=== PATIENT | female | born 1945 | race Caucasian/White ===

== ENCOUNTER 2021-05-15 14:45 | Inpatient (IN) | payer MEDICARE, BC ==
[2021-05-15] MEDS ORDERED: Norflurane/HFc 245FA Medium Stream Spray 103.5 ML Can ONE (15:25)
[2021-05-15] MEDS ORDERED: Norflurane/HFc 245FA Medium Stream Spray 103.5 ML Can TOP ONE (15:25)
[2021-05-15] MEDS ORDERED: Furosemide 40 MG/4 ML VIAL IVPUSH ONE (15:27)
[2021-05-15] MEDS ORDERED: methylPREDNISolone Sod Succ 125 MG in Sodium Chloride 0.9% 100 ML IV ONE (15:41)
[2021-05-15] MEDS ORDERED: Azithromycin 500 MG in Sodium Chloride 0.9% 250 ML IV ONE (15:41)
[2021-05-15] MEDS: Sodium Chloride 0.9% 10 ML Syringe FLUSH PRN (15:43)
[2021-05-15] MEDS ORDERED: methylPREDNISolone Sodium Succinate 125 MG/2 ML SDV IVPUSH ONE (16:00)
[2021-05-15 16:05] LABS: O2 DELIVERY DEVICE NASAL CANNULA
[2021-05-15 16:07] LABS: PCO2 ARTERIAL 86 mmHG (35-45)
[2021-05-15 16:08] LABS: BASE EXCESS ARTERIAL 16 mmol/L (-2-3); O2 SATURATION ARTERIAL 14 % (95-98); PO2 ARTERIAL 15 mmHG (80-105)
--- NOTE | 2021-05-15 16:41 | EDM.PDOC ---
ED HPI GENERAL MEDICAL PROBLEM - General Chief Complaint: Cardiovascular Problem Stated Complaint: Increased SOB, lab changes Time Seen by Provider: 05/15/21 15:15 Source of Information: Reports: Patient, Family, Old Records History Limitations: Reports: No Limitations - History of Present Illness INITIAL COMMENTS - FREE TEXT/NARRATIVE: Patient is sent to the ED for concerning lab values. She is accompanied by her twin sister and two nieces. Patient is new to [facility], moved here from [place] after some medical complications to have family help take care of her. She Has COPD on oxygen, hypertension, anemia, CHF and atrial fibrillation. She was at the clinic on 05/12/2021 for sore throat and establishment of a new patient. They were told to watch the throat and return as needed. Over the weekend she continues to complain of sore throat to the point that she was not eating or drinking well. Feels chilled, no other pain. She is chronically on 2 lpm of oxygen. She frequently sleeps a lot during the day. She has a heart history, on amiodarone and metoprolol,diabetic on insulins and once weekly ozempic. She accidently gave herself an injection of Ozempic today instead of on the ( last dose ). She takes a small dose of diuretic but it has not been working or producing urine. Today they returned to the clinic for feeling worse. LAbs adn x-ray were done. concern for respiratory failure with hypercarbia, CHF, anemia sent her to the ED. Patient states she takes iron so her stools are frequently black, but not tar like and no stools. She has been in and out of the hospital and rehab since the end of January. she had a ruptured appendix that then lead to a small bowel obstruction and incarcerated hernia and another surgery one month later. she then ended up with COPD exacerbation, pneumonia and chf in March and in the hospital for antibiotics and blood transfusion. She went back to rehab and had development of sore throat mid April with two courses of antibiotics, steroids. She was following with wound care for her drain site that has not healed. Patient is seen at [facility], displays capacity to give history and answer questions and prefer to not be transferred if at all possible as does family Severity: Moderate Improves with: Reports: None Worsens with: Reports: None Associated Symptoms: Reports: Confusion (hallucinations per family), Fever/Chills, Loss of Appetite, Shortness of Breath, Weakness, Other (sore thorat) Treatments FERMENTATION ENGINEER: Reports: Oxygen - Related Data Allergies Allergy/AdvReac Type Severity Reaction Status Date / Time metformin Allergy Liver Verified 05/15/21 14:50 Problems Home Meds: Home Meds Albuterol/Ipratropium [DuoNeb 3.0-0.5 MG/3 ML] 1 inh INH QID PRN 05/15/21 [History] Amiodarone [Cordarone] 200 mg PO DAILY 05/15/21 [History] Budesonide [Pulmicort] 1 inh INH BID 05/15/21 [History] Budesonide/Formoterol [Symbicort 160-4.5 MCG] 2 inh INH BID 05/15/21 [History] Calcium Carbonate 1 tab PO DAILY 05/15/21 [History] Carboxymethylcellulose Sodium [Artificial Tears] 1 drop EYEBOTH TID PRN 05/15/21 [History] Carboxymethylcellulose Sodium [Refresh Liquigel 1%] 1 drop EYEBOTH BEDTIME 05/15/21 [History] Cetirizine [ZyrTEC] 10 mg PO DAILY PRN 05/15/21 [History] Furosemide [Lasix] 20 mg PO BID 05/15/21 [History] Gabapentin [Neurontin] 100 mg PO BID 05/15/21 [History] Insulin Degludec [Tresiba] 20 unit SQ DAILY 05/15/21 [History] Iron Polysaccharide Complex [Iferex 150] 150 mg PO DAILY 05/15/21 [History] Metoprolol Tartrate 12.5 mg PO BID 05/15/21 [History] Nystatin 1 dose TOP BID PRN 05/15/21 [History] Omeprazole 20 mg PO BID 05/15/21 [History] Semaglutide [Wegovy] 0.5 mg PO FR 05/15/21 [History] atorvaSTATin Calcium [Atorvastatin Calcium] 10 mg PO DAILY 05/15/21 [History] polyethylene glycoL 3350 [MiraLAX] 17 gm PO DAILY PRN 05/15/21 [History] Past Medical History Cardiovascular History: Reports: Afib, Heart Failure, High Cholesterol, Hyperten norm, PVD Respiratory History: Reports: COPD (on 2 lpm) Gastrointestinal History: Reports: GERD, Other (See Below) (gi bleed) Neurological History: Reports: Other (See Below) (bouts of confusion with hallucinations) Endocrine/Metabolic History: Reports: Diabetes, Type II, Hypothyroidism (2012, per records resolved 10/2020 ( [place])) Hematologic History: Reports: Anemia (hemoglobin 7-8 range, has received blood transfusion) - Infectious Disease History Infectious Disease History: Reports: Other (See Below) (sepsis) - Past Surgical History GI Surgical History: Reports: Appendectomy (perforation 02/10/2021), Cholecystectomy, Hernia, Abdominal, Hernia Repair/Other (umbilical with incarceration 02/24/2021, ventral hernia with mesh 01/2014) Neurological Surgical History: Reports: Other (See Below) (spinal surgery) Social & Family History - Family History Cardiac: Reports: CAD (brother), [place] (dad) Respiratory: Reports: COPD (sister) Oncologic: Reports: Liver (mom and dad), Lung (brother), Thyroid (daughter) - Tobacco Use Tobacco Use Status *Q: Former Tobacco User - Alcohol Use Alcohol Use History: No Alcohol Use in Last Twelve Months: No - Recreational Drug Use Recreational Drug Use: No Drug Use in Last 12 Months: No ED ROS GENERAL - Review of Systems Review Of Systems: See Below Constitutional: Reports: Chills, Malaise, Fatigue, Decreased Appetite HEENT: Reports: Throat Pain. Denies: Eye Discharge, Eye Pain, Rhinitis, Throat Swelling Respiratory: Reports: Shortness of Breath, Cough (chronic, unchanged). Denies: Pleuritic Chest Pain, Sputum, Hemoptysis Cardiovascular: Reports: Dyspnea on Exertion, Edema, Orthopnea (never lies flat). Denies: Lightheadedness, Palpitations GI/Abdominal: Reports: Abdominal Pain (at site of drainage tube hole that is not healing, not changed, has wound cares), Anorexia, Black Stool (takes iron), Decreased Appetite. Denies: Nausea, Stool Incontinence, Vomiting : Reports: No Symptoms, Other (decreased output from lasix) Skin: Reports: Wound (abdomen unchanged for months) Neurological: Reports: Confusion (at times with hallucinations, then clears), Difficulty Walking (chronically, unchanged) Psychiatric: Reports: Hallucinations (at times) Hematologic/Lymphatic: Reports: Anemia ED EXAM, GENERAL - Physical Exam Exam: See Below Exam Limited By: No Limitations General Appearance: Alert, Lethargic (but rousable, answers questions well, displays capacity for history and to answer questions), Moderate Distress Eye Exam: Bilateral Eye: EOMI, Normal Inspection, PERRL Ears: Normal External Exam, Normal Canal Ear Exam: Bilateral Ear: Auricle Normal, Canal Normal, TM normal Nose: Normal Inspection, Normal Mucosa Throat/Mouth: Normal Inspection, Normal Lips, Normal Oropharynx, Normal Voice. No: Perioral Cyanosis Head: Atraumatic, Normocephalic Neck: Normal Inspection, Non-Tender, Full Range of Motion Respiratory/Chest: Decreased Breath Sounds, Crackles (bases), Accessory Muscle Use, Prolonged Expiration Cardiovascular: No Murmur, Irregularly Irregular. No: Bradycardia, Tachycardia GI/Abdominal: Normal Bowel Sounds, Soft, Non-Tender, Other (dressing over wound site, changed today, dry) (Female) Exam: Other (white vaginal discharge, skin folds with erythema, macerated consistent with yeast) Rectal (Female) Exam: Normal Exam Back Exam: Normal Inspection Extremities: Pedal Edema (2+ to mid valderrama) Neurological: Alert, Oriented, Other (falls asleep easily, but rousable to voice, answers questions well. able to discuss history ) Psychiatric: Normal Affect Skin Exam: Pallor #1 Interpretation EKG Date: 05/15/21 Time: 16:00 Rhythm: A-Fib Rate (Beats/Min): 67 [place]: Normal P-Wave: Absent QRS: Normal ST-T: Normal QT: Normal Comparison: NA - No Prior EKG Course - Vital Signs Last Recorded V/S: Last Vital Signs Temp 36.4 C 05/15/21 14:52 Pulse 72 05/15/21 16:35 Resp 22 H 05/15/21 14:52 BP 97/51 L 05/15/21 15:25 Pulse Ox 95 05/15/21 16:35 - Orders/Labs/Meds Orders: Active Orders 24 hr Category Date Time Status Patient Status [ADT] Routine ADT 05/15/21 16:09 Active Cardiac Monitoring [RC] . DIRECTED Care 05/15/21 15:27 Active Cardiac Monitoring [RC] . DIRECTED Care 05/15/21 16:09 Active EKG Documentation Completion [RC] ASDIRECTED Care 05/15/21 15:28 Active Insert Casillas Catheter [Insert Urinary Catheter] [OM.PC] Care 05/15/21 16:00 Ordered Q24H Oxygen Therapy [RC] 2300 Care 05/15/21 15:27 Active Peripheral IV Care [RC] . DIRECTED Care 05/15/21 15:28 Active Urinary Catheter Assessment [RC] 08,20 Care 05/15/21 15:56 Active Echo Comp wo Cont [US] Stat Exams 05/15/21 15:47 Ordered CULTURE BLOOD [BC] Stat Lab 05/15/21 15:43 Received CULTURE BLOOD [BC] Stat Lab 05/15/21 15:47 Received CULTURE STREP A CONFIRMATION [RM] Stat Lab 05/15/21 15:50 Results FREE T3 [REF] Stat Lab 05/15/21 15:50 Received STREP SCRN A RAPID W CULT CONF [RM] Stat Lab 05/15/21 15:50 Results T4 FREE [CHEM] Stat Lab 05/15/21 15:43 Received Sodium Chloride 0.9% [Saline Flush] Med 05/15/21 15:27 Active 10 ml FLUSH ASDIRECTED PRN Blood Culture x2 Reflex Set [OM.PC] Stat Oth 05/15/21 15:27 Ordered Peripheral IV Insertion Adult [OM.PC] Routine Oth 05/15/21 15:27 Ordered Medication Orders Acetaminophen (Acetaminophen 325 Mg Tab) 650 mg PO Q4H PRN PRN Reason: Pain (Mild 1-3)/fever Hydrocodone Bitart/Acetaminophen (Acetaminophen/Hydrocodone 325-5 Mg Tab) 1 tab PO Q4H PRN PRN Reason: Pain (moderate 4-6) Albuterol (Albuterol 0.083% 2.5 Mg/3 Ml Neb Soln) 2.5 mg NEB Q2H PRN PRN Reason: Shortness Of Breath/wheezing Albuterol/Ipratropium (Albuterol/Ipratropium 3.0-0.5 Mg/3 Ml Neb Soln) 3 ml NEB Q4H PRN PRN Reason: Dyspnea Amiodarone HCl (Amiodarone 200 Mg Tab) 200 mg PO DAILY LISSY Artificial Tears (Polyvinyl Alcohol 1.4% Ophth Soln 15 Ml Bottle) 0 ml EYEBOTH BEDTIME LISSY Artificial Tears (Polyvinyl Alcohol 1.4% Ophth Soln 15 Ml Bottle) 0 ml EYEBOTH TID PRN PRN Reason: Dry Eyes Atorvastatin Calcium (Atorvastatin 10 Mg Tab) 10 mg PO DAILY LISSY Bisacodyl (Bisacodyl 5 Mg Tab) 5 mg PO DAILY PRN PRN Reason: Constipation Budesonide (Budesonide 0.5 Mg/2 Ml Neb Susp) 0.5 mg INH BIDRT LISSY Calcium Carbonate/Glycine (Calcium Carbonate 500 Mg Tab.Chew) 500 mg PO DAILY [facility] Cetirizine HCl (Cetirizine 10 Mg Tab) 10 mg PO DAILY PRN PRN Reason: Allergies Dextrose/Water (50% Dextrose In Water 50 Ml Syringe) 50 ml IVPUSH ONETIME PRN PRN Reason: Hypoglycemia Dextrose/Water (50% Dextrose In Water 50 Ml Syringe) 50 ml IVPUSH ASDIRECTED PRN PRN Reason: Hypoglycemia Enoxaparin Sodium (Enoxaparin 40 Mg/0.4 Ml Syringe) 40 mg SUBCUT DAILY [facility] Furosemide (Furosemide 40 Mg Tab) 20 mg PO BID LISSY Gabapentin (Gabapentin 100 Mg Cap) 100 mg PO BID [facility] Glucagon (Glucagon,Human Recombinant 1 Mg Vial) 1 mg IM ASDIRECTED PRN PRN Reason: Hypoglycemia Insulin Human Lispro (Insulin Lispro 100 Units/Ml 3 Ml Vial) 0 unit SUBCUT ASDIRECTED [facility]; Protocol Insulin Lispro Protam/Lispro Human (Insulin Lispro Protamine/Lispro 75-25 100 Units/Ml 10 Ml Vial) 0 unit SUBCUT TIDAC [facility]; Protocol Levothyroxine Sodium (Levothyroxine 112 Mcg Tab) 112 mcg PO ACBREAKFAST [facility] Mometasone Furoate/Formoterol Fumar (Formoterol/Mometasone 200-5 Mcg 8.8 Gm Inhaler) 0 puff IH BID [facility] Nystatin (Nystatin Topical Powder 15 Gm Bottle) 0 gm TOP BID PRN PRN Reason: Rash Omeprazole (Omeprazole 20 Mg Cap.Cr) 20 mg PO BID [facility] Ondansetron HCl (Ondansetron 4 Mg Tab.Dis) 4 mg PO Q4H PRN PRN Reason: Nausea/Vomiting Polysaccharide Iron Complex (Iron Polysaccharides Complex 150 Mg Cap) 150 mg PO DAILY [facility] Sodium Chloride (Sodium Chloride 0.9% 10 Ml Syringe) 10 ml FLUSH ASDIRECTED PRN PRN Reason: Keep Vein Open Last Admin: 05/15/21 15:43 Dose: 10 ml Documented by: KELSI Labs: Laboratory Tests 05/15/21 05/15/21 05/15/21 Range/Units 15:43 15:43 15:43 ABG pH (7.35-7.45) ABG pCO2 (35-45) mmHG ABG pO2 (80-105) mmHG ABG HCO3 (22-26) mmol/L ABG Total CO2 (23-27) mmol/L ABG O2 Saturation (95-98) % ABG Base Excess (-2-3) mmol/L O2 Delivery Device Lactic Acid 1.5 (0.4-2.0) mmol/L Magnesium 1.9 (1.8-2.4) mg/dL C-Reactive Protein 0.7 (<=0.9) mg/dL Ketones Negative Blood Type Gel Antibody Screen 05/15/21 05/15/21 Range/Units 15:55 15:55 ABG pH 7.32 L (7.35-7.45) ABG pCO2 86 H* (35-45) mmHG ABG pO2 15 L* (80-105) mmHG ABG HCO3 44.0 H (22-26) mmol/L ABG Total CO2 44 H (23-27) mmol/L ABG O2 Saturation 14 L (95-98) % ABG Base Excess 16 H (-2-3) mmol/L O2 Delivery Device Nasal cannula Lactic Acid (0.4-2.0) mmol/L Magnesium (1.8-2.4) mg/dL C-Reactive Protein (<=0.9) mg/dL Ketones Blood Type A POSITIVE Gel Antibody Screen Negative Labs from the clinic today WBC2.8 hemoglobin 7.7 hematocrit 25.9 platelets 140 neutrophil 55.6 lymph 0.94 sodium 146 potassium 4.1 chloride 105 carbon dioxide 43.2 anoin gap 1.9 bun 1.9 creatinine1.88 gfr 26 glucose 88 hemoglobin a 1 c 4.1 calcium 8.5 total bilirubin 2.0 ast 18 alt 21 alk phos 110 trop 40 ( high sens) BNP 8321 total protein 6.1 albumin 3.0 TSH 10.187 Meds: Medications Generic Name Dose Route Start Last Admin Trade Name Freq PRN Reason Stop Dose Admin Acetaminophen 650 mg 05/15/21 16:57 Acetaminophen 325 Mg Tab PO Q4H PRN Pain (Mild 1-3)/fever Hydrocodone Bitart/Acetaminophen 1 tab 05/15/21 16:57 Acetaminophen/Hydrocodone 325-5 Mg Tab PO Q4H PRN Pain (moderate 4-6) Albuterol 2.5 mg 05/15/21 16:57 Albuterol 0.083% 2.5 Mg/3 Ml Neb Soln NEB Q2H PRN Shortness Of Breath/wheezing Albuterol/Ipratropium 3 ml 05/15/21 16:57 Albuterol/Ipratropium 3.0-0.5 Mg/3 Ml Neb Soln NEB Q4H PRN Dyspnea Amiodarone HCl 200 mg 05/16/21 08:00 Amiodarone 200 Mg Tab PO DAILY LISSY Artificial Tears 0 ml 05/15/21 20:00 Polyvinyl Alcohol 1.4% Ophth Soln 15 Ml Bottle EYEBOTH BEDTIME LISSY Artificial Tears 0 ml 05/15/21 17:46 Polyvinyl Alcohol 1.4% Ophth Soln 15 Ml Bottle EYEBOTH TID PRN Dry Eyes Atorvastatin Calcium 10 mg 05/16/21 08:00 Atorvastatin 10 Mg Tab PO DAILY [facility] Bisacodyl 5 mg 05/15/21 16:57 Bisacodyl 5 Mg Tab PO DAILY PRN Constipation Budesonide 0.5 mg 05/15/21 20:00 Budesonide 0.5 Mg/2 Ml Neb Susp INH BIDRT [facility] Calcium Carbonate/Glycine 500 mg 05/16/21 08:00 Calcium Carbonate 500 Mg Tab.Chew PO DAILY [facility] Cetirizine HCl 10 mg 05/15/21 17:08 Cetirizine 10 Mg Tab PO DAILY PRN Allergies Dextrose/Water 50 ml 05/15/21 16:57 50% Dextrose In Water 50 Ml Syringe IVPUSH ONETIME PRN Hypoglycemia Dextrose/Water 50 ml 05/15/21 17:13 50% Dextrose In Water 50 Ml Syringe IVPUSH ASDIRECTED PRN Hypoglycemia Enoxaparin Sodium 40 mg 05/15/21 17:00 Enoxaparin 40 Mg/0.4 Ml Syringe SUBCUT DAILY [facility] Furosemide 20 mg 05/15/21 18:00 Furosemide 40 Mg Tab PO BID [facility] Gabapentin 100 mg 05/15/21 18:00 Gabapentin 100 Mg Cap PO BID [facility] Glucagon 1 mg 05/15/21 17:13 Glucagon,Human Recombinant 1 Mg Vial IM ASDIRECTED PRN Hypoglycemia Insulin Human Lispro 0 unit 05/15/21 17:00 Insulin Lispro 100 Units/Ml 3 Ml Vial SUBCUT ASDIRECTED [facility] Protocol Insulin Lispro Protam/Lispro Human 0 unit 05/15/21 17:30 Insulin Lispro Protamine/Lispro 75-25 100 Units/Ml 10 Ml Vial SUBCUT TIDAC [facility] Protocol Levothyroxine Sodium 112 mcg 05/16/21 07:30 Levothyroxine 112 Mcg Tab PO ACBREAKFAST [facility] Mometasone Furoate/Formoterol Fumar 0 puff 05/15/21 18:00 Formoterol/Mometasone 200-5 Mcg 8.8 Gm Inhaler IH BID [facility] Nystatin 0 gm 05/15/21 17:08 Nystatin Topical Powder 15 Gm Bottle TOP BID PRN Rash Omeprazole 20 mg 05/15/21 18:00 Omeprazole 20 Mg Cap.Cr PO BID [facility] Ondansetron HCl 4 mg 05/15/21 16:57 Ondansetron 4 Mg Tab.Dis PO Q4H PRN Nausea/Vomiting Polysaccharide Iron Complex 150 mg 05/16/21 08:00 Iron Polysaccharides Complex 150 Mg Cap PO DAILY [facility] Sodium Chloride 10 ml 05/15/21 15:27 05/15/21 15:43 Sodium Chloride 0.9% 10 Ml Syringe FLUSH 10 ml ASDIRECTED PRN Administration Keep Vein Open Discontinued Medications Generic Name Dose Route Start Last Admin Trade Name Freq PRN Reason Stop Dose Admin Furosemide 40 mg 05/15/21 15:27 05/15/21 15:43 Furosemide 40 Mg/4 Ml Vial IVPUSH 05/15/21 15:28 40 mg NOW ONE Administration Azithromycin 500 mg/ Sodium 250 mls @ 250 mls/hr 05/15/21 15:41 05/15/21 16:01 Chloride IV 05/15/21 16:40 250 mls/hr ONETIME ONE Administration Methylprednisolone Sodium 101 mls @ 100 mls/hr 05/15/21 15:41 05/15/21 15:58 Succinate 125 mg/ Sodium IV 05/15/21 16:45 Not Given Chloride ONETIME ONE Methylprednisolone Sodium Succinate 125 mg 05/15/21 16:00 05/15/21 16:00 Methylprednisolone Sodium Succinate 125 Mg/2 Ml Sdv IVPUSH 05/15/21 16:01 125 mg ONETIME ONE Administration Norflurane Confirm 05/15/21 15:25 05/15/21 16:00 Norflurane/Hfc 245fa Medium [place] 103.5 Ml Can Administered 05/15/21 15:26 Not Given Dose 103.5 ml .ROUTE .STK-MED ONE Norflurane 1 ml 05/15/21 15:25 05/15/21 15:35 Norflurane/Hfc 245fa Medium [place] 103.5 Ml Can TOP 05/15/21 15:26 1 dose ONETIME ONE Administration - Radiology Interpretation Free Text/Narrative:: chest x-ray done at clinic with increased pulmonary vasculature and due to habitus, heart size and position, unable to rue of left lower lobe infiltrate. Cardiomegaly, interpreted by radiology - Re-Assessments/Exams Free Text/Narrative Re-Assessment/Exam: 05/15/21 16:30 Patient presents from the clinic via wheelchair with labs and x-ray already done. Her complaint is fatigue and sore throat. Clinic concern for hypercarbia and CHF. Patient appears pale, on O2. I obtained records from the clinic results today and the last visits to [facility] for her medical history. Patient was admitted to hospital in October 2020 with sepsis, acute respiratory failure and pneumonia Improved from this and sent home, but had presented with confusion initially which cleared. For some reason her levothyroxine was stopped. Patient returned in February 10 for appendicitis that was ruptured. Was hospitalized, had surgery and went to rehab. While in rehab, started vomiting and had developed a SBO with incarcerated umbilical hernia and had surgery again. Drain had been placed and when sent back to rehab, wound was open from the drain and slow to heal. Returned to the hospital in March with acute respiratory distress/failure, chf and pneumonia. Given blood, wound cares were started on her drain site. She w as discharged back home. returned to the ER on 04/27 for confusion that cleared, sore throat. Was given azithromycin and amoxicillin. Returned on 05/01 for continued sore throat. Labs done, Found to have WILLIE, with creatinine of 2.01, CO@ was 36 with a PCO2 of 58 on blood gas, hemoglobin 7.9, WBC 3.1, platelets 135. Wound was 1.4x0.8x2.3 cmm and dressing change once a week was instructed. AT this time of discharge ( 05/10/21) family decided to move her to [place]. Will admit Anemia Note that patient is pale, has chronic anemia with last hemoglobin of 7.9 symptomatic: will cross and get two units PRBC and transfuse tomorrow hypertension Note patient is on amiodarone and metoprolol, blood pressure per patient is 100/60 and records document this. She is also on this for rate control for her atrial fibrillation. Will continue the amiodarone initially for rate control and hold the metoprolol unless the blood pressure or rate increases. Acute respiratory failure with hypercarbia Patient is a known CO2 retainer per records. Will continue to give O2, aggressive albuterol, duo neb and budesonide nebs to help. patient has expressed DNI/DNR status can progress to Bipap if needed, does not appear to be fatigued from work of breathing\ Will cover for possible pneumonia with one dose of azithromycin IV today and then orals tomorrow. blood cultures is pending hypothyroid will restart her levothyroxine. no signs of myxedema DM hemoglobin A1 c is 4.1. Is on treceba and ozempic, will convert to insulin as needed with meals. accidentally took this today ( due on fridays, took last week). Will closely monitor her glucose. CHF BNP is high , not sure her baseline, none sent with records. is on 20 mg of lasix bid. Will give lasix 20 daily, bolus as needed, follow labs. Echoc ardiogram is scheduled for tomorrow to look for valvular problems. hyperlipidemia continue meds, troponin negative today. anticipate possible swingbed admission after acute stay and is stabilized. Offered transfer to [facility] but patient and family declined Free Text/Narrative Re-Assessment/Exam: 05/15/21 18:49 Please use this history and physical as an admission H & P Departure - Departure Time of Disposition: 16:10 Disposition: Admitted As Inpatient 65 Clinical Impression: Anemia, CHF (congestive heart failure), Respiratory failure with hypercapnia, Hypothyroid Sepsis Event Note (ED) - Evaluation Sepsis Screening Result: No Definite Risk - Focused Exam Vital Signs: Vital Signs Temp Pulse Resp BP Pulse Ox 05/15/21 15:45 67 99 05/15/21 15:25 70 97/51 L 95 05/15/21 14:52 36.4 C 70 22 H 138/73 97 - My Orders Last 24 Hours: My Active Orders 05/15/21 15:27 Cardiac Monitoring [RC] . DIRECTED Oxygen Therapy [RC] 2300 Sodium Chloride 0.9% [Saline Flush] 10 ml FLUSH ASDIRECTED PRN Blood Culture x2 Reflex Set [OM.PC] Stat Peripheral IV Insertion Adult [OM.PC] Routine 05/15/21 15:28 EKG Documentation Completion [RC] ASDIRECTED Peripheral IV Care [RC] . DIRECTED 05/15/21 15:43 CULTURE BLOOD [BC] Stat T4 FREE [CHEM] Stat 05/15/21 15:47 Echo Comp wo Cont [US] Stat CULTURE BLOOD [BC] Stat 05/15/21 15:50 CULTURE STREP A CONFIRMATION [RM] Stat FREE T3 [REF] Stat STREP SCRN A RAPID W CULT CONF [RM] Stat 05/15/21 15:56 Urinary Catheter Assessment [RC] 05/15/21 16:00 Insert [place] Catheter [Insert Urinary Catheter] [OM.PC] Q24H 05/15/21 16:09 Patient Status [ADT] Routine Cardiac Monitoring [RC] . DIRECTED - Assessment/Plan Last 24 Hours: My Active Orders 05/15/21 15:27 Cardiac Monitoring [RC] . DIRECTED Oxygen Therapy [RC] 2300 Sodium Chloride 0.9% [Saline Flush] 10 ml FLUSH ASDIRECTED PRN Blood Culture x2 Reflex Set [OM.PC] Stat Peripheral IV Insertion Adult [OM.PC] Routine 05/15/21 15:28 EKG Documentation Completion [RC] ASDIRECTED Peripheral IV Care [RC] . DIRECTED 05/15/21 15:43 CULTURE BLOOD [BC] Stat T4 FREE [CHEM] Stat 05/15/21 15:47 Echo Comp wo Cont [US] Stat CULTURE BLOOD [BC] Stat 05/15/21 15:50 CULTURE STREP A CONFIRMATION [RM] Stat FREE T3 [REF] Stat STREP SCRN A RAPID W CULT CONF [RM] Stat 05/15/21 15:56 Urinary Catheter Assessment [RC] 05/15/21 16:00 Insert [place] Catheter [Insert Urinary Catheter] [OM.PC] Q24H 05/15/21 16:09 Patient Status [ADT] Routine Cardiac Monitoring [RC] . DIRECTED
[2021-05-15] MEDS ORDERED: 50% Dextrose in Water 50 ML Syringe IVPUSH PRN ×2 (16:57→17:13)
[2021-05-15] MEDS ORDERED: Ondansetron 4 MG Tab.DIS PO PRN (16:57)
[2021-05-15] MEDS ORDERED: Acetaminophen 325 MG Tab PO PRN (16:57)
[2021-05-15] MEDS ORDERED: Bisacodyl 5 MG Tab PO PRN (16:57)
[2021-05-15] MEDS ORDERED: Acetaminophen/HYDROcodone 325-5 MG Tab PO PRN (16:57)
[2021-05-15] MEDS ORDERED: Albuterol 0.083% 2.5 MG/3 ML Neb Soln NEB PRN (16:57)
[2021-05-15] MEDS ORDERED: Insulin Lispro 100 Units/ML 3 ML Vial SUBCUT SCH (17:00)
[2021-05-15] MEDS ORDERED: Nystatin Topical Powder 15 GM Bottle TOP PRN (17:08)
[2021-05-15] MEDS ORDERED: Cetirizine 10 MG Tab PO PRN (17:08)
[2021-05-15] MEDS ORDERED: Glucagon,Human Recombinant 1 MG Vial IM PRN (17:13)
[2021-05-15] MEDS ORDERED: Polyvinyl Alcohol 1.4% Ophth Soln 15 ML Bottle EYEBOTH PRN (17:46)
[2021-05-15] MEDS: Insulin Lispro Protamine/Lispro 75-25 100 Units/ML 10 ML Vial SUBCUT SCH (18:49)
[2021-05-15] MEDS: Furosemide 40 MG Tab PO SCH (19:07)
[2021-05-15] MEDS: Omeprazole 20 MG Cap.CR PO SCH (19:07)
[2021-05-15] MEDS: Gabapentin 100 MG Cap PO SCH (19:08)
[2021-05-15] MEDS: Formoterol/Mometasone 200-5 MCG 8.8 GM Inhaler IH SCH (19:09)
[2021-05-15] MEDS: Budesonide 0.5 MG/2 ML Neb Susp INH SCH (19:37)
[2021-05-15] MEDS: Enoxaparin 30 MG/0.3 ML Syringe SUBCUT SCH (19:37)
[2021-05-15] MEDS: Polyvinyl Alcohol 1.4% Ophth Soln 15 ML Bottle EYEBOTH SCH (19:38)
[2021-05-16] MEDS: Insulin Lispro Protamine/Lispro 75-25 100 Units/ML 10 ML Vial SUBCUT SCH ×3 (07:45→17:14)
[2021-05-16 08:08] LABS: ANION GAP 2.2 meq/L (7-15)
[2021-05-16] MEDS: Amiodarone 200 MG Tab PO SCH (08:11)
[2021-05-16] MEDS: Levothyroxine 112 MCG Tab PO SCH (08:11)
[2021-05-16] MEDS: Azithromycin 250 MG Tab PO SCH (08:12)
[2021-05-16] MEDS: Budesonide 0.5 MG/2 ML Neb Susp INH SCH ×2 (08:12→20:43)
[2021-05-16] MEDS: Furosemide 40 MG Tab PO SCH ×2 (08:12→17:13)
[2021-05-16] MEDS: Omeprazole 20 MG Cap.CR PO SCH ×2 (08:12→17:13)
[2021-05-16] MEDS: atorvaSTATin 10 MG Tab PO SCH (08:12)
[2021-05-16] MEDS: Iron Polysaccharides Complex 150 MG Cap PO SCH (08:12)
[2021-05-16] MEDS: Calcium Carbonate 500 MG Tab.Chew PO SCH (08:12)
[2021-05-16] MEDS: Gabapentin 100 MG Cap PO SCH ×2 (08:12→17:13)
[2021-05-16] MEDS: Enoxaparin 30 MG/0.3 ML Syringe SUBCUT SCH (08:13)
[2021-05-16] MEDS: Formoterol/Mometasone 200-5 MCG 8.8 GM Inhaler IH SCH ×2 (08:13→17:05)
--- NOTE | 2021-05-16 11:48 | PCM.PN ---
- General Info Date of Service: 05/16/21 Admission Dx/Problem (Free Text): copd, anemia, chf Subjective Update: Patient diuresed overnight with indweling catheter. Slept well and breathing is improved. limited PO intake but taking orals. NO fevers. no complaints Functional Status: Reports: Pain Controlled - Review of Systems General: Reports: Fatigue (persistent) HEENT: Reports: Sore Throat (for the last month) Pulmonary: Reports: Shortness of Breath, Cough (unchanged) Cardiovascular: Reports: No Symptoms Gastrointestinal: Reports: No Symptoms Neurological: Reports: No Symptoms - Patient Data Vitals - Most Recent: Last Vital Signs Temp -12.7 C L 05/16/21 11:15 Pulse 69 05/16/21 11:15 Resp 20 05/16/21 11:15 BP 130/64 05/16/21 11:15 Pulse Ox 98 05/16/21 11:15 note, entered in error temperature, not hypothermic Weight - Most Recent: 137.643 kg I&O - Last 24 Hours: Intake & Output 05/15/21 05/16/21 05/16/21 22:59 06:59 14:59 Intake Total 50 0 Output Total 350 500 Balance -300 -500 0 Lab Results Last 24 Hours: Laboratory Results - last 24 hr 05/15/21 05/15/21 05/15/21 Range/Units 15:43 15:43 15:43 WBC (4.0-10.2) K/uL RBC (3.77-5.09) M/uL Hgb (11.7-15.5) g/dL Hct (34.0-46.0) % MCV (84.0-98.0) fL MCH (28.2-33.3) pg MCHC (31.7-36.0) g/dL RDW (11.2-14.1) % Plt Count (150-350) K/uL Neut % (Auto) (45.0-80.0) % Lymph % (Auto) (10.0-50.0) % [place] % (Auto) (2.0-14.0) % Eos % (Auto) (0.0-5.0) % Baso % (Auto) (0.0-2.0) % Neut # (Auto) (1.40-7.00) K/uL Lymph # (Auto) (0.50-3.50) K/uL [place] # (Auto) (0.00-1.00) K/uL Eos # (Auto) (0.00-0.50) K/uL Baso # (Auto) (0.00-0.20) K/uL ABG pH (7.35-7.45) ABG pCO2 (35-45) mmHG ABG pO2 (80-105) mmHG ABG HCO3 (22-26) mmol/L ABG Total CO2 (23-27) mmol/L ABG O2 Saturation (95-98) % ABG Base Excess (-2-3) mmol/L O2 Delivery Device Sodium (136-145) mmol/L Potassium (3.5-5.1) mmol/L Chloride (98-107) mmol/L Carbon Dioxide (21.0-32.0) mmol/L Anion Gap (7-15) meq/L BUN (7-18) mg/dL Creatinine (0.51-1.17) mg/dL Est Cr Clr Drug Dosing mL/min Estimated GFR (MDRD) mL/min Glucose (70-99) mg/dL POC Glucose (70-99) mg/dL Lactic Acid 1.5 (0.4-2.0) mmol/L Calcium (8.5-10.1) mg/dL Magnesium 1.9 (1.8-2.4) mg/dL Troponin I High Sens (<=51) ng/L C-Reactive Protein 0.7 (<=0.9) mg/dL Free T4 (0.76-1.46) ng/dL Specimen Type Urine Color Urine Appearance Urine pH (5.0-9.0) Ur Specific [place] (1.005-1.030) Urine Protein (NEGATIVE) mg/dL Urine Glucose (UA) (NEGATIVE) mg/dL Urine Ketones (NEGATIVE) mg/dL Urine Occult Blood (NEGATIVE) Urine Nitrite (NEGATIVE) Urine Bilirubin (NEGATIVE) Urine Urobilinogen (0.2-1.0) E.U./dL Ur Leukocyte Esterase (NEGATIVE) Ketones Negative SARS-CoV-2 Ag (Rapid) (NEGATIVE) Blood Type Gel Antibody Screen Crossmatch 05/15/21 05/15/21 05/15/21 Range/Units 15:43 15:55 15:55 WBC (4.0-10.2) K/uL RBC (3.77-5.09) M/uL Hgb (11.7-15.5) g/dL Hct (34.0-46.0) % MCV (84.0-98.0) fL MCH (28.2-33.3) pg MCHC (31.7-36.0) g/dL RDW (11.2-14.1) % Plt Count (150-350) K/uL Neut % (Auto) (45.0-80.0) % Lymph % (Auto) (10.0-50.0) % [place] % (Auto) (2.0-14.0) % Eos % (Auto) (0.0-5.0) % Baso % (Auto) (0.0-2.0) % Neut # (Auto) (1.40-7.00) K/uL Lymph # (Auto) (0.50-3.50) K/uL [place] # (Auto) (0.00-1.00) K/uL Eos # (Auto) (0.00-0.50) K/uL Baso # (Auto) (0.00-0.20) K/uL ABG pH 7.32 L (7.35-7.45) ABG pCO2 86 H* (35-45) mmHG ABG pO2 15 L* (80-105) mmHG ABG HCO3 44.0 H (22-26) mmol/L ABG Total CO2 44 H (23-27) mmol/L ABG O2 Saturation 14 L (95-98) % ABG Base Excess 16 H (-2-3) mmol/L O2 Delivery Device Nasal cannula Sodium (136-145) mmol/L Potassium (3.5-5.1) mmol/L Chloride (98-107) mmol/L Carbon Dioxide (21.0-32.0) mmol/L Anion Gap (7-15) meq/L BUN (7-18) mg/dL Creatinine (0.51-1.17) mg/dL Est Cr Clr Drug Dosing mL/min Estimated GFR (MDRD) mL/min Glucose (70-99) mg/dL POC Glucose (70-99) mg/dL Lactic Acid (0.4-2.0) mmol/L Calcium (8.5-10.1) mg/dL Magnesium (1.8-2.4) mg/dL Troponin I High Sens (<=51) ng/L C-Reactive Protein (<=0.9) mg/dL Free T4 1.20 (0.76-1.46) ng/dL Specimen Type Urine Color Urine Appearance Urine pH (5.0-9.0) Ur Specific [place] (1.005-1.030) Urine Protein (NEGATIVE) mg/dL Urine Glucose (UA) (NEGATIVE) mg/dL Urine Ketones (NEGATIVE) mg/dL Urine Occult Blood (NEGATIVE) Urine Nitrite (NEGATIVE) Urine Bilirubin (NEGATIVE) Urine Urobilinogen (0.2-1.0) E.U./dL Ur Leukocyte Esterase (NEGATIVE) Ketones SARS-CoV-2 Ag (Rapid) (NEGATIVE) Blood Type A POSITIVE Gel Antibody Screen Cancelled Crossmatch See Detail 05/15/21 05/15/21 05/15/21 Range/Units 16:24 17:30 17:34 WBC (4.0-10.2) K/uL RBC (3.77-5.09) M/uL Hgb (11.7-15.5) g/dL Hct (34.0-46.0) % MCV (84.0-98.0) fL MCH (28.2-33.3) pg MCHC (31.7-36.0) g/dL RDW (11.2-14.1) % Plt Count (150-350) K/uL Neut % (Auto) (45.0-80.0) % Lymph % (Auto) (10.0-50.0) % [place] % (Auto) (2.0-14.0) % Eos % (Auto) (0.0-5.0) % Baso % (Auto) (0.0-2.0) % Neut # (Auto) (1.40-7.00) K/uL Lymph # (Auto) (0.50-3.50) K/uL [place] # (Auto) (0.00-1.00) K/uL Eos # (Auto) (0.00-0.50) K/uL Baso # (Auto) (0.00-0.20) K/uL ABG pH (7.35-7.45) ABG pCO2 (35-45) mmHG ABG pO2 (80-105) mmHG ABG HCO3 (22-26) mmol/L ABG Total CO2 (23-27) mmol/L ABG O2 Saturation (95-98) % ABG Base Excess (-2-3) mmol/L O2 Delivery Device Sodium (136-145) mmol/L Potassium (3.5-5.1) mmol/L Chloride (98-107) mmol/L Carbon Dioxide (21.0-32.0) mmol/L Anion Gap (7-15) meq/L BUN (7-18) mg/dL Creatinine (0.51-1.17) mg/dL Est Cr Clr Drug Dosing mL/min Estimated GFR (MDRD) mL/min Glucose (70-99) mg/dL POC Glucose 93 (70-99) mg/dL Lactic Acid (0.4-2.0) mmol/L Calcium (8.5-10.1) mg/dL Magnesium (1.8-2.4) mg/dL Troponin I High Sens (<=51) ng/L C-Reactive Protein (<=0.9) mg/dL Free T4 (0.76-1.46) ng/dL Specimen Type [place] Urine Color Dark yellow Urine Appearance Clear Urine pH 7.0 (5.0-9.0) Ur Specific [place] 1.020 (1.005-1.030) Urine Protein Negative (NEGATIVE) mg/dL Urine Glucose (UA) Negative (NEGATIVE) mg/dL Urine Ketones Negative (NEGATIVE) mg/dL Urine Occult Blood Negative (NEGATIVE) Urine Nitrite Negative (NEGATIVE) Urine Bilirubin Negative (NEGATIVE) Urine Urobilinogen 0.2 (0.2-1.0) E.U./dL Ur Leukocyte Esterase Negative (NEGATIVE) Ketones SARS-CoV-2 Ag (Rapid) Negative (NEGATIVE) Blood Type Gel Antibody Screen Crossmatch 05/15/21 05/16/21 05/16/21 Range/Units 21:03 07:10 07:20 WBC 2.0 L (4.0-10.2) K/uL RBC 2.18 L (3.77-5.09) M/uL Hgb 7.0 L* (11.7-15.5) g/dL Hct 23.6 L* (34.0-46.0) % MCV 108.3 H D (84.0-98.0) fL MCH 32.1 (28.2-33.3) pg MCHC 29.7 L (31.7-36.0) g/dL RDW 17.4 H (11.2-14.1) % Plt Count 112 L (150-350) K/uL Neut % (Auto) 69.0 (45.0-80.0) % Lymph % (Auto) 26.5 (10.0-50.0) % [place] % (Auto) 4.0 (2.0-14.0) % Eos % (Auto) 0.0 (0.0-5.0) % Baso % (Auto) 0.5 (0.0-2.0) % Neut # (Auto) 1.38 L (1.40-7.00) K/uL Lymph # (Auto) 0.53 (0.50-3.50) K/uL [place] # (Auto) 0.08 (0.00-1.00) K/uL Eos # (Auto) 0.00 (0.00-0.50) K/uL Baso # (Auto) 0.01 (0.00-0.20) K/uL ABG pH (7.35-7.45) ABG pCO2 (35-45) mmHG ABG pO2 (80-105) mmHG ABG HCO3 (22-26) mmol/L ABG Total CO2 (23-27) mmol/L ABG O2 Saturation (95-98) % ABG Base Excess (-2-3) mmol/L O2 Delivery Device Sodium (136-145) mmol/L Potassium (3.5-5.1) mmol/L Chloride (98-107) mmol/L Carbon Dioxide (21.0-32.0) mmol/L Anion Gap (7-15) meq/L BUN (7-18) mg/dL Creatinine (0.51-1.17) mg/dL Est Cr Clr Drug Dosing mL/min Estimated GFR (MDRD) mL/min Glucose (70-99) mg/dL POC Glucose 192 H 135 H (70-99) mg/dL Lactic Acid (0.4-2.0) mmol/L Calcium (8.5-10.1) mg/dL Magnesium (1.8-2.4) mg/dL Troponin I High Sens (<=51) ng/L C-Reactive Protein (<=0.9) mg/dL Free T4 (0.76-1.46) ng/dL Specimen Type Urine Color Urine Appearance Urine pH (5.0-9.0) Ur Specific [place] (1.005-1.030) Urine Protein (NEGATIVE) mg/dL Urine Glucose (UA) (NEGATIVE) mg/dL Urine Ketones (NEGATIVE) mg/dL Urine Occult Blood (NEGATIVE) Urine Nitrite (NEGATIVE) Urine Bilirubin (NEGATIVE) Urine Urobilinogen (0.2-1.0) E.U./dL Ur Leukocyte Esterase (NEGATIVE) Ketones SARS-CoV-2 Ag (Rapid) (NEGATIVE) Blood Type Gel Antibody Screen Crossmatch 05/16/21 05/16/21 Range/Units 07:20 11:15 WBC (4.0-10.2) K/uL RBC (3.77-5.09) M/uL Hgb (11.7-15.5) g/dL Hct (34.0-46.0) % MCV (84.0-98.0) fL MCH (28.2-33.3) pg MCHC (31.7-36.0) g/dL RDW (11.2-14.1) % Plt Count (150-350) K/uL Neut % (Auto) (45.0-80.0) % Lymph % (Auto) (10.0-50.0) % [place] % (Auto) (2.0-14.0) % Eos % (Auto) (0.0-5.0) % Baso % (Auto) (0.0-2.0) % Neut # (Auto) (1.40-7.00) K/uL Lymph # (Auto) (0.50-3.50) K/uL [place] # (Auto) (0.00-1.00) K/uL Eos # (Auto) (0.00-0.50) K/uL Baso # (Auto) (0.00-0.20) K/uL ABG pH (7.35-7.45) ABG pCO2 (35-45) mmHG ABG pO2 (80-105) mmHG ABG HCO3 (22-26) mmol/L ABG Total CO2 (23-27) mmol/L ABG O2 Saturation (95-98) % ABG Base Excess (-2-3) mmol/L O2 Delivery Device Sodium 145 (136-145) mmol/L Potassium 4.0 (3.5-5.1) mmol/L Chloride 105 (98-107) mmol/L Carbon Dioxide 41.8 H* (21.0-32.0) mmol/L Anion Gap 2.2 L (7-15) meq/L BUN 18 (7-18) mg/dL Creatinine 1.74 H (0.51-1.17) mg/dL Est Cr Clr Drug Dosing 21.75 mL/min Estimated GFR (MDRD) 28 mL/min Glucose 157 H (70-99) mg/dL POC Glucose 117 H (70-99) mg/dL Lactic Acid (0.4-2.0) mmol/L Calcium 8.5 (8.5-10.1) mg/dL Magnesium (1.8-2.4) mg/dL Troponin I High Sens 34 (<=51) ng/L C-Reactive Protein (<=0.9) mg/dL Free T4 (0.76-1.46) ng/dL Specimen Type Urine Color Urine Appearance Urine pH (5.0-9.0) Ur Specific [place] (1.005-1.030) Urine Protein (NEGATIVE) mg/dL Urine Glucose (UA) (NEGATIVE) mg/dL Urine Ketones (NEGATIVE) mg/dL Urine Occult Blood (NEGATIVE) Urine Nitrite (NEGATIVE) Urine Bilirubin (NEGATIVE) Urine Urobilinogen (0.2-1.0) E.U./dL Ur Leukocyte Esterase (NEGATIVE) Ketones SARS-CoV-2 Ag (Rapid) (NEGATIVE) Blood Type Gel Antibody Screen Crossmatch Yannick Results Last 24 Hours: Microbiology 05/15/21 15:37 Occult Blood - Final Stool / Feces 05/15/21 15:50 Group A Streptococcus Rapid Screen - Final Throat NEGATIVE STREP A SCREEN REFERENCE RANGE: NEGATIVE Med Orders - Current: Current Medications Acetaminophen (Acetaminophen 325 Mg Tab) 650 mg PO Q4H PRN PRN Reason: Pain (Mild 1-3)/fever Hydrocodone Bitart/Acetaminophen (Acetaminophen/Hydrocodone 325-5 Mg Tab) 1 tab PO Q4H PRN PRN Reason: Pain (moderate 4-6) Albuterol (Albuterol 0.083% 2.5 Mg/3 Ml Neb Soln) 2.5 mg NEB Q2H PRN PRN Reason: Shortness Of Breath/wheezing Albuterol/Ipratropium (Albuterol/Ipratropium 3.0-0.5 Mg/3 Ml Neb Soln) 3 ml NEB Q4H PRN PRN Reason: Dyspnea Amiodarone HCl (Amiodarone 200 Mg Tab) 200 mg PO DAILY [facility] Last Admin: 05/16/21 08:11 Dose: 200 mg Documented by: Artificial Tears (Polyvinyl Alcohol 1.4% Ophth Soln 15 Ml Bottle) 0 ml EYEBOTH BEDTIME [facility] Last Admin: 05/15/21 19:38 Dose: 1 drop Documented by: Artificial Tears (Polyvinyl Alcohol 1.4% Ophth Soln 15 Ml Bottle) 0 ml EYEBOTH TID PRN PRN Reason: Dry Eyes Atorvastatin Calcium (Atorvastatin 10 Mg Tab) 10 mg PO DAILY [facility] Last Admin: 05/16/21 08:12 Dose: 10 mg Documented by: Azithromycin (Azithromycin 250 Mg Tab) 250 mg PO DAILY [facility] Last Admin: 05/16/21 08:12 Dose: 250 mg Documented by: Bisacodyl (Bisacodyl 5 Mg Tab) 5 mg PO DAILY PRN PRN Reason: Constipation Budesonide (Budesonide 0.5 Mg/2 Ml Neb Susp) 0.5 mg INH BIDRT [facility] Last Admin: 05/16/21 08:12 Dose: 0.5 mg Documented by: Calcium Carbonate/Glycine (Calcium Carbonate 500 Mg Tab.Chew) 500 mg PO DAILY [facility] Last Admin: 05/16/21 08:12 Dose: 500 mg Documented by: Cetirizine HCl (Cetirizine 10 Mg Tab) 10 mg PO DAILY PRN PRN Reason: Allergies Dextrose/Water (50% Dextrose In Water 50 Ml Syringe) 50 ml IVPUSH ONETIME PRN PRN Reason: Hypoglycemia Dextrose/Water (50% Dextrose In Water 50 Ml Syringe) 50 ml IVPUSH ASDIRECTED PRN PRN Reason: Hypoglycemia Enoxaparin Sodium (Enoxaparin 30 Mg/0.3 Ml Syringe) 30 mg SUBCUT DAILY [facility] Last Admin: 05/16/21 08:13 Dose: 30 mg Documented by: Furosemide (Furosemide 40 Mg Tab) 20 mg PO BID [facility] Last Admin: 05/16/21 08:12 Dose: 20 mg Documented by: Furosemide (Furosemide 40 Mg/4 Ml Vial) 40 mg IVPUSH NOW ONE Stop: 05/16/21 15:01 Gabapentin (Gabapentin 100 Mg Cap) 100 mg PO BID [facility] Last Admin: 05/16/21 08:12 Dose: 100 mg Documented by: Glucagon (Glucagon,Human Recombinant 1 Mg Vial) 1 mg IM ASDIRECTED PRN PRN Reason: Hypoglycemia Insulin Lispro Protam/Lispro Human (Insulin Lispro Protamine/Lispro 75-25 100 Un its/Ml 10 Ml Vial) 0 unit SUBCUT TIDAC [facility]; Protocol Last Admin: 05/16/21 11:25 Dose: Not Given Documented by: Levothyroxine Sodium (Levothyroxine 112 Mcg Tab) 112 mcg PO ACBREAKFAST [facility] Last Admin: 05/16/21 08:11 Dose: 112 mcg Documented by: Mometasone Furoate/Formoterol Fumar (Formoterol/Mometasone 200-5 Mcg 8.8 Gm Inhaler) 0 puff IH BID [facility] Last Admin: 05/16/21 08:13 Dose: 2 unit Documented by: Nystatin (Nystatin Topical Powder 15 Gm Bottle) 0 gm TOP BID PRN PRN Reason: Rash Last Admin: 05/15/21 19:10 Dose: 1 applic Documented by: Omeprazole (Omeprazole 20 Mg Cap.Cr) 20 mg PO BID [facility] Last Admin: 05/16/21 08:12 Dose: 20 mg Documented by: Ondansetron HCl (Ondansetron 4 Mg Tab.Dis) 4 mg PO Q4H PRN PRN Reason: Nausea/Vomiting Polysaccharide Iron Complex (Iron Polysaccharides Complex 150 Mg Cap) 150 mg PO DAILY [facility] Last Admin: 05/16/21 08:12 Dose: 150 mg Documented by: Sodium Chloride (Sodium Chloride 0.9% 10 Ml Syringe) 10 ml FLUSH ASDIRECTED PRN PRN Reason: Keep Vein Open Last Admin: 05/15/21 15:43 Dose: 10 ml Documented by: Discontinued Medications Furosemide (Furosemide 40 Mg/4 Ml Vial) 40 mg IVPUSH NOW ONE Stop: 05/15/21 15:28 Last Admin: 05/15/21 15:43 Dose: 40 mg Documented by: Azithromycin 500 mg/ Sodium (Chloride) 250 mls @ 250 mls/hr IV ONETIME ONE Stop: 05/15/21 16:40 Last Admin: 05/15/21 16:01 Dose: 250 mls/hr Documented by: Methylprednisolone Sodium Succinate 125 mg/ Sodium Chloride 101 mls @ 100 mls/hr IV ONETIME ONE Stop: 05/15/21 16:45 Last Admin: 05/15/21 15:58 Dose: Not Given Documented by: Insulin Human Lispro (Insulin Lispro 100 Units/Ml 3 Ml Vial) 0 unit SUBCUT ASDIRECTED LISSY; Protocol Methylprednisolone Sodium Succinate (Methylprednisolone Sodium Succinate 125 Mg/2 Ml Sdv) 125 mg IVPUSH ONETIME ONE Stop: 05/15/21 16:01 Last Admin: 05/15/21 16:00 Dose: 125 mg Documented by: Norflurane (Norflurane/Hfc 245fa Medium [place] 103.5 Ml Can) Confirm Administered Dose 103.5 ml .ROUTE .STK-MED ONE Stop: 05/15/21 15:26 Last Admin: 05/15/21 16:00 Dose: Not Given Documented by: Norflurane (Norflurane/Hfc 245fa Medium [place] 103.5 Ml Can) 1 ml TOP ONETIME ONE Stop: 05/15/21 15:26 Last Admin: 05/15/21 15:35 Dose: 1 dose Documented by: - Exam Quality Assessment: Supplemental Oxygen Urinary Catheter Total Time: 0Days 16Hours General: Alert, Other (mild confusion at times, appears to be baseline, can carryon conversation) HEENT: Pupils Equal, Pupils Reactive Neck: Supple, Trachea Midline Lungs: Decreased Breath Sounds, Crackles, Other (improved from yesterday) Cardiovascular: Irregular Rhythm GI/Abdominal Exam: Normal Bowel Sounds, Soft, Other (dressing in place) Extremities: Normal Range of Motion, Pedal Edema Neurological: No New Focal Deficit Psy/Mental Status: Alert - Patient Data Lab Results Last 24 hrs: Laboratory Results - last 24 hr 05/15/21 05/15/21 05/15/21 Range/Units 15:43 15:43 15:43 WBC (4.0-10.2) K/uL RBC (3.77-5.09) M/uL Hgb (11.7-15.5) g/dL Hct (34.0-46.0) % MCV (84.0-98.0) fL MCH (28.2-33.3) pg MCHC (31.7-36.0) g/dL RDW (11.2-14.1) % Plt Count (150-350) K/uL Neut % (Auto) (45.0-80.0) % Lymph % (Auto) (10.0-50.0) % [place] % (Auto) (2.0-14.0) % Eos % (Auto) (0.0-5.0) % Baso % (Auto) (0.0-2.0) % Neut # (Auto) (1.40-7.00) K/uL Lymph # (Auto) (0.50-3.50) K/uL [place] # (Auto) (0.00-1.00) K/uL Eos # (Auto) (0.00-0.50) K/uL Baso # (Auto) (0.00-0.20) K/uL ABG pH (7.35-7.45) ABG pCO2 (35-45) mmHG ABG pO2 (80-105) mmHG ABG HCO3 (22-26) mmol/L ABG Total CO2 (23-27) mmol/L ABG O2 Saturation (95-98) % ABG Base Excess (-2-3) mmol/L O2 Delivery Device Sodium (136-145) mmol/L Potassium (3.5-5.1) mmol/L Chloride (98-107) mmol/L Carbon Dioxide (21.0-32.0) mmol/L Anion Gap (7-15) meq/L BUN (7-18) mg/dL Creatinine (0.51-1.17) mg/dL Est Cr Clr Drug Dosing mL/min Estimated GFR (MDRD) mL/min Glucose (70-99) mg/dL POC Glucose (70-99) mg/dL Lactic Acid 1.5 (0.4-2.0) mmol/L Calcium (8.5-10.1) mg/dL Magnesium 1.9 (1.8-2.4) mg/dL Troponin I High Sens (<=51) ng/L C-Reactive Protein 0.7 (<=0.9) mg/dL Free T4 (0.76-1.46) ng/dL Specimen Type Urine Color Urine Appearance Urine pH (5.0-9.0) Ur Specific [place] (1.005-1.030) Urine Protein (NEGATIVE) mg/dL Urine Glucose (UA) (NEGATIVE) mg/dL Urine Ketones (NEGATIVE) mg/dL Urine Occult Blood (NEGATIVE) Urine Nitrite (NEGATIVE) Urine Bilirubin (NEGATIVE) Urine Urobilinogen (0.2-1.0) E.U./dL Ur Leukocyte Esterase (NEGATIVE) Ketones Negative SARS-CoV-2 Ag (Rapid) (NEGATIVE) Blood Type Gel Antibody Screen Crossmatch 05/15/21 05/15/21 05/15/21 Range/Units 15:43 15:55 15:55 WBC (4.0-10.2) K/uL RBC (3.77-5.09) M/uL Hgb (11.7-15.5) g/dL Hct (34.0-46.0) % MCV (84.0-98.0) fL MCH (28.2-33.3) pg MCHC (31.7-36.0) g/dL RDW (11.2-14.1) % Plt Count (150-350) K/uL Neut % (Auto) (45.0-80.0) % Lymph % (Auto) (10.0-50.0) % [place] % (Auto) (2.0-14.0) % Eos % (Auto) (0.0-5.0) % Baso % (Auto) (0.0-2.0) % Neut # (Auto) (1.40-7.00) K/uL Lymph # (Auto) (0.50-3.50) K/uL [place] # (Auto) (0.00-1.00) K/uL Eos # (Auto) (0.00-0.50) K/uL Baso # (Auto) (0.00-0.20) K/uL ABG pH 7.32 L (7.35-7.45) ABG pCO2 86 H* (35-45) mmHG ABG pO2 15 L* (80-105) mmHG ABG HCO3 44.0 H (22-26) mmol/L ABG Total CO2 44 H (23-27) mmol/L ABG O2 Saturation 14 L (95-98) % ABG Base Excess 16 H (-2-3) mmol/L O2 Delivery Device Nasal cannula Sodium (136-145) mmol/L Potassium (3.5-5.1) mmol/L Chloride (98-107) mmol/L Carbon Dioxide (21.0-32.0) mmol/L Anion Gap (7-15) meq/L BUN (7-18) mg/dL Creatinine (0.51-1.17) mg/dL Est Cr Clr Drug Dosing mL/min Estimated GFR (MDRD) mL/min Glucose (70-99) mg/dL POC Glucose (70-99) mg/dL Lactic Acid (0.4-2.0) mmol/L Calcium (8.5-10.1) mg/dL Magnesium (1.8-2.4) mg/dL Troponin I High Sens (<=51) ng/L C-Reactive Protein (<=0.9) mg/dL Free T4 1.20 (0.76-1.46) ng/dL Specimen Type Urine Color Urine Appearance Urine pH (5.0-9.0) Ur Specific [place] (1.005-1.030) Urine Protein (NEGATIVE) mg/dL Urine Glucose (UA) (NEGATIVE) mg/dL Urine Ketones (NEGATIVE) mg/dL Urine Occult Blood (NEGATIVE) Urine Nitrite (NEGATIVE) Urine Bilirubin (NEGATIVE) Urine Urobilinogen (0.2-1.0) E.U./dL Ur Leukocyte Esterase (NEGATIVE) Ketones SARS-CoV-2 Ag (Rapid) (NEGATIVE) Blood Type A POSITIVE Gel Antibody Screen Cancelled Crossmatch See Detail 05/15/21 05/15/21 05/15/21 Range/Units 16:24 17:30 17:34 WBC (4.0-10.2) K/uL RBC (3.77-5.09) M/uL Hgb (11.7-15.5) g/dL Hct (34.0-46.0) % MCV (84.0-98.0) fL MCH (28.2-33.3) pg MCHC (31.7-36.0) g/dL RDW (11.2-14.1) % Plt Count (150-350) K/uL Neut % (Auto) (45.0-80.0) % Lymph % (Auto) (10.0-50.0) % [place] % (Auto) (2.0-14.0) % Eos % (Auto) (0.0-5.0) % Baso % (Auto) (0.0-2.0) % Neut # (Auto) (1.40-7.00) K/uL Lymph # (Auto) (0.50-3.50) K/uL [place] # (Auto) (0.00-1.00) K/uL Eos # (Auto) (0.00-0.50) K/uL Baso # (Auto) (0.00-0.20) K/uL ABG pH (7.35-7.45) ABG pCO2 (35-45) mmHG ABG pO2 (80-105) mmHG ABG HCO3 (22-26) mmol/L ABG Total CO2 (23-27) mmol/L ABG O2 Saturation (95-98) % ABG Base Excess (-2-3) mmol/L O2 Delivery Device Sodium (136-145) mmol/L Potassium (3.5-5.1) mmol/L Chloride (98-107) mmol/L Carbon Dioxide (21.0-32.0) mmol/L Anion Gap (7-15) meq/L BUN (7-18) mg/dL Creatinine (0.51-1.17) mg/dL Est Cr Clr Drug Dosing mL/min Estimated GFR (MDRD) mL/min Glucose (70-99) mg/dL POC Glucose 93 (70-99) mg/dL Lactic Acid (0.4-2.0) mmol/L Calcium (8.5-10.1) mg/dL Magnesium (1.8-2.4) mg/dL Troponin I High Sens (<=51) ng/L C-Reactive Protein (<=0.9) mg/dL Free T4 (0.76-1.46) ng/dL Specimen Type [place] Urine Color Dark yellow Urine Appearance Clear Urine pH 7.0 (5.0-9.0) Ur Specific [place] 1.020 (1.005-1.030) Urine Protein Negative (NEGATIVE) mg/dL Urine Glucose (UA) Negative (NEGATIVE) mg/dL Urine Ketones Negative (NEGATIVE) mg/dL Urine Occult Blood Negative (NEGATIVE) Urine Nitrite Negative (NEGATIVE) Urine Bilirubin Negative (NEGATIVE) Urine Urobilinogen 0.2 (0.2-1.0) E.U./dL Ur Leukocyte Esterase Negative (NEGATIVE) Ketones SARS-CoV-2 Ag (Rapid) Negative (NEGATIVE) Blood Type Gel Antibody Screen Crossmatch 05/15/21 05/16/21 05/16/21 Range/Units 21:03 07:10 07:20 WBC 2.0 L (4.0-10.2) K/uL RBC 2.18 L (3.77-5.09) M/uL Hgb 7.0 L* (11.7-15.5) g/dL Hct 23.6 L* (34.0-46.0) % MCV 108.3 H D (84.0-98.0) fL MCH 32.1 (28.2-33.3) pg MCHC 29.7 L (31.7-36.0) g/dL RDW 17.4 H (11.2-14.1) % Plt Count 112 L (150-350) K/uL Neut % (Auto) 69.0 (45.0-80.0) % Lymph % (Auto) 26.5 (10.0-50.0) % [place] % (Auto) 4.0 (2.0-14.0) % Eos % (Auto) 0.0 (0.0-5.0) % Baso % (Auto) 0.5 (0.0-2.0) % Neut # (Auto) 1.38 L (1.40-7.00) K/uL Lymph # (Auto) 0.53 (0.50-3.50) K/uL [place] # (Auto) 0.08 (0.00-1.00) K/uL Eos # (Auto) 0.00 (0.00-0.50) K/uL Baso # (Auto) 0.01 (0.00-0.20) K/uL ABG pH (7.35-7.45) ABG pCO2 (35-45) mmHG ABG pO2 (80-105) mmHG ABG HCO3 (22-26) mmol/L ABG Total CO2 (23-27) mmol/L ABG O2 Saturation (95-98) % ABG Base Excess (-2-3) mmol/L O2 Delivery Device Sodium (136-145) mmol/L Potassium (3.5-5.1) mmol/L Chloride (98-107) mmol/L Carbon Dioxide (21.0-32.0) mmol/L Anion Gap (7-15) meq/L BUN (7-18) mg/dL Creatinine (0.51-1.17) mg/dL Est Cr Clr Drug Dosing mL/min Estimated GFR (MDRD) mL/min Glucose (70-99) mg/dL POC Glucose 192 H 135 H (70-99) mg/dL Lactic Acid (0.4-2.0) mmol/L Calcium (8.5-10.1) mg/dL Magnesium (1.8-2.4) mg/dL Troponin I High Sens (<=51) ng/L C-Reactive Protein (<=0.9) mg/dL Free T4 (0.76-1.46) ng/dL Specimen Type Urine Color Urine Appearance Urine pH (5.0-9.0) Ur Specific [place] (1.005-1.030) Urine Protein (NEGATIVE) mg/dL Urine Glucose (UA) (NEGATIVE) mg/dL Urine Ketones (NEGATIVE) mg/dL Urine Occult Blood (NEGATIVE) Urine Nitrite (NEGATIVE) Urine Bilirubin (NEGATIVE) Urine Urobilinogen (0.2-1.0) E.U./dL Ur Leukocyte Esterase (NEGATIVE) Ketones SARS-CoV-2 Ag (Rapid) (NEGATIVE) Blood Type Gel Antibody Screen Crossmatch 05/16/21 05/16/21 Range/Units 07:20 11:15 WBC (4.0-10.2) K/uL RBC (3.77-5.09) M/uL Hgb (11.7-15.5) g/dL Hct (34.0-46.0) % MCV (84.0-98.0) fL MCH (28.2-33.3) pg MCHC (31.7-36.0) g/dL RDW (11.2-14.1) % Plt Count (150-350) K/uL Neut % (Auto) (45.0-80.0) % Lymph % (Auto) (10.0-50.0) % [place] % (Auto) (2.0-14.0) % Eos % (Auto) (0.0-5.0) % Baso % (Auto) (0.0-2.0) % Neut # (Auto) (1.40-7.00) K/uL Lymph # (Auto) (0.50-3.50) K/uL [place] # (Auto) (0.00-1.00) K/uL Eos # (Auto) (0.00-0.50) K/uL Baso # (Auto) (0.00-0.20) K/uL ABG pH (7.35-7.45) ABG pCO2 (35-45) mmHG ABG pO2 (80-105) mmHG ABG HCO3 (22-26) mmol/L ABG Total CO2 (23-27) mmol/L ABG O2 Saturation (95-98) % ABG Base Excess (-2-3) mmol/L O2 Delivery Device Sodium 145 (136-145) mmol/L Potassium 4.0 (3.5-5.1) mmol/L Chloride 105 (98-107) mmol/L Carbon Dioxide 41.8 H* (21.0-32.0) mmol/L Anion Gap 2.2 L (7-15) meq/L BUN 18 (7-18) mg/dL Creatinine 1.74 H (0.51-1.17) mg/dL Est Cr Clr Drug Dosing 21.75 mL/min Estimated GFR (MDRD) 28 mL/min Glucose 157 H (70-99) mg/dL POC Glucose 117 H (70-99) mg/dL Lactic Acid (0.4-2.0) mmol/L Calcium 8.5 (8.5-10.1) mg/dL Magnesium (1.8-2.4) mg/dL Troponin I High Sens 34 (<=51) ng/L C-Reactive Protein (<=0.9) mg/dL Free T4 (0.76-1.46) ng/dL Specimen Type Urine Color Urine Appearance Urine pH (5.0-9.0) Ur Specific [place] (1.005-1.030) Urine Protein (NEGATIVE) mg/dL Urine Glucose (UA) (NEGATIVE) mg/dL Urine Ketones (NEGATIVE) mg/dL Urine Occult Blood (NEGATIVE) Urine Nitrite (NEGATIVE) Urine Bilirubin (NEGATIVE) Urine Urobilinogen (0.2-1.0) E.U./dL Ur Leukocyte Esterase (NEGATIVE) Ketones SARS-CoV-2 Ag (Rapid) (NEGATIVE) Blood Type Gel Antibody Screen Crossmatch Result Diagrams: 05/16/21 07:20 05/16/21 07:20 Yannick Results Last 24 hrs: Microbiology 05/15/21 15:37 Occult Blood - Final Stool / Feces 05/15/21 15:50 Group A Streptococcus Rapid Screen - Final Throat NEGATIVE STREP A SCREEN REFERENCE RANGE: NEGATIVE Sepsis Event Note - Evaluation Sepsis Screening Result: Sepsis Risk - Focused Exam Vital Signs: Vital Signs Temp Temp Pulse Resp BP BP Pulse Ox 05/16/21 11:15 -12.7 C L 69 20 130/64 98 05/16/21 10:11 36.5 C 69 20 123/73 95 05/16/21 09:57 36.1 C 72 20 130/52 L 94 L 05/16/21 09:53 36.6 C 70 21 H 135/78 97 05/16/21 09:42 36.5 C 66 22 H 125/47 L 05/16/21 07:16 36.4 C 20 124/52 L 95 05/16/21 04:00 36.4 C 71 22 H 180/75 H 93 L 05/16/21 00:00 36.6 C 67 24 H 141/70 H 92 L - Problem List & Annotations (1) Anemia SNOMED Code(s): 883164361 Code(s): D64.9 - ANEMIA, UNSPECIFIED Status: Acute Priority: High Current Visit: Yes Qualifiers: Anemia type: unspecified type Qualified Code(s): D64.9 - Anemia, unspecified Annotation/Comment:: receiving two units of PRBC today, tolerating well, will recheck hemoglobin in the AM. Chronically low. probable destruction of RBC due to chronic illness and decreased production. HEme negative stools (2) CHF (congestive heart failure) SNOMED Code(s): 12951420 Code(s): I50.9 - HEART FAILURE, UNSPECIFIED Status: Acute Priority: High Current Visit: Yes Qualifiers: Heart failure type: combined systolic and diastolic Annotation/Comment:: Echocardiogram today to rule out structural or opertive lesion. On lasix 20 mg bid, continuing this, iv dose of 40 mg yesterday adn today with maintence of renal function. Improved work of breathing today, more comfortable, easier to maintain sats, improving CO2 retention (3) Hypothyroid SNOMED Code(s): 99392991 Code(s): E03.9 - HYPOTHYROIDISM, UNSPECIFIED Status: Acute Priority: Low Current Visit: Yes Qualifiers: Hypothyroidism type: unspecified Qualified Code(s): E03.9 - Hypothyroidism, unspecified Annotation/Comment:: history of this, seems medication was stopped after a hospitalization in October. restarted today, will need recheck in 6 weeks and script at discharge. NO myxedema coma concerns (4) Respiratory failure with hypercapnia SNOMED Code(s): 841367373 Code(s): J96.92 - RESPIRATORY FAILURE, UNSPECIFIED WITH HYPERCAPNIA Status: Acute Priority: Medium Current Visit: Yes Qualifiers: Chronicity: acute on chronic Qualified Code(s): J96.22 - Acute and chronic respiratory failure with hypercapnia Annotation/Comment:: COPD on oxygen, questionable left lower pneumonia but normal white count. Coverage with IV azithromycin yeserday and then oral for the next 4 days. Given IV solu medrol yesterday and will start 40 mg po with watching of blood sugars. improved satursations and work of breathing - Problem List Review Problem List Initiated/Reviewed/Updated: Yes - My Orders Last 24 Hours: My Active Orders 05/15/21 15:27 Cardiac Monitoring [RC] Q2HR Oxygen Therapy [RC] 2300 Sodium Chloride 0.9% [Saline Flush] 10 ml FLUSH ASDIRECTED PRN Blood Culture x2 Reflex Set [OM.PC] Stat Peripheral IV Insertion Adult [OM.PC] Routine 05/15/21 15:28 EKG Documentation Completion [RC] ASDIRECTED Peripheral IV Care [RC] . DIRECTED 05/15/21 15:43 CULTURE BLOOD [BC] Stat 05/15/21 15:47 Echo Comp wo Cont [US] Stat CULTURE BLOOD [BC] Stat 05/15/21 15:50 CULTURE STREP A CONFIRMATION [RM] Stat FREE T3 [REF] Stat STREP SCRN A RAPID W CULT CONF [RM] Stat 05/15/21 15:55 ABO/RH TYPE [BBK] Stat 05/15/21 15:56 Urinary Catheter Assessment [RC] 08,20 05/15/21 16:00 Insert [place] Catheter [Insert Urinary Catheter] [OM.PC] Q24H 05/15/21 16:09 Patient Status [ADT] Routine Cardiac Monitoring [RC] . DIRECTED 05/15/21 16:26 Patient Status [ADT] Stat 05/15/21 16:57 Blood Glucose Check, Bedside [RC] QIDACANDBED Oxygen Therapy [RC] PRN Up With Assistance [RC] ASDIRECTED VTE/DVT Education [RC] PER UNIT ROUTINE Vital Signs [RC] Q4HR Acetaminophen [TylenoL] 650 mg PO Q4H PRN Acetaminophen/HYDROcodone [[place] 325-5 MG] 1 tab PO Q4H PRN Albuterol [Proventil Neb Soln] 2.5 mg NEB Q2H PRN Albuterol/Ipratropium [DuoNeb 3.0-0.5 MG/3 ML] 3 ml NEB Q4H PRN Dextrose 50% in Water 50 ml IVPUSH ONETIME PRN Ondansetron [Zofran ODT] 4 mg PO Q4H PRN bisacodyL [Dulcolax] 5 mg PO DAILY PRN Glucose Management Sub Q Reflex [OM.PC] Click To Edit Resuscitation Status Routine 05/15/21 16:58 Diabetes Education [RC] Click to Edit Notify Provider Vital Signs [RC] ASDIRECTED 05/15/21 17:03 RT Aerosol Therapy [RC] 08,18 05/15/21 17:08 Cetirizine [ZyrTEC] 10 mg PO DAILY PRN Nystatin [Nystop] 0 gm TOP BID PRN 05/15/21 17:10 RT Aerosol Therapy [RC] ASDIRECTED 05/15/21 17:13 Dextrose 50% in Water 50 ml IVPUSH ASDIRECTED PRN Glucagon,Human Recombinant [GlucaGen] 1 mg IM ASDIRECTED PRN 05/15/21 17:16 Wound Care [RC] 08,20 05/15/21 Dinner [employer] Diet [DIET] Insulin Lispro Prot/Lispro [HumaLOG Mix 75-25] See Protocol SUBCUT TIDAC 05/15/21 17:46 Polyvinyl Alcohol [LiquiTears 1.4% Ophth Soln] 0 ml EYEBOTH TID PRN 05/15/21 18:00 Furosemide [Lasix] 20 mg PO BID Gabapentin [Neurontin] 100 mg PO BID Mometasone/Formoterol [Dulera 200-5 MCG] 0 puff IH BID Omeprazole 20 mg PO BID 05/15/21 19:30 Enoxaparin [Lovenox] 30 mg SUBCUT DAILY 05/15/21 20:00 Budesonide [Pulmicort] 0.5 mg INH BIDRT Polyvinyl Alcohol [LiquiTears 1.4% Ophth Soln] 0 ml EYEBOTH BEDTIME 05/16/21 07:30 Levothyroxine 112 mcg PO ACBREAKFAST 05/16/21 08:00 Amiodarone [Cordarone] 200 mg PO DAILY Azithromycin [Zithromax] 250 mg PO DAILY Calcium Carbonate [Tums] 500 mg PO DAILY Iron Polysaccharides Complex [Ferrex 150] 150 mg PO DAILY atorvaSTATin [Lipitor] 10 mg PO DAILY 05/16/21 10:01 Echo Comp wo Cont [US] Stat 05/16/21 15:00 Furosemide [Lasix] 40 mg IVPUSH NOW ONE 05/16/21 18:25 RED BLOOD CELLS LP [BBK] Urgent Transfuse Red Blood Cells [COMM] Urgent - Assessment Assessment:: Improving CHF, COPD. worsening of anemia and getting blood today. blood pr essure is improving. Will add metoprolol 12.5 mg am and see how she tolerates this starting tomorrow - Plan Plan:: COPD continue oxygen, nebs, azithromycin. Add 40 mg prednisone orally daily. CHF continue lasix 20 mg bid, give 40 mg IVP lasix after blood today, continue to monitor diuresis, await echocardiogram report anemia Getting blood today, recheck hemoglobin in am respiratory failure with hypercapnia Improving CO2 retention continues cares. anticipating swing bed status after 3 days inpatient stay
[2021-05-16] MEDS: predniSONE 20 MG Tab PO SCH (12:27)
[2021-05-16] MEDS: Sodium Chloride 0.9% 10 ML Syringe FLUSH PRN (14:29)
[2021-05-16] MEDS: Furosemide 40 MG/4 ML VIAL IVPUSH ONE (14:29)
[2021-05-16] MEDS: Albuterol/Ipratropium 3.0-0.5 MG/3 ML Neb Soln NEB PRN (17:12)
[2021-05-16] MEDS: Polyvinyl Alcohol 1.4% Ophth Soln 15 ML Bottle EYEBOTH SCH (20:43)
[2021-05-17] MEDS: Albuterol/Ipratropium 3.0-0.5 MG/3 ML Neb Soln NEB PRN (04:07)
[2021-05-17] MEDS ORDERED: Furosemide 40 MG/4 ML VIAL ONE (04:34)
[2021-05-17] MEDS: Furosemide 40 MG/4 ML VIAL IVPUSH ONE (04:41)
[2021-05-17] MEDS ORDERED: Nitroglycerin 2% Oint 1 GM UD Packet ONE (04:43)
[2021-05-17] MEDS ORDERED: Nitroglycerin 2% Oint 1 GM UD Packet TOP ONE (04:49)
[2021-05-17] MEDS ORDERED: Metoprolol Tartrate 5 MG/5 ML SDV IVPUSH ONE (04:54)
--- NOTE | 2021-05-17 05:03 | PCM.PN ---
- General Info Date of Service: 05/17/21 Admission Dx/Problem (Free Text): Admission Diagnosis/Problem Admission Diagnosis/Problem CHF, Congestive heart failure with hypercapnia, anemia, Subjective Update: CAlled at 4:30 am. Patient awoke feeling very short of breath. Had two units of blood yesterday and received 40 units of lasix after this. She was doing well at bedtime and went to bed. She awoke at 4 with shortness of breath, chest tightness and difficulty breathing. Currently on 2 lpm of O2. Has been receiving azithromycin for possible pneumonia, on lovenox for DVT prophylaxis, has atrial fibrillation on amiodaraone and meotprolol but the metoprolol was help for blodo pressure concerns. patient had urge for defecation after some chest tightness. upon arrival she is sitting on te edge of the bed, increased w ork of breathing from earlier today, alert and cognizant. sats 83%. - Review of Systems General: Reports: Fatigue (continued) HEENT: Reports: No Symptoms Pulmonary: Reports: Shortness of Breath, Cough (worsening) Cardiovascular: Reports: Chest Pain Gastrointestinal: Reports: No Symptoms Genitourinary: Reports: No Symptoms - Patient Data Vitals - Most Recent: Last Vital Signs Temp 36.8 C 05/16/21 23:36 Pulse 79 05/16/21 23:36 Resp 22 H 05/16/21 23:36 BP 144/60 H 05/16/21 23:36 Pulse Ox 92 L 05/16/21 23:36 Weight - Most Recent: 137.643 kg I&O - Last 24 Hours: Intake & Output 05/16/21 05/16/21 05/17/21 14:59 22:59 06:59 Intake Total 914 200 Output Total 525 400 Balance 914 -325 -400 Lab Results Last 24 Hours: Laboratory Results - last 24 hr 05/15/21 05/16/21 05/16/21 Range/Units 15:55 07:10 07:20 WBC 2.0 L (4.0-10.2) K/uL RBC 2.18 L (3.77-5.09) M/uL Hgb 7.0 L* (11.7-15.5) g/dL Hct 23.6 L* (34.0-46.0) % MCV 108.3 H D (84.0-98.0) fL MCH 32.1 (28.2-33.3) pg MCHC 29.7 L (31.7-36.0) g/dL RDW 17.4 H (11.2-14.1) % Plt Count 112 L (150-350) K/uL Neut % (Auto) 69.0 (45.0-80.0) % Lymph % (Auto) 26.5 (10.0-50.0) % [place] % (Auto) 4.0 (2.0-14.0) % Eos % (Auto) 0.0 (0.0-5.0) % Baso % (Auto) 0.5 (0.0-2.0) % Neut # (Auto) 1.38 L (1.40-7.00) K/uL Lymph # (Auto) 0.53 (0.50-3.50) K/uL [place] # (Auto) 0.08 (0.00-1.00) K/uL Eos # (Auto) 0.00 (0.00-0.50) K/uL Baso # (Auto) 0.01 (0.00-0.20) K/uL Sodium (136-145) mmol/L Potassium (3.5-5.1) mmol/L Chloride (98-107) mmol/L Carbon Dioxide (21.0-32.0) mmol/L Anion Gap (7-15) meq/L BUN (7-18) mg/dL Creatinine (0.51-1.17) mg/dL Est Cr Clr Drug Dosing mL/min Estimated GFR (MDRD) mL/min Glucose (70-99) mg/dL POC Glucose 135 H (70-99) mg/dL Calcium (8.5-10.1) mg/dL Troponin I High Sens (<=51) ng/L Blood Type A POSITIVE Gel Antibody Screen Cancelled Crossmatch See Detail 05/16/21 05/16/21 05/16/21 Range/Units 07:20 11:15 17:01 WBC (4.0-10.2) K/uL RBC (3.77-5.09) M/uL Hgb (11.7-15.5) g/dL Hct (34.0-46.0) % MCV (84.0-98.0) fL MCH (28.2-33.3) pg MCHC (31.7-36.0) g/dL RDW (11.2-14.1) % Plt Count (150-350) K/uL Neut % (Auto) (45.0-80.0) % Lymph % (Auto) (10.0-50.0) % [place] % (Auto) (2.0-14.0) % Eos % (Auto) (0.0-5.0) % Baso % (Auto) (0.0-2.0) % Neut # (Auto) (1.40-7.00) K/uL Lymph # (Auto) (0.50-3.50) K/uL [place] # (Auto) (0.00-1.00) K/uL Eos # (Auto) (0.00-0.50) K/uL Baso # (Auto) (0.00-0.20) K/uL Sodium 145 (136-145) mmol/L Potassium 4.0 (3.5-5.1) mmol/L Chloride 105 (98-107) mmol/L Carbon Dioxide 41.8 H* (21.0-32.0) mmol/L Anion Gap 2.2 L (7-15) meq/L BUN 18 (7-18) mg/dL Creatinine 1.74 H (0.51-1.17) mg/dL Est Cr Clr Drug Dosing 21.75 mL/min Estimated GFR (MDRD) 28 mL/min Glucose 157 H (70-99) mg/dL POC Glucose 117 H 122 H (70-99) mg/dL Calcium 8.5 (8.5-10.1) mg/dL Troponin I High Sens 34 (<=51) ng/L Blood Type Gel Antibody Screen Crossmatch 05/16/21 Range/Units 20:49 WBC (4.0-10.2) K/uL RBC (3.77-5.09) M/uL Hgb (11.7-15.5) g/dL Hct (34.0-46.0) % MCV (84.0-98.0) fL MCH (28.2-33.3) pg MCHC (31.7-36.0) g/dL RDW (11.2-14.1) % Plt Count (150-350) K/uL Neut % (Auto) (45.0-80.0) % Lymph % (Auto) (10.0-50.0) % [place] % (Auto) (2.0-14.0) % Eos % (Auto) (0.0-5.0) % Baso % (Auto) (0.0-2.0) % Neut # (Auto) (1.40-7.00) K/uL Lymph # (Auto) (0.50-3.50) K/uL [place] # (Auto) (0.00-1.00) K/uL Eos # (Auto) (0.00-0.50) K/uL Baso # (Auto) (0.00-0.20) K/uL Sodium (136-145) mmol/L Potassium (3.5-5.1) mmol/L Chloride (98-107) mmol/L Carbon Dioxide (21.0-32.0) mmol/L Anion Gap (7-15) meq/L BUN (7-18) mg/dL Creatinine (0.51-1.17) mg/dL Est Cr Clr Drug Dosing mL/min Estimated GFR (MDRD) mL/min Glucose (70-99) mg/dL POC Glucose 194 H (70-99) mg/dL Calcium (8.5-10.1) mg/dL Troponin I High Sens (<=51) ng/L Blood Type Gel Antibody Screen Crossmatch Yannick Results Last 24 Hours: Microbiology 05/15/21 15:47 Aerobic Blood Culture - Preliminary Blood - Venous NO GROWTH AFTER 1 DAY Anaerobic Blood Culture - Preliminary NO GROWTH AFTER 1 DAY 05/15/21 15:43 Aerobic Blood Culture - Preliminary Blood - Venous - Lab Draw NO GROWTH AFTER 1 DAY Anaerobic Blood Culture - Preliminary NO GROWTH AFTER 1 DAY 05/15/21 15:50 Quick Strep Confirmation Culture - Final Throat NO GROUP A STREP ISOLATED REFERENCE RANGE: NEGATIVE Group A Streptococcus Rapid Screen - Final NEGATIVE STREP A SCREEN REFERENCE RANGE: NEGATIVE Med Orders - Current: Current Medications Acetaminophen (Acetaminophen 325 Mg Tab) 650 mg PO Q4H PRN PRN Reason: Pain (Mild 1-3)/fever Hydrocodone Bitart/Acetaminophen (Acetaminophen/Hydrocodone 325-5 Mg Tab) 1 tab PO Q4H PRN PRN Reason: Pain (moderate 4-6) Albuterol (Albuterol 0.083% 2.5 Mg/3 Ml Neb Soln) 2.5 mg NEB Q2H PRN PRN Reason: Shortness Of Breath/wheezing Albuterol/Ipratropium (Albuterol/Ipratropium 3.0-0.5 Mg/3 Ml Neb Soln) 3 ml NEB Q4H PRN PRN Reason: Dyspnea Last Admin: 05/17/21 04:07 Dose: 3 ml Documented by: Amiodarone HCl (Amiodarone 200 Mg Tab) 200 mg PO DAILY [facility] Last Admin: 05/16/21 08:11 Dose: 200 mg Documented by: Artificial Tears (Polyvinyl Alcohol 1.4% Ophth Soln 15 Ml Bottle) 0 ml EYEBOTH BEDTIME [facility] Last Admin: 05/16/21 20:43 Dose: 1 drop Documented by: Artificial Tears (Polyvinyl Alcohol 1.4% Ophth Soln 15 Ml Bottle) 0 ml EYEBOTH TID PRN PRN Reason: Dry Eyes Atorvastatin Calcium (Atorvastatin 10 Mg Tab) 10 mg PO DAILY [facility] Last Admin: 05/16/21 08:12 Dose: 10 mg Documented by: Azithromycin (Azithromycin 250 Mg Tab) 250 mg PO DAILY [facility] Stop: 05/20/21 08:00 Last Admin: 05/16/21 08:12 Dose: 250 mg Documented by: Bisacodyl (Bisacodyl 5 Mg Tab) 5 mg PO DAILY PRN PRN Reason: Constipation Last Admin: 05/16/21 17:27 Dose: 5 mg Documented by: Budesonide (Budesonide 0.5 Mg/2 Ml Neb Susp) 0.5 mg INH BIDRT [facility] Last Admin: 05/16/21 20:43 Dose: 0.5 mg Documented by: Calcium Carbonate/Glycine (Calcium Carbonate 500 Mg Tab.Chew) 500 mg PO DAILY [facility] Last Admin: 05/16/21 08:12 Dose: 500 mg Documented by: Cetirizine HCl (Cetirizine 10 Mg Tab) 10 mg PO DAILY PRN PRN Reason: Allergies Dextrose/Water (50% Dextrose In Water 50 Ml Syringe) 50 ml IVPUSH ONETIME PRN PRN Reason: Hypoglycemia Dextrose/Water (50% Dextrose In Water 50 Ml Syringe) 50 ml IVPUSH ASDIRECTED PRN PRN Reason: Hypoglycemia Enoxaparin Sodium (Enoxaparin 30 Mg/0.3 Ml Syringe) 30 mg SUBCUT DAILY [facility] Last Admin: 05/16/21 08:13 Dose: 30 mg Documented by: Furosemide (Furosemide 40 Mg Tab) 20 mg PO BID [facility] Last Admin: 05/16/21 17:13 Dose: 20 mg Documented by: Gabapentin (Gabapentin 100 Mg Cap) 100 mg PO BID [facility] Last Admin: 05/16/21 17:13 Dose: 100 mg Documented by: Glucagon (Glucagon,Human Recombinant 1 Mg Vial) 1 mg IM ASDIRECTED PRN PRN Reason: Hypoglycemia Insulin Lispro Protam/Lispro Human (Insulin Lispro Protamine/Lispro 75-25 100 Units/Ml 10 Ml Vial) 0 unit SUBCUT TIDAC [facility]; Protocol Last Admin: 05/16/21 17:14 Dose: Not Given Documented by: Levothyroxine Sodium (Levothyroxine 112 Mcg Tab) 112 mcg PO ACBREAKFAST [facility] Last Admin: 05/16/21 08:11 Dose: 112 mcg Documented by: Mometasone Furoate/Formoterol Fumar (Formoterol/Mometasone 200-5 Mcg 8.8 Gm Inhaler) 0 puff IH BID [facility] Last Admin: 05/16/21 17:05 Dose: 2 inh Documented by: Nystatin (Nystatin Topical Powder 15 Gm Bottle) 0 gm TOP BID PRN PRN Reason: Rash Last Admin: 05/15/21 19:10 Dose: 1 applic Documented by: Omeprazole (Omeprazole 20 Mg Cap.Cr) 20 mg PO BID [facility] Last Admin: 05/16/21 17:13 Dose: 20 mg Documented by: Ondansetron HCl (Ondansetron 4 Mg Tab.Dis) 4 mg PO Q4H PRN PRN Reason: Nausea/Vomiting Polysaccharide Iron Complex (Iron Polysaccharides Complex 150 Mg Cap) 150 mg PO DAILY [facility] Last Admin: 05/16/21 08:12 Dose: 150 mg Documented by: Prednisone (Prednisone 20 Mg Tab) 40 mg PO WITHBREAKFAST [facility] Stop: 05/20/21 08:00 Last Admin: 05/16/21 12:27 Dose: 40 mg Documented by: Sodium Chloride (Sodium Chloride 0.9% 10 Ml Syringe) 10 ml FLUSH ASDIRECTED PRN PRN Reason: Keep Vein Open Last Admin: 05/16/21 14:29 Dose: 10 ml Documented by: Discontinued Medications Furosemide (Furosemide 40 Mg/4 Ml Vial) 40 mg IVPUSH NOW ONE Stop: 05/15/21 15:28 Last Admin: 05/15/21 15:43 Dose: 40 mg Documented by: Furosemide (Furosemide 40 Mg/4 Ml Vial) 40 mg IVPUSH NOW ONE Stop: 05/16/21 15:01 Last Admin: 05/16/21 14:29 Dose: 40 mg Documented by: Furosemide (Furosemide 40 Mg/4 Ml Vial) Confirm Administered Dose 40 mg .ROUTE .STK-MED ONE Stop: 05/17/21 04:35 Last Admin: 05/17/21 04:44 Dose: 40 mg Documented by: Azithromycin 500 mg/ Sodium (Chloride) 250 mls @ 250 mls/hr IV ONETIME ONE Stop: 05/15/21 16:40 Last Admin: 05/15/21 16:01 Dose: 250 mls/hr Documented by: Methylprednisolone Sodium Succinate 125 mg/ Sodium Chloride 101 mls @ 100 mls/hr IV ONETIME ONE Stop: 05/15/21 16:45 Last Admin: 05/15/21 15:58 Dose: Not Given Documented by: Insulin Human Lispro (Insulin Lispro 100 Units/Ml 3 Ml Vial) 0 unit SUBCUT ASDIRECTED [facility]; Protocol Methylprednisolone Sodium Succinate (Methylprednisolone Sodium Succinate 125 Mg/2 Ml Sdv) 125 mg IVPUSH ONETIME ONE Stop: 05/15/21 16:01 Last Admin: 05/15/21 16:00 Dose: 125 mg Documented by: Metoprolol Tartrate (Metoprolol Tartrate 5 Mg/5 Ml Sdv) 2.5 mg IVPUSH ONETIME ONE Stop: 05/17/21 04:55 Nitroglycerin (Nitroglycerin 2% Oint 1 Gm Ud Packet) Confirm Administered Dose 1 gm .ROUTE .STK-MED ONE Stop: 05/17/21 04:44 Last Admin: 05/17/21 04:44 Dose: 1 gm Documented by: Nitroglycerin (Nitroglycerin 2% Oint 1 Gm Ud Packet) 1 gm TOP ONETIME ONE Stop: 05/17/21 04:50 Norflurane (Norflurane/Hfc 245fa Medium [place] 103.5 Ml Can) Confirm Administered Dose 103.5 ml .ROUTE .STK-MED ONE Stop: 05/15/21 15:26 Last Admin: 05/15/21 16:00 Dose: Not Given Documented by: Norflurane (Norflurane/Hfc 245fa Medium [place] 103.5 Ml Can) 1 ml TOP ONETIME ONE Stop: 05/15/21 15:26 Last Admin: 05/15/21 15:35 Dose: 1 dose Documented by: - Exam Quality Assessment: Supplemental Oxygen (2lpm) Urinary Catheter Total Time: 1Days 3Hours General: Alert, Oriented, Cooperative, Moderate Distress (due to shortness of breath) HEENT: Pupils Equal, Pupils Reactive Lungs: Decreased Breath Sounds, Crackles (increased respiratory effort) Psy/Mental Status: Alert, Anxious #1 Interpretation EKG Date: 05/17/21 Time: 04:55 Rhythm: A-Fib Rate (Beats/Min): 86 [place]: Normal P-Wave: Absent ST-T: Other (baseline significant artifact, no stemi) Comparison: No Change - Patient Data Lab Results Last 24 hrs: Laboratory Results - last 24 hr 05/15/21 05/16/21 05/16/21 Range/Units 15:55 07:10 07:20 WBC 2.0 L (4.0-10.2) K/uL RBC 2.18 L (3.77-5.09) M/uL Hgb 7.0 L* (11.7-15.5) g/dL Hct 23.6 L* (34.0-46.0) % MCV 108.3 H D (84.0-98.0) fL MCH 32.1 (28.2-33.3) pg MCHC 29.7 L (31.7-36.0) g/dL RDW 17.4 H (11.2-14.1) % Plt Count 112 L (150-350) K/uL Neut % (Auto) 69.0 (45.0-80.0) % Lymph % (Auto) 26.5 (10.0-50.0) % [place] % (Auto) 4.0 (2.0-14.0) % Eos % (Auto) 0.0 (0.0-5.0) % Baso % (Auto) 0.5 (0.0-2.0) % Neut # (Auto) 1.38 L (1.40-7.00) K/uL Lymph # (Auto) 0.53 (0.50-3.50) K/uL [place] # (Auto) 0.08 (0.00-1.00) K/uL Eos # (Auto) 0.00 (0.00-0.50) K/uL Baso # (Auto) 0.01 (0.00-0.20) K/uL Sodium (136-145) mmol/L Potassium (3.5-5.1) mmol/L Chloride (98-107) mmol/L Carbon Dioxide (21.0-32.0) mmol/L Anion Gap (7-15) meq/L BUN (7-18) mg/dL Creatinine (0.51-1.17) mg/dL Est Cr Clr Drug Dosing mL/min Estimated GFR (MDRD) mL/min Glucose (70-99) mg/dL POC Glucose 135 H (70-99) mg/dL Calcium (8.5-10.1) mg/dL Troponin I High Sens (<=51) ng/L Blood Type A POSITIVE Gel Antibody Screen Cancelled Crossmatch See Detail 05/16/21 05/16/21 05/16/21 Range/Units 07:20 11:15 17:01 WBC (4.0-10.2) K/uL RBC (3.77-5.09) M/uL Hgb (11.7-15.5) g/dL Hct (34.0-46.0) % MCV (84.0-98.0) fL MCH (28.2-33.3) pg MCHC (31.7-36.0) g/dL RDW (11.2-14.1) % Plt Count (150-350) K/uL Neut % (Auto) (45.0-80.0) % Lymph % (Auto) (10.0-50.0) % [place] % (Auto) (2.0-14.0) % Eos % (Auto) (0.0-5.0) % Baso % (Auto) (0.0-2.0) % Neut # (Auto) (1.40-7.00) K/uL Lymph # (Auto) (0.50-3.50) K/uL [place] # (Auto) (0.00-1.00) K/uL Eos # (Auto) (0.00-0.50) K/uL Baso # (Auto) (0.00-0.20) K/uL Sodium 145 (136-145) mmol/L Potassium 4.0 (3.5-5.1) mmol/L Chloride 105 (98-107) mmol/L Carbon Dioxide 41.8 H* (21.0-32.0) mmol/L Anion Gap 2.2 L (7-15) meq/L BUN 18 (7-18) mg/dL Creatinine 1.74 H (0.51-1.17) mg/dL Est Cr Clr Drug Dosing 21.75 mL/min Estimated GFR (MDRD) 28 mL/min Glucose 157 H (70-99) mg/dL POC Glucose 117 H 122 H (70-99) mg/dL Calcium 8.5 (8.5-10.1) mg/dL Troponin I High Sens 34 (<=51) ng/L Blood Type Gel Antibody Screen Crossmatch 05/16/21 Range/Units 20:49 WBC (4.0-10.2) K/uL RBC (3.77-5.09) M/uL Hgb (11.7-15.5) g/dL Hct (34.0-46.0) % MCV (84.0-98.0) fL MCH (28.2-33.3) pg MCHC (31.7-36.0) g/dL RDW (11.2-14.1) % Plt Count (150-350) K/uL Neut % (Auto) (45.0-80.0) % Lymph % (Auto) (10.0-50.0) % [place] % (Auto) (2.0-14.0) % Eos % (Auto) (0.0-5.0) % Baso % (Auto) (0.0-2.0) % Neut # (Auto) (1.40-7.00) K/uL Lymph # (Auto) (0.50-3.50) K/uL [place] # (Auto) (0.00-1.00) K/uL Eos # (Auto) (0.00-0.50) K/uL Baso # (Auto) (0.00-0.20) K/uL Sodium (136-145) mmol/L Potassium (3.5-5.1) mmol/L Chloride (98-107) mmol/L Carbon Dioxide (21.0-32.0) mmol/L Anion Gap (7-15) meq/L BUN (7-18) mg/dL Creatinine (0.51-1.17) mg/dL Est Cr Clr Drug Dosing mL/min Estimated GFR (MDRD) mL/min Glucose (70-99) mg/dL POC Glucose 194 H (70-99) mg/dL Calcium (8.5-10.1) mg/dL Troponin I High Sens (<=51) ng/L Blood Type Gel Antibody Screen Crossmatch Result Diagrams: 05/17/21 05:20 05/17/21 05:20 Yannick Results Last 24 hrs: Microbiology 05/15/21 15:47 Aerobic Blood Culture - Preliminary Blood - Venous NO GROWTH AFTER 1 DAY Anaerobic Blood Culture - Preliminary NO GROWTH AFTER 1 DAY 05/15/21 15:43 Aerobic Blood Culture - Preliminary Blood - Venous - Lab Draw NO GROWTH AFTER 1 DAY Anaerobic Blood Culture - Preliminary NO GROWTH AFTER 1 DAY 05/15/21 15:50 Quick Strep Confirmation Culture - Final Throat NO GROUP A STREP ISOLATED REFERENCE RANGE: NEGATIVE Group A Streptococcus Rapid Screen - Final NEGATIVE STREP A SCREEN REFERENCE RANGE: NEGATIVE Sepsis Event Note - Evaluation Sepsis Screening Result: No Definite Risk - Focused Exam Vital Signs: Vital Signs Temp Pulse Resp BP Pulse Ox 05/16/21 23:36 36.8 C 79 22 H 144/60 H 92 L 05/16/21 20:00 36.6 C 69 20 142/67 H 93 L - Problem List & Annotations (1) Anemia SNOMED Code(s): 769474629 Code(s): D64.9 - ANEMIA, UNSPECIFIED Status: Acute Priority: Medium Current Visit: Yes Qualifiers: Anemia type: unspecified type Qualified Code(s): D64.9 - Anemia, unspecified Annotation/Comment:: receiving two units of PRBC today, tolerating well, will recheck hemoglobin in the AM. Chronically low. probable destruction of RBC due to chronic illness and decreased production. HEme negative stools had two units today, recheck anemia (2) CHF (congestive heart failure) SNOMED Code(s): 48471011 Code(s): I50.9 - HEART FAILURE, UNSPECIFIED Status: Acute Priority: High Current Visit: Yes Qualifiers: Heart failure type: combined systolic and diastolic Annotation/Comment:: Echocardiogram today to rule out structural or opertive lesion. On lasix 20 mg bid, continuing this, iv dose of 40 mg yesterday adn today with maintence of renal function. Improved work of breathing today, more comfortable, easier to maintain sats, improving CO2 retention did recieve 40 mg of lasix IVP after blood today and 20 mg lasix PO (3) Hypothyroid SNOMED Code(s): 02951380 Code(s): E03.9 - HYPOTHYROIDISM, UNSPECIFIED Status: Acute Priority: Low Current Visit: Yes Qualifiers: Hypothyroidism type: unspecified Qualified Code(s): E03.9 - Hypothyroidism, unspecified Annotation/Comment:: history of this, seems medication was stopped after a hospitalization in October. restarted today, will need recheck in 6 weeks and script at discharge. NO myxedema coma concerns (4) Respiratory failure with hypercapnia SNOMED Code(s): 583031333 Code(s): J96.92 - RESPIRATORY FAILURE, UNSPECIFIED WITH HYPERCAPNIA Status: Acute Priority: Medium Current Visit: Yes Qualifiers: Chronicity: acute on chronic Qualified Code(s): J96.22 - Acute and chronic respiratory failure with hypercapnia Annotation/Comment:: COPD on oxygen, questionable left lower pneumonia but normal white count. Coverage with IV azithromycin yeserday and then oral for the next 4 days. Given IV solu medrol yesterday and will start 40 mg po with watching of blood sugars. improved satursations and work of breathing Sudden onset of shortness of breath with decreased O2 concentration while sleeping. evaluation for new causing and temporarily increased )2 to 4lpm to raise o2 sats to 91%. this was temporary and decreased back down. Heart rates were elevated to 150 range at the time. question a fib with rvr verus copd, versus pulmonary edema versus AMI - Problem List Review Problem List Initiated/Reviewed/Updated: Yes - My Orders Last 24 Hours: My Active Orders 05/16/21 07:30 Levothyroxine 112 mcg PO ACBREAKFAST 05/16/21 08:00 Amiodarone [Cordarone] 200 mg PO DAILY Azithromycin [Zithromax] 250 mg PO DAILY Calcium Carbonate [Tums] 500 mg PO DAILY Iron Polysaccharides Complex [Ferrex 150] 150 mg PO DAILY atorvaSTATin [Lipitor] 10 mg PO DAILY 05/16/21 10:01 Echo Comp wo Cont [US] Stat 05/16/21 12:06 predniSONE 40 mg PO WITHBREAKFAST 05/16/21 18:25 Transfuse Red Blood Cells [COMM] Urgent 05/17/21 04:48 EKG 12 Lead [EK] Stat 05/17/21 04:49 EKG Documentation Completion [RC] ASDIRECTED Chest 1V Frontal [CR] Routine BASIC METABOLIC PANEL,BMP [CHEM] Routine CBC WITH AUTO DIFF [HEME] Routine TROPONIN I HIGH SENSITIVITY [CHEM] Routine 05/17/21 05:11 BASIC METABOLIC PANEL,BMP [CHEM] AM HEMOGLOBIN/HEMATOCRIT,HH [HEME] AM 05/18/21 05:11 BASIC METABOLIC PANEL,BMP [CHEM] AM HEMOGLOBIN/HEMATOCRIT,HH [HEME] AM - Assessment Assessment:: Improving CHF, COPD. worsening of anemia and getting blood today. blood pressure is improving. Will add metoprolol 12.5 mg am and see how she tolerates this starting tomorrow 05/17/2021 5:00 am Sudden onset of shortness of breath, chest tightness, fast heart rate. differential includes atrial fbrillation with rvr, PE, AMI, worsening hypercapnia, flash pulmonary edema. Initial management was albuterol neb that did not help, increased O2 by nasal cannula to 4lpm to get to 91%. 40 mg IV lasix for fluid overload and flash pulmonary edema alone with 1/2 in of nitro paste applied to the chest Patient needed to defecate and did bedside with valsalva several times. Heart rate noted in 150 range. Does suddenly feel better, decreased work of breathing and heart rate to 80. Breathing easier, will hold off on bipap but if need to start would consider 09/25. Had been holding off on the metoprolol due to low blood pressure, but they are improving. will give metoprolol 12.5 and start bid. Will check labs to include an ABG and troponin, chest x-ray. - Plan Plan:: COPD continue oxygen, nebs, azithromycin. Add 40 mg prednisone orally daily. CHF continue lasix 20 mg bid, give 40 mg IVP lasix after blood today, continue to monitor diuresis, await echocardiogram report anemia Getting blood today, recheck hemoglobin in am respiratory failure with hypercapnia Improving CO2 retention continues cares. anticipating swing bed status after 3 days inpatient stay 05/17/2021 5:30 await labs and chest x-ray, improved with emergency interventions. Will start back metoprolol 12.5 mg BID starting now. troponin did increase but is only minimally positive. Need to be trended. Will give 75 mg of plavix po now. Discuss interventions if changing later, no chest pain now and no EKG changes. Increased fluid and trace pleural effusion on the left Continue lasix and kat thromycin. CO2 improving, hemoglobin improved. slight elevation of creatinine, will have to monitor carefully to balance the diuresis and kidney function Hand off to Dr. Aldridge at 9:00 today
[2021-05-17] MEDS ORDERED: Metoprolol Succinate 25 MG Tab.ER PO SCH (05:15)
[2021-05-17 05:53] LABS: ANION GAP 5.2 meq/L (7-15)
[2021-05-17] MEDS: Metoprolol Succinate 25 MG Tab.ER PO SCH ×3 (06:35→17:11)
[2021-05-17] MEDS ORDERED: Clopidogrel 75 MG Tab PO ONE (06:47)
[2021-05-17] MEDS: Gabapentin 100 MG Cap PO SCH ×2 (07:28→17:11)
[2021-05-17] MEDS: Enoxaparin 30 MG/0.3 ML Syringe SUBCUT SCH (07:28)
[2021-05-17] MEDS: Amiodarone 200 MG Tab PO SCH (07:28)
[2021-05-17] MEDS: Azithromycin 250 MG Tab PO SCH (07:28)
[2021-05-17] MEDS: Levothyroxine 112 MCG Tab PO SCH (07:28)
[2021-05-17] MEDS: Budesonide 0.5 MG/2 ML Neb Susp INH SCH ×2 (07:28→20:12)
[2021-05-17] MEDS: Omeprazole 20 MG Cap.CR PO SCH ×2 (07:28→17:11)
[2021-05-17] MEDS: Calcium Carbonate 500 MG Tab.Chew PO SCH (07:28)
[2021-05-17] MEDS: Furosemide 40 MG Tab PO SCH ×2 (07:29→17:13)
[2021-05-17] MEDS: atorvaSTATin 10 MG Tab PO SCH (07:29)
[2021-05-17] MEDS: Formoterol/Mometasone 200-5 MCG 8.8 GM Inhaler IH SCH ×2 (07:29→17:13)
[2021-05-17] MEDS: Iron Polysaccharides Complex 150 MG Cap PO SCH (07:29)
[2021-05-17] MEDS: predniSONE 20 MG Tab PO SCH (07:29)
[2021-05-17] MEDS: Insulin Lispro Protamine/Lispro 75-25 100 Units/ML 10 ML Vial SUBCUT SCH ×3 (07:32→17:13)
--- NOTE | 2021-05-17 13:34 | PCM.PN ---
- General Info Date of Service: 05/17/21 Admission Dx/Problem (Free Text): Admission Diagnosis/Problem Admission Diagnosis/Problem CHF, Congestive heart failure with hypercapnia, anemia, Subjective Update: Patient feeling improved today. Near her usual baseline for COPD/SOB. No new pain complaints. Functional Status: Reports: Pain Controlled, Tolerating Diet. Denies: New Symptoms - Review of Systems General: Reports: Weakness, Appetite (decreased). Denies: Fever, Chills, Night Sweats HEENT: Reports: No Symptoms Pulmonary: Reports: Shortness of Breath. Denies: Pleuritic Chest Pain, Hemoptysis, Wheezing Cardiovascular: Reports: Dyspnea on Exertion, Edema. Denies: Chest Pain, Pa lpitations Gastrointestinal: Reports: Decreased Appetite. Denies: Abdominal Pain, Constipation, Diarrhea, Difficulty Swallowing, Nausea, Vomiting Genitourinary: Reports: No Symptoms Musculoskeletal: Reports: Other (no acute changes from baseline) Skin: Reports: Other (healing abdominal surgical wound) Neurological: Reports: Difficulty Walking. Denies: Confusion, Headache, Trouble Speaking, Change in Speech Psychiatric: Reports: No Symptoms - Patient Data Vitals - Most Recent: Last Vital Signs Temp 36.6 C 05/17/21 12:00 Pulse 73 05/17/21 12:00 Resp 20 05/17/21 12:00 BP 136/67 05/17/21 12:00 Pulse Ox 89 L 05/17/21 12:00 Weight - Most Recent: 137.643 kg I&O - Last 24 Hours: Intake & Output 05/16/21 05/17/21 05/17/21 22:59 06:59 14:59 Intake Total 200 Output Total 525 500 Balance -325 -500 Lab Results Last 24 Hours: Laboratory Results - last 24 hr 05/15/21 05/15/21 05/16/21 Range/Units 15:50 15:55 17:01 WBC (4.0-10.2) K/uL RBC (3.77-5.09) M/uL Hgb (11.7-15.5) g/dL Hct (34.0-46.0) % MCV (84.0-98.0) fL MCH (28.2-33.3) pg MCHC (31.7-36.0) g/dL RDW (11.2-14.1) % Plt Count (150-350) K/uL Neut % (Auto) (45.0-80.0) % Lymph % (Auto) (10.0-50.0) % [place] % (Auto) (2.0-14.0) % Eos % (Auto) (0.0-5.0) % Baso % (Auto) (0.0-2.0) % Neut # (Auto) (1.40-7.00) K/uL Lymph # (Auto) (0.50-3.50) K/uL [place] # (Auto) (0.00-1.00) K/uL Eos # (Auto) (0.00-0.50) K/uL Baso # (Auto) (0.00-0.20) K/uL Sodium (136-145) mmol/L Potassium (3.5-5.1) mmol/L Chloride (98-107) mmol/L Carbon Dioxide (21.0-32.0) mmol/L Anion Gap (7-15) meq/L BUN (7-18) mg/dL Creatinine (0.51-1.17) mg/dL Est Cr Clr Drug Dosing mL/min Estimated GFR (MDRD) mL/min Glucose (70-99) mg/dL POC Glucose 122 H (70-99) mg/dL Calcium (8.5-10.1) mg/dL Troponin I High Sens (<=51) ng/L Free T3 pg/mL 2.26 L (2.50-3.90) pg/mL Crossmatch See Detail 05/16/21 05/17/21 05/17/21 Range/Units 20:49 05:20 05:20 WBC 4.8 (4.0-10.2) K/uL RBC 3.21 L (3.77-5.09) M/uL Hgb 10.2 L D (11.7-15.5) g/dL Hct 33.9 L (34.0-46.0) % MCV 105.6 H (84.0-98.0) fL MCH 31.8 (28.2-33.3) pg MCHC 30.1 L (31.7-36.0) g/dL RDW 19.2 H (11.2-14.1) % Plt Count 138 L (150-350) K/uL Neut % (Auto) 82.0 H (45.0-80.0) % Lymph % (Auto) 12.0 (10.0-50.0) % [place] % (Auto) 6.0 (2.0-14.0) % Eos % (Auto) 0.0 (0.0-5.0) % Baso % (Auto) 0.0 (0.0-2.0) % Neut # (Auto) 3.96 (1.40-7.00) K/uL Lymph # (Auto) 0.58 (0.50-3.50) K/uL [place] # (Auto) 0.29 (0.00-1.00) K/uL Eos # (Auto) 0.00 (0.00-0.50) K/uL Baso # (Auto) 0.00 (0.00-0.20) K/uL Sodium 145 (136-145) mmol/L Potassium 3.9 (3.5-5.1) mmol/L Chloride 105 (98-107) mmol/L Carbon Dioxide 38.7 H (21.0-32.0) mmol/L Anion Gap 5.2 L (7-15) meq/L BUN 24 H (7-18) mg/dL Creatinine 1.98 H (0.51-1.17) mg/dL Est Cr Clr Drug Dosing 19.12 mL/min Estimated GFR (MDRD) 25 mL/min Glucose 119 H (70-99) mg/dL POC Glucose 194 H (70-99) mg/dL Calcium 8.3 L (8.5-10.1) mg/dL Troponin I High Sens 68 H* (<=51) ng/L Free T3 pg/mL (2.50-3.90) pg/mL Crossmatch 05/17/21 05/17/21 05/17/21 Range/Units 07:27 10:19 11:38 WBC (4.0-10.2) K/uL RBC (3.77-5.09) M/uL Hgb (11.7-15.5) g/dL Hct (34.0-46.0) % MCV (84.0-98.0) fL MCH (28.2-33.3) pg MCHC (31.7-36.0) g/dL RDW (11.2-14.1) % Plt Count (150-350) K/uL Neut % (Auto) (45.0-80.0) % Lymph % (Auto) (10.0-50.0) % [place] % (Auto) (2.0-14.0) % Eos % (Auto) (0.0-5.0) % Baso % (Auto) (0.0-2.0) % Neut # (Auto) (1.40-7.00) K/uL Lymph # (Auto) (0.50-3.50) K/uL [place] # (Auto) (0.00-1.00) K/uL Eos # (Auto) (0.00-0.50) K/uL Baso # (Auto) (0.00-0.20) K/uL Sodium (136-145) mmol/L Potassium (3.5-5.1) mmol/L Chloride (98-107) mmol/L Carbon Dioxide (21.0-32.0) mmol/L Anion Gap (7-15) meq/L BUN (7-18) mg/dL Creatinine (0.51-1.17) mg/dL Est Cr Clr Drug Dosing mL/min Estimated GFR (MDRD) mL/min Glucose (70-99) mg/dL POC Glucose 83 202 H (70-99) mg/dL Calcium (8.5-10.1) mg/dL Troponin I High Sens 146 H* (<=51) ng/L Free T3 pg/mL (2.50-3.90) pg/mL Crossmatch Yannick Results Last 24 Hours: Microbiology 05/15/21 15:47 Aerobic Blood Culture - Preliminary Blood - Venous NO GROWTH AFTER 1 DAY Anaerobic Blood Culture - Preliminary NO GROWTH AFTER 1 DAY 05/15/21 15:43 Aerobic Blood Culture - Preliminary Blood - Venous - Lab Draw NO GROWTH AFTER 1 DAY Anaerobic Blood Culture - Preliminary NO GROWTH AFTER 1 DAY 05/15/21 15:50 Quick Strep Confirmation Culture - Final Throat NO GROUP A STREP ISOLATED REFERENCE RANGE: NEGATIVE Group A Streptococcus Rapid Screen - Final NEGATIVE STREP A SCREEN REFERENCE RANGE: NEGATIVE Med Orders - Current: Current Medications Acetaminophen (Acetaminophen 325 Mg Tab) 650 mg PO Q4H PRN PRN Reason: Pain (Mild 1-3)/fever Hydrocodone Bitart/Acetaminophen (Acetaminophen/Hydrocodone 325-5 Mg Tab) 1 tab PO Q4H PRN PRN Reason: Pain (moderate 4-6) Albuterol (Albuterol 0.083% 2.5 Mg/3 Ml Neb Soln) 2.5 mg NEB Q2H PRN PRN Reason: Shortness Of Breath/wheezing Last Admin: 05/17/21 05:47 Dose: 2.5 mg Documented by: Albuterol/Ipratropium (Albuterol/Ipratropium 3.0-0.5 Mg/3 Ml Neb Soln) 3 ml NEB Q4H PRN PRN Reason: Dyspnea Last Admin: 05/17/21 04:07 Dose: 3 ml Documented by: Amiodarone HCl (Amiodarone 200 Mg Tab) 200 mg PO DAILY [facility] Last Admin: 05/17/21 07:28 Dose: 200 mg Documented by: Artificial Tears (Polyvinyl Alcohol 1.4% Ophth Soln 15 Ml Bottle) 0 ml EYEBOTH BEDTIME [facility] Last Admin: 05/16/21 20:43 Dose: 1 drop Documented by: Artificial Tears (Polyvinyl Alcohol 1.4% Ophth Soln 15 Ml Bottle) 0 ml EYEBOTH TID PRN PRN Reason: Dry Eyes Atorvastatin Calcium (Atorvastatin 10 Mg Tab) 10 mg PO DAILY [facility] Last Admin: 05/17/21 07:29 Dose: 10 mg Documented by: Azithromycin (Azithromycin 250 Mg Tab) 250 mg PO DAILY [facility] Stop: 05/20/21 08:00 Last Admin: 05/17/21 07:28 Dose: 250 mg Documented by: Bisacodyl (Bisacodyl 5 Mg Tab) 5 mg PO DAILY PRN PRN Reason: Constipation Last Admin: 05/16/21 17:27 Dose: 5 mg Documented by: Budesonide (Budesonide 0.5 Mg/2 Ml Neb Susp) 0.5 mg INH BIDRT [facility] Last Admin: 05/17/21 07:28 Dose: 0.5 mg Documented by: Calcium Carbonate/Glycine (Calcium Carbonate 500 Mg Tab.Chew) 500 mg PO DAILY [facility] Last Admin: 05/17/21 07:28 Dose: 500 mg Documented by: Cetirizine HCl (Cetirizine 10 Mg Tab) 10 mg PO DAILY PRN PRN Reason: Allergies Dextrose/Water (50% Dextrose In Water 50 Ml Syringe) 50 ml IVPUSH ONETIME PRN PRN Reason: Hypoglycemia Dextrose/Water (50% Dextrose In Water 50 Ml Syringe) 50 ml IVPUSH ASDIRECTED PRN PRN Reason: Hypoglycemia Enoxaparin Sodium (Enoxaparin 30 Mg/0.3 Ml Syringe) 30 mg SUBCUT DAILY [facility] Last Admin: 05/17/21 07:28 Dose: 30 mg Documented by: Furosemide (Furosemide 40 Mg Tab) 20 mg PO BID [facility] Last Admin: 05/17/21 07:29 Dose: 20 mg Documented by: Gabapentin (Gabapentin 100 Mg Cap) 100 mg PO BID [facility] Last Admin: 05/17/21 07:28 Dose: 100 mg Documented by: Glucagon (Glucagon,Human Recombinant 1 Mg Vial) 1 mg IM ASDIRECTED PRN PRN Reason: Hypoglycemia Insulin Lispro Protam/Lispro Human (Insulin Lispro Protamine/Lispro 75-25 100 Units/Ml 10 Ml Vial) 0 unit SUBCUT TIDAC [facility]; Protocol Last Admin: 05/17/21 11:47 Dose: 2 unit Documented by: Levothyroxine Sodium (Levothyroxine 112 Mcg Tab) 112 mcg PO ACBREAKFAST [facility] Last Admin: 05/17/21 07:28 Dose: 112 mcg Documented by: Metoprolol Succinate (Metoprolol Succinate 25 Mg Tab.Er) 12.5 mg PO BID [facility] Last Admin: 05/17/21 07:32 Dose: Not Given Documented by: Mometasone Furoate/Formoterol Fumar (Formoterol/Mometasone 200-5 Mcg 8.8 Gm Inhaler) 0 puff IH BID [facility] Last Admin: 05/17/21 07:29 Dose: 2 inh Documented by: Nystatin (Nystatin Topical Powder 15 Gm Bottle) 0 gm TOP BID PRN PRN Reason: Rash Last Admin: 05/15/21 19:10 Dose: 1 applic Documented by: Omeprazole (Omeprazole 20 Mg Cap.Cr) 20 mg PO BID [facility] Last Admin: 05/17/21 07:28 Dose: 20 mg Documented by: Ondansetron HCl (Ondansetron 4 Mg Tab.Dis) 4 mg PO Q4H PRN PRN Reason: Nausea/Vomiting Polysaccharide Iron Complex (Iron Polysaccharides Complex 150 Mg Cap) 150 mg PO DAILY [facility] Last Admin: 05/17/21 07:29 Dose: 150 mg Documented by: Prednisone (Prednisone 20 Mg Tab) 40 mg PO WITHBREAKFAST LISSY Stop: 05/20/21 08:00 Last Admin: 05/17/21 07:29 Dose: 40 mg Documented by: Sodium Chloride (Sodium Chloride 0.9% 10 Ml Syringe) 10 ml FLUSH ASDIRECTED PRN PRN Reason: Keep Vein Open Last Admin: 05/16/21 14:29 Dose: 10 ml Documented by: Discontinued Medications Clopidogrel Bisulfate (Clopidogrel 75 Mg Tab) 75 mg PO ONETIME ONE Stop: 05/17/21 06:48 Last Admin: 05/17/21 07:28 Dose: 75 mg Documented by: Furosemide (Furosemide 40 Mg/4 Ml Vial) 40 mg IVPUSH NOW ONE Stop: 05/15/21 15:28 Last Admin: 05/15/21 15:43 Dose: 40 mg Documented by: Furosemide (Furosemide 40 Mg/4 Ml Vial) 40 mg IVPUSH NOW ONE Stop: 05/16/21 15:01 Last Admin: 05/16/21 14:29 Dose: 40 mg Documented by: Furosemide (Furosemide 40 Mg/4 Ml Vial) Confirm Administered Dose 40 mg .ROUTE .STK-MED ONE Stop: 05/17/21 04:35 Last Admin: 05/17/21 04:44 Dose: 40 mg Documented by: Azithromycin 500 mg/ Sodium (Chloride) 250 mls @ 250 mls/hr IV ONETIME ONE Stop: 05/15/21 16:40 Last Admin: 05/15/21 16:01 Dose: 250 mls/hr Documented by: Methylprednisolone Sodium Succinate 125 mg/ Sodium Chloride 101 mls @ 100 mls/hr IV ONETIME ONE Stop: 05/15/21 16:45 Last Admin: 05/15/21 15:58 Dose: Not Given Documented by: Insulin Human Lispro (Insulin Lispro 100 Units/Ml 3 Ml Vial) 0 unit SUBCUT ASDIRECTED [facility]; Protocol Methylprednisolone Sodium Succinate (Methylprednisolone Sodium Succinate 125 Mg/2 Ml Sdv) 125 mg IVPUSH ONETIME ONE Stop: 05/15/21 16:01 Last Admin: 05/15/21 16:00 Dose: 125 mg Documented by: Metoprolol Succinate (Metoprolol Succinate 25 Mg Tab.Er) 12.5 mg PO DAILY [facility] Last Admin: 05/17/21 05:23 Dose: 12.5 mg Documented by: Metoprolol Tartrate (Metoprolol Tartrate 5 Mg/5 Ml Sdv) 2.5 mg IVPUSH ONETIME ONE Stop: 05/17/21 04:55 Last Admin: 05/17/21 05:15 Dose: Not Given Documented by: Nitroglycerin (Nitroglycerin 2% Oint 1 Gm Ud Packet) Confirm Administered Dose 1 gm .ROUTE .STK-MED ONE Stop: 05/17/21 04:44 Last Admin: 05/17/21 04:44 Dose: 1 gm Documented by: Nitroglycerin (Nitroglycerin 2% Oint 1 Gm Ud Packet) 1 gm TOP ONETIME ONE Stop: 05/17/21 04:50 Last Admin: 05/17/21 05:26 Dose: Not Given Documented by: Norflurane (Norflurane/Hfc 245fa Medium [place] 103.5 Ml Can) Confirm Administered Dose 103.5 ml .ROUTE .STK-MED ONE Stop: 05/15/21 15:26 Last Admin: 05/15/21 16:00 Dose: Not Given Documented by: Norflurane (Norflurane/Hfc 245fa Medium [place] 103.5 Ml Can) 1 ml TOP ONETIME ONE Stop: 05/15/21 15:26 Last Admin: 05/15/21 15:35 Dose: 1 dose Documented by: - Exam Quality Assessment: Supplemental Oxygen, DVT Prophylaxis Urinary Catheter Total Time: 1Days 15Hours General: Alert, Oriented, Cooperative, No Acute Distress HEENT: Pupils Equal, Pupils Reactive, EOMI, Mucous Membr. Moist/[place] Neck: Supple Lungs: Decreased Breath Sounds, Other (Patient unable to take a deep breath when requested. ). No: Crackles, Rales, Rhonchi, Stridor, Wheezing Cardiovascular: Regular Rate, Regular Rhythm GI/Abdominal Exam: Soft, Non-Tender (Female) Exam: Deferred Back Exam: No: Muscle Spasm Extremities: Non-Tender, Normal Capillary Refill, Pedal Edema (mild) Skin: Warm, Dry, Other (bandage in place over abdominal surgical wound) Neurological: No New Focal Deficit Psy/Mental Status: Alert, Normal Affect, Normal Mood - Patient Data Lab Results Last 24 hrs: Laboratory Results - last 24 hr 05/15/21 05/15/21 05/16/21 Range/Units 15:50 15:55 17:01 WBC (4.0-10.2) K/uL RBC (3.77-5.09) M/uL Hgb (11.7-15.5) g/dL Hct (34.0-46.0) % MCV (84.0-98.0) fL MCH (28.2-33.3) pg MCHC (31.7-36.0) g/dL RDW (11.2-14.1) % Plt Count (150-350) K/uL Neut % (Auto) (45.0-80.0) % Lymph % (Auto) (10.0-50.0) % [place] % (Auto) (2.0-14.0) % Eos % (Auto) (0.0-5.0) % Baso % (Auto) (0.0-2.0) % Neut # (Auto) (1.40-7.00) K/uL Lymph # (Auto) (0.50-3.50) K/uL [place] # (Auto) (0.00-1.00) K/uL Eos # (Auto) (0.00-0.50) K/uL Baso # (Auto) (0.00-0.20) K/uL Sodium (136-145) mmol/L Potassium (3.5-5.1) mmol/L Chloride (98-107) mmol/L Carbon Dioxide (21.0-32.0) mmol/L Anion Gap (7-15) meq/L BUN (7-18) mg/dL Creatinine (0.51-1.17) mg/dL Est Cr Clr Drug Dosing mL/min Estimated GFR (MDRD) mL/min Glucose (70-99) mg/dL POC Glucose 122 H (70-99) mg/dL Calcium (8.5-10.1) mg/dL Troponin I High Sens (<=51) ng/L Free T3 pg/mL 2.26 L (2.50-3.90) pg/mL Crossmatch See Detail 05/16/21 05/17/21 05/17/21 Range/Units 20:49 05:20 05:20 WBC 4.8 (4.0-10.2) K/uL RBC 3.21 L (3.77-5.09) M/uL Hgb 10.2 L D (11.7-15.5) g/dL Hct 33.9 L (34.0-46.0) % MCV 105.6 H (84.0-98.0) fL MCH 31.8 (28.2-33.3) pg MCHC 30.1 L (31.7-36.0) g/dL RDW 19.2 H (11.2-14.1) % Plt Count 138 L (150-350) K/uL Neut % (Auto) 82.0 H (45.0-80.0) % Lymph % (Auto) 12.0 (10.0-50.0) % [place] % (Auto) 6.0 (2.0-14.0) % Eos % (Auto) 0.0 (0.0-5.0) % Baso % (Auto) 0.0 (0.0-2.0) % Neut # (Auto) 3.96 (1.40-7.00) K/uL Lymph # (Auto) 0.58 (0.50-3.50) K/uL [place] # (Auto) 0.29 (0.00-1.00) K/uL Eos # (Auto) 0.00 (0.00-0.50) K/uL Baso # (Auto) 0.00 (0.00-0.20) K/uL Sodium 145 (136-145) mmol/L Potassium 3.9 (3.5-5.1) mmol/L Chloride 105 (98-107) mmol/L Carbon Dioxide 38.7 H (21.0-32.0) mmol/L Anion Gap 5.2 L (7-15) meq/L BUN 24 H (7-18) mg/dL Creatinine 1.98 H (0.51-1.17) mg/dL Est Cr Clr Drug Dosing 19.12 mL/min Estimated GFR (MDRD) 25 mL/min Glucose 119 H (70-99) mg/dL POC Glucose 194 H (70-99) mg/dL Calcium 8.3 L (8.5-10.1) mg/dL Troponin I High Sens 68 H* (<=51) ng/L Free T3 pg/mL (2.50-3.90) pg/mL Crossmatch 05/17/21 05/17/21 05/17/21 Range/Units 07:27 10:19 11:38 WBC (4.0-10.2) K/uL RBC (3.77-5.09) M/uL Hgb (11.7-15.5) g/dL Hct (34.0-46.0) % MCV (84.0-98.0) fL MCH (28.2-33.3) pg MCHC (31.7-36.0) g/dL RDW (11.2-14.1) % Plt Count (150-350) K/uL Neut % (Auto) (45.0-80.0) % Lymph % (Auto) (10.0-50.0) % [place] % (Auto) (2.0-14.0) % Eos % (Auto) (0.0-5.0) % Baso % (Auto) (0.0-2.0) % Neut # (Auto) (1.40-7.00) K/uL Lymph # (Auto) (0.50-3.50) K/uL [place] # (Auto) (0.00-1.00) K/uL Eos # (Auto) (0.00-0.50) K/uL Baso # (Auto) (0.00-0.20) K/uL Sodium (136-145) mmol/L Potassium (3.5-5.1) mmol/L Chloride (98-107) mmol/L Carbon Dioxide (21.0-32.0) mmol/L Anion Gap (7-15) meq/L BUN (7-18) mg/dL Creatinine (0.51-1.17) mg/dL Est Cr Clr Drug Dosing mL/min Estimated GFR (MDRD) mL/min Glucose (70-99) mg/dL POC Glucose 83 202 H (70-99) mg/dL Calcium (8.5-10.1) mg/dL Troponin I High Sens 146 H* (<=51) ng/L Free T3 pg/mL (2.50-3.90) pg/mL Crossmatch Result Diagrams: 05/17/21 05:20 05/17/21 05:20 Yannick Results Last 24 hrs: Microbiology 05/15/21 15:47 Aerobic Blood Culture - Preliminary Blood - Venous NO GROWTH AFTER 1 DAY Anaerobic Blood Culture - Preliminary NO GROWTH AFTER 1 DAY 05/15/21 15:43 Aerobic Blood Culture - Preliminary Blood - Venous - Lab Draw NO GROWTH AFTER 1 DAY Anaerobic Blood Culture - Preliminary NO GROWTH AFTER 1 DAY 05/15/21 15:50 Quick Strep Confirmation Culture - Final Throat NO GROUP A STREP ISOLATED REFERENCE RANGE: NEGATIVE Group A Streptococcus Rapid Screen - Final NEGATIVE STREP A SCREEN REFERENCE RANGE: NEGATIVE Sepsis Event Note - Evaluation Sepsis Screening Result: No Definite Risk - Focused Exam Vital Signs: Vital Signs Temp Pulse Pulse Resp BP BP BP 05/17/21 12:00 36.6 C 73 20 136/67 05/17/21 07:34 36.2 C 70 20 130/63 05/17/21 05:23 86 168/79 H 05/17/21 04:00 36.7 C 86 36 H 168/79 H Pulse Ox 05/17/21 12:00 89 L 05/17/21 07:34 92 L 05/17/21 05:23 05/17/21 04:00 86 L - Problem List & Annotations (1) Respiratory failure with hypercapnia SNOMED Code(s): 784789201 Code(s): J96.92 - RESPIRATORY FAILURE, UNSPECIFIED WITH HYPERCAPNIA Status: Chronic Priority: Medium Current Visit: Yes Qualifiers: Chronicity: acute on chronic Qualified Code(s): J96.22 - Acute and chronic respiratory failure with hypercapnia Annotation/Comment:: COPD on oxygen, questionable left lower pneumonia but normal white count. Coverage with IV azithromycin initiated and then oral for the next 4 days. Given IV solu medrol and started on 40 mg po with watching of blood sugars. improved satursations and work of breathing Sudden onset of shortness of breath with decreased O2 concentration while sleeping. evaluation for new causing and temporarily increased )2 to 4lpm to raise o2 sats to 91%. this was temporary and decreased back down. Heart rates were elevated to 150 range at the time. question a fib with rvr verus copd, versus pulmonary edema versus AMI (2) CHF (congestive heart failure) SNOMED Code(s): 09566102 Code(s): I50.9 - HEART FAILURE, UNSPECIFIED Status: Chronic Priority: High Current Visit: Yes Qualifiers: Heart failure type: combined systolic and diastolic Heart failure chronicity: acute on chronic Qualified Code(s): I50.43 - Acute on chronic combined systolic (congestive) and diastolic (congestive) heart failure Annotation/Comment:: Echocardiogram performed to rule out structural or opertive lesion. Results pending. On lasix 20 mg bid, continuing this, iv dose of 40 mg yesterday adn today with maintence of renal function. Improved work of breathing now per patient, more comfortable, easier to maintain sats, improving CO2 retention did recieve 40 mg of lasix IVP after blood today and 20 mg lasix PO (3) Anemia SNOMED Code(s): 985767710 Code(s): D64.9 - ANEMIA, UNSPECIFIED Status: Chronic Priority: Medium Current Visit: Yes Qualifiers: Anemia type: unspecified type Qualified Code(s): D64.9 - Anemia, unspecified Annotation/Comment:: received two units of PRBC with significantly improved Hgb noted today. Chronically low. probable destruction of RBC due to chronic illness and decreased production. HEme negative stools (4) COPD (chronic obstructive pulmonary disease) SNOMED Code(s): 96229144 Code(s): J44.9 - CHRONIC OBSTRUCTIVE PULMONARY DISEASE, UNSPECIFIED Status: Chronic Priority: High Current Visit: Yes Qualifiers: COPD type: COPD with acute exacerbation Qualified Code(s): J44.1 - Chronic obstructive pulmonary disease with (acute) exacerbation Annotation/Comment:: Chronic supplemental O2. CO2 retainer. (5) Afib SNOMED Code(s): 06509506 Code(s): I48.91 - UNSPECIFIED ATRIAL FIBRILLATION Status: Chronic Priority: Medium Current Visit: Yes Qualifiers: Atrial fibrillation type: unspecified Qualified Code(s): I48.91 - Unspecified atrial fibrillation Annotation/Comment:: Episode Afib/RVR last night. Resolved on own. Noted to have two elevated troponins since episode. No recurrence/no chest pain complaints. (6) Hyperlipidemia SNOMED Code(s): 07143293 Code(s): E78.5 - HYPERLIPIDEMIA, UNSPECIFIED Status: Chronic Priority: Low Current Visit: No Qualifiers: Hyperlipidemia type: unspecified Qualified Code(s): E78.5 - Hyperlipidemia, unspecified Annotation/Comment:: Under therapy (7) HTN (hypertension) SNOMED Code(s): 56779962 Code(s): I10 - ESSENTIAL (PRIMARY) HYPERTENSION Status: Chronic Priority: Medium Current Visit: Yes Qualifiers: Hypertension type: unspecified Qualified Code(s): I10 - Essential (primary) hypertension Annotation/Comment:: observe trends (8) Obesity, morbid SNOMED Code(s): 346940299 Code(s): E66.01 - MORBID (SEVERE) OBESITY DUE TO EXCESS CALORIES Status: Chronic Priority: Medium Current Visit: Yes (9) GERD (gastroesophageal reflux disease) SNOMED Code(s): 057718253 Code(s): K21.9 - GASTRO-ESOPHAGEAL REFLUX DISEASE WITHOUT ESOPHAGITIS Status: Chronic Priority: Low Current Visit: No Qualifiers: Esophagitis presence: esophagitis presence not specified Qualified Code(s): K21.9 - Gastro-esophageal reflux disease without esophagitis Annotation/Comment:: unde therapy (10) Diabetes SNOMED Code(s): 38543355 Code(s): E11.9 - TYPE 2 DIABETES MELLITUS WITHOUT COMPLICATIONS Status: Chronic Priority: Medium Current Visit: Yes Qualifiers: Diabetes mellitus nursing home insulin use: with nursing home use Diabetes mellitus complication status: with other specified complication (11) Hypothyroid SNOMED Code(s): 60881336 Code(s): E03.9 - HYPOTHYROIDISM, UNSPECIFIED Status: Acute Priority: Low Current Visit: Yes Qualifiers: Hypothyroidism type: unspecified Qualified Code(s): E03.9 - Hypothyroidism, unspecified Annotation/Comment:: history of this, seems medication was stopped after a hospitalization in October. restarted today, will need recheck in 6 weeks and script at discharge. NO myxedema coma concerns - Problem List Review Problem List Initiated/Reviewed/Updated: Yes - Assessment Assessment:: Improving CHF, COPD. Blood transfusion to address anemia. Patient feels overall much better since receiving transfusion. Blood pressure is improving. Will add metoprolol 12.5 mg am and see how she tolerates. 05/17/2021 5:00 am Sudden onset of shortness of breath, chest tightness, fast heart rate. differential includes atrial fbrillation with rvr, PE, AMI, worsening hypercapnia, flash pulmonary edema. Initial management was albuterol neb that did not help, increased O2 by nasal cannula to 4lpm to get to 91%. 40 mg IV lasix for fluid overload and flash pulmonary edema alone with 1/2 in of nitro paste applied to the chest Patient needed to defecate and did bedside with valsalva several times. Heart rate noted in 150 range. Does suddenly feel better, decreased work of breathing and heart rate to 80. Breathing easier, will hold off on bipap but if need to start would consider 09/25. Had been holding off on the metoprolol due to low blood pressure, but they are improving. will give metoprolol 12.5 and start bid. Will check labs to include an ABG and troponin, chest x-ray. 05/17/21 14:00 Patient has had two elevated troponins since suspected Afib/RVR incident. [place] fine since then. No chest pain. Cannot rule out [place] but very likely elevation related to cardiac stress from the tachycardia. - Plan Plan:: COPD continue oxygen, nebs, azithromycin. Add 40 mg prednisone orally daily. CHF continue lasix 20 mg bid, continue to monitor diuresis, await echocardiogram report Anemia: improved after transfusion respiratory failure with hypercapnia Improving CO2 retention. continues cares. anticipating swing bed status after 3 days inpatient if patient continues to improve. PT/OT to consult. Patient/family continue to wish to avoid transfer to [place] at this time. They were made aware of elevated Troponins. Patient would like to see how she feels tomorrow and if she feels worse indicated that she might consider transfer.
[2021-05-17] MEDS: Nystatin Susp 100,000 Unit/ML 5 ML UD Cup PO SCH ×2 (17:38→20:12)
[2021-05-17] MEDS: Polyvinyl Alcohol 1.4% Ophth Soln 15 ML Bottle EYEBOTH SCH (20:11)
[2021-05-18] MEDS: Albuterol/Ipratropium 3.0-0.5 MG/3 ML Neb Soln NEB PRN (00:48)
[2021-05-18] MEDS ORDERED: Aluminum Hydroxide/Magnesium Hydroxide/Simethicone Susp 30 ML Cup PO PRN (00:56)
[2021-05-18] MEDS ORDERED: Morphine 4 MG/ML Syringe IVPUSH ONE (01:14)
[2021-05-18] MEDS: Morphine 2 MG/ML SYRINGE IVPUSH PRN ×2 (06:59→08:37)
[2021-05-18] MEDS: Insulin Lispro Protamine/Lispro 75-25 100 Units/ML 10 ML Vial SUBCUT SCH (07:09)
[2021-05-18] MEDS ORDERED: Furosemide 40 MG/4 ML VIAL IVPUSH ONE (07:23)
[2021-05-18] MEDS ORDERED: Albuterol/Ipratropium 3.0-0.5 MG/3 ML Neb Soln NEB ONE (07:51)
[2021-05-18] MEDS ORDERED: methylPREDNISolone Sodium Succinate 125 MG/2 ML SDV IVPUSH ONE (07:51)
[2021-05-18] MEDS: Sodium Chloride 0.9% 10 ML Syringe FLUSH PRN ×3 (07:52→08:54)
[2021-05-18] MEDS: Formoterol/Mometasone 200-5 MCG 8.8 GM Inhaler IH SCH (07:52)
[2021-05-18] MEDS: Budesonide 0.5 MG/2 ML Neb Susp INH SCH (07:52)
--- NOTE | 2021-05-18 07:57 | PCM.DCSUM1 ---
Discharge Summary - Hospital Course Brief History: Patient admitted for treatment of worsening CHF, anemia, COPD Diagnosis: Stroke: No - Discharge Data Discharge Date: 05/18/21 Discharge Disposition: DC/Tfer to Acute Hospital 02 Condition: Poor - Referral to Home Health Primary Care Physician: ARTHUR Justice - Discharge Diagnosis/Problem(s) (1) Chest pain SNOMED Code(s): 42777705 ICD Code: R07.9 - CHEST PAIN, UNSPECIFIED Status: Acute Priority: High Current Visit: Yes Problem Details: Chest pain complaint noted when patient's rate increases due to Afib/RVR. Accompanied by increased SOB. Elevated high sensitivity troponins noted after initial episode two nights ago. EKG shows afib/RVR. Noted on telemetry to have what appears to episodic brief runs of vtach. Pain resolves when rate improves. HS trop 79 this morning which is improved from yesterday (2) Respiratory failure with hypercapnia SNOMED Code(s): 378917904 ICD Code: J96.92 - RESPIRATORY FAILURE, UNSPECIFIED WITH HYPERCAPNIA Status: Chronic Priority: High Current Visit: Yes Problem Details: COPD on home oxygen. Questionable left lower pneumonia but normal white count/afebrile. Coverage with azithromycin initiated. Given IV solu medrol and started on 40 mg po with watching of blood sugars led initially to improved satursations and work of breathing. Sudden onset of shortness of breath with decreased O2 concentration while sleeping. evaluation for new causing and temporarily increased )2 to 4lpm to raise o2 sats to 91%. this was temporary and decreased back down. Heart rates were elevated to 150 range at the time. question a fib with rvr verus copd, versus pulmonary edema versus AMI Qualifiers: Chronicity: acute on chronic Qualified Code(s): J96.22 - Acute and chronic respiratory failure with hypercapnia (3) COPD (chronic obstructive pulmonary disease) SNOMED Code(s): 83475675 ICD Code: J44.9 - CHRONIC OBSTRUCTIVE PULMONARY DISEASE, UNSPECIFIED Status: Chronic Priority: High Current Visit: Yes Problem Details: Chronic supplemental O2. CO2 retainer. Qualifiers: COPD type: COPD with acute exacerbation Qualified Code(s): J44.1 - Chronic obstructive pulmonary disease with (acute) exacerbation (4) CHF (congestive heart failure) SNOMED Code(s): 84016826 ICD Code: I50.9 - HEART FAILURE, UNSPECIFIED Status: Chronic Priority: High Current Visit: Yes Problem Details: Echocardiogram performed and results pending. On lasix 20 mg bid PO. Received IV Lasix after transfusion. Initially led to improved work of breathing per patient, more comfortable, easier to maintain sats, less CO2 retention Qualifiers: Heart failure type: combined systolic and diastolic Heart failure chr onicity: acute on chronic Qualified Code(s): I50.43 - Acute on chronic combined systolic (congestive) and diastolic (congestive) heart failure (5) Anemia SNOMED Code(s): 012447141 ICD Code: D64.9 - ANEMIA, UNSPECIFIED Status: Chronic Priority: High Current Visit: Yes Problem Details: received two units of PRBC with significantly improved Hgb noted the following day. Chronically low. probable destruction of RBC due to chronic illness and decreased production. HEme negative stools Qualifiers: Anemia type: unspecified type Qualified Code(s): D64.9 - Anemia, unspecified (6) Afib SNOMED Code(s): 17078681 ICD Code: I48.91 - UNSPECIFIED ATRIAL FIBRILLATION Status: Chronic Priority: Medium Current Visit: Yes Problem Details: Episode Afib/RVR starting two nights ago. Resolved on own. Noted to have two elevated troponins yesterday. Again this past night patient's rate increased and up to 150. Is on Amiodarone and Metoprolol to help with her rate. Metoprolol held at time of admission due to hypotension and was restarted last evening at a lower dose/blood pressures observed. Patient gets increased SOB/chest pain when rate elevates. Qualifiers: Atrial fibrillation type: unspecified Qualified Code(s): I48.91 - Unspecified atrial fibrillation (7) Hyperlipidemia SNOMED Code(s): 22943591 ICD Code: E78.5 - HYPERLIPIDEMIA, UNSPECIFIED Status: Chronic Priority: Low Current Visit: No Problem Details: Under therapy Qualifiers: Hyperlipidemia type: unspecified Qualified Code(s): E78.5 - Hyperlipidemia, unspecified (8) HTN (hypertension) SNOMED Code(s): 18696406 ICD Code: I10 - ESSENTIAL (PRIMARY) HYPERTENSION Status: Chronic Priority: Medium Current Visit: Yes Problem Details: Overall has been within good range. Elevated this morning. Qualifiers: Hypertension type: unspecified Qualified Code(s): I10 - Essential (primary) hypertension (9) Obesity, morbid SNOMED Code(s): 150155663 ICD Code: E66.01 - MORBID (SEVERE) OBESITY DUE TO EXCESS CALORIES Status: Chronic Priority: Medium Current Visit: Yes (10) GERD (gastroesophageal reflux disease) SNOMED Code(s): 373854385 ICD Code: K21.9 - GASTRO-ESOPHAGEAL REFLUX DISEASE WITHOUT ESOPHAGITIS Status: Chronic Priority: Low Current Visit: No Problem Details: unde therapy Qualifiers: Esophagitis presence: esophagitis presence not specified Qualified Code(s): K21.9 - Gastro-esophageal reflux disease without esophagitis (11) Diabetes SNOMED Code(s): 90227511 ICD Code: E11.9 - TYPE 2 DIABETES MELLITUS WITHOUT COMPLICATIONS Status: Chronic Priority: Medium Current Visit: Yes Qualifiers: Diabetes mellitus long-term insulin use: with medical terminologist use Diabetes mellitus complication status: with other specified complication (12) Hypothyroid SNOMED Code(s): 60778220 ICD Code: E03.9 - HYPOTHYROIDISM, UNSPECIFIED Status: Acute Priority: Low Current Visit: Yes Problem Details: history of this, seems medication was stopped after a hospitalization in October. restarted today, will need recheck in 6 weeks. NO myxedema coma concerns Qualifiers: Hypothyroidism type: unspecified Qualified Code(s): E03.9 - Hypothyroidism, unspecified (13) Delayed surgical wound healing SNOMED Code(s): 220648371 ICD Code: T81.89XA - OTH COMPLICATIONS OF PROCEDURES, NEC, INIT Status: Acute Current Visit: Yes Problem Details: Recent ruptured appy followed by incarcerated hernia over springtime. Wound located on abdomen. Qualifiers: Encounter type: subsequent encounter Qualified Code(s): T81.89XD - Other complications of procedures, not elsewhere classified, subsequent encounter (14) Confusion SNOMED Code(s): 198202266 ICD Code: R41.0 - DISORIENTATION, UNSPECIFIED Status: Inactive Priority: Low Current Visit: No Problem Details: History of intermittent confusion this past spring per records. Forgets to take medications correctly. No evidence of confusion during current stay. (15) Chronic renal disease SNOMED Code(s): 957360555 ICD Code: N18.9 - CHRONIC KIDNEY DISEASE, UNSPECIFIED Status: Acute Current Visit: Yes Problem Details: GFR 24 Cr 2.2 BUN 24 Qualifiers: Chronic kidney disease stage: unspecified stage Qualified Code(s): N18.9 - Chronic kidney disease, unspecified - Patient Summary/Data Consults: Consultations 05/17/21 14:45 PT Evaluation and Treatment [CONS] Routine Hospital Course: Patient admitted to our facility after refusing transfer to [place]. DNR/DNI but willing to undergo medical intervention. Initially improved after receiving blood transfusion. Less SOB/increased energy. Metoprolol held due to hypotension which was felt to possibly be contributing to patient's complaint of fatigue. Chest xray showed interstitial edema/CHF/possible infiltrate left lower lung. Patient started on Zithromax. Afebrile/no cough/normal WBC. Was continued on usual BID lasix dose otherwise and GFR overall remained stable. Developed Afib/RVR two nights ago with associated chest pain and increased SOB. Received Lasix. Rate improved but patient's troponin trended upwards over course of yesterday. Metroprolol added back to regimen because of elevated rate. Patient also on Amiodarone for rate control. Again, patient and family re fused transfer yesterday to [facility] or [place] when higher level of care discussed with them. Last night patient again developed Afib/RVR with associated SOB/chest pain. Given MS for improved comfort. Lactic 2.2 Chest xray continued to show significant CHF/edema in lungs. IV Lasix and Solumedrol. Transfer to [place] where she could have closer access to Cardiology/Pulmonary Medicine/Nephrology again suggested given her multiple chronic medical conditions and lack of improvement. Patient was agreeable with transfer this morning. Call made to [facility] and patient accepted by Dr. James. Prognosis is felt to be poor given the severity of patient's multiple medical issues. - Discharge Plan Home Medications: Home Meds Albuterol/Ipratropium [DuoNeb 3.0-0.5 MG/3 ML] 1 inh INH QID PRN 05/15/21 [History] Amiodarone [Cordarone] 200 mg PO DAILY 05/15/21 [History] Budesonide [Pulmicort] 1 inh INH BID 05/15/21 [History] Budesonide/Formoterol [Symbicort 160-4.5 MCG] 2 inh INH BID 05/15/21 [History] Calcium Carbonate 1 tab PO DAILY 05/15/21 [History] Carboxymethylcellulose Sodium [Artificial Tears] 1 drop EYEBOTH TID PRN 05/15/21 [History] Carboxymethylcellulose Sodium [Refresh Liquigel 1%] 1 drop EYEBOTH BEDTIME 05/15/21 [History] Cetirizine [ZyrTEC] 10 mg PO DAILY PRN 05/15/21 [History] Furosemide [Lasix] 20 mg PO BID 05/15/21 [History] Gabapentin [Neurontin] 100 mg PO BID 05/15/21 [History] Insulin Degludec [Tresiba] 20 unit SQ DAILY 05/15/21 [History] Iron Polysaccharide Complex [Iferex 150] 150 mg PO DAILY 05/15/21 [History] Metoprolol Tartrate 12.5 mg PO BID 05/15/21 [History] Nystatin 1 dose TOP BID PRN 05/15/21 [History] Omeprazole 20 mg PO BID 05/15/21 [History] Semaglutide [Wegovy] 0.5 mg PO FR 05/15/21 [History] atorvaSTATin Calcium [Atorvastatin Calcium] 10 mg PO DAILY 05/15/21 [History] polyethylene glycoL 3350 [MiraLAX] 17 gm PO DAILY PRN 05/15/21 [History] Forms: ED Department Discharge Referrals: Babatunde Barton PA [Primary Care Provider] - - Discharge Summary/Plan Comment DC Time >30 min.: No - General Info Date of Service: 05/18/21 Admission Dx/Problem (Free Text: Admission Diagnosis/Problem Admission Diagnosis/Problem CHF, Congestive heart failure with hypercapnia, anemia, Subjective Update: Worsening SOB. Some chest pain last night. - Review of Systems General: Reports: Weakness, Fatigue, Appetite (poor). Denies: Fever, Chills Pulmonary: Reports: Shortness of Breath. Denies: Pleuritic Chest Pain, Cough, Sputum, Hemoptysis, Wheezing Cardiovascular: Reports: Chest Pain, Palpitations, Dyspnea on Exertion, Orthopnea - Patient Data Vitals - Most Recent: Last Vital Signs Temp 36.8 C 05/18/21 07:46 Pulse 97 05/18/21 07:46 Resp 34 H 05/18/21 07:46 BP 165/106 H 05/18/21 07:46 Pulse Ox 88 L 05/18/21 00:00 Weight - Most Recent: 137.643 kg I&O - Last 24 hours: Intake & Output 05/17/21 05/18/21 05/18/21 22:59 06:59 14:59 Intake Total 20 Output Total 600 Balance -580 Lab Results - Last 24 hrs: Laboratory Results - last 24 hr 05/15/21 05/17/21 05/17/21 Range/Units 15:50 10:19 11:38 WBC (4.0-10.2) K/uL RBC (3.77-5.09) M/uL Hgb (11.7-15.5) g/dL Hct (34.0-46.0) % MCV (84.0-98.0) fL MCH (28.2-33.3) pg MCHC (31.7-36.0) g/dL RDW (11.2-14.1) % Plt Count (150-350) K/uL Neut % (Auto) (45.0-80.0) % Lymph % (Auto) (10.0-50.0) % [place] % (Auto) (2.0-14.0) % Eos % (Auto) (0.0-5.0) % Baso % (Auto) (0.0-2.0) % Neut # (Auto) (1.40-7.00) K/uL Lymph # (Auto) (0.50-3.50) K/uL [place] # (Auto) (0.00-1.00) K/uL Eos # (Auto) (0.00-0.50) K/uL Baso # (Auto) (0.00-0.20) K/uL POC Glucose 202 H (70-99) mg/dL Troponin I High Sens 146 H* (<=51) ng/L Free T3 pg/mL 2.26 L (2.50-3.90) pg/mL 05/17/21 05/17/21 05/18/21 Range/Units 17:06 20:27 07:02 WBC (4.0-10.2) K/uL RBC (3.77-5.09) M/uL Hgb (11.7-15.5) g/dL Hct (34.0-46.0) % MCV (84.0-98.0) fL MCH (28.2-33.3) pg MCHC (31.7-36.0) g/dL RDW (11.2-14.1) % Plt Count (150-350) K/uL Neut % (Auto) (45.0-80.0) % Lymph % (Auto) (10.0-50.0) % [place] % (Auto) (2.0-14.0) % Eos % (Auto) (0.0-5.0) % Baso % (Auto) (0.0-2.0) % Neut # (Auto) (1.40-7.00) K/uL Lymph # (Auto) (0.50-3.50) K/uL [place] # (Auto) (0.00-1.00) K/uL Eos # (Auto) (0.00-0.50) K/uL Baso # (Auto) (0.00-0.20) K/uL POC Glucose 137 H 150 H 74 (70-99) mg/dL Troponin I High Sens (<=51) ng/L Free T3 pg/mL (2.50-3.90) pg/mL 05/18/21 Range/Units 07:07 WBC 6.7 (4.0-10.2) K/uL RBC 3.73 L (3.77-5.09) M/uL Hgb 11.8 D (11.7-15.5) g/dL Hct 39.9 (34.0-46.0) % MCV 107.0 H (84.0-98.0) fL MCH 31.6 (28.2-33.3) pg MCHC 29.6 L (31.7-36.0) g/dL RDW 18.3 H (11.2-14.1) % Plt Count 152 (150-350) K/uL Neut % (Auto) 61.2 (45.0-80.0) % Lymph % (Auto) 28.8 (10.0-50.0) % [place] % (Auto) 9.6 (2.0-14.0) % Eos % (Auto) 0.1 (0.0-5.0) % Baso % (Auto) 0.3 (0.0-2.0) % Neut # (Auto) 4.08 (1.40-7.00) K/uL Lymph # (Auto) 1.92 (0.50-3.50) K/uL [place] # (Auto) 0.64 (0.00-1.00) K/uL Eos # (Auto) 0.01 (0.00-0.50) K/uL Baso # (Auto) 0.02 (0.00-0.20) K/uL POC Glucose (70-99) mg/dL Troponin I High Sens (<=51) ng/L Free T3 pg/mL (2.50-3.90) pg/mL JUAN Results - Last 24 hrs: Microbiology 05/15/21 15:47 Aerobic Blood Culture - Preliminary Blood - Venous NO GROWTH AFTER 2 DAYS Anaerobic Blood Culture - Preliminary NO GROWTH AFTER 2 DAYS 05/15/21 15:43 Aerobic Blood Culture - Preliminary Blood - Venous - Lab Draw NO GROWTH AFTER 2 DAYS Anaerobic Blood Culture - Preliminary NO GROWTH AFTER 2 DAYS Med Orders - Current: Current Medications Acetaminophen (Acetaminophen 325 Mg Tab) 650 mg PO Q4H PRN PRN Reason: Pain (Mild 1-3)/fever Hydrocodone Bitart/Acetaminophen (Acetaminophen/Hydrocodone 325-5 Mg Tab) 1 tab PO Q4H PRN PRN Reason: Pain (moderate 4-6) Al Hydroxide/Mg Hydroxide (Aluminum Hydroxide/Magnesium Hydroxide/Simethicone Susp 30 Ml Cup) 30 ml PO Q4H PRN PRN Reason: Dyspepsia Last Admin: 05/18/21 01:37 Dose: 30 ml Documented by: Albuterol (Albuterol 0.083% 2.5 Mg/3 Ml Neb Soln) 2.5 mg NEB Q2H PRN PRN Reason: Shortness Of Breath/wheezing Last Admin: 05/17/21 05:47 Dose: 2.5 mg Documented by: Albuterol/Ipratropium (Albuterol/Ipratropium 3.0-0.5 Mg/3 Ml Neb Soln) 3 ml NEB Q4H PRN PRN Reason: Dyspnea Last Admin: 05/18/21 00:48 Dose: 3 ml Documented by: Albuterol/Ipratropium (Albuterol/Ipratropium 3.0-0.5 Mg/3 Ml Neb Soln) 3 ml NEB ONETIME ONE Stop: 05/18/21 07:52 Amiodarone HCl (Amiodarone 200 Mg Tab) 200 mg PO DAILY [facility] Last Admin: 05/17/21 07:28 Dose: 200 mg Documented by: Artificial Tears (Polyvinyl Alcohol 1.4% Ophth Soln 15 Ml Bottle) 0 ml EYEBOTH BEDTIME [facility] Last Admin: 05/17/21 20:11 Dose: 1 drop Documented by: Artificial Tears (Polyvinyl Alcohol 1.4% Ophth Soln 15 Ml Bottle) 0 ml EYEBOTH TID PRN PRN Reason: Dry Eyes Atorvastatin Calcium (Atorvastatin 10 Mg Tab) 10 mg PO DAILY [facility] Last Admin: 05/17/21 07:29 Dose: 10 mg Documented by: Azithromycin (Azithromycin 250 Mg Tab) 250 mg PO DAILY [facility] Stop: 05/20/21 08:00 Last Admin: 05/17/21 07:28 Dose: 250 mg Documented by: Bisacodyl (Bisacodyl 5 Mg Tab) 5 mg PO DAILY PRN PRN Reason: Constipation Last Admin: 05/16/21 17:27 Dose: 5 mg Documented by: Budesonide (Budesonide 0.5 Mg/2 Ml Neb Susp) 0.5 mg INH BIDRT [facility] Last Admin: 05/17/21 20:12 Dose: 0.5 mg Documented by: Calcium Carbonate/Glycine (Calcium Carbonate 500 Mg Tab.Chew) 500 mg PO DAILY [facility] Last Admin: 05/17/21 07:28 Dose: 500 mg Documented by: Cetirizine HCl (Cetirizine 10 Mg Tab) 10 mg PO DAILY PRN PRN Reason: Allergies Dextrose/Water (50% Dextrose In Water 50 Ml Syringe) 50 ml IVPUSH ONETIME PRN PRN Reason: Hypoglycemia Dextrose/Water (50% Dextrose In Water 50 Ml Syringe) 50 ml IVPUSH ASDIRECTED PRN PRN Reason: Hypoglycemia Enoxaparin Sodium (Enoxaparin 30 Mg/0.3 Ml Syringe) 30 mg SUBCUT DAILY [facility] Last Admin: 05/17/21 07:28 Dose: 30 mg Documented by: Furosemide (Furosemide 40 Mg Tab) 20 mg PO BID [facility] Last Admin: 05/17/21 17:13 Dose: 20 mg Documented by: Gabapentin (Gabapentin 100 Mg Cap) 100 mg PO BID [facility] Last Admin: 05/17/21 17:11 Dose: 100 mg Documented by: Glucagon (Glucagon,Human Recombinant 1 Mg Vial) 1 mg IM ASDIRECTED PRN PRN Reason: Hypoglycemia Insulin Lispro Protam/Lispro Human (Insulin Lispro Protamine/Lispro 75-25 100 Units/Ml 10 Ml Vial) 0 unit SUBCUT TIDAC [facility]; Protocol Last Admin: 05/18/21 07:09 Dose: Not Given Documented by: Levothyroxine Sodium (Levothyroxine 112 Mcg Tab) 112 mcg PO ACBREAKFAST [facility] Last Admin: 05/17/21 07:28 Dose: 112 mcg Documented by: Methylprednisolone Sodium Succinate (Methylprednisolone Sodium Succinate 125 Mg/2 Ml Sdv) 125 mg IVPUSH ONETIME ONE Stop: 05/18/21 07:52 Metoprolol Succinate (Metoprolol Succinate 25 Mg Tab.Er) 12.5 mg PO BID [facility] Last Admin: 05/17/21 17:11 Dose: 12.5 mg Documented by: Mometasone Furoate/Formoterol Fumar (Formoterol/Mometasone 200-5 Mcg 8.8 Gm Inhaler) 0 puff IH BID [facility] Last Admin: 05/17/21 17:13 Dose: 2 inh Documented by: Morphine Sulfate (Morphine 2 Mg/Ml Syringe) 2 mg IVPUSH Q1H PRN PRN Reason: Pain / SOB Last Admin: 05/18/21 06:59 Dose: 2 mg Documented by: Nystatin (Nystatin Topical Powder 15 Gm Bottle) 0 gm TOP BID PRN PRN Reason: Rash Last Admin: 05/15/21 19:10 Dose: 1 applic Documented by: Nystatin (Nystatin Susp 100,000 Unit/Ml 5 Ml Ud Cup) 5 ml PO QID [facility] Stop: 05/24/21 17:31 Last Admin: 05/17/21 20:12 Dose: 5 ml Documented by: Omeprazole (Omeprazole 20 Mg Cap.Cr) 20 mg PO BID [facility] Last Admin: 05/17/21 17:11 Dose: 20 mg Documented by: Ondansetron HCl (Ondansetron 4 Mg Tab.Dis) 4 mg PO Q4H PRN PRN Reason: Nausea/Vomiting Polysaccharide Iron Complex (Iron Polysaccharides Complex 150 Mg Cap) 150 mg PO DAILY [facility] Last Admin: 05/17/21 07:29 Dose: 150 mg Documented by: Prednisone (Prednisone 20 Mg Tab) 40 mg PO WITHBREAKFAST [facility] Stop: 05/20/21 08:00 Last Admin: 05/17/21 07:29 Dose: 40 mg Documented by: Sodium Chloride (Sodium Chloride 0.9% 10 Ml Syringe) 10 ml FLUSH ASDIRECTED PRN PRN Reason: Keep Vein Open Last Admin: 05/16/21 14:29 Dose: 10 ml Documented by: Discontinued Medications Clopidogrel Bisulfate (Clopidogrel 75 Mg Tab) 75 mg PO ONETIME ONE Stop: 05/17/21 06:48 Last Admin: 05/17/21 07:28 Dose: 75 mg Documented by: Furosemide (Furosemide 40 Mg/4 Ml Vial) 40 mg IVPUSH NOW ONE Stop: 05/15/21 15:28 Last Admin: 05/15/21 15:43 Dose: 40 mg Documented by: Furosemide (Furosemide 40 Mg/4 Ml Vial) 40 mg IVPUSH NOW ONE Stop: 05/16/21 15:01 Last Admin: 05/16/21 14:29 Dose: 40 mg Documented by: Furosemide (Furosemide 40 Mg/4 Ml Vial) Confirm Administered Dose 40 mg .ROUTE .ST-MED ONE Stop: 05/17/21 04:35 Last Admin: 05/17/21 04:44 Dose: 40 mg Documented by: Furosemide (Furosemide 40 Mg/4 Ml Vial) 40 mg IVPUSH NOW ONE Stop: 05/18/21 07:24 Azithromycin 500 mg/ Sodium (Chloride) 250 mls @ 250 mls/hr IV ONETIME ONE Stop: 05/15/21 16:40 Last Admin: 05/15/21 16:01 Dose: 250 mls/hr Documented by: Methylprednisolone Sodium Succinate 125 mg/ Sodium Chloride 101 mls @ 100 mls/hr IV ONETIME ONE Stop: 05/15/21 16:45 Last Admin: 05/15/21 15:58 Dose: Not Given Documented by: Insulin Human Lispro (Insulin Lispro 100 Units/Ml 3 Ml Vial) 0 unit SUBCUT ASDIRECTED [facility]; Protocol Methylprednisolone Sodium Succinate (Methylprednisolone Sodium Succinate 125 Mg/2 Ml Sdv) 125 mg IVPUSH ONETIME ONE Stop: 05/15/21 16:01 Last Admin: 05/15/21 16:00 Dose: 125 mg Documented by: Metoprolol Succinate (Metoprolol Succinate 25 Mg Tab.Er) 12.5 mg PO DAILY [facility] Last Admin: 05/17/21 05:23 Dose: 12.5 mg Documented by: Metoprolol Tartrate (Metoprolol Tartrate 5 Mg/5 Ml Sdv) 2.5 mg IVPUSH ONETIME ONE Stop: 05/17/21 04:55 Last Admin: 05/17/21 05:15 Dose: Not Given Documented by: Morphine Sulfate (Morphine 4 Mg/Ml Syringe) 4 mg IVPUSH ONETIME ONE Stop: 05/18/21 01:15 Last Admin: 05/18/21 01:37 Dose: 4 mg Documented by: Nitroglycerin (Nitroglycerin 2% Oint 1 Gm Ud Packet) Confirm Administered Dose 1 gm .ROUTE .STK-MED ONE Stop: 05/17/21 04:44 Last Admin: 05/17/21 04:44 Dose: 1 gm Documented by: Nitroglycerin (Nitroglycerin 2% Oint 1 Gm Ud Packet) 1 gm TOP ONETIME ONE Stop: 05/17/21 04:50 Last Admin: 05/17/21 05:26 Dose: Not Given Documented by: Norflurane (Norflurane/Hfc 245fa Medium [place] 103.5 Ml Can) Confirm Admi nistered Dose 103.5 ml .ROUTE .STK-MED ONE Stop: 05/15/21 15:26 Last Admin: 05/15/21 16:00 Dose: Not Given Documented by: Norflurane (Norflurane/Hfc 245fa Medium [place] 103.5 Ml Can) 1 ml TOP ONETIME ONE Stop: 05/15/21 15:26 Last Admin: 05/15/21 15:35 Dose: 1 dose Documented by: - Exam Quality Assessment: Reports: Supplemental Oxygen, DVT Prophylaxis General: Reports: Alert, Oriented, Cooperative HEENT: Reports: Pupils Reactive, EOMI Neck: Reports: Supple Lungs: Reports: Decreased Breath Sounds (all duque), Rales (bases), Other (pused lip breathing). Denies: Stridor, Wheezing Cardiovascular: Reports: Irregular Rhythm, Tachycardia GI/Abdominal Exam: Soft Extremities: Normal Capillary Refill, Pedal Edema Skin: Reports: Warm, Dry Neurological: Reports: No New Focal Deficit Psy/Mental Status: Reports: Alert, Anxious #1 Interpretation EKG Date: 05/18/21 Time: 07:09 Rhythm: Other (rvr) Rate (Beats/Min): 124 [place]: Normal P-Wave: Absent QRS: Normal ST-T: Depressed QT: Normal
[2021-05-18 07:59] LABS: ANION GAP 2.8 meq/L (7-15)
[2021-05-18] MEDS: Levothyroxine 112 MCG Tab PO SCH (08:14)
[2021-05-18] MEDS: Furosemide 40 MG Tab PO SCH (08:15)
[2021-05-18] MEDS: atorvaSTATin 10 MG Tab PO SCH (08:15)
[2021-05-18] MEDS: Metoprolol Succinate 25 MG Tab.ER PO SCH (08:15)
[2021-05-18] MEDS: predniSONE 20 MG Tab PO SCH (08:15)
[2021-05-18] MEDS: Gabapentin 100 MG Cap PO SCH (08:15)
[2021-05-18] MEDS: Nystatin Susp 100,000 Unit/ML 5 ML UD Cup PO SCH (08:15)
[2021-05-18] MEDS: Iron Polysaccharides Complex 150 MG Cap PO SCH (08:15)
[2021-05-18] MEDS: Omeprazole 20 MG Cap.CR PO SCH (08:15)
[2021-05-18] MEDS: Amiodarone 200 MG Tab PO SCH (08:15)
[2021-05-18] MEDS: Calcium Carbonate 500 MG Tab.Chew PO SCH (08:16)
[2021-05-18] MEDS: Azithromycin 250 MG Tab PO SCH (08:16)
[2021-05-18] MEDS: Enoxaparin 30 MG/0.3 ML Syringe SUBCUT SCH (08:36)
[2021-05-18 08:41] VITALS: BP 143/59; PULSE 93
[2021-05-18] MEDS ORDERED: Furosemide 20 MG/2 ML VIAL IVPUSH ONE (08:45)
== END 2021-05-18 09:32 | DRG 291 ==
LOC: LL.ED 14:45 → LL.MS 16:12
PROVIDERS: ADMIT Physician Assistant; ATTEND Physician Assistant
PROC: 30233N1 Transfusion of Nonautologous Red Blood Cells into Peripheral Vein, Percutaneous Approach (ICD-10-PCS; principal; 2021-05-16)
DX: I11.0 Hypertensive heart disease with heart failure (principal); I50.9 Heart failure, unspecified; J96.92 Respiratory failure, unspecified with hypercapnia; I13.0 Hypertensive heart and chronic kidney disease with heart failure and stage 1 through stage 4 chronic kidney disease, or unspecified chronic kidney disease; J96.22 Acute and chronic respiratory failure with hypercapnia; I50.43 Acute on chronic combined systolic (congestive) and diastolic (congestive) heart failure; E78.00 Pure hypercholesterolemia, unspecified; I73.9 Peripheral vascular disease, unspecified; J44.9 Chronic obstructive pulmonary disease, unspecified; J44.1 Chronic obstructive pulmonary disease with (acute) exacerbation; E11.9 Type 2 diabetes mellitus without complications; Z87.891 Personal history of nicotine dependence; Z88.8 Allergy status to other drugs, medicaments and biological substances; Z68.43 Body mass index [BMI] 50.0-59.9, adult; Z79.51 Long term (current) use of inhaled steroids; Z79.899 Other long term (current) drug therapy; Z99.81 Dependence on supplemental oxygen; I48.91 Unspecified atrial fibrillation; E78.5 Hyperlipidemia, unspecified; D63.1 Anemia in chronic kidney disease; E66.01 Morbid (severe) obesity due to excess calories; K21.9 Gastro-esophageal reflux disease without esophagitis; N18.9 Chronic kidney disease, unspecified; Z66 Do not resuscitate; E03.9 Hypothyroidism, unspecified; R41.0 Disorientation, unspecified; E11.22 Type 2 diabetes mellitus with diabetic chronic kidney disease; Z20.822 Contact with and (suspected) exposure to COVID-19; Z90.49 Acquired absence of other specified parts of digestive tract; Z98.890 Other specified postprocedural states; Z87.19 Personal history of other diseases of the digestive system; Z79.4 Long term (current) use of insulin
CPT/HCPCS: 36415; 36430; 51702; 71045; 71046; 80048; 80053; 81003; 82009; 82270; 82803; 82947; 83036; 83605; 83735; 83880; 84439; 84443; 84481; 84484; 85025; 86140; 86850; 86900; 86901; 86920; 86922; 87040; 87081; 87426; 87430; 93005; 93010; 93306; 94640; 96365; 96375; 99223; 99232; 99233; 99238; 99285-25; A9270-GY; J0456; J1650; J1815-GY; J1940; J2270; J2930; J7050; J7512; J7613-GY; J7620-GY; P9016

== ENCOUNTER 2021-08-08 09:54 | Inpatient (IN) | payer MEDICARE, BC ==
[2021-08-08 11:24] LABS: CHLORIDE,CL 102 mmol/L (98-107); SODIUM,NA 146 mmol/L (136-145)
[2021-08-08 11:27] LABS: ANION GAP 12.8 meq/L (7-15)
--- NOTE | 2021-08-08 12:20 | EDM.PDOC ---
ED HPI GENERAL MEDICAL PROBLEM - General Chief Complaint: General Stated Complaint: DIARRHEA, NAUSEA Time Seen by Provider: 08/08/21 10:30 Source of Information: Reports: Patient, Family History Limitations: Reports: No Limitations - History of Present Illness INITIAL COMMENTS - FREE TEXT/NARRATIVE: Patient comes to ER with complaint of edema/SOB, also 4 days loose stools and s ome emesis. Non-bloody. Stools are yellowish in color. Has chronic dependency on O2 via [place], hx of CHF and COPD. Was inpatient at [facility] recently and discharged 07/06 to [place]. From [place] patient went to live with her sister. Sister says patient is not doing very well as far as getting around on own/performing ADLs. Edema has been worsening since discharge from [facility]. No fevers/chills. No HEENT/URI complaints. No specific new cough or chest pain. No abdominal pain or UTI complaints. No new back pain. - Related Data Allergies Allergy/AdvReac Type Severity Reaction Status Date / Time metformin Allergy Liver Verified 08/08/21 09:57 Problems Home Meds: Home Meds Albuterol/Ipratropium [DuoNeb 3.0-0.5 MG/3 ML] 1 inh INH QID PRN 05/15/21 [History] Amiodarone [Cordarone] 200 mg PO DAILY 05/15/21 [History] Budesonide [Pulmicort] 1 inh INH BID 05/15/21 [History] Carboxymethylcellulose Sodium [Artificial Tears] 1 drop EYEBOTH TID PRN 05/15/21 [History] Carboxymethylcellulose Sodium [Refresh Liquigel 1%] 1 drop EYEBOTH BEDTIME 05/15/21 [History] Furosemide [Lasix] 40 mg PO BID 05/15/21 [History] Gabapentin [Neurontin] 100 mg PO BID 05/15/21 [History] Iron Polysaccharide Complex [Iferex 150] 150 mg PO DAILY 05/15/21 [History] Metoprolol Tartrate 12.5 mg PO BID 05/15/21 [History] Nystatin 1 dose TOP BID PRN 05/15/21 [History] Semaglutide [Wegovy] 0.5 mg PO FR 05/15/21 [History] atorvaSTATin Calcium [Atorvastatin Calcium] 10 mg PO DAILY 05/15/21 [History] Levothyroxine Sodium [Synthroid] 150 mcg PO DAILY 08/08/21 [History] Metoprolol Tartrate [Lopressor] 25 mg PO DAILY 08/08/21 [History] Omeprazole 40 mg PO DAILY 08/08/21 [History] Potassium Chloride [Klor-Con M20] 20 meq PO DAILY 08/08/21 [History] Semaglutide [Ozempic] 1 mg SQ SA@0800 08/08/21 [History] Past Medical History HEENT History: Reports: Hard of Hearing, Impaired Vision, Other (See Below) Other HEENT History: [place] on R Cardiovascular History: Reports: Afib, Heart Failure, High Cholesterol, Hypertension, PVD Respiratory History: Reports: COPD Gastrointestinal History: Reports: GERD, Other (See Below) Musculoskeletal History: Reports: Arthritis Neurological History: Reports: Other (See Below) Endocrine/Metabolic History: Reports: Diabetes, Type II, Hypothyroidism Hematologic History: Reports: Anemia - Infectious Disease History Infectious Disease History: Reports: Other (See Below) - Past Surgical History HEENT Surgical History: Reports: Cataract Surgery GI Surgical History: Reports: Appendectomy, Cholecystectomy, Hernia, Abdominal, Hernia Repair/Other Neurological Surgical History: Reports: Other (See Below) Social & Family History - Family History Cardiac: Reports: CAD, GA Respiratory: Reports: COPD Oncologic: Reports: Liver, Lung, Thyroid - Tobacco Use Tobacco Use Status *Q: Former Tobacco User Years of Tobacco use: 50 Used Tobacco, but Quit: Yes Month/Year Tobacco Last Used: 1 - Recreational Drug Use Recreational Drug Use: No ED ROS GENERAL - Review of Systems Review Of Systems: See Below Constitutional: Reports: Weakness, Weight Gain. Denies: Fever, Chills, Malaise, Fatigue, Night Sweats, Diaphoresis, Decreased Appetite, Weight Loss HEENT: Reports: Other (no acute changes) Respiratory: Reports: Shortness of Breath. Denies: Wheezing, Pleuritic Chest Pain, Cough, Sputum, Hemoptysis Cardiovascular: Reports: Dyspnea on Exertion, Edema, Orthopnea. Denies: Chest Pain, Lightheadedness, Palpitations, Syncope Endocrine: Reports: Other (no acute changes reported) GI/Abdominal: Reports: Diarrhea, Nausea, Vomiting. Denies: Abdominal Pain, Black Stool, Bloody Stool, Constipation, Difficulty Swallowing, Distension, Hematemesis, Hematochezia : Reports: No Symptoms Musculoskeletal: Reports: Other (no acute changes from baseline) Skin: Reports: Other (rash under breasts, redness on bottom) Neurological: Reports: Difficulty Walking (chronic, uses walker), Weakness (chronic). Denies: Confusion, Headache, Seizure, Syncope, Trouble Speaking, Change in Speech Psychiatric: Reports: No Symptoms Hematologic/Lymphatic: Reports: No Symptoms ED EXAM, GENERAL - Physical Exam Exam: See Below Exam Limited By: No Limitations General Appearance: Alert, No Apparent Distress, Obese Eye Exam: Bilateral Eye: EOMI, PERRL Ears: Normal External Exam, Normal Canal Nose: No: Nasal Deformity, Nasal Swelling, Nasal Drainage Throat/Mouth: Normal Lips, Normal Voice, No Airway Compromise Head: Atraumatic, Normocephalic Neck: Normal Inspection, Supple, Non-Tender, Full Range of Motion Respiratory/Chest: No Respiratory Distress, Chest Non-Tender, Rales, Other (small amount of air flow with inspiration/exhale). No: Rhonchi, Wheezing, Stridor, Accessory Muscle Use, Retractions, Splinting Cardiovascular: Regular Rate, Rhythm, Systolic Murmur Peripheral Pulses: 2+: Radial (R) GI/Abdominal: Soft, Non-Tender, No Distention (Female) Exam: Deferred Rectal (Female) Exam: Deferred Back Exam: No: CVA Tenderness (L), CVA Tenderness (R), Muscle Spasm Extremities: Pedal Edema. No: Lencho's Sign, Increased Warmth, Mottled, Pallor, Redness Neurological: Alert, Oriented, Other (equal tone/strength bilat) Psychiatric: Normal Affect, Normal Mood Skin Exam: Warm, Dry, Rash (tinea-like rash under breasts. Red also mirza-area) #1 Interpretation EKG Date: 08/08/21 Time: 10:54 Rhythm: NSR Rate (Beats/Min): 69 [place]: Normal P-Wave: Present QRS: Normal ST-T: Other (unusual morphology in inferior leads/flipped) QT: Normal Comparison: No Change (No signficant changes when compared to EKG from April) Course - Vital Signs Last Recorded V/S: Last Vital Signs Temp 36.5 C 08/08/21 09:56 Pulse 98 08/08/21 09:56 Resp 20 08/08/21 09:56 BP 147/84 H 08/08/21 09:56 Pulse Ox 98 08/08/21 09:56 - Orders/Labs/Meds Orders: Active Orders 24 hr Category Date Time Status EKG Documentation Completion [RC] ASDIRECTED Care 08/08/21 10:13 Active Acute Abdominal Series [Abdomen 1V Upright] [CR] Stat Exams 08/08/21 10:14 Ordered Chest 1V Frontal [CR] Routine Exams 08/08/21 11:47 Ordered Sodium Chloride 0.9% [Saline Flush] Med 08/08/21 10:53 Active 10 ml FLUSH ASDIRECTED PRN Saline Lock Insert [OM.PC] Routine Oth 08/08/21 10:53 Ordered Medication Orders Albuterol/Ipratropium (Albuterol/Ipratropium 3.0-0.5 Mg/3 Ml Neb Soln) 3 ml INH QID PRN PRN Reason: sob Amiodarone HCl (Amiodarone 200 Mg Tab) 200 mg PO DAILY LISSY Atorvastatin Calcium (Atorvastatin 10 Mg Tab) 10 mg PO DAILY LISSY Budesonide (Budesonide 0.5 Mg/2 Ml Neb Susp) 0.5 mg INH BID LISSY Furosemide (Furosemide 40 Mg/4 Ml Vial) 40 mg IVPUSH DAILY LISSY Furosemide (Furosemide 20 Mg/2 Ml Vial) 20 mg IVPUSH DAILY LISSY Furosemide (Furosemide 40 Mg/4 Ml Vial) 40 mg IVPUSH NOW ONE Stop: 08/08/21 19:01 Gabapentin (Gabapentin 100 Mg Cap) 100 mg PO BID LISSY Magnesium Sulfate/Dextrose 1 (gm/ Premix) 100 mls @ 100 mls/hr IV ONETIME ONE Stop: 08/08/21 14:10 Levothyroxine Sodium (Levothyroxine 175 Mcg Tab) 175 mcg PO ACBREAKFAST LISSY Metoprolol Tartrate (Metoprolol Tartrate 25 Mg Tab) 25 mg PO DAILY LISSY Metoprolol Tartrate (Metoprolol Tartrate 25 Mg Tab) 12.5 mg PO BID LISSY Non-Formulary Medication (Carboxymethylcellulose Sodium [Artificial Tears]) 1 drop EYEBOTH TID PRN PRN Reason: Dry Eyes Non-Formulary Medication (Carboxymethylcellulose Sodium) 1 drop EYEBOTH BEDTIME LISSY Nystatin (Nystatin Topical Powder 15 Gm Bottle) 1 gm TOP 08,14,20 LISSY Polysaccharide Iron Complex (Iron Polysaccharides Complex 150 Mg Cap) 150 mg PO DAILY LISSY Potassium Chloride (Potassium Chloride 20 Meq Tab.Er) 20 meq PO TID LISSY Potassium Chloride (Potassium Chloride 20 Meq Tab.Er) 20 meq PO ONETIME ONE Stop: 08/08/21 17:01 Potassium Chloride (Potassium Chloride 20 Meq Tab.Er) 20 meq PO ONETIME ONE Stop: 08/08/21 19:31 Sodium Chloride (Sodium Chloride 0.9% 10 Ml Syringe) 10 ml FLUSH ASDIRECTED PRN PRN Reason: Keep Vein Open Labs: Laboratory Tests 08/08/21 08/08/21 08/08/21 Range/Units 10:12 10:40 10:40 WBC 5.2 (4.0-10.2) K/uL RBC 3.18 L (3.77-5.09) M/uL Hgb 10.0 L D (11.7-15.5) g/dL Hct 30.7 L (34.0-46.0) % MCV 96.5 D (84.0-98.0) fL MCH 31.4 (28.2-33.3) pg MCHC 32.6 (31.7-36.0) g/dL RDW 14.9 H (11.2-14.1) % Plt Count 186 (150-350) K/uL Neut % (Auto) 71.0 (45.0-80.0) % Lymph % (Auto) 19.7 (10.0-50.0) % Bland % (Auto) 7.7 (2.0-14.0) % Eos % (Auto) 1.0 (0.0-5.0) % Baso % (Auto) 0.6 (0.0-2.0) % Neut # (Auto) 3.68 (1.40-7.00) K/uL Lymph # (Auto) 1.02 (0.50-3.50) K/uL Bland # (Auto) 0.40 (0.00-1.00) K/uL Eos # (Auto) 0.05 (0.00-0.50) K/uL Baso # (Auto) 0.03 (0.00-0.20) K/uL D-Dimer, Quantitative (0-400) ng/mL Sodium 146 H (136-145) mmol/L Potassium 3.0 L (3.5-5.1) mmol/L Chloride 102 (98-107) mmol/L Carbon Dioxide 34.2 H (21.0-32.0) mmol/L Anion Gap 12.8 (7-15) meq/L BUN 17 (7-18) mg/dL Creatinine 1.48 H (0.51-1.17) mg/dL Est Cr Clr Drug Dosing TNP Estimated GFR (MDRD) 34 mL/min Glucose 88 (70-99) mg/dL Lactic Acid (0.4-2.0) mmol/L Calcium 9.1 (8.5-10.1) mg/dL Magnesium 1.7 L (1.8-2.4) mg/dL Total Bilirubin 2.4 H (0.2-1.0) mg/dL AST 19 (15-37) U/L ALT 19 (12-78) U/L Alkaline Phosphatase 115 (46-116) IU/L Troponin I High Sens 23 (<=51) ng/L NT-Pro-B Natriuret Pep 2737 H (0-125) pg/mL Total Protein 6.7 (6.4-8.2) g/dL Albumin 3.6 (3.4-5.0) g/dL TSH, Ultra Sensitive 4.222 H (0.358-3.740) mIU/mL Specimen Type Urinvoid Urine Color Yellow Urine Appearance Slightly cloudy Urine pH 6.0 (5.0-9.0) Ur Specific [place] 1.020 (1.005-1.030) Urine Protein Negative (NEGATIVE) mg/dL Urine Glucose (UA) Negative (NEGATIVE) mg/dL Urine Ketones Negative (NEGATIVE) mg/dL Urine Occult Blood Trace-intact H (NEGATIVE) Urine Nitrite Negative (NEGATIVE) Urine Bilirubin Negative (NEGATIVE) Urine Urobilinogen 0.2 (0.2-1.0) E.U./dL Ur Leukocyte Esterase Small H (NEGATIVE) Urine RBC 0-5 /HPF Urine WBC 5-10 H /HPF Ur Epithelial Cells Moderate H /LPF Urine Bacteria Many H (NONE TO FEW) /HPF Urine Mucus Few H (NEGATIVE) /LPF 08/08/21 08/08/21 Range/Units 10:40 10:40 WBC (4.0-10.2) K/uL RBC (3.77-5.09) M/uL Hgb (11.7-15.5) g/dL Hct (34.0-46.0) % MCV (84.0-98.0) fL MCH (28.2-33.3) pg MCHC (31.7-36.0) g/dL RDW (11.2-14.1) % Plt Count (150-350) K/uL Neut % (Auto) (45.0-80.0) % Lymph % (Auto) (10.0-50.0) % Bland % (Auto) (2.0-14.0) % Eos % (Auto) (0.0-5.0) % Baso % (Auto) (0.0-2.0) % Neut # (Auto) (1.40-7.00) K/uL Lymph # (Auto) (0.50-3.50) K/uL Bland # (Auto) (0.00-1.00) K/uL Eos # (Auto) (0.00-0.50) K/uL Baso # (Auto) (0.00-0.20) K/uL D-Dimer, Quantitative 852 H (0-400) ng/mL Sodium (136-145) mmol/L Potassium (3.5-5.1) mmol/L Chloride (98-107) mmol/L Carbon Dioxide (21.0-32.0) mmol/L Anion Gap (7-15) meq/L BUN (7-18) mg/dL Creatinine (0.51-1.17) mg/dL Est Cr Clr Drug Dosing Estimated GFR (MDRD) mL/min Glucose (70-99) mg/dL Lactic Acid 0.8 (0.4-2.0) mmol/L Calcium (8.5-10.1) mg/dL Magnesium (1.8-2.4) mg/dL Total Bilirubin (0.2-1.0) mg/dL AST (15-37) U/L ALT (12-78) U/L Alkaline Phosphatase (46-116) IU/L Troponin I High Sens (<=51) ng/L NT-Pro-B Natriuret Pep (0-125) pg/mL Total Protein (6.4-8.2) g/dL Albumin (3.4-5.0) g/dL TSH, Ultra Sensitive (0.358-3.740) mIU/mL Specimen Type Urine Color Urine Appearance Urine pH (5.0-9.0) Ur Specific [place] (1.005-1.030) Urine Protein (NEGATIVE) mg/dL Urine Glucose (UA) (NEGATIVE) mg/dL Urine Ketones (NEGATIVE) mg/dL Urine Occult Blood (NEGATIVE) Urine Nitrite (NEGATIVE) Urine Bilirubin (NEGATIVE) Urine Urobilinogen (0.2-1.0) E.U./dL Ur Leukocyte Esterase (NEGATIVE) Urine RBC /HPF Urine WBC /HPF Ur Epithelial Cells /LPF Urine Bacteria (NONE TO FEW) /HPF Urine Mucus (NEGATIVE) /LPF Meds: Medications Generic Name Dose Route Start Last Admin Trade Name Freq PRN Reason Stop Dose Admin Albuterol/Ipratropium 3 ml 08/08/21 13:02 Albuterol/Ipratropium 3.0-0.5 Mg/3 Ml Neb Soln INH QID PRN sob Amiodarone HCl 200 mg 08/09/21 08:00 Amiodarone 200 Mg Tab PO DAILY LISSY Atorvastatin Calcium 10 mg 08/09/21 08:00 Atorvastatin 10 Mg Tab PO DAILY LISSY Budesonide 0.5 mg 08/08/21 18:00 Budesonide 0.5 Mg/2 Ml Neb Susp INH BID LISSY Furosemide 40 mg 08/08/21 13:15 Furosemide 40 Mg/4 Ml Vial IVPUSH DAILY LISSY Furosemide 20 mg 08/09/21 15:00 Furosemide 20 Mg/2 Ml Vial IVPUSH DAILY LISSY Furosemide 40 mg 08/08/21 19:00 Furosemide 40 Mg/4 Ml Vial IVPUSH 08/08/21 19:01 NOW ONE Gabapentin 100 mg 08/08/21 18:00 Gabapentin 100 Mg Cap PO BID LISSY Magnesium Sulfate/Dextrose 1 100 mls @ 100 mls/hr 08/08/21 13:11 gm/ Premix IV 08/08/21 14:10 ONETIME ONE Levothyroxine Sodium 175 mcg 08/09/21 07:30 Levothyroxine 175 Mcg Tab PO ACBREAKFAST LISSY Metoprolol Tartrate 25 mg 08/09/21 08:00 Metoprolol Tartrate 25 Mg Tab PO DAILY LISSY Metoprolol Tartrate 12.5 mg 08/08/21 18:00 Metoprolol Tartrate 25 Mg Tab PO BID LISSY Non-Formulary Medication 1 drop 08/08/21 13:02 Carboxymethylcellulose Sodium [Artificial Tears] EYEBOTH TID PRN Dry Eyes Non-Formulary Medication 1 drop 08/08/21 20:00 Carboxymethylcellulose Sodium EYEBOTH BEDTIME LISSY Nystatin 1 gm 08/08/21 14:00 Nystatin Topical Powder 15 Gm Bottle TOP 08,14,20 LISSY Polysaccharide Iron Complex 150 mg 08/09/21 08:00 Iron Polysaccharides Complex 150 Mg Cap PO DAILY LISSY Potassium Chloride 20 meq 08/09/21 08:00 Potassium Chloride 20 Meq Tab.Er PO TID LISSY Potassium Chloride 20 meq 08/08/21 17:00 Potassium Chloride 20 Meq Tab.Er PO 08/08/21 17:01 ONETIME ONE Potassium Chloride 20 meq 08/08/21 19:30 Potassium Chloride 20 Meq Tab.Er PO 08/08/21 19:31 ONETIME ONE Sodium Chloride 10 ml 08/08/21 10:53 Sodium Chloride 0.9% 10 Ml Syringe FLUSH ASDIRECTED PRN Keep Vein Open Discontinued Medications Generic Name Dose Route Start Last Admin Trade Name Freq PRN Reason Stop Dose Admin Nystatin 1 gm 08/08/21 18:00 Nystatin Topical Powder 15 Gm Bottle TOP TID LISSY Potassium Chloride 40 meq 08/08/21 13:11 Potassium Chloride 20 Meq Tab.Er PO 08/08/21 13:12 ONETIME ONE - Re-Assessments/Exams Free Text/Narrative Re-Assessment/Exam: 08/08/21 13:49 Chest xray appears to show left sided pleural effusion. Did have a pneumonia process in that same area over summer. Cannot rule out continued pneumonia however patient denies any fevers/other signs of active infection. Normal WBC Normal Lactic UA unremarkable. Hgb 10 which is good for the patient. DDimer 852. Patient declined PE scan for now given risk of dye and her poor renal function. Creatinine 1.48 Na 146 and K 3.0 Mag 1.7 Total Bili 2.4 Pro BNP 2737 TSH elevated at 4.2. Nursing staff has concerns with patient's medication compliance after reviewing current meds with patient and patient's self-dosing patterns. Departure - Departure Time of Disposition: 12:15 Disposition: Admitted As Inpatient 65 Condition: Good Clinical Impression: CHF (congestive heart failure), Hypomagnesemia, Hypokalemia - Discharge Information *PRESCRIPTION DRUG MONITORING PROGRAM REVIEWED*: Not Applicable *COPY OF PRESCRIPTION DRUG MONITORING REPORT IN PATIENT IRENA: Not Applicable Sepsis Event Note (ED) - Evaluation Sepsis Screening Result: No Definite Risk - Focused Exam Vital Signs: Vital Signs Temp Pulse Resp BP Pulse Ox 08/08/21 09:56 36.5 C 98 20 147/84 H 98 - Problem List & Annotations (1) CHF (congestive heart failure) SNOMED Code(s): 13196160 Code(s): I50.9 - HEART FAILURE, UNSPECIFIED Status: Chronic Priority: High Current Visit: Yes Annotation/Comment:: Echocardiogram performed April 2021. No results noted in EMR. Cautious diuresis planned due to patient's chronic kidney disease. Qualifiers: Heart failure type: diastolic Heart failure chronicity: acute on chronic Qualified Code(s): I50.33 - Acute on chronic diastolic (congestive) heart failure (2) Vomiting and diarrhea SNOMED Code(s): 285522223 Code(s): R11.10 - VOMITING, UNSPECIFIED; R19.7 - DIARRHEA, UNSPECIFIED Status: Acute Priority: Medium Current Visit: Yes Annotation/Comment:: 4 day history of vomiting and loose stools. Nonbloody. Observe. (3) Hypomagnesemia SNOMED Code(s): 795511247 Code(s): E83.42 - HYPOMAGNESEMIA Status: Acute Priority: Medium Current Visit: Yes Annotation/Comment:: Initiate supplementation therapy (4) Tinea SNOMED Code(s): 78952561 Code(s): B35.9 - DERMATOPHYTOSIS, UNSPECIFIED Status: Chronic Priority: Low Current Visit: Yes Annotation/Comment:: Tinea-like rash noted under breasts. Also red in mirza-area (5) Hypokalemia SNOMED Code(s): 20672929 Code(s): E87.6 - HYPOKALEMIA Status: Acute Priority: Medium Current Visit: Yes Annotation/Comment:: K of 3.0 Replacement initiated. (6) Anemia SNOMED Code(s): 093636106 Code(s): D64.9 - ANEMIA, UNSPECIFIED Status: Chronic Priority: Low Current Visit: Yes Annotation/Comment:: Chronically low. Suspect anemia of chronic disease. Heme negative stools during April hospitalization. Qualifiers: Anemia type: due to chronic kidney disease (7) Hypothyroid SNOMED Code(s): 34318276 Code(s): E03.9 - HYPOTHYROIDISM, UNSPECIFIED Status: Chronic Priority: Lo w Current Visit: Yes Annotation/Comment:: TSH 4.2 today Qualifiers: Hypothyroidism type: unspecified Qualified Code(s): E03.9 - Hypothyroidism, unspecified (8) Hyperlipidemia SNOMED Code(s): 73436997 Code(s): E78.5 - HYPERLIPIDEMIA, UNSPECIFIED Status: Chronic Priority: Low Current Visit: No Annotation/Comment:: Under therapy Qualifiers: Hyperlipidemia type: unspecified Qualified Code(s): E78.5 - Hyperlipidemia, unspecified (9) HTN (hypertension) SNOMED Code(s): 20920194 Code(s): I10 - ESSENTIAL (PRIMARY) HYPERTENSION Status: Chronic Priority: Medium Current Visit: No Annotation/Comment:: Observe trends Qualifiers: Hypertension type: unspecified Qualified Code(s): I10 - Essential (primary) hypertension (10) Obesity, morbid SNOMED Code(s): 475655605 Code(s): E66.01 - MORBID (SEVERE) OBESITY DUE TO EXCESS CALORIES Status: Chronic Priority: Medium Current Visit: No (11) COPD (chronic obstructive pulmonary disease) SNOMED Code(s): 67014364 Code(s): J44.9 - CHRONIC OBSTRUCTIVE PULMONARY DISEASE, UNSPECIFIED Status: Chronic Priority: High Current Visit: No Annotation/Comment:: Chronic supplemental O2. CO2 retainer. Qualifiers: COPD type: COPD with acute exacerbation Qualified Code(s): J44.1 - Chronic obstructive pulmonary disease with (acute) exacerbation (12) GERD (gastroesophageal reflux disease) SNOMED Code(s): 252927956 Code(s): K21.9 - GASTRO-ESOPHAGEAL REFLUX DISEASE WITHOUT ESOPHAGITIS Status: Chronic Priority: Low Current Visit: No Annotation/Comment:: unde therapy Qualifiers: Esophagitis presence: esophagitis presence not specified Qualified Code(s): K21.9 - Gastro-esophageal reflux disease without esophagitis (13) Diabetes SNOMED Code(s): 67974730 Code(s): E11.9 - TYPE 2 DIABETES MELLITUS WITHOUT COMPLICATIONS Status: Chronic Priority: Medium Current Visit: No Annotation/Comment:: Accuchecks ordered. 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 Diabetes mellitus complication status: with other specified complication (14) Chronic renal disease SNOMED Code(s): 078537276 Code(s): N18.9 - CHRONIC KIDNEY DISEASE, UNSPECIFIED Status: Chronic Priority: Medium Current Visit: Yes Annotation/Comment:: stable Qualifiers: Chronic kidney disease stage: stage 4 (severe) Qualified Code(s): N18.4 - Chronic kidney disease, stage 4 (severe) (15) Sleep apnea SNOMED Code(s): 44973700 Code(s): G47.30 - SLEEP APNEA, UNSPECIFIED Status: Chronic Priority: Medium Current Visit: Yes Annotation/Comment:: Started on autopap/bipap by [facility] during recent hospitalization. Pending formal sleep study per D/C note Jamel. Qualifiers: Sleep apnea type: unspecified type Qualified Code(s): G47.30 - Sleep apnea, unspecified (16) Anxiety SNOMED Code(s): 50659149 Code(s): F41.9 - ANXIETY DISORDER, UNSPECIFIED Status: Chronic Priority: Low Current Visit: Yes Annotation/Comment:: Currently stable (17) Peripheral edema SNOMED Code(s): 272123591 Code(s): R60.9 - EDEMA, UNSPECIFIED Status: Chronic Priority: Medium Current Visit: Yes Annotation/Comment:: Chronic peripheral edema. Patient feels it has worsened over recent months. (18) Afib SNOMED Code(s): 73518652 Code(s): I48.91 - UNSPECIFIED ATRIAL FIBRILLATION Status: Chronic Priority: Medium Current Visit: No Annotation/Comment:: Hx paroxysmal Afib. Currently sinus rhythm Qualifiers: Atrial fibrillation type: unspecified Qualified Code(s): I48.91 - Unspecified atrial fibrillation - Problem List Review Problem List Initiated/Reviewed/Updated: Yes - My Orders Last 24 Hours: My Active Orders 08/08/21 10:13 EKG Documentation Completion [RC] ASDIRECTED 08/08/21 10:14 Acute Abdominal Series [Abdomen 1V Upright] [CR] Stat 08/08/21 10:53 Sodium Chloride 0.9% [Saline Flush] 10 ml FLUSH ASDIRECTED PRN Saline Lock Insert [OM.PC] Routine 08/08/21 11:47 Chest 1V Frontal [CR] Routine - Assessment/Plan Admission H&P: Please use this note as an admission H&P Last 24 Hours: My Active Orders 08/08/21 10:13 EKG Documentation Completion [RC] ASDIRECTED 08/08/21 10:14 Acute Abdominal Series [Abdomen 1V Upright] [CR] Stat 08/08/21 10:53 Sodium Chloride 0.9% [Saline Flush] 10 ml FLUSH ASDIRECTED PRN Saline Lock Insert [OM.PC] Routine 08/08/21 11:47 Chest 1V Frontal [CR] Routine Assessment:: Acute on chronic CHF, low Mg and K, vomiting and diarrhea in patient with multiple chronic medical conditioning, progressive weakening and inability to perform ADLs safely. Plan: Will diurese patient and provide supplemental K and Mg. Have PT and OT assess. Have case management assess. Suspect patient is at point where halfway care would be best environment for her given her difficulty with ADLs and medication compliance. Anticipate 3- 4day inpatient stay. No antibiotics at this time time patient having normal WBC/Lactic and without fevers.
[2021-08-08] MEDS ORDERED: Non-Formulary Medication 1 Each (Carboxymethylcellulose Sodium [Artificial Tears] 15 ML Dr EYEBOTH PRN (13:02)
[2021-08-08] MEDS ORDERED: Potassium Chloride 20 MEQ Tab.ER PO ONE ×3 (13:11→19:30)
[2021-08-08] MEDS ORDERED: 50% Dextrose in Water 50 ML Syringe IVPUSH PRN (14:03)
[2021-08-08] MEDS ORDERED: Glucagon,Human Recombinant 1 MG Vial IM PRN (14:03)
[2021-08-08] MEDS: Enoxaparin 30 MG/0.3 ML Syringe SUBCUT SCH (14:28)
[2021-08-08] MEDS: Nystatin Topical Powder 15 GM Bottle TOP SCH ×2 (14:29→19:37)
[2021-08-08] MEDS: Furosemide 40 MG/4 ML VIAL IVPUSH SCH (15:40)
[2021-08-08] MEDS: Gabapentin 100 MG Cap PO SCH (17:28)
[2021-08-08] MEDS: Metoprolol Tartrate 25 MG Tab PO SCH (17:28)
[2021-08-08] MEDS: Insulin Regular, Human 100 Units/ML 3 ML Vial SUBCUT SCH (17:32)
[2021-08-08] MEDS ORDERED: Nystatin Topical Powder 15 GM Bottle TOP SCH (18:00)
[2021-08-08] MEDS ORDERED: Budesonide 0.5 MG/2 ML Neb Susp INH SCH (18:00)
[2021-08-08] MEDS ORDERED: Furosemide 20 MG/2 ML VIAL IVPUSH ONE (19:00)
[2021-08-08] MEDS: Fluconazole 100 MG Tab PO SCH (19:35)
[2021-08-08] MEDS: Polyvinyl Alcohol 1.4% Ophth Soln 15 ML Bottle EYEBOTH SCH (19:36)
[2021-08-08] MEDS: Budesonide 0.5 MG/2 ML Neb Susp INH SCH (19:37)
[2021-08-08] MEDS ORDERED: Fluconazole 100 MG Tab PO SCH (20:00)
[2021-08-09 07:23] LABS: ANION GAP 13.8 meq/L (7-15); CHLORIDE,CL 104 mmol/L (98-107); SODIUM,NA 145 mmol/L (136-145)
[2021-08-09] MEDS: Insulin Regular, Human 100 Units/ML 3 ML Vial SUBCUT SCH ×3 (07:37→16:59)
[2021-08-09] MEDS: Budesonide 0.5 MG/2 ML Neb Susp INH SCH ×2 (07:38→20:06)
[2021-08-09] MEDS: Metoprolol Tartrate 25 MG Tab PO SCH ×2 (07:38→20:03)
[2021-08-09] MEDS: atorvaSTATin 10 MG Tab PO SCH (07:38)
[2021-08-09] MEDS: Amiodarone 200 MG Tab PO SCH (07:38)
[2021-08-09] MEDS: Gabapentin 100 MG Cap PO SCH ×2 (07:38→17:08)
[2021-08-09] MEDS: Iron Polysaccharides Complex 150 MG Cap PO SCH (07:38)
[2021-08-09] MEDS: Potassium Chloride 20 MEQ Tab.ER PO SCH ×3 (07:38→17:08)
[2021-08-09] MEDS: Nystatin Topical Powder 15 GM Bottle TOP SCH ×3 (07:39→20:05)
[2021-08-09] MEDS: Furosemide 40 MG/4 ML VIAL IVPUSH SCH (07:39)
[2021-08-09] MEDS ORDERED: Metoprolol Tartrate 25 MG Tab PO SCH (08:00)
[2021-08-09] MEDS ORDERED: Iopamidol 755 Mg/ML 100 ML Bottle IVPUSH STA (10:38)
[2021-08-09] MEDS ORDERED: Sodium Chloride 0.9% 500 ML IV SCH (11:00)
[2021-08-09] MEDS ORDERED: LORazepam 2 MG/ML SDV IVPUSH ONE (11:11)
[2021-08-09] MEDS ORDERED: Furosemide 20 MG/2 ML VIAL IVPUSH SCH (14:00)
[2021-08-09] MEDS: Enoxaparin 30 MG/0.3 ML Syringe SUBCUT SCH (15:21)
--- NOTE | 2021-08-09 17:57 | PCM.PN ---
- General Info Date of Service: 08/09/21 Admission Dx/Problem (Free Text): CHF/weakness/vomiting and diarrhea Subjective Update: Patient continues to have frequent stools. Nausea worse with oral potassium. Has not vomited. Functional Status: Reports: Pain Controlled, Tolerating Diet, Ambulating (with asstance), Urinating. Denies: New Symptoms - Review of Systems General: Reports: Weakness (chronic). Denies: Fever, Chills, Night Sweats HEENT: Denies: Ear Pain, Eye Pain, Headaches, Post Nasal Drip, Sinus Congestion, Sore Throat, Rhinitis, Visual Changes Pulmonary: Reports: Shortness of Breath, Cough (mild/nonproductive). Denies: Pleuritic Chest Pain, Sputum, Hemoptysis, Wheezing Cardiovascular: Reports: Dyspnea on Exertion, Orthopnea, Edema. Denies: Chest Pain, Palpitations, Lightheadedness Gastrointestinal: Reports: Diarrhea, Nausea. Denies: Abdominal Pain, Constipation, Decreased Appetite, Difficulty Swallowing, Hematochezia, Melena Genitourinary: Reports: No Symptoms Musculoskeletal: Reports: Other (no acute changes from baseline) Skin: Reports: No Symptoms Neurological: Reports: Difficulty Walking (chronic), Weakness (chronic). Denies: Confusion, Dizziness, Headache, Syncope, Trouble Speaking, Change in Speech Psychiatric: Reports: No Symptoms - Patient Data Vitals - Most Recent: Last Vital Signs Temp 36.8 C 08/09/21 07:32 Pulse 71 08/09/21 07:38 Resp 14 08/09/21 07:32 BP 137/62 08/09/21 07:38 Pulse Ox 96 08/09/21 07:32 Weight - Most Recent: 101.378 kg I&O - Last 24 Hours: Intake & Output 08/09/21 08/09/21 08/09/21 06:59 14:59 22:59 Intake Total 360 Balance 360 Lab Results Last 24 Hours: Laboratory Results - last 24 hr 08/08/21 08/09/21 08/09/21 Range/Units 20:08 06:55 06:55 WBC 4.0 (4.0-10.2) K/uL RBC 2.91 L (3.77-5.09) M/uL Hgb 9.2 L (11.7-15.5) g/dL Hct 28.3 L (34.0-46.0) % MCV 97.3 (84.0-98.0) fL MCH 31.6 (28.2-33.3) pg MCHC 32.5 (31.7-36.0) g/dL RDW 15.0 H (11.2-14.1) % Plt Count 167 (150-350) K/uL Neut % (Auto) 52.7 (45.0-80.0) % Lymph % (Auto) 35.5 (10.0-50.0) % [place] % (Auto) 9.5 (2.0-14.0) % Eos % (Auto) 1.8 (0.0-5.0) % Baso % (Auto) 0.5 (0.0-2.0) % Neut # (Auto) 2.11 (1.40-7.00) K/uL Lymph # (Auto) 1.42 (0.50-3.50) K/uL [place] # (Auto) 0.38 (0.00-1.00) K/uL Eos # (Auto) 0.07 (0.00-0.50) K/uL Baso # (Auto) 0.02 (0.00-0.20) K/uL Sodium 145 (136-145) mmol/L Potassium 3.4 L (3.5-5.1) mmol/L Chloride 104 (98-107) mmol/L Carbon Dioxide 30.6 (21.0-32.0) mmol/L Anion Gap 13.8 (7-15) meq/L BUN 16 (7-18) mg/dL Creatinine 1.49 H (0.51-1.17) mg/dL Est Cr Clr Drug Dosing TNP Estimated GFR (MDRD) 34 mL/min Glucose 73 (70-99) mg/dL POC Glucose 71 (70-99) mg/dL Calcium 8.8 (8.5-10.1) mg/dL 08/09/21 Range/Units 16:53 WBC (4.0-10.2) K/uL RBC (3.77-5.09) M/uL Hgb (11.7-15.5) g/dL Hct (34.0-46.0) % MCV (84.0-98.0) fL MCH (28.2-33.3) pg MCHC (31.7-36.0) g/dL RDW (11.2-14.1) % Plt Count (150-350) K/uL Neut % (Auto) (45.0-80.0) % Lymph % (Auto) (10.0-50.0) % [place] % (Auto) (2.0-14.0) % Eos % (Auto) (0.0-5.0) % Baso % (Auto) (0.0-2.0) % Neut # (Auto) (1.40-7.00) K/uL Lymph # (Auto) (0.50-3.50) K/uL [place] # (Auto) (0.00-1.00) K/uL Eos # (Auto) (0.00-0.50) K/uL Baso # (Auto) (0.00-0.20) K/uL Sodium (136-145) mmol/L Potassium (3.5-5.1) mmol/L Chloride (98-107) mmol/L Carbon Dioxide (21.0-32.0) mmol/L Anion Gap (7-15) meq/L BUN (7-18) mg/dL Creatinine (0.51-1.17) mg/dL Est Cr Clr Drug Dosing Estimated GFR (MDRD) mL/min Glucose (70-99) mg/dL POC Glucose 83 (70-99) mg/dL Calcium (8.5-10.1) mg/dL Med Orders - Current: Current Medications Albuterol/Ipratropium (Albuterol/Ipratropium 3.0-0.5 Mg/3 Ml Neb Soln) 3 ml INH QID PRN PRN Reason: sob Amiodarone HCl (Amiodarone 200 Mg Tab) 200 mg PO DAILY [facility] Last Admin: 08/09/21 07:38 Dose: 200 mg Documented by: Artificial Tears (Polyvinyl Alcohol 1.4% Ophth Soln 15 Ml Bottle) 1 ml EYEBOTH BEDTIME [facility] Last Admin: 08/08/21 19:36 Dose: 1 drop Documented by: Atorvastatin Calcium (Atorvastatin 10 Mg Tab) 10 mg PO DAILY [facility] Last Admin: 08/09/21 07:38 Dose: 10 mg Documented by: Budesonide (Budesonide 0.5 Mg/2 Ml Neb Susp) 0.5 mg INH Q12HR [facility] Last Admin: 08/09/21 07:38 Dose: 0.5 mg Documented by: Dextrose/Water (50% Dextrose In Water 50 Ml Syringe) 50 ml IVPUSH ASDIRECTED PRN PRN Reason: Hypoglycemia Enoxaparin Sodium (Enoxaparin 30 Mg/0.3 Ml Syringe) 30 mg SUBCUT Q24H [facility] Last Admin: 08/09/21 15:21 Dose: 30 mg Documented by: Fluconazole (Fluconazole 100 Mg Tab) 100 mg PO BEDTIME [facility] Stop: 08/09/21 20:01 Last Admin: 08/08/21 19:35 Dose: 100 mg Documented by: Furosemide (Furosemide 40 Mg/4 Ml Vial) 40 mg IVPUSH DAILY [facility] Last Admin: 08/09/21 07:39 Dose: 40 mg Documented by: Furosemide (Furosemide 20 Mg/2 Ml Vial) 20 mg IVPUSH DAILY@1400 [facility] Last Admin: 08/09/21 15:21 Dose: 20 mg Documented by: Gabapentin (Gabapentin 100 Mg Cap) 100 mg PO BID [facility] Last Admin: 08/09/21 17:08 Dose: 100 mg Documented by: Glucagon (Glucagon,Human Recombinant 1 Mg Vial) 1 mg IM ASDIRECTED PRN PRN Reason: Hypoglycemia Insulin Human Regular (Insulin Regular, Human 100 Units/Ml 3 Ml Vial) 0 unit SUBCUT BIDAC [facility]; Protocol Levothyroxine Sodium (Levothyroxine 175 Mcg Tab) 175 mcg PO ACBREAKFAST [facility] Last Admin: 08/09/21 07:38 Dose: 175 mcg Documented by: Metoprolol Tartrate (Metoprolol Tartrate 25 Mg Tab) 12.5 mg PO Q12HR [facility] Non-Formulary Medication (Carboxymethylcellulose Sodium [Artificial Tears]) 1 drop EYEBOTH TID PRN PRN Reason: Dry Eyes Nystatin (Nystatin Topical Powder 15 Gm Bottle) 1 gm TOP TID@0800,1400,2000 [facility] Last Admin: 08/09/21 15:21 Dose: 1 applic Documented by: Polysaccharide Iron Complex (Iron Polysaccharides Complex 150 Mg Cap) 150 mg PO DAILY [facility] Last Admin: 08/09/21 07:38 Dose: 150 mg Documented by: Potassium Chloride (Potassium Chloride 20 Meq Tab.Er) 20 meq PO TID [facility] Last Admin: 08/09/21 17:08 Dose: 20 meq Documented by: Sodium Chloride (Sodium Chloride 0.9% 10 Ml Syringe) 10 ml FLUSH ASDIRECTED PRN PRN Reason: Keep Vein Open Discontinued Medications Budesonide (Budesonide 0.5 Mg/2 Ml Neb Susp) 0.5 mg INH BID [facility] Fluconazole (Fluconazole 100 Mg Tab) 100 mg PO DAILY@2000 [facility] Stop: 08/09/21 20:01 Furosemide (Furosemide 20 Mg/2 Ml Vial) 20 mg IVPUSH ONETIME ONE Stop: 08/08/21 19:01 Last Admin: 08/08/21 19:36 Dose: 20 mg Documented by: Magnesium Sulfate/Dextrose 1 (gm/ Premix) 100 mls @ 100 mls/hr IV ONETIME ONE Stop: 08/08/21 14:10 Last Admin: 08/08/21 14:30 Dose: 100 mls/hr Documented by: Sodium Chloride (Normal Saline) 500 mls @ 200 mls/hr IV .BOLUS [facility] Insulin Human Regular (Insulin Regular, Human 100 Units/Ml 3 Ml Vial) 0 unit SUBCUT TIDAC [facility]; Protocol Last Admin: 08/09/21 16:59 Dose: Not Given Documented by: Iopamidol (Iopamidol 755 Mg/Ml 100 Ml Bottle) 100 ml IVPUSH ONETIME STA Stop: 08/09/21 10:39 Last Admin: 08/09/21 13:37 Dose: Not Given Documented by: Lorazepam (Lorazepam 2 Mg/Ml Sdv) 2 mg IVPUSH ONETIME ONE Stop: 08/09/21 11:12 Last Admin: 08/09/21 12:10 Dose: Not Given Documented by: Metoprolol Tartrate (Metoprolol Tartrate 25 Mg Tab) 12.5 mg PO BID [facility] Last Admin: 08/09/21 07:38 Dose: 12.5 mg Documented by: Nystatin (Nystatin Topical Powder 15 Gm Bottle) 1 gm TOP TID [facility] Potassium Chloride (Potassium Chloride 20 Meq Tab.Er) 40 meq PO ONETIME ONE Stop: 08/08/21 13:12 Last Admin: 08/08/21 14:27 Dose: 40 meq Documented by: Potassium Chloride (Potassium Chloride 20 Meq Tab.Er) 20 meq PO ONETIME ONE Stop: 08/08/21 17:01 Last Admin: 08/08/21 17:30 Dose: 20 meq Documented by: Potassium Chloride (Potassium Chloride 20 Meq Tab.Er) 20 meq PO ONETIME ONE Stop: 08/08/21 19:31 Last Admin: 08/08/21 19:35 Dose: 20 meq Documented by: - Exam Quality Assessment: Supplemental Oxygen, DVT Prophylaxis General: Alert, Oriented, Cooperative, No Acute Distress HEENT: Pupils Equal, Pupils Reactive, EOMI Neck: Supple Lungs: Decreased Breath Sounds (significant/throughout), Crackles (mild/lower half lung duque). No: Rales, Rhonchi, Rub, Stridor, Wheezing Cardiovascular: Regular Rhythm, Bradycardia, Murmurs (systolic/grade 1) GI/Abdominal Exam: Normal Bowel Sounds, Soft, Non-Tender, Other (obese) (Female) Exam: Deferred Back Exam: No: CVA Tenderness (L), CVA Tenderness (R), Muscle Spasm, Paraspinal Tenderness, Vertebral Tenderness Extremities: Non-Tender, Pedal Edema (significant pitting edema bilateral lower legs) Skin: Warm, Dry, Other (dry feet/lower legs) Neurological: No New Focal Deficit Psy/Mental Status: Alert, Normal Affect, Normal Mood - Patient Data Lab Results Last 24 hrs: Laboratory Results - last 24 hr 08/08/21 08/09/21 08/09/21 Range/Units 20:08 06:55 06:55 WBC 4.0 (4.0-10.2) K/uL RBC 2.91 L (3.77-5.09) M/uL Hgb 9.2 L (11.7-15.5) g/dL Hct 28.3 L (34.0-46.0) % MCV 97.3 (84.0-98.0) fL MCH 31.6 (28.2-33.3) pg MCHC 32.5 (31.7-36.0) g/dL RDW 15.0 H (11.2-14.1) % Plt Count 167 (150-350) K/uL Neut % (Auto) 52.7 (45.0-80.0) % Lymph % (Auto) 35.5 (10.0-50.0) % [place] % (Auto) 9.5 (2.0-14.0) % Eos % (Auto) 1.8 (0.0-5.0) % Baso % (Auto) 0.5 (0.0-2.0) % Neut # (Auto) 2.11 (1.40-7.00) K/uL Lymph # (Auto) 1.42 (0.50-3.50) K/uL [place] # (Auto) 0.38 (0.00-1.00) K/uL Eos # (Auto) 0.07 (0.00-0.50) K/uL Baso # (Auto) 0.02 (0.00-0.20) K/uL Sodium 145 (136-145) mmol/L Potassium 3.4 L (3.5-5.1) mmol/L Chloride 104 (98-107) mmol/L Carbon Dioxide 30.6 (21.0-32.0) mmol/L Anion Gap 13.8 (7-15) meq/L BUN 16 (7-18) mg/dL Creatinine 1.49 H (0.51-1.17) mg/dL Est Cr Clr Drug Dosing TNP Estimated GFR (MDRD) 34 mL/min Glucose 73 (70-99) mg/dL POC Glucose 71 (70-99) mg/dL Calcium 8.8 (8.5-10.1) mg/dL 08/09/21 Range/Units 16:53 WBC (4.0-10.2) K/uL RBC (3.77-5.09) M/uL Hgb (11.7-15.5) g/dL Hct (34.0-46.0) % MCV (84.0-98.0) fL MCH (28.2-33.3) pg MCHC (31.7-36.0) g/dL RDW (11.2-14.1) % Plt Count (150-350) K/uL Neut % (Auto) (45.0-80.0) % Lymph % (Auto) (10.0-50.0) % [place] % (Auto) (2.0-14.0) % Eos % (Auto) (0.0-5.0) % Baso % (Auto) (0.0-2.0) % Neut # (Auto) (1.40-7.00) K/uL Lymph # (Auto) (0.50-3.50) K/uL [place] # (Auto) (0.00-1.00) K/uL Eos # (Auto) (0.00-0.50) K/uL Baso # (Auto) (0.00-0.20) K/uL Sodium (136-145) mmol/L Potassium (3.5-5.1) mmol/L Chloride (98-107) mmol/L Carbon Dioxide (21.0-32.0) mmol/L Anion Gap (7-15) meq/L BUN (7-18) mg/dL Creatinine (0.51-1.17) mg/dL Est Cr Clr Drug Dosing Estimated GFR (MDRD) mL/min Glucose (70-99) mg/dL POC Glucose 83 (70-99) mg/dL Calcium (8.5-10.1) mg/dL Result Diagrams: 08/09/21 06:55 08/09/21 06:55 Sepsis Event Note - Evaluation Sepsis Screening Result: No Definite Risk - Focused Exam Vital Signs: Vital Signs Temp Pulse Pulse Resp BP BP Pulse Ox 08/09/21 07:38 71 137/62 08/09/21 07:32 36.8 C 71 14 137/62 96 - Problem List & Annotations (1) CHF (congestive heart failure) SNOMED Code(s): 91688024 Code(s): I50.9 - HEART FAILURE, UNSPECIFIED Status: Chronic Priority: High Current Visit: Yes Qualifiers: Heart failure type: diastolic Heart failure chronicity: acute on chronic Qualified Code(s): I50.33 - Acute on chronic diastolic (congestive) heart failure Annotation/Comment:: Echocardiogram performed April 2021. No results noted in EMR. Cautious diuresis planned due to patient's chronic kidney disease. (2) Vomiting and diarrhea SNOMED Code(s): 501401472 Code(s): R11.10 - VOMITING, UNSPECIFIED; R19.7 - DIARRHEA, UNSPECIFIED Status: Acute Priority: Medium Current Visit: Yes Annotation/Comment:: 5 day history of vomiting and loose stools. Nonbloody. Observe. pending C.diff and stool culture (3) Hypomagnesemia SNOMED Code(s): 593354072 Code(s): E83.42 - HYPOMAGNESEMIA Status: Acute Priority: Medium Current Visit: Yes Annotation/Comment:: 1.7 at time of admission. IV supplementation given/single dose. Recheck in AM (4) Tinea SNOMED Code(s): 04748542 Code(s): B35.9 - DERMATOPHYTOSIS, UNSPECIFIED Status: Chronic Priority: Low Current Visit: Yes Annotation/Comment:: Tinea-like rash noted under breasts. Also red in mirza-area. Diflucan ordered yesterday and today. BID Nystatin powder. (5) Hypokalemia SNOMED Code(s): 08738998 Code(s): E87.6 - HYPOKALEMIA Status: Acute Priority: Medium Current Visit: Yes Annotation/Comment:: K of 3.0 in ED. Replacement initiated. 3.4 today. Continue replacement as scheduled and recheck tomorrow due to continued anticipated K loss due to IV Lasix. (6) Anemia SNOMED Code(s): 642069204 Code(s): D64.9 - ANEMIA, UNSPECIFIED Status: Chronic Priority: Low Current Visit: Yes Qualifiers: Anemia type: due to chronic kidney disease Annotation/Comment:: Chronically low. Suspect anemia of chronic disease. Heme negative stools during April hospitalization. (7) Hypothyroid SNOMED Code(s): 73677743 Code(s): E03.9 - HYPOTHYROIDISM, UNSPECIFIED Status: Chronic Priority: Low Current Visit: Yes Qualifiers: Hypothyroidism type: unspecified Qualified Code(s): E03.9 - Hypothyroidism, unspecified Annotation/Comment:: TSH 4.2 today. Increase patient's usual thyroid dose from 150mcg to 175mcg daily (8) Hyperlipidemia SNOMED Code(s): 06935571 Code(s): E78.5 - HYPERLIPIDEMIA, UNSPECIFIED Status: Chronic Priority: Low Current Visit: No Qualifiers: Hyperlipidemia type: unspecified Qualified Code(s): E78.5 - Hyperlipidemia, unspecified Annotation/Comment:: continue home medication (9) HTN (hypertension) SNOMED Code(s): 21085241 Code(s): I10 - ESSENTIAL (PRIMARY) HYPERTENSION Status: Chronic Priority: Medium Current Visit: No Qualifiers: Hypertension type: unspecified Qualified Code(s): I10 - Essential (primary) hypertension Annotation/Comment:: Observe trends. Blood pressures stable. Continue home medications. (10) Obesity, morbid SNOMED Code(s): 914219408 Code(s): E66.01 - MORBID (SEVERE) OBESITY DUE TO EXCESS CALORIES Status: Chronic Priority: Medium Current Visit: No Annotation/Comment:: Diet/lifestyle modifications recommended during inpatient stay. Will refer patient to director of early childhood education as outpatient after discharge if patient willing to meet with them. (11) COPD (chronic obstructive pulmonary disease) SNOMED Code(s): 05865079 Code(s): J44.9 - CHRONIC OBSTRUCTIVE PULMONARY DISEASE, UNSPECIFIED Status: Chronic Priority: High Current Visit: No Qualifiers: COPD type: COPD with acute exacerbation Qualified Code(s): J44.1 - Chronic obstructive pulmonary disease with (acute) exacerbation Annotation/Comment:: Chronic supplemental O2. CO2 retainer. Currently satting well on her usual home O2 level of 2L per [place] (12) GERD (gastroesophageal reflux disease) SNOMED Code(s): 643098476 Code(s): K21.9 - GASTRO-ESOPHAGEAL REFLUX DISEASE WITHOUT ESOPHAGITIS Status: Chronic Priority: Low Current Visit: No Qualifiers: Esophagitis presence: esophagitis presence not specified Qualified Code(s): K21.9 - Gastro-esophageal reflux disease without esophagitis Annotation/Comment:: continue home meds. Stable per history (13) Diabetes SNOMED Code(s): 75627519 Code(s): E11.9 - TYPE 2 DIABETES MELLITUS WITHOUT COMPLICATIONS Status: Chronic Priority: Medium Current Visit: No Qualifiers: Diabetes mellitus type: type 2 Diabetes mellitus intermediate designer insulin use: with retirement use Diabetes mellitus complication status: with other specified complication Qualified Code(s): E11.69 - Type 2 diabetes mellitus with other specified complication; Z79.4 - emt intermediate (current) use of insulin Annotation/Comment:: Accuchecks ordered. Blood sugar well controlled. Placed on sliding scale and has not reqired regular insulin. Is supposed to be using Tresiba but says it is "once a week". No other DM medications. Patient reports better blood sugars since losing over 100 pounds. (14) Chronic renal disease SNOMED Code(s): 733038050 Code(s): N18.9 - CHRONIC KIDNEY DISEASE, UNSPECIFIED Status: Chronic Priority: Medium Current Visit: Yes Qualifiers: Chronic kidney disease stage: stage 4 (severe) Qualified Code(s): N18.4 - Chronic kidney disease, stage 4 (severe) Annotation/Comment:: stable. No change today with creatinine of 1.49 (15) Sleep apnea SNOMED Code(s): 38067036 Code(s): G47.30 - SLEEP APNEA, UNSPECIFIED Status: Chronic Priority: Medium Current Visit: Yes Qualifiers: Sleep apnea type: unspecified type Qualified Code(s): G47.30 - Sleep apnea, unspecified Annotation/Comment:: Started on autopap/bipap by Josselyn during recent hospital ization. Pending formal sleep study per D/C marcus Mccullough. (16) Anxiety SNOMED Code(s): 25109703 Code(s): F41.9 - ANXIETY DISORDER, UNSPECIFIED Status: Chronic Priority: Low Current Visit: Yes Annotation/Comment:: Currently stable (17) Peripheral edema SNOMED Code(s): 762494480 Code(s): R60.9 - EDEMA, UNSPECIFIED Status: Chronic Priority: Medium Current Visit: Yes Annotation/Comment:: Chronic peripheral edema. Patient feels it has worsened over recent months. (18) Afib SNOMED Code(s): 56795067 Code(s): I48.91 - UNSPECIFIED ATRIAL FIBRILLATION Status: Chronic Priority: Medium Current Visit: No Qualifiers: Atrial fibrillation type: unspecified Qualified Code(s): I48.91 - Unspecified atrial fibrillation Annotation/Comment:: Hx paroxysmal Afib. Currently sinus rhythm. Continue home medications - Problem List Review Problem List Initiated/Reviewed/Updated: Yes - My Orders Last 24 Hours: My Active Orders 08/08/21 18:00 Gabapentin [Neurontin] 100 mg PO BID 08/08/21 20:00 Budesonide [Pulmicort] 0.5 mg INH Q12HR Fluconazole [Diflucan] 100 mg PO BEDTIME Polyvinyl Alcohol [LiquiTears 1.4% Ophth Soln] 1 ml EYEBOTH BEDTIME 08/09/21 07:30 Levothyroxine 175 mcg PO ACBREAKFAST 08/09/21 08:00 Amiodarone [Cordarone] 200 mg PO DAILY Iron Polysaccharides Complex [Ferrex 150] 150 mg PO DAILY Potassium Chloride [Klor-Con M20] 20 meq PO TID atorvaSTATin [Lipitor] 10 mg PO DAILY 08/09/21 14:00 Furosemide [Lasix] 20 mg IVPUSH DAILY@1400 08/09/21 14:27 Code Status [Resuscitation Status] Routine 08/09/21 20:00 Metoprolol Tartrate [Lopressor] 12.5 mg PO Q12HR 08/10/21 05:11 BASIC METABOLIC PANEL,BMP [CHEM] AM CBC WITH AUTO DIFF [HEME] AM MAGNESIUM [CHEM] AM 08/10/21 07:30 Insulin Regular, Human [HumuLIN R] See Protocol SUBCUT BIDAC 08/11/21 05:11 BASIC METABOLIC PANEL,BMP [CHEM] AM CBC WITH AUTO DIFF [HEME] AM 08/12/21 05:11 BASIC METABOLIC PANEL,BMP [CHEM] AM CBC WITH AUTO DIFF [HEME] AM - Assessment Assessment:: as above. No significant diuresis since admission. Continued loose stools. - Plan Plan:: Increase lasix dose. Pending C-diff and stool culture testing. PT/OT. Patient refused CT today to more closely assess continued left lower lung consolidation vs atelectasis vs mass. Refused Ativan to help with CT saying "it doesn't work". Refused transfer to [facility] where they could sedate her with assistance of anesthesia. She is aware that this could represent a tumor and accepts that risk. Agreed to change her status to 'comfort care'. Anticipate additional 2-3 day stay while continuing attempts at diuresis/waiting for stool tests to be resulted/PT and OT concerning how well patient is able to perform own cares and take meds appropriately.
[2021-08-09] MEDS: Fluconazole 100 MG Tab PO SCH (20:03)
[2021-08-09] MEDS: Polyvinyl Alcohol 1.4% Ophth Soln 15 ML Bottle EYEBOTH SCH (20:04)
[2021-08-10 07:51] LABS: ANION GAP 11.5 meq/L (7-15)
[2021-08-10] MEDS: Potassium Chloride 20 MEQ Tab.ER PO SCH ×3 (08:14→17:59)
[2021-08-10] MEDS: Amiodarone 200 MG Tab PO SCH (08:14)
[2021-08-10] MEDS: Iron Polysaccharides Complex 150 MG Cap PO SCH (08:14)
[2021-08-10] MEDS: Gabapentin 100 MG Cap PO SCH ×2 (08:14→17:59)
[2021-08-10] MEDS: Metoprolol Tartrate 25 MG Tab PO SCH ×2 (08:15→20:15)
[2021-08-10] MEDS: atorvaSTATin 10 MG Tab PO SCH (08:15)
[2021-08-10] MEDS: Furosemide 40 MG/4 ML VIAL IVPUSH SCH (08:16)
[2021-08-10] MEDS: Nystatin Topical Powder 15 GM Bottle TOP SCH ×3 (08:17→20:15)
[2021-08-10] MEDS: Budesonide 0.5 MG/2 ML Neb Susp INH SCH ×2 (08:17→20:14)
[2021-08-10] MEDS: Insulin Regular, Human 100 Units/ML 3 ML Vial SUBCUT SCH ×2 (08:18→17:58)
[2021-08-10] MEDS: Sodium Chloride 0.9% 10 ML Syringe FLUSH PRN ×3 (08:19→14:09)
[2021-08-10] MEDS ORDERED: Furosemide 40 MG/4 ML VIAL IVPUSH ONE ×2 (11:35→20:00)
[2021-08-10] MEDS ORDERED: Furosemide 40 MG/4 ML VIAL IVPUSH SCH (14:00)
[2021-08-10] MEDS: Enoxaparin 30 MG/0.3 ML Syringe SUBCUT SCH (14:09)
[2021-08-10] MEDS ORDERED: Hydrochlorothiazide 25 MG Tab PO ONE (14:21)
--- NOTE | 2021-08-10 14:30 | PCM.PN ---
- General Info Date of Service: 08/10/21 Admission Dx/Problem (Free Text): CHF/weakness/vomiting and diarrhea Subjective Update: Patient feels more energetic today. Notes further increase in fluid retention both legs/thigh area. Functional Status: Reports: Pain Controlled, Tolerating Diet, Ambulating (Able to use walker to get to/from bathroom) - Review of Systems General: Denies: Fever, Fatigue, Malaise, Chills, Night Sweats HEENT: Denies: Ear Pain, Eye Pain, Headaches, Sinus Congestion, Sore Throat, Visual Changes Pulmonary: Reports: Shortness of Breath. Denies: Pleuritic Chest Pain, Cough, Sputum, Hemoptysis, Wheezing Cardiovascular: Reports: Dyspnea on Exertion, Orthopnea, Edema. Denies: Chest Pain, Palpitations, PND, Lightheadedness Gastrointestinal: Reports: Other (no loose stools today). Denies: Abdominal P ain, Nausea, Vomiting Genitourinary: Reports: No Symptoms Musculoskeletal: Reports: Other (no acute changes from baseline) Skin: Reports: Other (rash in mirza-area and under breasts) Neurological: Reports: Difficulty Walking (chronic). Denies: Confusion, Headache, Syncope, Trouble Speaking, Change in Speech Psychiatric: Reports: No Symptoms - Patient Data Vitals - Most Recent: Last Vital Signs Temp 36.4 C 08/10/21 08:00 Pulse 68 08/10/21 08:15 Resp 14 08/10/21 08:00 BP 135/66 08/10/21 08:15 Pulse Ox 99 08/10/21 08:00 Weight - Most Recent: 101.877 kg I&O - Last 24 Hours: Intake & Output 08/09/21 08/10/21 08/10/21 22:59 06:59 14:59 Intake Total 240 320 Balance 240 320 Lab Results Last 24 Hours: Laboratory Results - last 24 hr 08/09/21 08/09/21 08/10/21 Range/Units 16:53 19:55 07:25 WBC 3.7 L (4.0-10.2) K/uL RBC 2.96 L (3.77-5.09) M/uL Hgb 9.3 L (11.7-15.5) g/dL Hct 28.9 L (34.0-46.0) % MCV 97.6 (84.0-98.0) fL MCH 31.4 (28.2-33.3) pg MCHC 32.2 (31.7-36.0) g/dL RDW 15.0 H (11.2-14.1) % Plt Count 172 (150-350) K/uL Neut % (Auto) 53.1 (45.0-80.0) % Lymph % (Auto) 33.3 (10.0-50.0) % Starke % (Auto) 10.9 (2.0-14.0) % Eos % (Auto) 1.9 (0.0-5.0) % Baso % (Auto) 0.8 (0.0-2.0) % Neut # (Auto) 1.94 (1.40-7.00) K/uL Lymph # (Auto) 1.22 (0.50-3.50) K/uL Starke # (Auto) 0.40 (0.00-1.00) K/uL Eos # (Auto) 0.07 (0.00-0.50) K/uL Baso # (Auto) 0.03 (0.00-0.20) K/uL Sodium (136-145) mmol/L Potassium (3.5-5.1) mmol/L Chloride (98-107) mmol/L Carbon Dioxide (21.0-32.0) mmol/L Anion Gap (7-15) meq/L BUN (7-18) mg/dL Creatinine (0.51-1.17) mg/dL Est Cr Clr Drug Dosing mL/min Estimated GFR (MDRD) mL/min Glucose (70-99) mg/dL POC Glucose 83 (70-99) mg/dL Calcium (8.5-10.1) mg/dL Magnesium (1.8-2.4) mg/dL SARS-CoV-2 RNA (MARLA) Negative (NEGATIVE) 08/10/21 08/10/21 Range/Units 07:25 08:12 WBC (4.0-10.2) K/uL RBC (3.77-5.09) M/uL Hgb (11.7-15.5) g/dL Hct (34.0-46.0) % MCV (84.0-98.0) fL MCH (28.2-33.3) pg MCHC (31.7-36.0) g/dL RDW (11.2-14.1) % Plt Count (150-350) K/uL Neut % (Auto) (45.0-80.0) % Lymph % (Auto) (10.0-50.0) % Starke % (Auto) (2.0-14.0) % Eos % (Auto) (0.0-5.0) % Baso % (Auto) (0.0-2.0) % Neut # (Auto) (1.40-7.00) K/uL Lymph # (Auto) (0.50-3.50) K/uL Starke # (Auto) (0.00-1.00) K/uL Eos # (Auto) (0.00-0.50) K/uL Baso # (Auto) (0.00-0.20) K/uL Sodium 143 (136-145) mmol/L Potassium 3.4 L (3.5-5.1) mmol/L Chloride 103 (98-107) mmol/L Carbon Dioxide 31.9 (21.0-32.0) mmol/L Anion Gap 11.5 (7-15) meq/L BUN 17 (7-18) mg/dL Creatinine 1.66 H (0.51-1.17) mg/dL Est Cr Clr Drug Dosing 20.39 mL/min Estimated GFR (MDRD) 30 mL/min Glucose 92 (70-99) mg/dL POC Glucose 103 H (70-99) mg/dL Calcium 8.9 (8.5-10.1) mg/dL Magnesium 1.7 L (1.8-2.4) mg/dL SARS-CoV-2 RNA (MARLA) (NEGATIVE) Med Orders - Current: Current Medications Albuterol/Ipratropium (Albuterol/Ipratropium 3.0-0.5 Mg/3 Ml Neb Soln) 3 ml INH QID PRN PRN Reason: sob Amiodarone HCl (Amiodarone 200 Mg Tab) 200 mg PO DAILY [facility] Last Admin: 08/10/21 08:14 Dose: 200 mg Documented by: Artificial Tears (Polyvinyl Alcohol 1.4% Ophth Soln 15 Ml Bottle) 1 ml EYEBOTH BEDTIME LISSY Last Admin: 08/09/21 20:04 Dose: 1 drop Documented by: Atorvastatin Calcium (Atorvastatin 10 Mg Tab) 10 mg PO DAILY [facility] Last Admin: 08/10/21 08:15 Dose: 10 mg Documented by: Budesonide (Budesonide 0.5 Mg/2 Ml Neb Susp) 0.5 mg INH Q12HR [facility] Last Admin: 08/10/21 08:17 Dose: Not Given Documented by: Dextrose/Water (50% Dextrose In Water 50 Ml Syringe) 50 ml IVPUSH ASDIRECTED PRN PRN Reason: Hypoglycemia Enoxaparin Sodium (Enoxaparin 30 Mg/0.3 Ml Syringe) 30 mg SUBCUT Q24H [facility] Last Admin: 08/10/21 14:09 Dose: 30 mg Documented by: Furosemide (Furosemide 40 Mg/4 Ml Vial) 80 mg IVPUSH NOW ONE Stop: 08/10/21 20:01 Furosemide (Furosemide 40 Mg/4 Ml Vial) 80 mg IVPUSH NOW ONE Stop: 08/11/21 08:01 Furosemide (Furosemide 40 Mg/4 Ml Vial) 80 mg IVPUSH NOW ONE Stop: 08/11/21 16:01 Gabapentin (Gabapentin 100 Mg Cap) 100 mg PO BID [facility] Last Admin: 08/10/21 08:14 Dose: 100 mg Documented by: Glucagon (Glucagon,Human Recombinant 1 Mg Vial) 1 mg IM ASDIRECTED PRN PRN Reason: Hypoglycemia Hydrochlorothiazide (Hydrochlorothiazide 25 Mg Tab) 25 mg PO ONETIME ONE Stop: 08/10/21 14:22 Insulin Human Regular (Insulin Regular, Human 100 Units/Ml 3 Ml Vial) 0 unit SUBCUT BIDAC [facility]; Protocol Last Admin: 08/10/21 08:18 Dose: Not Given Documented by: Levothyroxine Sodium (Levothyroxine 175 Mcg Tab) 175 mcg PO ACBREAKFAST [facility] Last Admin: 08/10/21 08:14 Dose: 175 mcg Documented by: Magnesium Oxide (Magnesium Oxide 400 Mg Tab) 400 mg PO BID [facility] Metoprolol Tartrate (Metoprolol Tartrate 25 Mg Tab) 12.5 mg PO Q12HR [facility] Last Admin: 08/10/21 08:15 Dose: 12.5 mg Documented by: Non-Formulary Medication (Carboxymethylcellulose Sodium [Artificial Tears]) 1 drop EYEBOTH TID PRN PRN Reason: Dry Eyes Nystatin (Nystatin Topical Powder 15 Gm Bottle) 1 gm TOP TID@0800,1400,1999 [facility] Last Admin: 08/10/21 14:08 Dose: 1 applic Documented by: Polysaccharide Iron Complex (Iron Polysaccharides Complex 150 Mg Cap) 150 mg PO DAILY [facility] Last Admin: 08/10/21 08:14 Dose: 150 mg Documented by: Potassium Chloride (Potassium Chloride 20 Meq Tab.Er) 40 meq PO TID [facility] Sodium Chloride (Sodium Chloride 0.9% 10 Ml Syringe) 10 ml FLUSH ASDIRECTED PRN PRN Reason: Keep Vein Open Last Admin: 08/10/21 14:09 Dose: 10 ml Documented by: Discontinued Medications Budesonide (Budesonide 0.5 Mg/2 Ml Neb Susp) 0.5 mg INH BID [facility] Fluconazole (Fluconazole 100 Mg Tab) 100 mg PO DAILY@1999 [facility] Stop: 08/09/21 20:01 Fluconazole (Fluconazole 100 Mg Tab) 100 mg PO BEDTIME LISSY Stop: 08/09/21 20:01 Last Admin: 08/09/21 20:03 Dose: 100 mg Documented by: Furosemide (Furosemide 40 Mg/4 Ml Vial) 40 mg IVPUSH DAILY [facility] Last Admin: 08/10/21 08:16 Dose: 40 mg Documented by: Furosemide (Furosemide 20 Mg/2 Ml Vial) 20 mg IVPUSH DAILY@1400 [facility] Last Admin: 08/09/21 15:21 Dose: 20 mg Documented by: Furosemide (Furosemide 20 Mg/2 Ml Vial) 20 mg IVPUSH ONETIME ONE Stop: 08/08/21 19:01 Last Admin: 08/08/21 19:36 Dose: 20 mg Documented by: Furosemide (Furosemide 40 Mg/4 Ml Vial) 40 mg IVPUSH DAILY@1400 [facility] Last Admin: 08/10/21 14:08 Dose: 40 mg Documented by: Furosemide (Furosemide 40 Mg/4 Ml Vial) 80 mg IVPUSH NOW ONE Stop: 08/10/21 11:36 Last Admin: 08/10/21 11:58 Dose: 80 mg Documented by: Magnesium Sulfate/Dextrose 1 (gm/ Premix) 100 mls @ 100 mls/hr IV ONETIME ONE Stop: 08/08/21 14:10 Last Admin: 08/08/21 14:30 Dose: 100 mls/hr Documented by: Sodium Chloride (Normal Saline) 500 mls @ 200 mls/hr IV .BOLUS [facility] Insulin Human Regular (Insulin Regular, Human 100 Units/Ml 3 Ml Vial) 0 unit SUBCUT TIDAC [facility]; Protocol Last Admin: 08/09/21 16:59 Dose: Not Given Documented by: Iopamidol (Iopamidol 755 Mg/Ml 100 Ml Bottle) 100 ml IVPUSH ONETIME STA Stop: 08/09/21 10:39 Last Admin: 08/09/21 13:37 Dose: Not Given Documented by: Lorazepam (Lorazepam 2 Mg/Ml Sdv) 2 mg IVPUSH ONETIME ONE Stop: 08/09/21 11:12 Last Admin: 08/09/21 12:10 Dose: Not Given Documented by: Metoprolol Tartrate (Metoprolol Tartrate 25 Mg Tab) 12.5 mg PO BID [facility] Last Admin: 08/09/21 07:38 Dose: 12.5 mg Documented by: Nystatin (Nystatin Topical Powder 15 Gm Bottle) 1 gm TOP TID [facility] Potassium Chloride (Potassium Chloride 20 Meq Tab.Er) 20 meq PO TID [facility] Last Admin: 08/10/21 11:37 Dose: 20 meq Documented by: Potassium Chloride (Potassium Chloride 20 Meq Tab.Er) 40 meq PO ONETIME ONE Stop: 08/08/21 13:12 Last Admin: 08/08/21 14:27 Dose: 40 meq Documented by: Potassium Chloride (Potassium Chloride 20 Meq Tab.Er) 20 meq PO ONETIME ONE Stop: 08/08/21 17:01 Last Admin: 08/08/21 17:30 Dose: 20 meq Documented by: Potassium Chloride (Potassium Chloride 20 Meq Tab.Er) 20 meq PO ONETIME ONE Stop: 08/08/21 19:31 Last Admin: 08/08/21 19:35 Dose: 20 meq Documented by: - Exam Quality Assessment: Supplemental Oxygen, DVT Prophylaxis General: Alert, Oriented, Cooperative, No Acute Distress HEENT: Pupils Equal, Pupils Reactive, EOMI, Mucous Membr. Moist/[place] Neck: Supple Lungs: Normal Respiratory Effort, Decreased Breath Sounds, Crackles (mild/bases). No: Rhonchi, Rub, Stridor, Wheezing Cardiovascular: Regular Rate, Regular Rhythm, No Murmurs GI/Abdominal Exam: Normal Bowel Sounds, Soft, Non-Tender, Other (obese) (Female) Exam: Deferred Back Exam: No: CVA Tenderness (L), CVA Tenderness (R), Muscle Spasm Extremities: Normal Capillary Refill, Pedal Edema, Other (Edema lower thighs/below knee. ). No: Increased Warmth, Mottled, Pallor, Redness Skin: Warm, Other (Tinea-like rash under breasts/mirza-area) Neurological: No New Focal Deficit Psy/Mental Status: Alert, Normal Affect, Normal Mood - Patient Data Lab Results Last 24 hrs: Laboratory Results - last 24 hr 08/09/21 08/09/21 08/10/21 Range/Units 16:53 19:55 07:25 WBC 3.7 L (4.0-10.2) K/uL RBC 2.96 L (3.77-5.09) M/uL Hgb 9.3 L (11.7-15.5) g/dL Hct 28.9 L (34.0-46.0) % MCV 97.6 (84.0-98.0) fL MCH 31.4 (28.2-33.3) pg MCHC 32.2 (31.7-36.0) g/dL RDW 15.0 H (11.2-14.1) % Plt Count 172 (150-350) K/uL Neut % (Auto) 53.1 (45.0-80.0) % Lymph % (Auto) 33.3 (10.0-50.0) % Starke % (Auto) 10.9 (2.0-14.0) % Eos % (Auto) 1.9 (0.0-5.0) % Baso % (Auto) 0.8 (0.0-2.0) % Neut # (Auto) 1.94 (1.40-7.00) K/uL Lymph # (Auto) 1.22 (0.50-3.50) K/uL Starke # (Auto) 0.40 (0.00-1.00) K/uL Eos # (Auto) 0.07 (0.00-0.50) K/uL Baso # (Auto) 0.03 (0.00-0.20) K/uL Sodium (136-145) mmol/L Potassium (3.5-5.1) mmol/L Chloride (98-107) mmol/L Carbon Dioxide (21.0-32.0) mmol/L Anion Gap (7-15) meq/L BUN (7-18) mg/dL Creatinine (0.51-1.17) mg/dL Est Cr Clr Drug Dosing mL/min Estimated GFR (MDRD) mL/min Glucose (70-99) mg/dL POC Glucose 83 (70-99) mg/dL Calcium (8.5-10.1) mg/dL Magnesium (1.8-2.4) mg/dL SARS-CoV-2 RNA (MARLA) Negative (NEGATIVE) 08/10/21 08/10/21 Range/Units 07:25 08:12 WBC (4.0-10.2) K/uL RBC (3.77-5.09) M/uL Hgb (11.7-15.5) g/dL Hct (34.0-46.0) % MCV (84.0-98.0) fL MCH (28.2-33.3) pg MCHC (31.7-36.0) g/dL RDW (11.2-14.1) % Plt Count (150-350) K/uL Neut % (Auto) (45.0-80.0) % Lymph % (Auto) (10.0-50.0) % Starke % (Auto) (2.0-14.0) % Eos % (Auto) (0.0-5.0) % Baso % (Auto) (0.0-2.0) % Neut # (Auto) (1.40-7.00) K/uL Lymph # (Auto) (0.50-3.50) K/uL Starke # (Auto) (0.00-1.00) K/uL Eos # (Auto) (0.00-0.50) K/uL Baso # (Auto) (0.00-0.20) K/uL Sodium 143 (136-145) mmol/L Potassium 3.4 L (3.5-5.1) mmol/L Chloride 103 (98-107) mmol/L Carbon Dioxide 31.9 (21.0-32.0) mmol/L Anion Gap 11.5 (7-15) meq/L BUN 17 (7-18) mg/dL Creatinine 1.66 H (0.51-1.17) mg/dL Est Cr Clr Drug Dosing 20.39 mL/min Estimated GFR (MDRD) 30 mL/min Glucose 92 (70-99) mg/dL POC Glucose 103 H (70-99) mg/dL Calcium 8.9 (8.5-10.1) mg/dL Magnesium 1.7 L (1.8-2.4) mg/dL SARS-CoV-2 RNA (MARLA) (NEGATIVE) Result Diagrams: 08/10/21 07:25 08/10/21 07:25 Sepsis Event Note - Evaluation Sepsis Screening Result: No Definite Risk - Focused Exam Vital Signs: Vital Signs Temp Pulse Pulse Resp BP BP Pulse Ox 08/10/21 08:15 68 135/66 08/10/21 08:00 36.4 C 68 14 135/66 99 - Problem List & Annotations (1) CHF (congestive heart failure) SNOMED Code(s): 71770859 Code(s): I50.9 - HEART FAILURE, UNSPECIFIED Status: Chronic Priority: High Current Visit: Yes Qualifiers: Heart failure type: diastolic Heart failure chronicity: acute on chronic Qualified Code(s): I50.33 - Acute on chronic diastolic (congestive) heart failure Annotation/Comment:: Echocardiogram performed April 2021. No results noted in EMR. Cautious diuresis initially due to patient's chronic kidney disease. Patient is actually up in weight today. Will increase dose to 80mg IV Lasix and add single PO dose HCTZ. Recheck electrolytes and creatinine in AM. Continue PO Potassium. (2) Vomiting and diarrhea SNOMED Code(s): 137332173 Code(s): R11.10 - VOMITING, UNSPECIFIED; R19.7 - DIARRHEA, UNSPECIFIED Status: Acute Priority: Medium Current Visit: Yes Annotation/Comment:: 5 day history of vomiting and loose stools. No symptoms today per patient. Nonblo [place]. Observe. pending C.diff and stool culture (3) Hypomagnesemia SNOMED Code(s): 117458992 Code(s): E83.42 - HYPOMAGNESEMIA Status: Acute Priority: Medium Current Visit: Yes Annotation/Comment:: 1.7 at time of admission. IV supplementation given/single dose. Still low today. PO supplementation initiated. (4) Tinea SNOMED Code(s): 40160339 Code(s): B35.9 - DERMATOPHYTOSIS, UNSPECIFIED Status: Chronic Priority: Low Current Visit: Yes Annotation/Comment:: Tinea-like rash noted under breasts. Also red in mirza-area. Diflucan ordered yesterday and today. BID Nystatin powder. (5) Hypokalemia SNOMED Code(s): 83652327 Code(s): E87.6 - HYPOKALEMIA Status: Acute Priority: Medium Current Visit: Yes Annotation/Comment:: K of 3.0 in ED. Replacement initiated. 3.4 today. Continue replacement as scheduled and recheck tomorrow due to continued anticipated K loss due to IV Lasix. (6) Anemia SNOMED Code(s): 536709649 Code(s): D64.9 - ANEMIA, UNSPECIFIED Status: Chronic Priority: Low Current Visit: Yes Qualifiers: Anemia type: due to chronic kidney disease Annotation/Comment:: Chronically low. Suspect anemia of chronic disease. Heme negative stools during April hospitalization. (7) Hypothyroid SNOMED Code(s): 63366864 Code(s): E03.9 - HYPOTHYROIDISM, UNSPECIFIED Status: Chronic Priority: Low Current Visit: Yes Qualifiers: Hypothyroidism type: unspecified Qualified Code(s): E03.9 - Hypothyroidism, unspecified Annotation/Comment:: TSH 4.2 today. Increase patient's usual thyroid dose from 150mcg to 175mcg daily (8) Hyperlipidemia SNOMED Code(s): 37579159 Code(s): E78.5 - HYPERLIPIDEMIA, UNSPECIFIED Status: Chronic Priority: Low Current Visit: No Qualifiers: Hyperlipidemia type: unspecified Qualified Code(s): E78.5 - Hyperlipidemia, unspecified Annotation/Comment:: continue home medication (9) HTN (hypertension) SNOMED Code(s): 91869210 Code(s): I10 - ESSENTIAL (PRIMARY) HYPERTENSION Status: Chronic Priority: Medium Current Visit: No Qualifiers: Hypertension type: unspecified Qualified Code(s): I10 - Essential (primary) hypertension Annotation/Comment:: Observe trends. Blood pressures stable. Continue home medications. (10) Obesity, morbid SNOMED Code(s): 279554384 Code(s): E66.01 - MORBID (SEVERE) OBESITY DUE TO EXCESS CALORIES Status: Chronic Priority: Medium Current Visit: No Annotation/Comment:: Diet/lifestyle modifications recommended during inpatient stay. Will refer patient to nps as outpatient after discharge if patient willing to meet with them. (11) COPD (chronic obstructive pulmonary disease) SNOMED Code(s): 01632192 Code(s): J44.9 - CHRONIC OBSTRUCTIVE PULMONARY DISEASE, UNSPECIFIED Status: Chronic Priority: High Current Visit: No Qualifiers: COPD type: COPD with acute exacerbation Qualified Code(s): J44.1 - Chronic obstructive pulmonary disease with (acute) exacerbation Annotation/Comment:: Chronic supplemental O2. CO2 retainer. Currently satting well on her usual home O2 level of 2L per [place] (12) GERD (gastroesophageal reflux disease) SNOMED Code(s): 412627372 Code(s): K21.9 - GASTRO-ESOPHAGEAL REFLUX DISEASE WITHOUT ESOPHAGITIS Status: Chronic Priority: Low Current Visit: No Qualifiers: Esophagitis presence: esophagitis presence not specified Qualified Code(s): K21.9 - Gastro-esophageal reflux disease without esophagitis Annotation/Comment:: continue home meds. 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 Blood sugar well controlled. Placed on sliding scale and has not reqired regular insulin. Is supposed to be using Tresiba but says it is "once a week". No other DM medications. Patient reports better blood sugars since losing over 100 pounds. (14) Chronic renal disease SNOMED Code(s): 279111807 Code(s): N18.9 - CHRONIC KIDNEY DISEASE, UNSPECIFIED Status: Chronic Priority: Medium Current Visit: Yes Qualifiers: Chronic kidney disease stage: stage 4 (severe) Qualified Code(s): N18.4 - Chronic kidney disease, stage 4 (severe) Annotation/Comment:: Increasd creatinine of 1.66 Recheck in AM (15) Sleep apnea SNOMED Code(s): 95527629 Code(s): G47.30 - SLEEP APNEA, UNSPECIFIED Status: Chronic Priority: Medium Current Visit: Yes Qualifiers: Sleep apnea type: unspecified type Qualified Code(s): G47.30 - Sleep apnea, unspecified Annotation/Comment:: Started on autopap/bipap by [facility] during recent hospitalization. Pending formal sleep study per D/C note Jamel. (16) Anxiety SNOMED Code(s): 43362692 Code(s): F41.9 - ANXIETY DISORDER, UNSPECIFIED Status: Chronic Priority: Low Current Visit: Yes Annotation/Comment:: Currently stable (17) Peripheral edema SNOMED Code(s): 302195970 Code(s): R60.9 - EDEMA, UNSPECIFIED Status: Chronic Priority: Medium Current Visit: Yes Annotation/Comment:: Chronic peripheral edema. Patient feels it has worsened over recent months. (18) Afib SNOMED Code(s): 02875692 Code(s): I48.91 - UNSPECIFIED ATRIAL FIBRILLATION Status: Chronic Priority: Medium Current Visit: No Qualifiers: Atrial fibrillation type: unspecified Qualified Code(s): I48.91 - Unspecified atrial fibrillation Annotation/Comment:: Hx paroxysmal Afib. Currently sinus rhythm. Continue home medications (19) Abnormal finding on chest xray SNOMED Code(s): 946915015, 428983778 Code(s): R93.89 - ABNORMAL FINDINGS ON DX IMAGING OF OTH BODY STRUCTURES Status: Chronic Priority: Low Current Visit: Yes Annotation/Comment:: Patient noted to have consolidation vs atelectasis vs ? on chest xray since earlier this summer. Unknown significance. Afebrile. No symptoms of pneumonia. Refuses CT scan as she is unable to lay down comfortable/has panic attack. Refused transfer to [facility] where she could be sedated and have study performed. Refuses to try Ativan, says it "doesn't work". Changed code status to comfort care. No further investigation of this is planned at this time. - Problem List Review Problem List Initiated/Reviewed/Updated: Yes - My Orders Last 24 Hours: My Active Orders 08/09/21 14:27 Code Status [Resuscitation Status] Routine 08/09/21 17:55 CHF Questionnaire [COMM] Routine 08/09/21 20:00 Metoprolol Tartrate [Lopressor] 12.5 mg PO Q12HR 08/10/21 07:30 Insulin Regular, Human [HumuLIN R] See Protocol SUBCUT BIDAC 08/10/21 14:21 hydroCHLOROthiazide 25 mg PO ONETIME ONE 08/10/21 18:00 Magnesium Oxide 400 mg PO BID Potassium Chloride [Klor-Con M20] 40 meq PO TID 08/10/21 20:00 Furosemide [Lasix] 80 mg IVPUSH NOW ONE 08/11/21 05:11 BASIC METABOLIC PANEL,BMP [CHEM] AM CBC WITH AUTO DIFF [HEME] AM 08/11/21 08:00 Furosemide [Lasix] 80 mg IVPUSH NOW ONE 08/11/21 16:00 Furosemide [Lasix] 80 mg IVPUSH NOW ONE 08/12/21 05:11 BASIC METABOLIC PANEL,BMP [CHEM] AM CBC WITH AUTO DIFF [HEME] AM As above. - Assessment Assessment:: as above. No significant diuresis since admission. Lasix increased today with HCTZ added. Close monitoring of electrolytes and renal function. Case management visited with patient's family today and niece does not feel that patient can return to living with twin sister. Niece notes that the sister physically is not able to adequately help patient care for self/perform self cares such as personal hygiene. Niece feels patient will need to return to group home. PT visited with patient and felt that she might be able to work with her for a week if the plan was to send the patient to live with family. However if patient is to return to [facility] or another group home facility PT feels that patient is able to perform well in that environment and use walker for basic ambulation/get to and from bathroom etc. Note again that patient has elected comfort care status and does not want to pursue investigating the lower left lung changes noted on chest xray. Refuses to lay flat for CT. Refuses transfer to higher level of care so that advanced imaging can be performed while patient sedated. Anticipate additional 1-2 day inpatient stay for continued attempt at diuresis. Patient may need to swing briefly while waiting for group home placement. Case management is working on finding a bed. - Plan Plan:: Increase lasix dose. Pending C-diff and stool culture testing. PT/OT. Patient refused CT today to more closely assess continued left lower lung consolidation vs atelectasis vs mass. Refused Ativan to help with CT saying "it doesn't work". Refused transfer to [facility] where they could sedate her with assistance of anesthesia. She is aware that this could represent a tumor and accepts that risk. Agreed to change her status to 'comfort care'. Anticipate additional 2-3 day stay while continuing attempts at diuresis/waiting for stool tests to be resulted/PT and OT concerning how well patient is able to perform own cares and take meds appropriately.
[2021-08-10] MEDS: Magnesium Oxide 400 MG Tab PO SCH (17:59)
[2021-08-10] MEDS: Polyvinyl Alcohol 1.4% Ophth Soln 15 ML Bottle EYEBOTH SCH (20:14)
[2021-08-11] MEDS: Acetaminophen 325 MG Tab PO PRN ×2 (02:45→12:25)
[2021-08-11] MEDS ORDERED: Furosemide 40 MG/4 ML VIAL IVPUSH ONE ×2 (08:00→16:00)
[2021-08-11] MEDS: Insulin Regular, Human 100 Units/ML 3 ML Vial SUBCUT SCH ×2 (08:01→17:45)
[2021-08-11 08:03] LABS: ANION GAP 11.6 meq/L (7-15)
[2021-08-11] MEDS: Sodium Chloride 0.9% 10 ML Syringe FLUSH PRN (08:03)
[2021-08-11] MEDS: Metoprolol Tartrate 25 MG Tab PO SCH ×2 (08:05→20:09)
[2021-08-11] MEDS: Budesonide 0.5 MG/2 ML Neb Susp INH SCH ×2 (08:05→20:09)
[2021-08-11] MEDS: Potassium Chloride 20 MEQ Tab.ER PO SCH ×3 (08:06→17:49)
[2021-08-11] MEDS: Amiodarone 200 MG Tab PO SCH (08:06)
[2021-08-11] MEDS: Magnesium Oxide 400 MG Tab PO SCH ×2 (08:10→17:49)
[2021-08-11] MEDS: Iron Polysaccharides Complex 150 MG Cap PO SCH (08:10)
[2021-08-11] MEDS: Gabapentin 100 MG Cap PO SCH ×2 (08:10→17:49)
[2021-08-11] MEDS: atorvaSTATin 10 MG Tab PO SCH (08:10)
[2021-08-11] MEDS: Nystatin Topical Powder 15 GM Bottle TOP SCH ×3 (08:12→20:10)
--- NOTE | 2021-08-11 11:04 | PCM.PN ---
- General Info Date of Service: 08/11/21 Admission Dx/Problem (Free Text): Pt. reports some improvement in dyspnea this AM. Pt. lasix was increased to 80mg IV BID yesterday. She has diuresed 1725 since then. She has lost 2 pounds. Pt. reports that she is still dyspneic with exertion. Denies any chest pain. The nausea, vomiting, and diarrhea have improved. Nursing states that her stools are now more formed. She denies any continued GI distress. Pt. has been eating and drinking normally. Creatinine went from 1.66 yesterday to 1.78 today after that addition of the IV lasix. Functional Status: Reports: Pain Controlled - Review of Systems General: Reports: No Symptoms HEENT: Reports: No Symptoms Pulmonary: Reports: Shortness of Breath Cardiovascular: Reports: Dyspnea on Exertion Gastrointestinal: Reports: No Symptoms Genitourinary: Reports: No Symptoms Musculoskeletal: Reports: No Symptoms Skin: Reports: No Symptoms Neurological: Reports: No Symptoms Psychiatric: Reports: No Symptoms - Patient Data Vitals - Most Recent: Last Vital Signs Temp 36.3 C 08/11/21 08:00 Pulse 76 08/11/21 08:05 Resp 20 08/11/21 08:00 BP 127/77 08/11/21 08:05 Pulse Ox 99 08/11/21 08:00 Weight - Most Recent: 101.877 kg I&O - Last 24 Hours: Intake & Output 08/10/21 08/11/21 08/11/21 22:59 06:59 14:59 Intake Total 200 Output Total 900 825 Balance -700 -825 Lab Results Last 24 Hours: Laboratory Results - last 24 hr 08/10/21 08/11/21 08/11/21 Range/Units 17:08 06:15 07:05 WBC 3.4 L (4.0-10.2) K/uL RBC 2.73 L (3.77-5.09) M/uL Hgb 8.6 L (11.7-15.5) g/dL Hct 26.8 L (34.0-46.0) % MCV 98.2 H (84.0-98.0) fL MCH 31.5 (28.2-33.3) pg MCHC 32.1 (31.7-36.0) g/dL RDW 14.9 H (11.2-14.1) % Plt Count 159 (150-350) K/uL Neut % (Auto) 44.8 L (45.0-80.0) % Lymph % (Auto) 40.4 (10.0-50.0) % [place] % (Auto) 11.6 (2.0-14.0) % Eos % (Auto) 2.9 (0.0-5.0) % Baso % (Auto) 0.3 (0.0-2.0) % Neut # (Auto) 1.54 (1.40-7.00) K/uL Lymph # (Auto) 1.39 (0.50-3.50) K/uL [place] # (Auto) 0.40 (0.00-1.00) K/uL Eos # (Auto) 0.10 (0.00-0.50) K/uL Baso # (Auto) 0.01 (0.00-0.20) K/uL Sodium (136-145) mmol/L Potassium (3.5-5.1) mmol/L Chloride (98-107) mmol/L Carbon Dioxide (21.0-32.0) mmol/L Anion Gap (7-15) meq/L BUN (7-18) mg/dL Creatinine (0.51-1.17) mg/dL Est Cr Clr Drug Dosing mL/min Estimated GFR (MDRD) mL/min Glucose (70-99) mg/dL POC Glucose 93 (70-99) mg/dL Calcium (8.5-10.1) mg/dL Specimen Type Urinvoid Urine Color Yellow Urine Appearance Cloudy Urine pH 5.0 (5.0-9.0) Ur Specific [place] 1.020 (1.005-1.030) Urine Protein Negative (NEGATIVE) mg/dL Urine Glucose (UA) Negative (NEGATIVE) mg/dL Urine Ketones Negative (NEGATIVE) mg/dL Urine Occult Blood Negative (NEGATIVE) Urine Nitrite Negative (NEGATIVE) Urine Bilirubin Negative (NEGATIVE) Urine Urobilinogen 0.2 (0.2-1.0) E.U./dL Ur Leukocyte Esterase Small H (NEGATIVE) U Hyaline Cast (Auto) Few Urine RBC 0-5 /HPF Urine WBC >100 H /HPF Ur Epithelial Cells Moderate H /LPF Urine Bacteria Many H (NONE TO FEW) /HPF 08/11/21 08/11/21 Range/Units 07:05 07:15 WBC (4.0-10.2) K/uL RBC (3.77-5.09) M/uL Hgb (11.7-15.5) g/dL Hct (34.0-46.0) % MCV (84.0-98.0) fL MCH (28.2-33.3) pg MCHC (31.7-36.0) g/dL RDW (11.2-14.1) % Plt Count (150-350) K/uL Neut % (Auto) (45.0-80.0) % Lymph % (Auto) (10.0-50.0) % [place] % (Auto) (2.0-14.0) % Eos % (Auto) (0.0-5.0) % Baso % (Auto) (0.0-2.0) % Neut # (Auto) (1.40-7.00) K/uL Lymph # (Auto) (0.50-3.50) K/uL [place] # (Auto) (0.00-1.00) K/uL Eos # (Auto) (0.00-0.50) K/uL Baso # (Auto) (0.00-0.20) K/uL Sodium 143 (136-145) mmol/L Potassium 4.0 (3.5-5.1) mmol/L Chloride 104 (98-107) mmol/L Carbon Dioxide 31.4 (21.0-32.0) mmol/L Anion Gap 11.6 (7-15) meq/L BUN 16 (7-18) mg/dL Creatinine 1.78 H (0.51-1.17) mg/dL Est Cr Clr Drug Dosing 19.01 mL/min Estimated GFR (MDRD) 28 mL/min Glucose 88 (70-99) mg/dL POC Glucose 74 (70-99) mg/dL Calcium 8.7 (8.5-10.1) mg/dL Specimen Type Urine Color Urine Appearance Urine pH (5.0-9.0) Ur Specific [place] (1.005-1.030) Urine Protein (NEGATIVE) mg/dL Urine Glucose (UA) (NEGATIVE) mg/dL Urine Ketones (NEGATIVE) mg/dL Urine Occult Blood (NEGATIVE) Urine Nitrite (NEGATIVE) Urine Bilirubin (NEGATIVE) Urine Urobilinogen (0.2-1.0) E.U./dL Ur Leukocyte Esterase (NEGATIVE) U Hyaline Cast (Auto) Urine RBC /HPF Urine WBC /HPF Ur Epithelial Cells /LPF Urine Bacteria (NONE TO FEW) /HPF Med Orders - Current: Current Medications Acetaminophen (Acetaminophen 325 Mg Tab) 650 mg PO Q4H PRN PRN Reason: Pain Last Admin: 08/11/21 02:45 Dose: 650 mg Documented by: Albuterol/Ipratropium (Albuterol/Ipratropium 3.0-0.5 Mg/3 Ml Neb Soln) 3 ml INH QID PRN PRN Reason: sob Amiodarone HCl (Amiodarone 200 Mg Tab) 200 mg PO DAILY [facility] Last Admin: 08/11/21 08:06 Dose: 200 mg Documented by: Artificial Tears (Polyvinyl Alcohol 1.4% Ophth Soln 15 Ml Bottle) 1 ml EYEBOTH BEDTIME [facility] Last Admin: 08/10/21 20:14 Dose: 1 drop Documented by: Atorvastatin Calcium (Atorvastatin 10 Mg Tab) 10 mg PO DAILY [facility] Last Admin: 08/11/21 08:10 Dose: 10 mg Documented by: Budesonide (Budesonide 0.5 Mg/2 Ml Neb Susp) 0.5 mg INH Q12HR [facility] Last Admin: 08/11/21 08:05 Dose: 0.5 mg Documented by: Dextrose/Water (50% Dextrose In Water 50 Ml Syringe) 50 ml IVPUSH ASDIRECTED PRN PRN Reason: Hypoglycemia Enoxaparin Sodium (Enoxaparin 30 Mg/0.3 Ml Syringe) 30 mg SUBCUT Q24H [facility] Last Admin: 08/10/21 14:09 Dose: 30 mg Documented by: Furosemide (Furosemide 40 Mg/4 Ml Vial) 80 mg IVPUSH NOW ONE Stop: 08/11/21 16:01 Gabapentin (Gabapentin 100 Mg Cap) 100 mg PO BID [facility] Last Admin: 08/11/21 08:10 Dose: 100 mg Documented by: Glucagon (Glucagon,Human Recombinant 1 Mg Vial) 1 mg IM ASDIRECTED PRN PRN Reason: Hypoglycemia Insulin Human Regular (Insulin Regular, Human 100 Units/Ml 3 Ml Vial) 0 unit SUBCUT BIDAC [facility]; Protocol Last Admin: 08/11/21 08:01 Dose: Not Given Documented by: Levothyroxine Sodium (Levothyroxine 175 Mcg Tab) 175 mcg PO ACBREAKFAST [facility] Last Admin: 08/11/21 08:05 Dose: 175 mcg Documented by: Magnesium Oxide (Magnesium Oxide 400 Mg Tab) 400 mg PO BID [facility] Last Admin: 08/11/21 08:10 Dose: 400 mg Documented by: Metoprolol Tartrate (Metoprolol Tartrate 25 Mg Tab) 12.5 mg PO Q12HR [facility] Last Admin: 08/11/21 08:05 Dose: 12.5 mg Documented by: Non-Formulary Medication (Carboxymethylcellulose Sodium [Artificial Tears]) 1 drop EYEBOTH TID PRN PRN Reason: Dry Eyes Nystatin (Nystatin Topical Powder 15 Gm Bottle) 1 gm TOP TID@0800,1400,1999 [facility] Last Admin: 08/11/21 08:12 Dose: 1 applic Documented by: Polysaccharide Iron Complex (Iron Polysaccharides Complex 150 Mg Cap) 150 mg PO DAILY [facility] Last Admin: 08/11/21 08:10 Dose: 150 mg Documented by: Potassium Chloride (Potassium Chloride 20 Meq Tab.Er) 40 meq PO TID [facility] Last Admin: 08/11/21 08:06 Dose: 40 meq Documented by: Sodium Chloride (Sodium Chloride 0.9% 10 Ml Syringe) 10 ml FLUSH ASDIRECTED PRN PRN Reason: Keep Vein Open Last Admin: 08/11/21 08:03 Dose: 10 ml Documented by: Discontinued Medications Budesonide (Budesonide 0.5 Mg/2 Ml Neb Susp) 0.5 mg INH BID [facility] Fluconazole (Fluconazole 100 Mg Tab) 100 mg PO DAILY@1999 [facility] Stop: 08/09/21 20:01 Fluconazole (Fluconazole 100 Mg Tab) 100 mg PO BEDTIME [facility] Stop: 08/09/21 20:01 Last Admin: 08/09/21 20:03 Dose: 100 mg Documented by: Furosemide (Furosemide 40 Mg/4 Ml Vial) 40 mg IVPUSH DAILY [facility] Last Admin: 08/10/21 08:16 Dose: 40 mg Documented by: Furosemide (Furosemide 20 Mg/2 Ml Vial) 20 mg IVPUSH DAILY@1400 [facility] Last Admin: 08/09/21 15:21 Dose: 20 mg Documented by: Furosemide (Furosemide 20 Mg/2 Ml Vial) 20 mg IVPUSH ONETIME ONE Stop: 10/19/21 19:01 Last Admin: 08/08/21 19:36 Dose: 20 mg Documented by: Furosemide (Furosemide 40 Mg/4 Ml Vial) 40 mg IVPUSH DAILY@1400 [facility] Last Admin: 08/10/21 14:08 Dose: 40 mg Documented by: Furosemide (Furosemide 40 Mg/4 Ml Vial) 80 mg IVPUSH NOW ONE Stop: 08/10/21 11:36 Last Admin: 08/10/21 11:58 Dose: 80 mg Documented by: Furosemide (Furosemide 40 Mg/4 Ml Vial) 80 mg IVPUSH NOW ONE Stop: 08/10/21 20:01 Last Admin: 08/10/21 20:14 Dose: 80 mg Documented by: Furosemide (Furosemide 40 Mg/4 Ml Vial) 80 mg IVPUSH NOW ONE Stop: 08/11/21 08:01 Last Admin: 08/11/21 08:02 Dose: 80 mg Documented by: Hydrochlorothiazide (Hydrochlorothiazide 25 Mg Tab) 25 mg PO ONETIME ONE Stop: 08/10/21 14:22 Last Admin: 08/10/21 14:58 Dose: 25 mg Documented by: Magnesium Sulfate/Dextrose 1 (gm/ Premix) 100 mls @ 100 mls/hr IV ONETIME ONE Stop: 08/08/21 14:10 Last Admin: 08/08/21 14:30 Dose: 100 mls/hr Documented by: Sodium Chloride (Normal Saline) 500 mls @ 200 mls/hr IV .BOLUS [facility] Insulin Human Regular (Insulin Regular, Human 100 Units/Ml 3 Ml Vial) 0 unit SUBCUT TIDAC [facility]; Protocol Last Admin: 08/09/21 16:59 Dose: Not Given Documented by: Iopamidol (Iopamidol 755 Mg/Ml 100 Ml Bottle) 100 ml IVPUSH ONETIME STA Stop: 08/09/21 10:39 Last Admin: 08/09/21 13:37 Dose: Not Given Documented by: Lorazepam (Lorazepam 2 Mg/Ml Sdv) 2 mg IVPUSH ONETIME ONE Stop: 08/09/21 11:12 Last Admin: 08/09/21 12:10 Dose: Not Given Documented by: Metoprolol Tartrate (Metoprolol Tartrate 25 Mg Tab) 12.5 mg PO BID [facility] Last Admin: 08/09/21 07:38 Dose: 12.5 mg Documented by: Nystatin (Nystatin Topical Powder 15 Gm Bottle) 1 gm TOP TID [facility] Potassium Chloride (Potassium Chloride 20 Meq Tab.Er) 20 meq PO TID [facility] Last Admin: 08/10/21 11:37 Dose: 20 meq Documented by: Potassium Chloride (Potassium Chloride 20 Meq Tab.Er) 40 meq PO ONETIME ONE Stop: 08/08/21 13:12 Last Admin: 08/08/21 14:27 Dose: 40 meq Documented by: Potassium Chloride (Potassium Chloride 20 Meq Tab.Er) 20 meq PO ONETIME ONE Stop: 08/08/21 17:01 Last Admin: 08/08/21 17:30 Dose: 20 meq Documented by: Potassium Chloride (Potassium Chloride 20 Meq Tab.Er) 20 meq PO ONETIME ONE Stop: 08/08/21 19:31 Last Admin: 08/08/21 19:35 Dose: 20 meq Documented by: - Exam General: Alert, Oriented HEENT: Pupils Equal, Pupils Reactive, EOMI, Mucous Membr. Moist/[place] Neck: Supple Lungs: Normal Respiratory Effort, Crackles Cardiovascular: Regular Rate, Regular Rhythm GI/Abdominal Exam: Normal Bowel Sounds, Soft, Non-Tender, No Organomegaly, No Distention, No Mass (Female) Exam: Deferred Extremities: Normal Inspection, Normal Range of Motion, Non-Tender, No Pedal Edema, Normal Capillary Refill Peripheral Pulses: 4+: Radial (L) Skin: Warm, Dry, Intact Psy/Mental Status: Alert, Normal Affect, Normal Mood - Patient Data Lab Results Last 24 hrs: Laboratory Results - last 24 hr 08/10/21 08/11/21 08/11/21 Range/Units 17:08 06:15 07:05 WBC 3.4 L (4.0-10.2) K/uL RBC 2.73 L (3.77-5.09) M/uL Hgb 8.6 L (11.7-15.5) g/dL Hct 26.8 L (34.0-46.0) % MCV 98.2 H (84.0-98.0) fL MCH 31.5 (28.2-33.3) pg MCHC 32.1 (31.7-36.0) g/dL RDW 14.9 H (11.2-14.1) % Plt Count 159 (150-350) K/uL Neut % (Auto) 44.8 L (45.0-80.0) % Lymph % (Auto) 40.4 (10.0-50.0) % [place] % (Auto) 11.6 (2.0-14.0) % Eos % (Auto) 2.9 (0.0-5.0) % Baso % (Auto) 0.3 (0.0-2.0) % Neut # (Auto) 1.54 (1.40-7.00) K/uL Lymph # (Auto) 1.39 (0.50-3.50) K/uL [place] # (Auto) 0.40 (0.00-1.00) K/uL Eos # (Auto) 0.10 (0.00-0.50) K/uL Baso # (Auto) 0.01 (0.00-0.20) K/uL Sodium (136-145) mmol/L Potassium (3.5-5.1) mmol/L Chloride (98-107) mmol/L Carbon Dioxide (21.0-32.0) mmol/L Anion Gap (7-15) meq/L BUN (7-18) mg/dL Creatinine (0.51-1.17) mg/dL Est Cr Clr Drug Dosing mL/min Estimated GFR (MDRD) mL/min Glucose (70-99) mg/dL POC Glucose 93 (70-99) mg/dL Calcium (8.5-10.1) mg/dL Specimen Type Urinvoid Urine Color Yellow Urine Appearance Cloudy Urine pH 5.0 (5.0-9.0) Ur Specific [place] 1.020 (1.005-1.030) Urine Protein Negative (NEGATIVE) mg/dL Urine Glucose (UA) Negative (NEGATIVE) mg/dL Urine Ketones Negative (NEGATIVE) mg/dL Urine Occult Blood Negative (NEGATIVE) Urine Nitrite Negative (NEGATIVE) Urine Bilirubin Negative (NEGATIVE) Urine Urobilinogen 0.2 (0.2-1.0) E.U./dL Ur Leukocyte Esterase Small H (NEGATIVE) U Hyaline Cast (Auto) Few Urine RBC 0-5 /HPF Urine WBC >100 H /HPF Ur Epithelial Cells Moderate H /LPF Urine Bacteria Many H (NONE TO FEW) /HPF 10/22/21 10/22/21 Range/Units 07:05 07:15 WBC (4.0-10.2) K/uL RBC (3.77-5.09) M/uL Hgb (11.7-15.5) g/dL Hct (34.0-46.0) % MCV (84.0-98.0) fL MCH (28.2-33.3) pg MCHC (31.7-36.0) g/dL RDW (11.2-14.1) % Plt Count (150-350) K/uL Neut % (Auto) (45.0-80.0) % Lymph % (Auto) (10.0-50.0) % [place] % (Auto) (2.0-14.0) % Eos % (Auto) (0.0-5.0) % Baso % (Auto) (0.0-2.0) % Neut # (Auto) (1.40-7.00) K/uL Lymph # (Auto) (0.50-3.50) K/uL [place] # (Auto) (0.00-1.00) K/uL Eos # (Auto) (0.00-0.50) K/uL Baso # (Auto) (0.00-0.20) K/uL Sodium 143 (136-145) mmol/L Potassium 4.0 (3.5-5.1) mmol/L Chloride 104 (98-107) mmol/L Carbon Dioxide 31.4 (21.0-32.0) mmol/L Anion Gap 11.6 (7-15) meq/L BUN 16 (7-18) mg/dL Creatinine 1.78 H (0.51-1.17) mg/dL Est Cr Clr Drug Dosing 19.01 mL/min Estimated GFR (MDRD) 28 mL/min Glucose 88 (70-99) mg/dL POC Glucose 74 (70-99) mg/dL Calcium 8.7 (8.5-10.1) mg/dL Specimen Type Urine Color Urine Appearance Urine pH (5.0-9.0) Ur Specific [place] (1.005-1.030) Urine Protein (NEGATIVE) mg/dL Urine Glucose (UA) (NEGATIVE) mg/dL Urine Ketones (NEGATIVE) mg/dL Urine Occult Blood (NEGATIVE) Urine Nitrite (NEGATIVE) Urine Bilirubin (NEGATIVE) Urine Urobilinogen (0.2-1.0) E.U./dL Ur Leukocyte Esterase (NEGATIVE) U Hyaline Cast (Auto) Urine RBC /HPF Urine WBC /HPF Ur Epithelial Cells /LPF Urine Bacteria (NONE TO FEW) /HPF Result Diagrams: 08/11/21 07:05 08/11/21 07:05 Sepsis Event Note - Evaluation Sepsis Screening Result: No Definite Risk - Focused Exam Vital Signs: Vital Signs Temp Pulse Pulse Resp BP BP Pulse Ox 08/11/21 08:05 76 127/77 08/11/21 08:00 36.3 C 77 20 127/77 99 - Problem List Review Problem List Initiated/Reviewed/Updated: Yes - Assessment Assessment:: as above. No significant diuresis since admission. Lasix increased today with HCTZ added. Close monitoring of electrolytes and renal function. Case management visited with patient's family today and niece does not feel that patient can return to living with twin sister. Niece notes that the sister physically is not able to adequately help patient care for self/perform self cares such as personal hygiene. Niece feels patient will need to return to custodial. PT visited with patient and felt that she might be able to work with her for a week if the plan was to send the patient to live with family. However if patient is to return to [facility] or another custodial facility PT feels that patient is able to perform well in that environment and use walker for basic ambulation/get to and from bathroom etc. Note again that patient has elected comfort care status and does not want to pursue investigating the lower left lung changes noted on chest xray. Refuses to lay flat for CT. Refuses transfer to higher level of care so that advanced imaging can be performed while patient sedated. Anticipate additional 1-2 day inpatient stay for continued attempt at diuresis. Patient may need to swing briefly while waiting for custodial placement. Case management is working on finding a bed. - Plan Plan:: Increase lasix dose. Pending C-diff and stool culture testing. PT/OT. Patient refused CT today to more closely assess continued left lower lung consolidation vs atelectasis vs mass. Refused Ativan to help with CT saying "it doesn't work". Refused transfer to [place] where they could sedate her with assistance of anesthesia. She is aware that this could represent a tumor and accepts that risk. Agreed to change her status to 'comfort care'. Anticipate additional 2-3 day stay while continuing attempts at diuresis/waiting for stool tests to be resulted/PT and OT concerning how well patient is able to perform own cares and take meds appropriately. Continue inpatient admission. Continue IV lasix with repeat labs in AM. She still have crackles in the bases of her lungs. Likely will need to adjust IV l asix dose in the AM, pending repeat renal function. Stool for cdiff is not back yet. Anticipate discharge in 2-3 days, pending further diuresis with daily renal function labs. It is unclear if pt. will meet criteria for discharge back with her sister, and likely will require admission to SNF.
[2021-08-11] MEDS ORDERED: Enoxaparin 30 MG/0.3 ML Syringe SUBCUT SCH (11:30)
[2021-08-11] MEDS: Enoxaparin 30 MG/0.3 ML Syringe SUBCUT SCH (14:50)
[2021-08-11] MEDS: Polyvinyl Alcohol 1.4% Ophth Soln 15 ML Bottle EYEBOTH SCH (20:09)
[2021-08-12 08:02] LABS: ANION GAP 9.2 meq/L (7-15)
[2021-08-12] MEDS: Budesonide 0.5 MG/2 ML Neb Susp INH SCH ×2 (08:11→19:13)
[2021-08-12] MEDS: Nystatin Topical Powder 15 GM Bottle TOP SCH ×3 (08:11→19:08)
[2021-08-12] MEDS: Insulin Regular, Human 100 Units/ML 3 ML Vial SUBCUT SCH ×2 (08:11→16:50)
[2021-08-12] MEDS: Magnesium Oxide 400 MG Tab PO SCH ×2 (08:12→17:13)
[2021-08-12] MEDS: Acetaminophen 325 MG Tab PO PRN (08:12)
[2021-08-12] MEDS: Iron Polysaccharides Complex 150 MG Cap PO SCH (08:12)
[2021-08-12] MEDS: atorvaSTATin 10 MG Tab PO SCH (08:13)
[2021-08-12] MEDS: Gabapentin 100 MG Cap PO SCH ×2 (08:13→17:14)
[2021-08-12] MEDS: Potassium Chloride 20 MEQ Tab.ER PO SCH ×3 (08:14→17:14)
[2021-08-12] MEDS: Amiodarone 200 MG Tab PO SCH (08:26)
[2021-08-12] MEDS: Furosemide 40 MG/4 ML VIAL IVPUSH SCH (08:26)
[2021-08-12] MEDS: Metoprolol Tartrate 25 MG Tab PO SCH ×2 (08:26→19:09)
[2021-08-12] MEDS: Sodium Chloride 0.9% 10 ML Syringe FLUSH PRN (08:27)
--- NOTE | 2021-08-12 09:36 | PCM.PN ---
- General Info Date of Service: 08/12/21 Admission Dx/Problem (Free Text): Pt. reports feeling less short of breath. She diuresed 900ml yesterday on the increased dose of IV lasix. She denies any lightheadedness. No chest pain or palpitations. Denies any fever or chills. Social work had a care conference with family. Family is adamant that pt. should be placed in a audiology doctor care facility post discharge as she is unable to perform her own ADLs, bathe, etc. Functional Status: Reports: Pain Controlled - Review of Systems General: Reports: No Symptoms HEENT: Reports: No Symptoms Pulmonary: Reports: Shortness of Breath Cardiovascular: Reports: No Symptoms Gastrointestinal: Reports: No Symptoms Genitourinary: Reports: No Symptoms Musculoskeletal: Reports: No Symptoms Skin: Reports: No Symptoms Neurological: Reports: No Symptoms Psychiatric: Reports: No Symptoms - Patient Data Vitals - Most Recent: Last Vital Signs Temp 36.6 C 08/12/21 08:23 Pulse 67 08/12/21 08:26 Resp 22 H 08/12/21 08:23 BP 125/53 L 08/12/21 08:26 Pulse Ox 99 08/12/21 08:23 Weight - Most Recent: 100.879 kg I&O - Last 24 Hours: Intake & Output 08/11/21 08/12/21 08/12/21 22:59 06:59 14:59 Intake Total 610 300 Output Total 400 500 Balance 210 -200 Lab Results Last 24 Hours: Laboratory Results - last 24 hr 08/11/21 08/12/21 08/12/21 Range/Units 17:07 07:15 07:15 WBC 3.4 L (4.0-10.2) K/uL RBC 2.85 L (3.77-5.09) M/uL Hgb 9.0 L (11.7-15.5) g/dL Hct 28.4 L (34.0-46.0) % MCV 99.6 H (84.0-98.0) fL MCH 31.6 (28.2-33.3) pg MCHC 31.7 (31.7-36.0) g/dL RDW 15.0 H (11.2-14.1) % Plt Count 170 (150-350) K/uL Neut % (Auto) 38.2 L (45.0-80.0) % Lymph % (Auto) 50.9 H (10.0-50.0) % [place] % (Auto) 8.2 (2.0-14.0) % Eos % (Auto) 2.1 (0.0-5.0) % Baso % (Auto) 0.6 (0.0-2.0) % Neut # (Auto) 1.30 L (1.40-7.00) K/uL Lymph # (Auto) 1.73 (0.50-3.50) K/uL [place] # (Auto) 0.28 (0.00-1.00) K/uL Eos # (Auto) 0.07 (0.00-0.50) K/uL Baso # (Auto) 0.02 (0.00-0.20) K/uL Sodium 143 (136-145) mmol/L Potassium 5.0 (3.5-5.1) mmol/L Chloride 105 (98-107) mmol/L Carbon Dioxide 33.8 H (21.0-32.0) mmol/L Anion Gap 9.2 (7-15) meq/L BUN 19 H (7-18) mg/dL Creatinine 1.72 H (0.51-1.17) mg/dL Est Cr Clr Drug Dosing 19.67 mL/min Estimated GFR (MDRD) 29 mL/min Glucose 91 (70-99) mg/dL POC Glucose 98 (70-99) mg/dL Calcium 8.9 (8.5-10.1) mg/dL Specimen Type Urine Color Urine Appearance Urine pH (5.0-9.0) Ur Specific [place] (1.005-1.030) Urine Protein (NEGATIVE) mg/dL Urine Glucose (UA) (NEGATIVE) mg/dL Urine Ketones (NEGATIVE) mg/dL Urine Occult Blood (NEGATIVE) Urine Nitrite (NEGATIVE) Urine Bilirubin (NEGATIVE) Urine Urobilinogen (0.2-1.0) E.U./dL Ur Leukocyte Esterase (NEGATIVE) Urine RBC /HPF Urine WBC /HPF Ur Epithelial Cells /LPF Urine Bacteria (NONE TO FEW) /HPF 08/12/21 08/12/21 Range/Units 07:36 08:50 WBC (4.0-10.2) K/uL RBC (3.77-5.09) M/uL Hgb (11.7-15.5) g/dL Hct (34.0-46.0) % MCV (84.0-98.0) fL MCH (28.2-33.3) pg MCHC (31.7-36.0) g/dL RDW (11.2-14.1) % Plt Count (150-350) K/uL Neut % (Auto) (45.0-80.0) % Lymph % (Auto) (10.0-50.0) % [place] % (Auto) (2.0-14.0) % Eos % (Auto) (0.0-5.0) % Baso % (Auto) (0.0-2.0) % Neut # (Auto) (1.40-7.00) K/uL Lymph # (Auto) (0.50-3.50) K/uL [place] # (Auto) (0.00-1.00) K/uL Eos # (Auto) (0.00-0.50) K/uL Baso # (Auto) (0.00-0.20) K/uL Sodium (136-145) mmol/L Potassium (3.5-5.1) mmol/L Chloride (98-107) mmol/L Carbon Dioxide (21.0-32.0) mmol/L Anion Gap (7-15) meq/L BUN (7-18) mg/dL Creatinine (0.51-1.17) mg/dL Est Cr Clr Drug Dosing mL/min Estimated GFR (MDRD) mL/min Glucose (70-99) mg/dL POC Glucose 78 (70-99) mg/dL Calcium (8.5-10.1) mg/dL Specimen Type Urincc Urine Color Yellow Urine Appearance Slightly cloudy Urine pH 7.5 (5.0-9.0) Ur Specific [place] 1.020 (1.005-1.030) Urine Protein Negative (NEGATIVE) mg/dL Urine Glucose (UA) Negative (NEGATIVE) mg/dL Urine Ketones Negative (NEGATIVE) mg/dL Urine Occult Blood Negative (NEGATIVE) Urine Nitrite Negative (NEGATIVE) Urine Bilirubin Negative (NEGATIVE) Urine Urobilinogen 0.2 (0.2-1.0) E.U./dL Ur Leukocyte Esterase Trace H (NEGATIVE) Urine RBC Not seen /HPF Urine WBC 10-20 H /HPF Ur Epithelial Cells Moderate H /LPF Urine Bacteria Many H (NONE TO FEW) /HPF Yannick Results Last 24 Hours: Microbiology 08/09/21 22:00 Clostridioides difficile (PCR) - Final Stool / Feces Med Orders - Current: Current Medications Acetaminophen (Acetaminophen 325 Mg Tab) 650 mg PO Q4H PRN PRN Reason: Pain Last Admin: 08/12/21 08:12 Dose: 650 mg Documented by: Albuterol/Ipratropium (Albuterol/Ipratropium 3.0-0.5 Mg/3 Ml Neb Soln) 3 ml INH QID PRN PRN Reason: sob Amiodarone HCl (Amiodarone 200 Mg Tab) 200 mg PO DAILY [facility] Last Admin: 08/12/21 08:26 Dose: 200 mg Documented by: Artificial Tears (Polyvinyl Alcohol 1.4% Ophth Soln 15 Ml Bottle) 1 ml EYEBOTH BEDTIME [facility] Last Admin: 08/11/21 20:09 Dose: 2 drop Documented by: Atorvastatin Calcium (Atorvastatin 10 Mg Tab) 10 mg PO DAILY [facility] Last Admin: 08/12/21 08:13 Dose: 10 mg Documented by: Budesonide (Budesonide 0.5 Mg/2 Ml Neb Susp) 0.5 mg INH Q12HR [facility] Last Admin: 08/12/21 08:11 Dose: 0.5 mg Documented by: Dextrose/Water (50% Dextrose In Water 50 Ml Syringe) 50 ml IVPUSH ASDIRECTED PRN PRN Reason: Hypoglycemia Enoxaparin Sodium (Enoxaparin 30 Mg/0.3 Ml Syringe) 30 mg SUBCUT Q24H [facility] Last Admin: 08/11/21 14:50 Dose: 30 mg Documented by: Furosemide (Furosemide 40 Mg/4 Ml Vial) 80 mg IVPUSH DAILY [facility] Last Admin: 08/12/21 08:26 Dose: 80 mg Documented by: Gabapentin (Gabapentin 100 Mg Cap) 100 mg PO BID [facility] Last Admin: 08/12/21 08:13 Dose: 100 mg Documented by: Glucagon (Glucagon,Human Recombinant 1 Mg Vial) 1 mg IM ASDIRECTED PRN PRN Reason: Hypoglycemia Insulin Human Regular (Insulin Regular, Human 100 Units/Ml 3 Ml Vial) 0 unit SUBCUT BIDAC [facility]; Protocol Last Admin: 08/12/21 08:11 Dose: Not Given Documented by: Levothyroxine Sodium (Levothyroxine 175 Mcg Tab) 175 mcg PO ACBREAKFAST [facility] Last Admin: 08/12/21 08:13 Dose: 175 mcg Documented by: Magnesium Oxide (Magnesium Oxide 400 Mg Tab) 400 mg PO BID [facility] Last Admin: 08/12/21 08:12 Dose: 400 mg Documented by: Metoprolol Tartrate (Metoprolol Tartrate 25 Mg Tab) 12.5 mg PO Q12HR [facility] Last Admin: 08/12/21 08:26 Dose: 12.5 mg Documented by: Non-Formulary Medication (Carboxymethylcellulose Sodium [Artificial Tears]) 1 drop EYEBOTH TID PRN PRN Reason: Dry Eyes Nystatin (Nystatin Topical Powder 15 Gm Bottle) 1 gm TOP TID@0800,1400,1999 [facility] Last Admin: 08/12/21 08:11 Dose: 1 applic Documented by: Polysaccharide Iron Complex (Iron Polysaccharides Complex 150 Mg Cap) 150 mg PO DAILY [facility] Last Admin: 08/12/21 08:12 Dose: 150 mg Documented by: Potassium Chloride (Potassium Chloride 20 Meq Tab.Er) 40 meq PO TID [facility] Last Admin: 08/12/21 08:14 Dose: 40 meq Documented by: Sodium Chloride (Sodium Chloride 0.9% 10 Ml Syringe) 10 ml FLUSH ASDIRECTED PRN PRN Reason: Keep Vein Open Last Admin: 08/12/21 08:27 Dose: 10 ml Documented by: Discontinued Medications Budesonide (Budesonide 0.5 Mg/2 Ml Neb Susp) 0.5 mg INH BID [facility] Enoxaparin Sodium (Enoxaparin 30 Mg/0.3 Ml Syringe) 30 mg SUBCUT Q24H [facility] Last Admin: 08/11/21 14:49 Dose: Not Given Documented by: Fluconazole (Fluconazole 100 Mg Tab) 100 mg PO DAILY@1999 [facility] Stop: 08/09/21 20:01 Fluconazole (Fluconazole 100 Mg Tab) 100 mg PO BEDTIME [facility] Stop: 08/09/21 20:01 Last Admin: 08/09/21 20:03 Dose: 100 mg Documented by: Furosemide (Furosemide 40 Mg/4 Ml Vial) 40 mg IVPUSH DAILY [facility] Last Admin: 08/10/21 08:16 Dose: 40 mg Documented by: Furosemide (Furosemide 20 Mg/2 Ml Vial) 20 mg IVPUSH DAILY@1400 [facility] Last Admin: 08/09/21 15:21 Dose: 20 mg Documented by: Furosemide (Furosemide 20 Mg/2 Ml Vial) 20 mg IVPUSH ONETIME ONE Stop: 08/08/21 19:01 Last Admin: 08/08/21 19:36 Dose: 20 mg Documented by: Furosemide (Furosemide 40 Mg/4 Ml Vial) 40 mg IVPUSH DAILY@1400 [facility] Last Admin: 08/10/21 14:08 Dose: 40 mg Documented by: Furosemide (Furosemide 40 Mg/4 Ml Vial) 80 mg IVPUSH NOW ONE Stop: 08/10/21 11:36 Last Admin: 08/10/21 11:58 Dose: 80 mg Documented by: Furosemide (Furosemide 40 Mg/4 Ml Vial) 80 mg IVPUSH NOW ONE Stop: 08/10/21 20:01 Last Admin: 08/10/21 20:14 Dose: 80 mg Documented by: Furosemide (Furosemide 40 Mg/4 Ml Vial) 80 mg IVPUSH NOW ONE Stop: 08/11/21 08:01 Last Admin: 08/11/21 08:02 Dose: 80 mg Documented by: Furosemide (Furosemide 40 Mg/4 Ml Vial) 80 mg IVPUSH NOW ONE Stop: 08/11/21 16:01 Hydrochlorothiazide (Hydrochlorothiazide 25 Mg Tab) 25 mg PO ONETIME ONE Stop: 08/10/21 14:22 Last Admin: 08/10/21 14:58 Dose: 25 mg Documented by: Magnesium Sulfate/Dextrose 1 (gm/ Premix) 100 mls @ 100 mls/hr IV ONETIME ONE Stop: 08/08/21 14:10 Last Admin: 08/08/21 14:30 Dose: 100 mls/hr Documented by: Sodium Chloride (Normal Saline) 500 mls @ 200 mls/hr IV .BOLUS [facility] Insulin Human Regular (Insulin Regular, Human 100 Units/Ml 3 Ml Vial) 0 unit SUBCUT TIDAC [facility]; Protocol Last Admin: 08/09/21 16:59 Dose: Not Given Documented by: Iopamidol (Iopamidol 755 Mg/Ml 100 Ml Bottle) 100 ml IVPUSH ONETIME STA Stop: 08/09/21 10:39 Last Admin: 08/09/21 13:37 Dose: Not Given Documented by: Lorazepam (Lorazepam 2 Mg/Ml Sdv) 2 mg IVPUSH ONETIME ONE Stop: 08/09/21 11:12 Last Admin: 08/09/21 12:10 Dose: Not Given Documented by: Metoprolol Tartrate (Metoprolol Tartrate 25 Mg Tab) 12.5 mg PO BID [facility] Last Admin: 08/09/21 07:38 Dose: 12.5 mg Documented by: Nystatin (Nystatin Topical Powder 15 Gm Bottle) 1 gm TOP TID [facility] Potassium Chloride (Potassium Chloride 20 Meq Tab.Er) 20 meq PO TID [facility] Last Admin: 08/10/21 11:37 Dose: 20 meq Documented by: Potassium Chloride (Potassium Chloride 20 Meq Tab.Er) 40 meq PO ONETIME ONE Stop: 08/08/21 13:12 Last Admin: 08/08/21 14:27 Dose: 40 meq Documented by: Potassium Chloride (Potassium Chloride 20 Meq Tab.Er) 20 meq PO ONETIME ONE Stop: 08/08/21 17:01 Last Admin: 08/08/21 17:30 Dose: 20 meq Documented by: Potassium Chloride (Potassium Chloride 20 Meq Tab.Er) 20 meq PO ONETIME ONE Stop: 08/08/21 19:31 Last Admin: 08/08/21 19:35 Dose: 20 meq Documented by: - Exam General: Alert, Oriented Lungs: Decreased Breath Sounds, Crackles Cardiovascular: Regular Rate, Regular Rhythm Back Exam: Normal Inspection, Full Range of Motion Peripheral Pulses: 4+: Radial (L) Skin: Warm, Dry, Intact Neurological: No New Focal Deficit Psy/Mental Status: Alert, Normal Affect, Normal Mood - Patient Data Lab Results Last 24 hrs: Laboratory Results - last 24 hr 08/11/21 08/12/21 08/12/21 Range/Units 17:07 07:15 07:15 WBC 3.4 L (4.0-10.2) K/uL RBC 2.85 L (3.77-5.09) M/uL Hgb 9.0 L (11.7-15.5) g/dL Hct 28.4 L (34.0-46.0) % MCV 99.6 H (84.0-98.0) fL MCH 31.6 (28.2-33.3) pg MCHC 31.7 (31.7-36.0) g/dL RDW 15.0 H (11.2-14.1) % Plt Count 170 (150-350) K/uL Neut % (Auto) 38.2 L (45.0-80.0) % Lymph % (Auto) 50.9 H (10.0-50.0) % [place] % (Auto) 8.2 (2.0-14.0) % Eos % (Auto) 2.1 (0.0-5.0) % Baso % (Auto) 0.6 (0.0-2.0) % Neut # (Auto) 1.30 L (1.40-7.00) K/uL Lymph # (Auto) 1.73 (0.50-3.50) K/uL [place] # (Auto) 0.28 (0.00-1.00) K/uL Eos # (Auto) 0.07 (0.00-0.50) K/uL Baso # (Auto) 0.02 (0.00-0.20) K/uL Sodium 143 (136-145) mmol/L Potassium 5.0 (3.5-5.1) mmol/L Chloride 105 (98-107) mmol/L Carbon Dioxide 33.8 H (21.0-32.0) mmol/L Anion Gap 9.2 (7-15) meq/L BUN 19 H (7-18) mg/dL Creatinine 1.72 H (0.51-1.17) mg/dL Est Cr Clr Drug Dosing 19.67 mL/min Estimated GFR (MDRD) 29 mL/min Glucose 91 (70-99) mg/dL POC Glucose 98 (70-99) mg/dL Calcium 8.9 (8.5-10.1) mg/dL Specimen Type Urine Color Urine Appearance Urine pH (5.0-9.0) Ur Specific [place] (1.005-1.030) Urine Protein (NEGATIVE) mg/dL Urine Glucose (UA) (NEGATIVE) mg/dL Urine Ketones (NEGATIVE) mg/dL Urine Occult Blood (NEGATIVE) Urine Nitrite (NEGATIVE) Urine Bilirubin (NEGATIVE) Urine Urobilinogen (0.2-1.0) E.U./dL Ur Leukocyte Esterase (NEGATIVE) Urine RBC /HPF Urine WBC /HPF Ur Epithelial Cells /LPF Urine Bacteria (NONE TO FEW) /HPF 08/12/21 08/12/21 Range/Units 07:36 08:50 WBC (4.0-10.2) K/uL RBC (3.77-5.09) M/uL Hgb (11.7-15.5) g/dL Hct (34.0-46.0) % MCV (84.0-98.0) fL MCH (28.2-33.3) pg MCHC (31.7-36.0) g/dL RDW (11.2-14.1) % Plt Count (150-350) K/uL Neut % (Auto) (45.0-80.0) % Lymph % (Auto) (10.0-50.0) % [place] % (Auto) (2.0-14.0) % Eos % (Auto) (0.0-5.0) % Baso % (Auto) (0.0-2.0) % Neut # (Auto) (1.40-7.00) K/uL Lymph # (Auto) (0.50-3.50) K/uL [place] # (Auto) (0.00-1.00) K/uL Eos # (Auto) (0.00-0.50) K/uL Baso # (Auto) (0.00-0.20) K/uL Sodium (136-145) mmol/L Potassium (3.5-5.1) mmol/L Chloride (98-107) mmol/L Carbon Dioxide (21.0-32.0) mmol/L Anion Gap (7-15) meq/L BUN (7-18) mg/dL Creatinine (0.51-1.17) mg/dL Est Cr Clr Drug Dosing mL/min Estimated GFR (MDRD) mL/min Glucose (70-99) mg/dL POC Glucose 78 (70-99) mg/dL Calcium (8.5-10.1) mg/dL Specimen Type Urincc Urine Color Yellow Urine Appearance Slightly cloudy Urine pH 7.5 (5.0-9.0) Ur Specific [place] 1.020 (1.005-1.030) Urine Protein Negative (NEGATIVE) mg/dL Urine Glucose (UA) Negative (NEGATIVE) mg/dL Urine Ketones Negative (NEGATIVE) mg/dL Urine Occult Blood Negative (NEGATIVE) Urine Nitrite Negative (NEGATIVE) Urine Bilirubin Negative (NEGATIVE) Urine Urobilinogen 0.2 (0.2-1.0) E.U./dL Ur Leukocyte Esterase Trace H (NEGATIVE) Urine RBC Not seen /HPF Urine WBC 10-20 H /HPF Ur Epithelial Cells Moderate H /LPF Urine Bacteria Many H (NONE TO FEW) /HPF Result Diagrams: 08/12/21 07:15 08/12/21 07:15 Yannick Results Last 24 hrs: Microbiology 08/09/21 22:00 Clostridioides difficile (PCR) - Final Stool / Feces Sepsis Event Note - Evaluation Sepsis Screening Result: No Definite Risk - Focused Exam Vital Signs: Vital Signs Temp Pulse Pulse Resp BP BP Pulse Ox 08/12/21 08:26 67 125/53 L 08/12/21 08:23 36.6 C 67 22 H 125/53 L 99 - Problem List Review Problem List Initiated/Reviewed/Updated: Yes - My Orders Last 24 Hours: My Active Orders 08/12/21 08:15 Furosemide [Lasix] 80 mg IVPUSH DAILY 08/12/21 08:50 CULTURE URINE [RM] Stat - Assessment Assessment:: as above. No significant diuresis since admission. Lasix increased today with HCTZ added. Close monitoring of electrolytes and renal function. Case management visited with patient's family today and niece does not feel that patient can return to living with twin sister. Niece notes that the sister physically is not able to adequately help patient care for self/perform self cares such as personal hygiene. Niece feels patient will need to return to senior living. PT visited with patient and felt that she might be able to work with her for a week if the plan was to send the patient to live with family. However if patient is to return to [facility] or another senior living facility PT feels that patient is able to perform well in that environment and use walker for basic ambulation/get to and from bathroom etc. Note again that patient has elected comfort care status and does not want to pursue investigating the lower left lung changes noted on chest xray. Refuses to lay flat for CT. Refuses transfer to higher level of care so that advanced imaging can be performed while patient sedated. Anticipate additional 1-2 day inpatient stay for continued attempt at diuresis. Patient may need to swing briefly while waiting for senior living placement. Case management is working on finding a bed. - Plan Plan:: Increase lasix dose. Pending C-diff and stool culture testing. PT/OT. Patient refused CT today to more closely assess continued left lower lung consolidation vs atelectasis vs mass. Refused Ativan to help with CT saying "it doesn't work". Refused transfer to [facility] where they could sedate her with assistance of anesthesia. She is aware that this could represent a tumor and accepts that risk. Agreed to change her status to 'comfort care'. Anticipate additional 2-3 day stay while continuing attempts at diuresis/waiting for stool tests to be resulted/PT and OT concerning how well patient is able to perform own cares and take meds appropriately. Continue inpatient admission. Continue IV lasix with repeat labs in AM. She still have crackles in the bases of her lungs. Likely will need to adjust IV lasix dose in the AM, pending repeat renal function. Stool for cdiff is not back yet. Anticipate discharge in 2-3 days, pending further diuresis with daily renal function labs. It is unclear if pt. will meet criteria for discharge back with her sister, and likely will require admission to SNF. 08/12/2021-IV lasix decreased to 80mg QAM. Her renal function did decrease esvin ewhat on the 80mg BID. No other medication adjustments at this time. Family and social work are arranging placement in fpc care facility. Nursing will work with the patient to encourage ambulation as much as possible.
[2021-08-12] MEDS: Albuterol/Ipratropium 3.0-0.5 MG/3 ML Neb Soln INH PRN (10:30)
[2021-08-12] MEDS: Enoxaparin 30 MG/0.3 ML Syringe SUBCUT SCH (14:33)
[2021-08-12] MEDS: Polyvinyl Alcohol 1.4% Ophth Soln 15 ML Bottle EYEBOTH SCH (19:13)
[2021-08-13] MEDS: Albuterol/Ipratropium 3.0-0.5 MG/3 ML Neb Soln INH PRN (05:38)
[2021-08-13 07:29] LABS: ANION GAP 8.2 meq/L (7-15)
[2021-08-13] MEDS: Gabapentin 100 MG Cap PO SCH ×2 (07:31→17:32)
[2021-08-13] MEDS: Iron Polysaccharides Complex 150 MG Cap PO SCH (07:31)
[2021-08-13] MEDS: Metoprolol Tartrate 25 MG Tab PO SCH ×2 (07:32→19:03)
[2021-08-13] MEDS: atorvaSTATin 10 MG Tab PO SCH (07:32)
[2021-08-13] MEDS: Amiodarone 200 MG Tab PO SCH (07:33)
[2021-08-13] MEDS: Insulin Regular, Human 100 Units/ML 3 ML Vial SUBCUT SCH ×2 (07:39→17:33)
[2021-08-13] MEDS: Furosemide 40 MG/4 ML VIAL IVPUSH SCH (07:40)
[2021-08-13] MEDS: Magnesium Oxide 400 MG Tab PO SCH ×2 (07:41→17:32)
[2021-08-13] MEDS: Potassium Chloride 20 MEQ Tab.ER PO SCH ×2 (07:46→12:11)
[2021-08-13] MEDS: Nystatin Topical Powder 15 GM Bottle TOP SCH ×3 (07:47→19:03)
[2021-08-13] MEDS: Budesonide 0.5 MG/2 ML Neb Susp INH SCH ×2 (07:48→19:03)
--- NOTE | 2021-08-13 12:11 | PCM.SN.2 ---
- Free Text/Narrative Note: Held potassium for today and tomorrow due to elevation of potassium, Had discussed with other provider. Urine culture returns with growth, was not being treated, will started rocephin 1 gram every 24 hours and await cultures. Time Documentation
[2021-08-13] MEDS: cefTRIAXone 1 GM in Sodium Chloride 0.9% 100 ML IV SCH (12:57)
[2021-08-13] MEDS: Sodium Chloride 0.9% 10 ML Syringe FLUSH PRN ×3 (13:31→18:20)
[2021-08-13] MEDS: Enoxaparin 30 MG/0.3 ML Syringe SUBCUT SCH (13:36)
[2021-08-13] MEDS ORDERED: Ondansetron 4 MG/2 ML SDV IVPUSH PRN (17:48)
[2021-08-13] MEDS: Polyvinyl Alcohol 1.4% Ophth Soln 15 ML Bottle EYEBOTH SCH (19:03)
[2021-08-14 07:24] VITALS: BP 141/65; PULSE 67
[2021-08-14] MEDS: Insulin Regular, Human 100 Units/ML 3 ML Vial SUBCUT SCH (07:27)
[2021-08-14] MEDS: Magnesium Oxide 400 MG Tab PO SCH (07:28)
[2021-08-14] MEDS: Iron Polysaccharides Complex 150 MG Cap PO SCH (07:28)
[2021-08-14] MEDS: Amiodarone 200 MG Tab PO SCH (07:29)
[2021-08-14] MEDS: atorvaSTATin 10 MG Tab PO SCH (07:29)
[2021-08-14] MEDS: Gabapentin 100 MG Cap PO SCH (07:29)
[2021-08-14] MEDS: Metoprolol Tartrate 25 MG Tab PO SCH (07:30)
[2021-08-14] MEDS: Budesonide 0.5 MG/2 ML Neb Susp INH SCH (07:30)
[2021-08-14] MEDS: Nystatin Topical Powder 15 GM Bottle TOP SCH ×2 (07:30→14:38)
[2021-08-14] MEDS ORDERED: Furosemide 40 MG Tab PO SCH (08:00)
[2021-08-14 08:03] LABS: ANION GAP 9.3 meq/L (7-15)
--- NOTE | 2021-08-14 11:16 | PCM.DCSUM1 ---
Discharge Summary - Hospital Course Free Text/Narrative:: patient was admitted for fluid overload, vomiting and diarrhea. Improved, now with chronic baseline oxygen needs and physical therapy for conditioning. current UTI acceptable to treat with oral antibiotics. HPI Initial Comments: see admission h and p Brief History: diuresis in patient. tolerating Po well. on home o2 and at baseline. current UIT being treated Diagnosis: Stroke: No Modified Yee Scale: Slight Disable;Unable to Carry Out Prev Act.Able to Look After Affairs Modified Vermilion Scale Score: 2 - Discharge Data Discharge Date: 08/14/21 Discharge Disposition: DC/Tfer W/I Hosp To Swing 61 Condition: Good - Referral to Home Health Reason for Homebound Status: oxygen dependent, difficutly ambulating Primary Care Physician: ARTHUR Adorno - Patient Summary/Data Consults: Consultations 08/08/21 12:53 Consult to Case Management/Product Trainer [CONS] Routine OT Evaluation and Treatment [CONS] Routine PT Evaluation and Treatment [CONS] Routine - Patient Instructions Diet: Fluid Restriction, Diabetic Diet Fluid Restriction: 1000 mL - Discharge Plan *PRESCRIPTION DRUG MONITORING PROGRAM REVIEWED*: Not Applicable *COPY OF PRESCRIPTION DRUG MONITORING REPORT IN PATIENT RIENA: Not Applicable Home Medications: Home Meds Albuterol/Ipratropium [DuoNeb 3.0-0.5 MG/3 ML] 1 inh INH Q6H PRN 05/15/21 [History] Amiodarone [Cordarone] 200 mg PO DAILY 05/15/21 [History] Budesonide [Pulmicort] 1 inh INH BID 05/15/21 [History] Carboxymethylcellulose Sodium [Artificial Tears] 1 drop EYEBOTH TID PRN 05/15/21 [History] Carboxymethylcellulose Sodium [Refresh Liquigel 1%] 1 drop EYEBOTH BEDTIME 05/15/21 [History] Furosemide [Lasix] 40 mg PO BID@0800,1200 05/15/21 [History] Gabapentin [Neurontin] 100 mg PO BID 05/15/21 [History] Iron Polysaccharide Complex [Iferex 150] 150 mg PO DAILY 05/15/21 [History] Metoprolol Tartrate 12.5 mg PO BID 05/15/21 [History] Nystatin 1 dose TOP BID PRN 05/15/21 [History] atorvaSTATin Calcium [Atorvastatin Calcium] 10 mg PO DAILY 05/15/21 [History] Albuterol Sulfate [Albuterol Sulfate HFA] 8.5 gm INH QID PRN 08/08/21 [History] B12/Levomefolate Calcium/B-6 [Foltx Tablet] 1 each PO DAILY 08/08/21 [History] Budesonide/Formoterol Fumarate [Symbicort 160-4.5 Mcg Inhaler] 2 inh INH BID 08/08/21 [History] Ferrous Sulfate 325 mg PO BID 08/08/21 [History] Fluticasone Furoate [Arnuity Ellipta] 2 sprays NASBOTH DAILY 08/08/21 [History] Insulin Degludec [Tresiba] 20 unit SQ DAILY 08/08/21 [History] Levothyroxine Sodium [Synthroid] 150 mcg PO DAILY 08/08/21 [History] Multivit with Calcium,Iron,Min [One Daily Women's] 1 each PO DAILY 08/08/21 [History] Omeprazole 40 mg PO DAILY 08/08/21 [History] Potassium Chloride [Klor-Con M20] 20 meq PO DAILY 08/08/21 [History] Semaglutide [Ozempic] 0.5 mg SQ SA@0800 08/08/21 [History] Oxygen Therapy Mode: Nasal Cannula Forms: ED Department Discharge Referrals: Tammie Cochran PA [Primary Care Provider] - - Discharge Summary/Plan Comment DC Time >30 min.: No Total # of Minutes for Discharge Time: 25 Discharge Summary/Plan Comment: send to swing bed on home medications, lasix 40 mg a day and potassium starting tomorrow at 40 meq a day. keflex for uti. Needs PT and OT - General Info Date of Service: 08/14/21 Subjective Update: doing better, uti, needs swingbed pt and possible placement Functional Status: Reports: Pain Controlled, Tolerating Diet, Ambulating - Review of Systems General: Reports: No Symptoms HEENT: Reports: No Symptoms Pulmonary: Reports: Shortness of Breath (chronically) Cardiovascular: Reports: No Symptoms Gastrointestinal: Reports: No Symptoms Genitourinary: Reports: No Symptoms Musculoskeletal: Reports: Back Pain - Patient Data Vitals - Most Recent: Last Vital Signs Temp 36.4 C 08/14/21 07:23 Pulse 67 08/14/21 07:30 Resp 18 08/14/21 07:23 BP 141/65 H 08/14/21 07:30 Pulse Ox 99 08/14/21 07:23 Weight - Most Recent: 100.97 kg I&O - Last 24 hours: Intake & Output 08/13/21 08/14/21 08/14/21 22:59 06:59 14:59 Intake Total 1100 50 360 Output Total 1175 200 325 Balance -75 -150 35 Lab Results - Last 24 hrs: Laboratory Results - last 24 hr 08/13/21 08/14/21 08/14/21 Range/Units 17:08 07:23 07:25 Sodium 143 (136-145) mmol/L Potassium 5.3 H (3.5-5.1) mmol/L Chloride 104 (98-107) mmol/L Carbon Dioxide 35.0 H (21.0-32.0) mmol/L Anion Gap 9.3 (7-15) meq/L BUN 19 H (7-18) mg/dL Creatinine 1.87 H (0.51-1.17) mg/dL Est Cr Clr Drug Dosing 18.10 mL/min Estimated GFR (MDRD) 26 mL/min Glucose 91 (70-99) mg/dL POC Glucose 102 H 78 (70-99) mg/dL Calcium 9.4 (8.5-10.1) mg/dL Magnesium 2.2 (1.8-2.4) mg/dL Total Bilirubin 1.2 H (0.2-1.0) mg/dL AST 11 L (15-37) U/L ALT 15 (12-78) U/L Alkaline Phosphatase 99 (46-116) IU/L Total Protein 6.2 L (6.4-8.2) g/dL Albumin 3.2 L (3.4-5.0) g/dL JUAN Results - Last 24 hrs: Microbiology 08/09/21 22:00 Stool Aerobic Culture - Final Stool / Feces 08/12/21 08:50 Urine Culture - Final Urine, Clean Catch Klebsiella Pneumoniae Med Orders - Current: Current Medications Acetaminophen (Acetaminophen 325 Mg Tab) 650 mg PO Q4H PRN PRN Reason: Pain Last Admin: 08/12/21 08:12 Dose: 650 mg Documented by: Albuterol/Ipratropium (Albuterol/Ipratropium 3.0-0.5 Mg/3 Ml Neb Soln) 3 ml INH QID PRN PRN Reason: sob Last Admin: 08/13/21 05:38 Dose: 3 ml Documented by: Amiodarone HCl (Amiodarone 200 Mg Tab) 200 mg PO DAILY [facility] Last Admin: 08/14/21 07:29 Dose: 200 mg Documented by: Artificial Tears (Polyvinyl Alcohol 1.4% Ophth Soln 15 Ml Bottle) 1 ml EYEBOTH BEDTIME [facility] Last Admin: 08/13/21 19:03 Dose: 2 drop Documented by: Atorvastatin Calcium (Atorvastatin 10 Mg Tab) 10 mg PO DAILY [facility] Last Admin: 08/14/21 07:29 Dose: 10 mg Documented by: Budesonide (Budesonide 0.5 Mg/2 Ml Neb Susp) 0.5 mg INH Q12HR [facility] Last Admin: 08/14/21 07:30 Dose: 0.5 mg Documented by: Cephalexin (Cephalexin 250 Mg Cap) 500 mg PO Q8HR [facility] Dextrose/Water (50% Dextrose In Water 50 Ml Syringe) 50 ml IVPUSH ASDIRECTED PRN PRN Reason: Hypoglycemia Enoxaparin Sodium (Enoxaparin 30 Mg/0.3 Ml Syringe) 30 mg SUBCUT Q24H [facility] Last Admin: 08/13/21 13:36 Dose: 30 mg Documented by: Furosemide (Furosemide 40 Mg Tab) 40 mg PO DAILY [facility] Last Admin: 08/14/21 07:28 Dose: 40 mg Documented by: Gabapentin (Gabapentin 100 Mg Cap) 100 mg PO BID [facility] Last Admin: 08/14/21 07:29 Dose: 100 mg Documented by: Glucagon (Glucagon,Human Recombinant 1 Mg Vial) 1 mg IM ASDIRECTED PRN PRN Reason: Hypoglycemia Ceftriaxone Sodium 1 gm/ (Sodium Chloride) 100 mls @ 200 mls/hr IV Q24H [facility] Stop: 08/14/21 12:30 Last Admin: 08/13/21 12:57 Dose: 200 mls/hr Documented by: Insulin Human Regular (Insulin Regular, Human 100 Units/Ml 3 Ml Vial) 0 unit SUBCUT BIDAC [facility]; Protocol Last Admin: 08/14/21 07:27 Dose: Not Given Documented by: Levothyroxine Sodium (Levothyroxine 175 Mcg Tab) 175 mcg PO ACBREAKFAST [facility] Last Admin: 08/14/21 07:29 Dose: 175 mcg Documented by: Magnesium Oxide (Magnesium Oxide 400 Mg Tab) 400 mg PO BID [facility] Last Admin: 08/14/21 07:28 Dose: 400 mg Documented by: Metoprolol Tartrate (Metoprolol Tartrate 25 Mg Tab) 12.5 mg PO Q12HR [facility] Last Admin: 08/14/21 07:30 Dose: 12.5 mg Documented by: Non-Formulary Medication (Carboxymethylcellulose Sodium [Artificial Tears]) 1 drop EYEBOTH TID PRN PRN Reason: Dry Eyes Last Admin: 08/14/21 08:24 Dose: 1 drop Documented by: Nystatin (Nystatin Topical Powder 15 Gm Bottle) 1 gm TOP TID@0800,1400,1999 [facility] Last Admin: 08/14/21 07:30 Dose: 1 applic Documented by: Ondansetron HCl (Ondansetron 4 Mg/2 Ml Sdv) 4 mg IVPUSH Q8H PRN PRN Reason: Nausea Last Admin: 08/13/21 18:20 Dose: 4 mg Documented by: Polysaccharide Iron Complex (Iron Polysaccharides Complex 150 Mg Cap) 150 mg PO DAILY [facility] Last Admin: 08/14/21 07:28 Dose: 150 mg Documented by: Potassium Chloride (Potassium Chloride 20 Meq Tab.Er) 40 meq PO TID [facility] Last Admin: 08/13/21 12:11 Dose: Not Given Documented by: Sodium Chloride (Sodium Chloride 0.9% 10 Ml Syringe) 10 ml FLUSH ASDIRECTED PRN PRN Reason: Keep Vein Open Last Admin: 08/13/21 18:20 Dose: 10 ml Documented by: Discontinued Medications Budesonide (Budesonide 0.5 Mg/2 Ml Neb Susp) 0.5 mg INH BID [facility] Enoxaparin Sodium (Enoxaparin 30 Mg/0.3 Ml Syringe) 30 mg SUBCUT Q24H [facility] Last Admin: 08/11/21 14:49 Dose: Not Given Documented by: Fluconazole (Fluconazole 100 Mg Tab) 100 mg PO DAILY@1999 [facility] Stop: 08/09/21 20:01 Fluconazole (Fluconazole 100 Mg Tab) 100 mg PO BEDTIME [facility] Stop: 08/09/21 20:01 Last Admin: 08/09/21 20:03 Dose: 100 mg Documented by: Furosemide (Furosemide 40 Mg/4 Ml Vial) 40 mg IVPUSH DAILY [facility] Last Admin: 08/10/21 08:16 Dose: 40 mg Documented by: Furosemide (Furosemide 20 Mg/2 Ml Vial) 20 mg IVPUSH DAILY@1400 [facility] Last Admin: 08/09/21 15:21 Dose: 20 mg Documented by: Furosemide (Furosemide 20 Mg/2 Ml Vial) 20 mg IVPUSH ONETIME ONE Stop: 08/08/21 19:01 Last Admin: 08/08/21 19:36 Dose: 20 mg Documented by: Furosemide (Furosemide 40 Mg/4 Ml Vial) 40 mg IVPUSH DAILY@1400 [facility] Last Admin: 08/10/21 14:08 Dose: 40 mg Documented by: Furosemide (Furosemide 40 Mg/4 Ml Vial) 80 mg IVPUSH NOW ONE Stop: 08/10/21 11:36 Last Admin: 08/10/21 11:58 Dose: 80 mg Documented by: Furosemide (Furosemide 40 Mg/4 Ml Vial) 80 mg IVPUSH NOW ONE Stop: 08/10/21 20:01 Last Admin: 08/10/21 20:14 Dose: 80 mg Documented by: Furosemide (Furosemide 40 Mg/4 Ml Vial) 80 mg IVPUSH NOW ONE Stop: 08/11/21 08:01 Last Admin: 08/11/21 08:02 Dose: 80 mg Documented by: Furosemide (Furosemide 40 Mg/4 Ml Vial) 80 mg IVPUSH NOW ONE Stop: 08/11/21 16:01 Furosemide (Furosemide 40 Mg/4 Ml Vial) 80 mg IVPUSH DAILY [facility] Last Admin: 08/13/21 07:40 Dose: 80 mg Documented by: Hydrochlorothiazide (Hydrochlorothiazide 25 Mg Tab) 25 mg PO ONETIME ONE Stop: 08/10/21 14:22 Last Admin: 08/10/21 14:58 Dose: 25 mg Documented by: Magnesium Sulfate/Dextrose 1 (gm/ Premix) 100 mls @ 100 mls/hr IV ONETIME ONE Stop: 08/08/21 14:10 Last Admin: 08/08/21 14:30 Dose: 100 mls/hr Documented by: Sodium Chloride (Normal Saline) 500 mls @ 200 mls/hr IV .BOLUS [facility] Insulin Human Regular (Insulin Regular, Human 100 Units/Ml 3 Ml Vial) 0 unit SUBCUT TIDAC [facility]; Protocol Last Admin: 08/09/21 16:59 Dose: Not Given Documented by: Iopamidol (Iopamidol 755 Mg/Ml 100 Ml Bottle) 100 ml IVPUSH ONETIME STA Stop: 08/09/21 10:39 Last Admin: 08/09/21 13:37 Dose: Not Given Documented by: Lorazepam (Lorazepam 2 Mg/Ml Sdv) 2 mg IVPUSH ONETIME ONE Stop: 08/09/21 11:12 Last Admin: 08/09/21 12:10 Dose: Not Given Documented by: Metoprolol Tartrate (Metoprolol Tartrate 25 Mg Tab) 12.5 mg PO BID [facility] Last Admin: 08/09/21 07:38 Dose: 12.5 mg Documented by: Nystatin (Nystatin Topical Powder 15 Gm Bottle) 1 gm TOP TID [facility] Potassium Chloride (Potassium Chloride 20 Meq Tab.Er) 20 meq PO TID [facility] Last Admin: 08/10/21 11:37 Dose: 20 meq Documented by: Potassium Chloride (Potassium Chloride 20 Meq Tab.Er) 40 meq PO ONETIME ONE Stop: 08/08/21 13:12 Last Admin: 08/08/21 14:27 Dose: 40 meq Documented by: Potassium Chloride (Potassium Chloride 20 Meq Tab.Er) 20 meq PO ONETIME ONE Stop: 08/08/21 17:01 Last Admin: 08/08/21 17:30 Dose: 20 meq Documented by: Potassium Chloride (Potassium Chloride 20 Meq Tab.Er) 20 meq PO ONETIME ONE Stop: 08/08/21 19:31 Last Admin: 08/08/21 19:35 Dose: 20 meq Documented by: - Exam Quality Assessment: Reports: Supplemental Oxygen General: Reports: Alert HEENT: Reports: Pupils Equal Neck: Reports: Supple Lungs: Reports: Decreased Breath Sounds (bases no crackles) Cardiovascular: Reports: Regular Rate, Regular Rhythm GI/Abdominal Exam: Normal Bowel Sounds Neurological: Reports: No New Focal Deficit Psy/Mental Status: Reports: Alert
[2021-08-14] MEDS ORDERED: Cephalexin 250 MG Cap PO ONE (11:29)
[2021-08-14] MEDS: cefTRIAXone 1 GM in Sodium Chloride 0.9% 100 ML IV SCH (11:50)
[2021-08-14] MEDS: Enoxaparin 30 MG/0.3 ML Syringe SUBCUT SCH (14:38)
[2021-08-14] MEDS ORDERED: Cephalexin 250 MG Cap PO SCH (16:00)
== END 2021-08-14 16:15 | disposition swing bed (61) | DRG 291 ==
LOC: LL.ED 09:54 → LL.MS 12:01
PROVIDERS: ADMIT Emergency Medicine; ATTEND Emergency Medicine
DX: I50.9 Heart failure, unspecified (principal); I13.0 Hypertensive heart and chronic kidney disease with heart failure and stage 1 through stage 4 chronic kidney disease, or unspecified chronic kidney disease; I50.33 Acute on chronic diastolic (congestive) heart failure; R11.10 Vomiting, unspecified; R19.7 Diarrhea, unspecified; Z68.41 Body mass index [BMI] 40.0-44.9, adult; D63.8 Anemia in other chronic diseases classified elsewhere; J44.1 Chronic obstructive pulmonary disease with (acute) exacerbation; N18.4 Chronic kidney disease, stage 4 (severe); I48.20 Chronic atrial fibrillation, unspecified; J44.9 Chronic obstructive pulmonary disease, unspecified; E83.42 Hypomagnesemia; E11.9 Type 2 diabetes mellitus without complications; E87.6 Hypokalemia; B35.9 Dermatophytosis, unspecified; I48.91 Unspecified atrial fibrillation; E03.9 Hypothyroidism, unspecified; Z20.822 Contact with and (suspected) exposure to COVID-19; E78.5 Hyperlipidemia, unspecified; I73.9 Peripheral vascular disease, unspecified; E66.01 Morbid (severe) obesity due to excess calories; K21.9 Gastro-esophageal reflux disease without esophagitis; E11.22 Type 2 diabetes mellitus with diabetic chronic kidney disease; D63.1 Anemia in chronic kidney disease; H54.7 Unspecified visual loss; H91.91 Unspecified hearing loss, right ear; G47.30 Sleep apnea, unspecified; E78.00 Pure hypercholesterolemia, unspecified; M19.90 Unspecified osteoarthritis, unspecified site; F41.9 Anxiety disorder, unspecified; Z79.899 Other long term (current) drug therapy; Z90.49 Acquired absence of other specified parts of digestive tract; Z79.890 Hormone replacement therapy; Z87.891 Personal history of nicotine dependence; Z88.8 Allergy status to other drugs, medicaments and biological substances
CPT/HCPCS: 36415; 71045; 74018; 80048; 80053; 81001; 82947; 83605; 83735; 83880; 84443; 84484; 85025; 85379; 87045; 87046; 87086; 87088; 87186; 87493; 93005; 94640; 97162-GP; 97165-GO; 97530-GP; 97535-GO; 99285-25; A9270-GY; J0696; J1650; J1940; J2405; J3475; J7620-GY; U0002

== ENCOUNTER 2021-08-14 12:50 | Inpatient (IN) | payer MEDICARE, BC ==
[2021-08-14] MEDS ORDERED: 50% Dextrose in Water 50 ML Syringe IVPUSH PRN (16:40)
[2021-08-14] MEDS ORDERED: Polyvinyl Alcohol 1.4% Ophth Soln 15 ML Bottle EYEBOTH PRN (16:53)
--- NOTE | 2021-08-14 17:35 | PCM.PN ---
- General Info Date of Service: 08/14/21 Admission Dx/Problem (Free Text): The patient was admitted for dehydration and diarrhea. Now transferred [facility] for further strengthening. Functional Status: Reports: Pain Controlled, Tolerating Diet, Ambulating - Review of Systems General: Reports: No Symptoms HEENT: Reports: No Symptoms Pulmonary: Reports: No Symptoms Cardiovascular: Reports: No Symptoms Gastrointestinal: Reports: No Symptoms Genitourinary: Reports: Frequency, Urgency Musculoskeletal: Reports: Joint Swelling Skin: Reports: No Symptoms Neurological: Reports: No Symptoms Psychiatric: Reports: No Symptoms - Patient Data Med Orders - Current: Current Medications Acetaminophen (Acetaminophen 325 Mg Tab) 650 mg PO Q4H PRN PRN Reason: Pain Albuterol/Ipratropium (Albuterol/Ipratropium 3.0-0.5 Mg/3 Ml Neb Soln) 3 ml INH QID PRN PRN Reason: sob Amiodarone HCl (Amiodarone 200 Mg Tab) 200 mg PO DAILY [facility] Artificial Tears (Polyvinyl Alcohol 1.4% Ophth Soln 15 Ml Bottle) 1 ml EYEBOTH TID PRN PRN Reason: Dry Eyes Artificial Tears (Polyvinyl Alcohol 1.4% Ophth Soln 15 Ml Bottle) 0 ml EYEBOTH BEDTIME [facility] Atorvastatin Calcium (Atorvastatin 10 Mg Tab) 10 mg PO DAILY [facility] Budesonide (Budesonide 0.5 Mg/2 Ml Neb Susp) 0.5 mg INH Q12HR [facility] Cephalexin (Cephalexin 250 Mg Cap) 500 mg PO TID@0800,1400,2000 [facility] Dextrose/Water (50% Dextrose In Water 50 Ml Syringe) 50 ml IVPUSH ASDIRECTED PRN PRN Reason: Hypoglycemia Enoxaparin Sodium (Enoxaparin 30 Mg/0.3 Ml Syringe) 30 mg SUBCUT Q24H [facility] Furosemide (Furosemide 40 Mg Tab) 40 mg PO DAILY [facility] Gabapentin (Gabapentin 100 Mg Cap) 100 mg PO BID [facility] Levothyroxine Sodium (Levothyroxine 175 Mcg Tab) 175 mcg PO ACBREAKFAST [facility] Magnesium Oxide (Magnesium Oxide 400 Mg Tab) 400 mg PO BID [facility] Metoprolol Tartrate (Metoprolol Tartrate 25 Mg Tab) 12.5 mg PO Q12HR [facility] Insulin Degludec [ Tresiba] 100 Unit/Ml Vial 20 unit SQ DAILY [facility] Nystatin (Nystatin Topical Powder 15 Gm Bottle) 0 gm TOP TID@0800,1400,1999 [facility] Polysaccharide Iron Complex (Iron Polysaccharides Complex 150 Mg Cap) 150 mg PO DAILY [facility] Discontinued Medications Potassium Chloride (Potassium Chloride 20 Meq Tab.Er) 40 meq PO DAILY [facility] - Exam Quality Assessment: Supplemental Oxygen General: Alert, Oriented, Cooperative, No Acute Distress Neck: Supple Lungs: Clear to Auscultation, Decreased Breath Sounds Cardiovascular: Regular Rate, Regular Rhythm GI/Abdominal Exam: Normal Bowel Sounds, Soft, Non-Tender Back Exam: Normal Inspection, Full Range of Motion Extremities: Normal Inspection, Pedal Edema (2+ pedal edema to bilateral lower extremities ) Skin: Warm, Dry Neurological: No New Focal Deficit Psy/Mental Status: Alert, Normal Affect, Normal Mood - Problem List & Annotations (1) Hypokalemia SNOMED Code(s): 97147933 Code(s): E87.6 - HYPOKALEMIA Status: Acute Priority: Medium Annotation/Comment:: Potassium level reviewed, was on KCL 40meQ TID will decrease to BID and follow BMP in 2 days (2) Vomiting and diarrhea SNOMED Code(s): 132084158 Code(s): R11.10 - VOMITING, UNSPECIFIED; R19.7 - DIARRHEA, UNSPECIFIED Status: Acute Priority: Medium Annotation/Comment:: Resolved, appetite is good. (3) Afib SNOMED Code(s): 59218311 Code(s): I48.91 - UNSPECIFIED ATRIAL FIBRILLATION Status: Chronic Priority: Medium Qualifiers: Annotation/Comment:: Hx paroxysmal Afib. Currently sinus rhythm. Continue home medications (4) CHF (congestive heart failure) SNOMED Code(s): 35988465 Code(s): I50.9 - HEART FAILURE, UNSPECIFIED Status: Chronic Priority: High Qualifiers: Annotation/Comment:: Echocardiogram performed April 2021. Continue on current dose of Lasix. Follow weights and kidney function (5) COPD (chronic obstructive pulmonary disease) SNOMED Code(s): 88559200 Code(s): J44.9 - CHRONIC OBSTRUCTIVE PULMONARY DISEASE, UNSPECIFIED Status: Chronic Priority: High Qualifiers: Annotation/Comment:: Chronic supplemental O2. CO2 retainer. Currently satting well on her usual home O2 level of 2L per [place] (6) Chronic renal disease SNOMED Code(s): 121167460 Code(s): N18.9 - CHRONIC KIDNEY DISEASE, UNSPECIFIED Status: Chronic Priority: Medium Qualifiers: Annotation/Comment:: Levels reviewed as inpatient, will follow in swingbed (7) Peripheral edema SNOMED Code(s): 114718100 Code(s): R60.9 - EDEMA, UNSPECIFIED Status: Chronic Priority: Medium Annotation/Comment:: Chronic peripheral edema. - Problem List Review Problem List Initiated/Reviewed/Updated: Yes - My Orders Last 24 Hours: My Active Orders 08/14/21 18:00 Potassium Chloride [Klor-Con M20] 40 meq PO BID - Plan Plan:: 08/14/2021 1. Dehydration and diarrhea with vomiting: resolved, appetite is good. 2. CHF: weights stable, continue on current dose of Lasix 3. Hypokalemia: on potassium replacement 4. Peripheral edema: chronic, better with tubigrips 5. Atrial Fib: rate controlled. 6. CKD: Cr has been stable around 1.5 Decreased potassium to twice a day, will follow with lab work. Continue with Lasix for CHF. On continuous oxygen at 2 liters, she was on this at home. She hopes to return to home with her sister and home health. PT/OT continued. Grace Rosario, PERSONNEL RECRUITER
[2021-08-14] MEDS: Potassium Chloride 20 MEQ Tab.ER PO SCH (19:19)
[2021-08-14] MEDS: Polyvinyl Alcohol 1.4% Ophth Soln 15 ML Bottle EYEBOTH SCH (20:05)
[2021-08-14] MEDS: Budesonide 0.5 MG/2 ML Neb Susp INH SCH (20:06)
[2021-08-14] MEDS: Cephalexin 250 MG Cap PO SCH (20:06)
[2021-08-14] MEDS: Gabapentin 100 MG Cap PO SCH (20:07)
[2021-08-14] MEDS: Metoprolol Tartrate 25 MG Tab PO SCH (20:07)
[2021-08-14] MEDS: Magnesium Oxide 400 MG Tab PO SCH (20:07)
[2021-08-14] MEDS: Nystatin Topical Powder 15 GM Bottle TOP SCH (20:11)
[2021-08-15] MEDS ORDERED: Potassium Chloride 20 MEQ Tab.ER PO SCH (08:00)
[2021-08-15] MEDS ORDERED: Insulin Degludec [Tresiba] 100 UNIT/ML Vial SQ SCH (08:00)
[2021-08-15] MEDS: Budesonide 0.5 MG/2 ML Neb Susp INH SCH ×2 (08:26→19:16)
[2021-08-15] MEDS: Nystatin Topical Powder 15 GM Bottle TOP SCH ×3 (08:27→19:42)
[2021-08-15] MEDS: atorvaSTATin 10 MG Tab PO SCH (08:28)
[2021-08-15] MEDS: Cephalexin 250 MG Cap PO SCH ×3 (08:28→19:16)
[2021-08-15] MEDS: Iron Polysaccharides Complex 150 MG Cap PO SCH (08:28)
[2021-08-15] MEDS: Metoprolol Tartrate 25 MG Tab PO SCH ×2 (08:28→19:16)
[2021-08-15] MEDS: Amiodarone 200 MG Tab PO SCH (08:29)
[2021-08-15] MEDS: Potassium Chloride 20 MEQ Tab.ER PO SCH ×2 (08:29→18:04)
[2021-08-15] MEDS: Gabapentin 100 MG Cap PO SCH ×2 (08:29→18:04)
[2021-08-15] MEDS: Magnesium Oxide 400 MG Tab PO SCH ×2 (08:29→18:04)
[2021-08-15] MEDS: Furosemide 40 MG Tab PO SCH (08:29)
[2021-08-15] MEDS: Enoxaparin 30 MG/0.3 ML Syringe SUBCUT SCH (13:37)
[2021-08-15] MEDS: Polyvinyl Alcohol 1.4% Ophth Soln 15 ML Bottle EYEBOTH SCH (19:16)
[2021-08-16 07:54] LABS: ANION GAP 9.1 meq/L (7-15)
[2021-08-16] MEDS: Furosemide 40 MG Tab PO SCH (07:58)
[2021-08-16] MEDS: Metoprolol Tartrate 25 MG Tab PO SCH ×2 (07:58→19:48)
[2021-08-16] MEDS: Budesonide 0.5 MG/2 ML Neb Susp INH SCH ×2 (07:58→19:51)
[2021-08-16] MEDS: Gabapentin 100 MG Cap PO SCH ×2 (07:58→17:48)
[2021-08-16] MEDS: Amiodarone 200 MG Tab PO SCH (07:59)
[2021-08-16] MEDS: Nystatin Topical Powder 15 GM Bottle TOP SCH ×3 (07:59→19:51)
[2021-08-16] MEDS: Magnesium Oxide 400 MG Tab PO SCH ×2 (07:59→17:46)
[2021-08-16] MEDS: Potassium Chloride 20 MEQ Tab.ER PO SCH ×2 (07:59→17:47)
[2021-08-16] MEDS: Cephalexin 250 MG Cap PO SCH ×3 (07:59→19:47)
[2021-08-16] MEDS: atorvaSTATin 10 MG Tab PO SCH (07:59)
[2021-08-16] MEDS: Iron Polysaccharides Complex 150 MG Cap PO SCH (07:59)
[2021-08-16] MEDS: Enoxaparin 30 MG/0.3 ML Syringe SUBCUT SCH (14:20)
[2021-08-16] MEDS: Polyvinyl Alcohol 1.4% Ophth Soln 15 ML Bottle EYEBOTH SCH (19:46)
[2021-08-17] MEDS: Iron Polysaccharides Complex 150 MG Cap PO SCH (07:52)
[2021-08-17] MEDS: Amiodarone 200 MG Tab PO SCH (07:52)
[2021-08-17] MEDS: Cephalexin 250 MG Cap PO SCH ×3 (07:53→20:22)
[2021-08-17] MEDS: Potassium Chloride 20 MEQ Tab.ER PO SCH ×2 (07:53→17:56)
[2021-08-17] MEDS: Furosemide 40 MG Tab PO SCH (07:54)
[2021-08-17] MEDS: atorvaSTATin 10 MG Tab PO SCH (07:54)
[2021-08-17] MEDS: Magnesium Oxide 400 MG Tab PO SCH ×2 (07:55→17:57)
[2021-08-17] MEDS: Metoprolol Tartrate 25 MG Tab PO SCH ×2 (07:55→20:19)
[2021-08-17] MEDS: Budesonide 0.5 MG/2 ML Neb Susp INH SCH ×2 (07:56→20:26)
[2021-08-17] MEDS: Nystatin Topical Powder 15 GM Bottle TOP SCH ×3 (07:57→20:24)
[2021-08-17] MEDS: Gabapentin 100 MG Cap PO SCH ×2 (07:58→17:59)
[2021-08-17] MEDS: Enoxaparin 30 MG/0.3 ML Syringe SUBCUT SCH (14:11)
[2021-08-17] MEDS: Menthol/Methyl Salicylate 85 GM Tube TOP PRN ×2 (16:52→23:48)
[2021-08-17] MEDS: Polyvinyl Alcohol 1.4% Ophth Soln 15 ML Bottle EYEBOTH SCH (20:23)
[2021-08-17] MEDS: Acetaminophen 325 MG Tab PO PRN (23:49)
[2021-08-18] MEDS: Iron Polysaccharides Complex 150 MG Cap PO SCH (07:38)
[2021-08-18] MEDS: Amiodarone 200 MG Tab PO SCH (07:38)
[2021-08-18] MEDS: Cephalexin 250 MG Cap PO SCH ×3 (07:39→19:42)
[2021-08-18] MEDS: Potassium Chloride 20 MEQ Tab.ER PO SCH ×2 (07:40→17:14)
[2021-08-18] MEDS: atorvaSTATin 10 MG Tab PO SCH (07:40)
[2021-08-18] MEDS: Furosemide 40 MG Tab PO SCH (07:40)
[2021-08-18] MEDS: Magnesium Oxide 400 MG Tab PO SCH ×2 (07:41→17:14)
[2021-08-18] MEDS: Metoprolol Tartrate 25 MG Tab PO SCH ×2 (07:41→19:42)
[2021-08-18] MEDS: Gabapentin 100 MG Cap PO SCH ×2 (07:42→17:15)
[2021-08-18] MEDS: Acetaminophen 325 MG Tab PO PRN ×2 (07:43→13:17)
[2021-08-18] MEDS: Budesonide 0.5 MG/2 ML Neb Susp INH SCH ×2 (07:43→19:46)
[2021-08-18] MEDS: Nystatin Topical Powder 15 GM Bottle TOP SCH ×3 (07:45→19:43)
[2021-08-18] MEDS: traMADol 50 MG Tab PO PRN ×2 (13:13→19:47)
[2021-08-18] MEDS: Enoxaparin 30 MG/0.3 ML Syringe SUBCUT SCH (13:15)
[2021-08-18] MEDS: Polyvinyl Alcohol 1.4% Ophth Soln 15 ML Bottle EYEBOTH SCH (19:41)
[2021-08-19] MEDS: traMADol 50 MG Tab PO PRN (04:10)
[2021-08-19] MEDS: Menthol/Methyl Salicylate 85 GM Tube TOP PRN ×2 (04:11→10:00)
[2021-08-19] MEDS: Iron Polysaccharides Complex 150 MG Cap PO SCH (07:38)
[2021-08-19] MEDS: Amiodarone 200 MG Tab PO SCH (07:38)
[2021-08-19] MEDS: Cephalexin 250 MG Cap PO SCH ×3 (07:39→19:35)
[2021-08-19] MEDS: Potassium Chloride 20 MEQ Tab.ER PO SCH ×2 (07:40→17:12)
[2021-08-19] MEDS: Furosemide 40 MG Tab PO SCH (07:40)
[2021-08-19] MEDS: atorvaSTATin 10 MG Tab PO SCH (07:41)
[2021-08-19] MEDS: Metoprolol Tartrate 25 MG Tab PO SCH ×2 (07:41→19:35)
[2021-08-19] MEDS: Magnesium Oxide 400 MG Tab PO SCH ×2 (07:42→17:13)
[2021-08-19] MEDS: Gabapentin 100 MG Cap PO SCH ×2 (07:42→17:13)
[2021-08-19] MEDS: Nystatin Topical Powder 15 GM Bottle TOP SCH ×3 (07:43→19:37)
[2021-08-19] MEDS: Budesonide 0.5 MG/2 ML Neb Susp INH SCH ×2 (07:43→19:35)
[2021-08-19] MEDS ORDERED: Ondansetron 4 MG Tab.DIS PO PRN (10:50)
[2021-08-19] MEDS: Acetaminophen 325 MG Tab PO PRN (11:47)
[2021-08-19] MEDS: Enoxaparin 30 MG/0.3 ML Syringe SUBCUT SCH (13:06)
[2021-08-19] MEDS: Polyvinyl Alcohol 1.4% Ophth Soln 15 ML Bottle EYEBOTH SCH (19:37)
[2021-08-20] MEDS: Acetaminophen 325 MG Tab PO PRN (07:30)
[2021-08-20] MEDS: Nystatin Topical Powder 15 GM Bottle TOP SCH ×3 (07:38→19:21)
[2021-08-20] MEDS: Cephalexin 250 MG Cap PO SCH ×3 (07:40→19:20)
[2021-08-20] MEDS: Amiodarone 200 MG Tab PO SCH (07:40)
[2021-08-20] MEDS: Iron Polysaccharides Complex 150 MG Cap PO SCH (07:40)
[2021-08-20] MEDS: Furosemide 40 MG Tab PO SCH (07:41)
[2021-08-20] MEDS: Potassium Chloride 20 MEQ Tab.ER PO SCH ×2 (07:41→17:18)
[2021-08-20] MEDS: atorvaSTATin 10 MG Tab PO SCH (07:42)
[2021-08-20] MEDS: Metoprolol Tartrate 25 MG Tab PO SCH ×2 (07:42→19:21)
[2021-08-20] MEDS: Magnesium Oxide 400 MG Tab PO SCH ×2 (07:43→17:18)
[2021-08-20] MEDS: Gabapentin 100 MG Cap PO SCH ×2 (07:43→17:19)
[2021-08-20] MEDS: Budesonide 0.5 MG/2 ML Neb Susp INH SCH ×2 (07:44→19:22)
[2021-08-20] MEDS: Menthol/Methyl Salicylate 85 GM Tube TOP PRN (10:05)
[2021-08-20] MEDS: Enoxaparin 30 MG/0.3 ML Syringe SUBCUT SCH (13:20)
[2021-08-20] MEDS: Polyvinyl Alcohol 1.4% Ophth Soln 15 ML Bottle EYEBOTH SCH (19:20)
[2021-08-21] MEDS: Acetaminophen 325 MG Tab PO PRN (07:28)
[2021-08-21] MEDS: Menthol/Methyl Salicylate 85 GM Tube TOP PRN (07:29)
[2021-08-21] MEDS: Iron Polysaccharides Complex 150 MG Cap PO SCH (07:30)
[2021-08-21] MEDS: Cephalexin 250 MG Cap PO SCH ×3 (07:31→20:14)
[2021-08-21] MEDS: Amiodarone 200 MG Tab PO SCH (07:31)
[2021-08-21] MEDS: Potassium Chloride 20 MEQ Tab.ER PO SCH ×2 (07:32→17:13)
[2021-08-21] MEDS: Furosemide 40 MG Tab PO SCH (07:32)
[2021-08-21] MEDS: atorvaSTATin 10 MG Tab PO SCH (07:33)
[2021-08-21] MEDS: Metoprolol Tartrate 25 MG Tab PO SCH ×2 (07:33→20:17)
[2021-08-21] MEDS: Magnesium Oxide 400 MG Tab PO SCH ×2 (07:34→17:14)
[2021-08-21] MEDS: Gabapentin 100 MG Cap PO SCH ×2 (07:34→17:15)
[2021-08-21] MEDS: Budesonide 0.5 MG/2 ML Neb Susp INH SCH ×2 (07:36→20:20)
[2021-08-21] MEDS: Nystatin Topical Powder 15 GM Bottle TOP SCH ×3 (07:36→20:18)
[2021-08-21] MEDS: Enoxaparin 30 MG/0.3 ML Syringe SUBCUT SCH (13:03)
[2021-08-21] MEDS: guaiFENesin/Dextromethorphan 100-10 MG/5 ML Soln 10 ML Cup PO PRN (15:13)
--- NOTE | 2021-08-21 16:59 | PCM.PN ---
- General Info Date of Service: 08/21/21 Admission Dx/Problem (Free Text): The patient was admitted for dehydration and diarrhea. Now transferred to [facility] for further strengthening. Functional Status: Reports: Pain Controlled, Tolerating Diet, Ambulating - Review of Systems General: Reports: Weakness HEENT: Reports: No Symptoms Pulmonary: Reports: Shortness of Breath Cardiovascular: Reports: No Symptoms Gastrointestinal: Reports: No Symptoms Genitourinary: Reports: No Symptoms Musculoskeletal: Reports: No Symptoms Skin: Reports: No Symptoms Neurological: Reports: No Symptoms Psychiatric: Reports: No Symptoms - Patient Data Vitals - Most Recent: Last Vital Signs Temp 97.1 F 08/21/21 08:00 Pulse 62 08/21/21 08:00 Resp 20 08/21/21 08:00 BP 116/50 L 08/21/21 08:00 Pulse Ox 100 08/21/21 08:00 Weight - Most Recent: 232 lb 6.4 oz I&O - Last 24 Hours: Intake & Output 08/21/21 08/21/21 08/21/21 06:59 14:59 22:59 Intake Total 500 560 240 Balance 500 560 240 Lab Results Last 24 Hours: Laboratory Results - last 24 hr 08/21/21 Range/Units 07:40 POC Glucose 90 (70-99) mg/dL Med Orders - Current: Current Medications Acetaminophen (Acetaminophen 325 Mg Tab) 650 mg PO Q4H PRN PRN Reason: Pain Last Admin: 08/21/21 07:28 Dose: 650 mg Documented by: Albuterol/Ipratropium (Albuterol/Ipratropium 3.0-0.5 Mg/3 Ml Neb Soln) 3 ml INH QID PRN PRN Reason: sob Amiodarone HCl (Amiodarone 200 Mg Tab) 200 mg PO DAILY [facility] Last Admin: 08/21/21 07:31 Dose: 200 mg Documented by: Artificial Tears (Polyvinyl Alcohol 1.4% Ophth Soln 15 Ml Bottle) 1 ml EYEBOTH TID PRN PRN Reason: Dry Eyes Artificial Tears (Polyvinyl Alcohol 1.4% Ophth Soln 15 Ml Bottle) 0 ml EYEBOTH BEDTIME [facility] Last Admin: 08/20/21 19:20 Dose: 1 drop Documented by: Atorvastatin Calcium (Atorvastatin 10 Mg Tab) 10 mg PO DAILY [facility] Last Admin: 08/21/21 07:33 Dose: 10 mg Documented by: Budesonide (Budesonide 0.5 Mg/2 Ml Neb Susp) 0.5 mg INH Q12HR [facility] Last Admin: 08/21/21 07:36 Dose: 0.5 mg Documented by: Cephalexin (Cephalexin 250 Mg Cap) 500 mg PO TID@0800,1400,2000 [facility] Stop: 08/24/21 20:01 Last Admin: 08/21/21 13:02 Dose: 500 mg Documented by: Dextrose/Water (50% Dextrose In Water 50 Ml Syringe) 50 ml IVPUSH ASDIRECTED TX N PRN Reason: Hypoglycemia Diclofenac Sodium (Diclofenac Sodium 1% Gel 100 Gm Tube) 1 gm TOP BID PRN PRN Reason: Pain Enoxaparin Sodium (Enoxaparin 30 Mg/0.3 Ml Syringe) 30 mg SUBCUT Q24H [facility] Last Admin: 08/21/21 13:03 Dose: 30 mg Documented by: Furosemide (Furosemide 40 Mg Tab) 40 mg PO DAILY [facility] Last Admin: 08/21/21 07:32 Dose: 40 mg Documented by: Gabapentin (Gabapentin 100 Mg Cap) 100 mg PO BID [facility] Last Admin: 08/21/21 07:34 Dose: 100 mg Documented by: Guaifenesin/Dextromethorphan (Guaifenesin/Dextromethorphan 100-10 Mg/5 Ml Soln 10 Ml Cup) 10 ml PO Q4H PRN PRN Reason: Cough Last Admin: 08/21/21 15:13 Dose: 10 ml Documented by: Levothyroxine Sodium (Levothyroxine 175 Mcg Tab) 175 mcg PO ACBREAKFAST [facility] Last Admin: 08/21/21 07:31 Dose: 175 mcg Documented by: Magnesium Oxide (Magnesium Oxide 400 Mg Tab) 400 mg PO BID [facility] Last Admin: 08/21/21 07:34 Dose: 400 mg Documented by: Methyl Salicylate (Menthol/Methyl Salicylate 85 Gm Tube) 1 gm TOP QID PRN PRN Reason: Pain (mild 1-3) Last Admin: 08/21/21 07:29 Dose: 1 applic Documented by: Metoprolol Tartrate (Metoprolol Tartrate 25 Mg Tab) 12.5 mg PO Q12HR [facility] Last Admin: 08/21/21 07:33 Dose: 12.5 mg Documented by: Nystatin (Nystatin Topical Powder 15 Gm Bottle) 0 gm TOP TID@0800,1400,2000 [facility] Last Admin: 08/21/21 13:03 Dose: 1 applic Documented by: Ondansetron HCl (Ondansetron 4 Mg Tab.Dis) 4 mg PO Q6H PRN PRN Reason: Nausea/Vomiting Last Admin: 08/19/21 11:46 Dose: 4 mg Documented by: Polysaccharide Iron Complex (Iron Polysaccharides Complex 150 Mg Cap) 150 mg PO DAILY [facility] Last Admin: 08/21/21 07:30 Dose: 150 mg Documented by: Potassium Chloride (Potassium Chloride 20 Meq Tab.Er) 40 meq PO BID [facility] Last Admin: 08/21/21 07:32 Dose: 40 meq Documented by: Discontinued Medications Insulin Degludec [ Tresiba] 100 Unit/Ml Vial 20 unit SQ DAILY [facility] Last Admin: 08/15/21 11:09 Dose: Not Given Documented by: Potassium Chloride (Potassium Chloride 20 Meq Tab.Er) 40 meq PO DAILY [facility] Tramadol HCl (Tramadol 50 Mg Tab) 50 mg PO Q6H PRN PRN Reason: Pain Last Admin: 08/19/21 04:10 Dose: 50 mg Documented by: - Exam Quality Assessment: Supplemental Oxygen General: Alert, Oriented, Cooperative, No Acute Distress Neck: Supple Lungs: Normal Respiratory Effort, Decreased Breath Sounds Cardiovascular: Regular Rate, Regular Rhythm GI/Abdominal Exam: Normal Bowel Sounds, Soft, Non-Tender, No Organomegaly Back Exam: Normal Inspection, Full Range of Motion, Other (pain with hyperextension to right shoulder) Extremities: Pedal Edema (1+pedal edema bilateral) Neurological: No New Focal Deficit, Cranial Nerves Intact Psy/Mental Status: Alert, Normal Affect, Normal Mood - Patient Data Lab Results Last 24 hrs: Laboratory Results - last 24 hr 08/21/21 Range/Units 07:40 POC Glucose 90 (70-99) mg/dL Result Diagrams: 08/16/21 07:10 Sepsis Event Note - Evaluation Sepsis Screening Result: No Definite Risk - Focused Exam Vital Signs: Vital Signs Temp Pulse Pulse Resp BP BP Pulse Ox 08/21/21 08:00 97.1 F 62 20 116/50 L 100 08/21/21 07:33 0 L 0/0 L - Problem List & Annotations (1) Hypokalemia SNOMED Code(s): 23421194 Code(s): E87.6 - HYPOKALEMIA Status: Acute Priority: Medium Current Visit: No Annotation/Comment:: Potassium level reviewed, continue on current dose (2) Vomiting and diarrhea SNOMED Code(s): 131597069 Code(s): R11.10 - VOMITING, UNSPECIFIED; R19.7 - DIARRHEA, UNSPECIFIED Status: Acute Priority: Medium Current Visit: No Annotation/Comment:: Resolved, appetite is good. (3) Afib SNOMED Code(s): 79374136 Code(s): I48.91 - UNSPECIFIED ATRIAL FIBRILLATION Status: Chronic Priority: Medium Current Visit: No Qualifiers: Annotation/Comment:: Hx paroxysmal Afib. Currently sinus rhythm. Continue home medications (4) CHF (congestive heart failure) SNOMED Code(s): 64482794 Code(s): I50.9 - HEART FAILURE, UNSPECIFIED Status: Chronic Priority: High Current Visit: No Qualifiers: Annotation/Comment:: Echocardiogram performed April 2021. Continue on current dose of Lasix. Follow weights and kidney function (5) COPD (chronic obstructive pulmonary disease) SNOMED Code(s): 02219212 Code(s): J44.9 - CHRONIC OBSTRUCTIVE PULMONARY DISEASE, UNSPECIFIED Status: Chronic Priority: High Current Visit: No Qualifiers: Annotation/Comment:: Chronic supplemental O2. CO2 retainer. Currently satting well on her usual home O2 level of 2L per [place] (6) Chronic renal disease SNOMED Code(s): 111876998 Code(s): N18.9 - CHRONIC KIDNEY DISEASE, UNSPECIFIED Status: Chronic Priority: Medium Current Visit: No Qualifiers: Annotation/Comment:: Levels reviewed as inpatient, will follow in swingbed (7) Peripheral edema SNOMED Code(s): 987857877 Code(s): R60.9 - EDEMA, UNSPECIFIED Status: Chronic Priority: Medium Current Visit: No Annotation/Comment:: Chronic peripheral edema. - Problem List Review Problem List Initiated/Reviewed/Updated: Yes - My Orders Last 24 Hours: My Active Orders 08/21/21 14:00 Dextromethorphan/guaiFENesin [Robitussin DM] 10 ml PO Q4H PRN 08/21/21 14:01 Chest 2V [CR] Routine 08/21/21 16:49 Diclofenac Sodium [Voltaren 1% Gel] 1 gm TOP BID PRN - Plan Plan:: 08/14/2021 1. Dehydration and diarrhea with vomiting: resolved, appetite is good. 2. CHF: weights stable, continue on current dose of Lasix 3. Hypokalemia: on potassium replacement 4. Peripheral edema: chronic, better with tubigrips 5. Atrial Fib: rate controlled. 6. CKD: Cr has been stable around 1.5 Decreased potassium to twice a day, will follow with lab work. Continue with Lasix for CHF. On continuous oxygen at 2 liters, she was on this at home. She hopes to return to home with her sister and home health. PT/OT continued. Grace Rosario CNP 08/21/2021 1. Dehydration and diarrhea with vomiting: resolved, appetite is good no nausea or vomiting for the last week 2. CHF: weights stable, continue on current dose of Lasix 3. Hypokalemia: on potassium replacement 4. Peripheral edema: chronic, better with tubigrips. LE edema is stable. Patient encouraged to elevated LE 5. Atrial Fib: rate controlled. 6. CKD: Cr has been stable around 1.5 Patient will continue in PT, she is wanting to go home to her sister's she states her sister is wanting her back home. Tried to tell the patient that she may need skilled care long term care phlebotomist as she was in [place] recently and only was home for a few weeks and then back in. She does not want to listen to me, will see how the patient progresses. Grace Rosario CNP
[2021-08-21] MEDS: Polyvinyl Alcohol 1.4% Ophth Soln 15 ML Bottle EYEBOTH SCH (20:15)
[2021-08-21] MEDS: Diclofenac Sodium 1% Gel 100 GM Tube TOP PRN (20:21)
[2021-08-22] MEDS: Cephalexin 250 MG Cap PO SCH ×3 (07:13→19:17)
[2021-08-22] MEDS: Amiodarone 200 MG Tab PO SCH (07:13)
[2021-08-22] MEDS: Iron Polysaccharides Complex 150 MG Cap PO SCH (07:13)
[2021-08-22] MEDS: Potassium Chloride 20 MEQ Tab.ER PO SCH ×2 (07:13→18:09)
[2021-08-22] MEDS: atorvaSTATin 10 MG Tab PO SCH (07:14)
[2021-08-22] MEDS: Furosemide 40 MG Tab PO SCH (07:14)
[2021-08-22] MEDS: Metoprolol Tartrate 25 MG Tab PO SCH ×2 (07:15→19:18)
[2021-08-22] MEDS: Magnesium Oxide 400 MG Tab PO SCH ×2 (07:15→18:10)
[2021-08-22] MEDS: Nystatin Topical Powder 15 GM Bottle TOP SCH ×3 (07:16→19:46)
[2021-08-22] MEDS: Gabapentin 100 MG Cap PO SCH ×2 (07:17→18:10)
[2021-08-22] MEDS: Budesonide 0.5 MG/2 ML Neb Susp INH SCH ×2 (07:17→19:45)
[2021-08-22] MEDS: Diclofenac Sodium 1% Gel 100 GM Tube TOP PRN (07:17)
[2021-08-22] MEDS: Enoxaparin 30 MG/0.3 ML Syringe SUBCUT SCH (14:18)
[2021-08-22] MEDS: Albuterol/Ipratropium 3.0-0.5 MG/3 ML Neb Soln INH PRN (14:33)
[2021-08-22] MEDS: Polyvinyl Alcohol 1.4% Ophth Soln 15 ML Bottle EYEBOTH SCH (19:17)
[2021-08-23] MEDS: Iron Polysaccharides Complex 150 MG Cap PO SCH (08:53)
[2021-08-23] MEDS: Cephalexin 250 MG Cap PO SCH ×3 (08:53→20:22)
[2021-08-23] MEDS: Amiodarone 200 MG Tab PO SCH (08:54)
[2021-08-23] MEDS: Metoprolol Tartrate 25 MG Tab PO SCH ×2 (08:55→20:23)
[2021-08-23] MEDS: Potassium Chloride 20 MEQ Tab.ER PO SCH ×2 (08:56→17:21)
[2021-08-23] MEDS: Furosemide 40 MG Tab PO SCH (08:57)
[2021-08-23] MEDS: atorvaSTATin 10 MG Tab PO SCH (08:57)
[2021-08-23] MEDS: Magnesium Oxide 400 MG Tab PO SCH ×2 (08:58→17:22)
[2021-08-23] MEDS: Gabapentin 100 MG Cap PO SCH ×2 (08:59→17:23)
[2021-08-23] MEDS: Budesonide 0.5 MG/2 ML Neb Susp INH SCH ×2 (09:02→20:24)
[2021-08-23] MEDS: Nystatin Topical Powder 15 GM Bottle TOP SCH ×3 (09:09→20:27)
[2021-08-23 10:10] LABS: ANION GAP 11.2 meq/L (7-15)
[2021-08-23] MEDS: Polyvinyl Alcohol 1.4% Ophth Soln 15 ML Bottle EYEBOTH SCH (20:23)
[2021-08-23] MEDS: Menthol/Methyl Salicylate 85 GM Tube TOP PRN (20:25)
[2021-08-23] MEDS: Acetaminophen 325 MG Tab PO PRN (20:28)
[2021-08-23] MEDS: guaiFENesin/Dextromethorphan 100-10 MG/5 ML Soln 10 ML Cup PO PRN (20:37)
[2021-08-24] MEDS: Amiodarone 200 MG Tab PO SCH (08:01)
[2021-08-24] MEDS: Cephalexin 250 MG Cap PO SCH ×3 (08:01→20:17)
[2021-08-24] MEDS: Iron Polysaccharides Complex 150 MG Cap PO SCH (08:01)
[2021-08-24] MEDS: Furosemide 40 MG Tab PO SCH (08:02)
[2021-08-24] MEDS: Potassium Chloride 20 MEQ Tab.ER PO SCH ×2 (08:02→17:21)
[2021-08-24] MEDS: Metoprolol Tartrate 25 MG Tab PO SCH ×2 (08:03→20:20)
[2021-08-24] MEDS: atorvaSTATin 10 MG Tab PO SCH (08:03)
[2021-08-24] MEDS: Magnesium Oxide 400 MG Tab PO SCH ×2 (08:04→17:21)
[2021-08-24] MEDS: Nystatin Topical Powder 15 GM Bottle TOP SCH ×3 (08:04→20:21)
[2021-08-24] MEDS: Diclofenac Sodium 1% Gel 100 GM Tube TOP PRN (08:05)
[2021-08-24] MEDS: Budesonide 0.5 MG/2 ML Neb Susp INH SCH ×2 (08:05→20:14)
[2021-08-24] MEDS: Gabapentin 100 MG Cap PO SCH ×2 (08:06→17:22)
[2021-08-24] MEDS: Polyvinyl Alcohol 1.4% Ophth Soln 15 ML Bottle EYEBOTH SCH (20:18)
[2021-08-25] MEDS: Budesonide 0.5 MG/2 ML Neb Susp INH SCH ×2 (09:00→20:02)
[2021-08-25] MEDS: Diclofenac Sodium 1% Gel 100 GM Tube TOP PRN (09:01)
[2021-08-25] MEDS: Metoprolol Tartrate 25 MG Tab PO SCH ×2 (09:02→20:00)
[2021-08-25] MEDS: Iron Polysaccharides Complex 150 MG Cap PO SCH (09:02)
[2021-08-25] MEDS: Amiodarone 200 MG Tab PO SCH (09:03)
[2021-08-25] MEDS: Potassium Chloride 20 MEQ Tab.ER PO SCH (09:04)
[2021-08-25] MEDS: atorvaSTATin 10 MG Tab PO SCH (09:04)
[2021-08-25] MEDS: Furosemide 40 MG Tab PO SCH (09:05)
[2021-08-25] MEDS: Magnesium Oxide 400 MG Tab PO SCH ×2 (09:05→17:11)
[2021-08-25] MEDS: Gabapentin 100 MG Cap PO SCH ×2 (09:07→17:12)
[2021-08-25] MEDS: Nystatin Topical Powder 15 GM Bottle TOP SCH ×3 (09:14→20:01)
--- NOTE | 2021-08-25 10:07 | PCM.PN ---
- General Info Date of Service: 08/25/21 Admission Dx/Problem (Free Text): The patient was admitted for dehydration and diarrhea. Now transferred to [facility] for further strengthening. Subjective Update: Patient had a chest Xray done and recommended she have a chest CT scan. Patient refuses and said she can not do it, she states things have been wrong on the chest Xray in the past and it will get better. Functional Status: Reports: Pain Controlled, Tolerating Diet, Ambulating - Review of Systems General: Reports: Weakness HEENT: Reports: No Symptoms Pulmonary: Reports: Shortness of Breath Cardiovascular: Reports: No Symptoms Gastrointestinal: Reports: No Symptoms Musculoskeletal: Reports: No Symptoms, Joint Swelling Skin: Reports: No Symptoms, Dryness Psychiatric: Reports: No Symptoms - Patient Data Vitals - Most Recent: Last Vital Signs Temp 97.1 F 08/21/21 08:00 Pulse 0 L 08/25/21 09:02 Resp 20 08/21/21 08:00 BP 0/0 L 08/25/21 09:02 Pulse Ox 100 08/21/21 08:00 Weight - Most Recent: 233 lb I&O - Last 24 Hours: Intake & Output 08/24/21 08/25/21 08/25/21 22:59 06:59 14:59 Intake Total 720 120 360 Balance 720 120 360 Med Orders - Current: Current Medications Acetaminophen (Acetaminophen 325 Mg Tab) 650 mg PO Q4H PRN PRN Reason: Pain Last Admin: 08/23/21 20:28 Dose: 650 mg Documented by: Albuterol/Ipratropium (Albuterol/Ipratropium 3.0-0.5 Mg/3 Ml Neb Soln) 3 ml INH QID PRN PRN Reason: sob Last Admin: 08/22/21 14:33 Dose: 3 ml Documented by: Amiodarone HCl (Amiodarone 200 Mg Tab) 200 mg PO DAILY [facility] Last Admin: 08/25/21 09:03 Dose: 200 mg Documented by: Artificial Tears (Polyvinyl Alcohol 1.4% Ophth Soln 15 Ml Bottle) 1 ml EYEBOTH TID PRN PRN Reason: Dry Eyes Artificial Tears (Polyvinyl Alcohol 1.4% Ophth Soln 15 Ml Bottle) 0 ml EYEBOTH BEDTIME [facility] Last Admin: 08/24/21 20:18 Dose: 1 drop Documented by: Atorvastatin Calcium (Atorvastatin 10 Mg Tab) 10 mg PO DAILY [facility] Last Admin: 08/25/21 09:04 Dose: 10 mg Documented by: Budesonide (Budesonide 0.5 Mg/2 Ml Neb Susp) 0.5 mg INH Q12HR [facility] Last Admin: 08/25/21 09:00 Dose: 0.5 mg Documented by: Dextrose/Water (50% Dextrose In Water 50 Ml Syringe) 50 ml IVPUSH ASDIRECTED PRN PRN Reason: Hypoglycemia Diclofenac Sodium (Diclofenac Sodium 1% Gel 100 Gm Tube) 1 gm TOP BID PRN PRN Reason: Pain Last Admin: 08/25/21 09:01 Dose: 1 gram Documented by: Furosemide (Furosemide 40 Mg Tab) 40 mg PO DAILY [facility] Last Admin: 08/25/21 09:05 Dose: 40 mg Documented by: Gabapentin (Gabapentin 100 Mg Cap) 100 mg PO BID [facility] Last Admin: 08/25/21 09:07 Dose: 100 mg Documented by: Guaifenesin/Dextromethorphan (Guaifenesin/Dextromethorphan 100-10 Mg/5 Ml Soln 10 Ml Cup) 10 ml PO Q4H PRN PRN Reason: Cough Last Admin: 08/23/21 20:37 Dose: 10 ml Documented by: Levothyroxine Sodium (Levothyroxine 175 Mcg Tab) 175 mcg PO ACBREAKFAST [facility] Last Admin: 08/25/21 09:03 Dose: 175 mcg Documented by: Magnesium Oxide (Magnesium Oxide 400 Mg Tab) 400 mg PO BID [facility] Last Admin: 08/25/21 09:05 Dose: 400 mg Documented by: Methyl Salicylate (Menthol/Methyl Salicylate 85 Gm Tube) 1 gm TOP QID PRN PRN Reason: Pain (mild 1-3) Last Admin: 08/23/21 20:25 Dose: 1 applic Documented by: Metoprolol Tartrate (Metoprolol Tartrate 25 Mg Tab) 12.5 mg PO Q12HR [facility] Last Admin: 08/25/21 09:02 Dose: 12.5 mg Documented by: Nystatin (Nystatin Topical Powder 15 Gm Bottle) 0 gm TOP TID@0800,1400,2000 [facility] Last Admin: 08/25/21 09:14 Dose: 1 applic Documented by: Ondansetron HCl (Ondansetron 4 Mg Tab.Dis) 4 mg PO Q6H PRN PRN Reason: Nausea/Vomiting Last Admin: 08/19/21 11:46 Dose: 4 mg Documented by: Polysaccharide Iron Complex (Iron Polysaccharides Complex 150 Mg Cap) 150 mg PO DAILY [facility] Last Admin: 08/25/21 09:02 Dose: 150 mg Documented by: Potassium Chloride (Potassium Chloride 20 Meq Tab.Er) 40 meq PO BID [facility] Last Admin: 08/25/21 09:04 Dose: 40 meq Documented by: Discontinued Medications Cephalexin (Cephalexin 250 Mg Cap) 500 mg PO TID@0800,1400,2000 [facility] Stop: 08/24/21 20:01 Last Admin: 08/24/21 20:17 Dose: 500 mg Documented by: Enoxaparin Sodium (Enoxaparin 30 Mg/0.3 Ml Syringe) 30 mg SUBCUT Q24H [facility] Last Admin: 08/22/21 14:18 Dose: Not Given Documented by: Insulin Degludec [ Tresiba] 100 Unit/Ml Vial 20 unit SQ DAILY [facility] Last Admin: 08/15/21 11:09 Dose: Not Given Documented by: Potassium Chloride (Potassium Chloride 20 Meq Tab.Er) 40 meq PO DAILY [facility] Tramadol HCl (Tramadol 50 Mg Tab) 50 mg PO Q6H PRN PRN Reason: Pain Last Admin: 08/19/21 04:10 Dose: 50 mg Documented by: - Exam Quality Assessment: Supplemental Oxygen General: Alert, Oriented, Cooperative Neck: Supple Lungs: Normal Respiratory Effort, Decreased Breath Sounds Cardiovascular: Regular Rate, Regular Rhythm, Murmurs GI/Abdominal Exam: Normal Bowel Sounds, Soft, Non-Tender Back Exam: Normal Inspection Extremities: Normal Inspection, Pedal Edema (2+pedal edema) Peripheral Pulses: 1+: Dorsalis Pedis (L), Dorsalis Pedis (R) Skin: Warm, Dry, Intact Neurological: No New Focal Deficit Psy/Mental Status: Alert, Normal Affect, Anxious - Patient Data Result Diagrams: 08/23/21 09:35 Sepsis Event Note - Evaluation Sepsis Screening Result: No Definite Risk - Focused Exam Vital Signs: Vital Signs Pulse BP 08/25/21 09:02 0 L 0/0 L - Problem List & Annotations (1) Hypokalemia SNOMED Code(s): 96091691 Code(s): E87.6 - HYPOKALEMIA Status: Acute Priority: Medium Current Visit: No Annotation/Comment:: Potassium level reviewed, continue on current dose (2) Afib SNOMED Code(s): 90949320 Code(s): I48.91 - UNSPECIFIED ATRIAL FIBRILLATION Status: Chronic Priority: Medium Current Visit: No Qualifiers: Annotation/Comment:: Hx paroxysmal Afib. Currently sinus rhythm. Continue home medications (3) CHF (congestive heart failure) SNOMED Code(s): 19814663 Code(s): I50.9 - HEART FAILURE, UNSPECIFIED Status: Chronic Priority: High Current Visit: No Qualifiers: Annotation/Comment:: Echocardiogram performed April 2021. Continue on current dose of Lasix. Follow weights and kidney function. Labs reviewed and Cr has in creased some, will continue on current dose and recheck BMP next week (4) COPD (chronic obstructive pulmonary disease) SNOMED Code(s): 74212600 Code(s): J44.9 - CHRONIC OBSTRUCTIVE PULMONARY DISEASE, UNSPECIFIED Status: Chronic Priority: High Current Visit: No Qualifiers: COPD type: chronic bronchitis Annotation/Comment:: Chronic supplemental O2. CO2 retainer. Currently satting well on her usual home O2 level of 2L per [place] (5) Chronic renal disease SNOMED Code(s): 442516495 Code(s): N18.9 - CHRONIC KIDNEY DISEASE, UNSPECIFIED Status: Chronic Priority: Medium Current Visit: No Qualifiers: Annotation/Comment:: Levels reviewed as inpatient, will follow in swingbed (6) Peripheral edema SNOMED Code(s): 287183299 Code(s): R60.9 - EDEMA, UNSPECIFIED Status: Chronic Priority: Medium Current Visit: No Annotation/Comment:: Chronic peripheral edema. - Problem List Review Problem List Initiated/Reviewed/Updated: Yes - My Orders Last 24 Hours: My Active Orders 08/29/21 05:11 BASIC METABOLIC PANEL,BMP [CHEM] Routine - Plan Plan:: 08/14/2021 1. Dehydration and diarrhea with vomiting: resolved, appetite is good. 2. CHF: weights stable, continue on current dose of Lasix 3. Hypokalemia: on potassium replacement 4. Peripheral edema: chronic, better with tubigrips 5. Atrial Fib: rate controlled. 6. CKD: Cr has been stable around 1.5 Decreased potassium to twice a day, will follow with lab work. Continue with Lasix for CHF. On continuous oxygen at 2 liters, she was on this at home. She hopes to return to home with her sister and home health. PT/OT continued. Grace Rosario CNP 08/21/2021 1. Dehydration and diarrhea with vomiting: resolved, appetite is good no nausea or vomiting for the last week 2. CHF: weights stable, continue on current dose of Lasix 3. Hypokalemia: on potassium replacement 4. Peripheral edema: chronic, better with tubigrips. LE edema is stable. Patient encouraged to elevated LE 5. Atrial Fib: rate controlled. 6. CKD: Cr has been stable around 1.5 Patient will continue in PT, she is wanting to go home to her sister's she states her sister is wanting her back home. Tried to tell the patient that she may need skilled care usp as she was in [place] recently and only was home for a few weeks and then back in. She does not want to listen to me, will see how the patient progresses. Grace Rosario CNP 08/25/2021 1. CHF: weight has been stable at current Lasix dose. 2. CKD: cr has increased slightly, will continue to monitor as weights and CHF has been controlled on Lasix 40mg daily 3. Hypokalemia: will continue on potassium, dose adjusted due to elevated Cr. Will recheck lab in one week 4. Generalized weakness: continue in PT, will see if patient is safe to return to home with her sister or needing skilled care usp. She is not wanting skilled care usp and wants to return to her sister's by Thanksgiving time. 5. Atrial Fib: rate controlled on amiodarone and metoprolol. Will check TSH and CMP since patient is on amiodarone. 6. COPD: continue on oxygen Patient states breathing is doing better, she is on oxygen 2 liters at all t imes. She had an abnormal chest Xray and recommended to have a chest CT scan which she refuses. She states not being able to lay flat, and she has tried to be tilted upward and still can not do the scan. Offered anti-anxiety medication and transfer to [place] to have scan done, she refuses and will not have it done. She verbalizes understanding the risks of not doing the scans and states she has been told she needs a chest ct scan but refused and she refuses today again. Plan for her to go to [place] next week, she is still hoping to go home bu Thankstiffanie Rosario, [employer]
[2021-08-25] MEDS: COVID-19 VACC,MRNA(MODERNA)/PF 100 MCG/0.5 mL - 7.5 mL MDV IM ONE (11:54)
[2021-08-25] MEDS: Polyvinyl Alcohol 1.4% Ophth Soln 15 ML Bottle EYEBOTH SCH (19:59)
[2021-08-25] MEDS: Acetaminophen 325 MG Tab PO PRN (20:05)
[2021-08-25] MEDS: guaiFENesin/Dextromethorphan 100-10 MG/5 ML Soln 10 ML Cup PO PRN (21:53)
[2021-08-26] MEDS: Furosemide 40 MG Tab PO SCH (07:26)
[2021-08-26] MEDS: Potassium Chloride 20 MEQ Tab.ER PO SCH (07:26)
[2021-08-26] MEDS: atorvaSTATin 10 MG Tab PO SCH (07:26)
[2021-08-26] MEDS: Amiodarone 200 MG Tab PO SCH (07:27)
[2021-08-26] MEDS: Iron Polysaccharides Complex 150 MG Cap PO SCH (07:28)
[2021-08-26] MEDS: Metoprolol Tartrate 25 MG Tab PO SCH ×2 (07:28→20:01)
[2021-08-26] MEDS: Budesonide 0.5 MG/2 ML Neb Susp INH SCH ×2 (07:29→20:04)
[2021-08-26] MEDS: Magnesium Oxide 400 MG Tab PO SCH ×2 (07:30→17:45)
[2021-08-26] MEDS: Nystatin Topical Powder 15 GM Bottle TOP SCH ×3 (07:30→20:03)
[2021-08-26] MEDS: Gabapentin 100 MG Cap PO SCH ×2 (07:31→17:46)
[2021-08-26] MEDS: Polyvinyl Alcohol 1.4% Ophth Soln 15 ML Bottle EYEBOTH SCH (20:01)
[2021-08-26] MEDS: Acetaminophen 325 MG Tab PO PRN (20:04)
[2021-08-26] MEDS: guaiFENesin/Dextromethorphan 100-10 MG/5 ML Soln 10 ML Cup PO PRN (20:04)
[2021-08-26] MEDS: Menthol/Methyl Salicylate 85 GM Tube TOP PRN (20:06)
[2021-08-27] MEDS: Acetaminophen 325 MG Tab PO PRN ×2 (05:59→19:55)
[2021-08-27] MEDS: Albuterol/Ipratropium 3.0-0.5 MG/3 ML Neb Soln INH PRN (06:00)
[2021-08-27] MEDS: Potassium Chloride 20 MEQ Tab.ER PO SCH (08:25)
[2021-08-27] MEDS: Iron Polysaccharides Complex 150 MG Cap PO SCH (08:25)
[2021-08-27] MEDS: Amiodarone 200 MG Tab PO SCH (08:25)
[2021-08-27] MEDS: Furosemide 40 MG Tab PO SCH (08:26)
[2021-08-27] MEDS: Metoprolol Tartrate 25 MG Tab PO SCH ×2 (08:26→19:53)
[2021-08-27] MEDS: atorvaSTATin 10 MG Tab PO SCH (08:26)
[2021-08-27] MEDS: Magnesium Oxide 400 MG Tab PO SCH ×2 (08:27→17:34)
[2021-08-27] MEDS: Budesonide 0.5 MG/2 ML Neb Susp INH SCH ×2 (08:28→19:54)
[2021-08-27] MEDS: Nystatin Topical Powder 15 GM Bottle TOP SCH ×3 (08:28→19:53)
[2021-08-27] MEDS: Gabapentin 100 MG Cap PO SCH ×2 (08:29→17:35)
[2021-08-27] MEDS: Polyvinyl Alcohol 1.4% Ophth Soln 15 ML Bottle EYEBOTH SCH (19:52)
[2021-08-27] MEDS: Menthol/Methyl Salicylate 85 GM Tube TOP PRN (19:55)
[2021-08-28] MEDS: Amiodarone 200 MG Tab PO SCH (08:12)
[2021-08-28] MEDS: Iron Polysaccharides Complex 150 MG Cap PO SCH (08:12)
[2021-08-28] MEDS: Potassium Chloride 20 MEQ Tab.ER PO SCH (08:12)
[2021-08-28] MEDS: Furosemide 40 MG Tab PO SCH (08:13)
[2021-08-28] MEDS: atorvaSTATin 10 MG Tab PO SCH (08:13)
[2021-08-28] MEDS: Metoprolol Tartrate 25 MG Tab PO SCH (08:14)
[2021-08-28] MEDS: Magnesium Oxide 400 MG Tab PO SCH (08:14)
[2021-08-28] MEDS: Budesonide 0.5 MG/2 ML Neb Susp INH SCH (08:15)
[2021-08-28] MEDS: Nystatin Topical Powder 15 GM Bottle TOP SCH ×2 (08:15→13:47)
[2021-08-28] MEDS: Gabapentin 100 MG Cap PO SCH (08:15)
[2021-08-28] MEDS: Acetaminophen 325 MG Tab PO PRN (08:16)
[2021-08-28 09:12] LABS: ANION GAP 11.8 meq/L (7-15)
--- NOTE | 2021-08-28 12:43 | PCM.DCSUM1 ---
Discharge Summary - Hospital Course Free Text/Narrative:: Patient is a swingbed patient and needing further care and strengthening, is being transferred to [facility]. SHe has known CHF and becomes short of breath with little exertion. Diagnosis: Stroke: No - Discharge Data Discharge Date: 08/28/21 Discharge Disposition: DC/Tfer to SNF 03 Condition: Fair - Referral to Home Health Primary Care Physician: ARTHUR Adorno - Discharge Diagnosis/Problem(s) (1) Hypokalemia SNOMED Code(s): 31519639 ICD Code: E87.6 - HYPOKALEMIA Status: Acute Priority: Medium Current Visit: No Problem Details: Potassium level reviewed, continue on current dose (2) Afib SNOMED Code(s): 48642591 ICD Code: I48.91 - UNSPECIFIED ATRIAL FIBRILLATION Status: Chronic Priority: Medium Current Visit: No Problem Details: Hx paroxysmal Afib. Currently sinus rhythm. Continue home medications Qualifiers: (3) CHF (congestive heart failure) SNOMED Code(s): 45900688 ICD Code: I50.9 - HEART FAILURE, UNSPECIFIED Status: Chronic Priority: High Current Visit: No Problem Details: Echocardiogram performed April 2021. Continue on current dose of Lasix. Follow weights and kidney function. Labs reviewed and Cr has increased some, will continue on current dose and recheck BMP next week Qualifiers: (4) COPD (chronic obstructive pulmonary disease) SNOMED Code(s): 00286601 ICD Code: J44.9 - CHRONIC OBSTRUCTIVE PULMONARY DISEASE, UNSPECIFIED Status: Chronic Priority: High Current Visit: No Problem Details: Chronic supplemental O2. CO2 retainer. Currently satting well on her usual home O2 level of 2L per [place] Qualifiers: COPD type: chronic bronchitis (5) Chronic renal disease SNOMED Code(s): 077775534 ICD Code: N18.9 - CHRONIC KIDNEY DISEASE, UNSPECIFIED Status: Chronic Priority: Medium Current Visit: No Problem Details: Levels reviewed as inpatient, will follow in [facility] Qualifiers: (6) Peripheral edema SNOMED Code(s): 467881399 ICD Code: R60.9 - EDEMA, UNSPECIFIED Status: Chronic Priority: Medium Current Visit: No Problem Details: Chronic peripheral edema. - Patient Summary/Data Consults: Consultations 08/14/21 16:40 Consult to Case Management/Assistant Oceanographer [CONS] Routine OT Evaluation and Treatment [CONS] Routine PT Evaluation and Treatment [CONS] Routine - Patient Instructions Diet: Regular Diet as Tolerated Activity: As Tolerated, Elevate Extremity Driving: Do Not Drive Showering/Bathing: May Shower - Discharge Plan *PRESCRIPTION DRUG MONITORING PROGRAM REVIEWED*: No Prescriptions/Med Rec: Potassium Chloride [Klor-Con M20] 40 meq PO DAILY #90 tab.er Levothyroxine Sodium [Levothyroxine] 150 mcg PO DAILY #90 capsule Magnesium Oxide 400 mg PO BID #180 tablet Diclofenac Sodium [Voltaren 1% Gel] 1 gm TOP BID PRN #45 tube PRN Reason: Pain Home Medications: Home Meds Albuterol/Ipratropium [DuoNeb 3.0-0.5 MG/3 ML] 1 inh INH Q6H PRN 05/15/21 [History] Amiodarone [Cordarone] 200 mg PO DAILY 05/15/21 [History] Budesonide [Pulmicort] 1 inh INH BID 05/15/21 [History] Carboxymethylcellulose Sodium [Artificial Tears] 1 drop EYEBOTH TID PRN 05/15/21 [History] Carboxymethylcellulose Sodium [Refresh Liquigel 1%] 1 drop EYEBOTH BEDTIME 05/15/21 [History] Furosemide [Lasix] 40 mg PO BID@0800,1200 05/15/21 [History] Gabapentin [Neurontin] 100 mg PO BID 05/15/21 [History] Iron Polysaccharide Complex [Iferex 150] 150 mg PO DAILY 05/15/21 [History] Metoprolol Tartrate 12.5 mg PO BID 05/15/21 [History] Nystatin 1 dose TOP BID PRN 05/15/21 [History] atorvaSTATin Calcium [Atorvastatin Calcium] 10 mg PO DAILY 05/15/21 [History] Albuterol Sulfate [Albuterol Sulfate HFA] 8.5 gm INH QID PRN 08/08/21 [History] B12/Levomefolate Calcium/B-6 [Foltx Tablet] 1 each PO DAILY 08/08/21 [History] Budesonide/Formoterol Fumarate [Symbicort 160-4.5 Mcg Inhaler] 2 inh INH BID 08/08/21 [History] Ferrous Sulfate 325 mg PO BID 08/08/21 [History] Fluticasone Furoate [Arnuity Ellipta] 2 sprays NASBOTH DAILY 08/08/21 [History] Insulin Degludec [Tresiba] 20 unit SQ DAILY 08/08/21 [History] Multivit with Calcium,Iron,Min [One Daily Women's] 1 each PO DAILY 08/08/21 [History] Omeprazole 40 mg PO DAILY 08/08/21 [History] Semaglutide [Ozempic] 0.5 mg SQ SA@0800 08/08/21 [History] Diclofenac Sodium [Voltaren 1% Gel] 1 gm TOP BID PRN #45 tube 08/28/21 [Rx] Levothyroxine Sodium [Levothyroxine] 150 mcg PO DAILY #90 capsule 08/28/21 [Rx] Magnesium Oxide 400 mg PO BID #180 tablet 08/28/21 [Rx] Potassium Chloride [Klor-Con M20] 40 meq PO DAILY #90 tab.er 08/28/21 [Rx] Oxygen Therapy Mode: Nasal Cannula (2 liters) Oxygen Flow Rate (L/min): 2 - Discharge Summary/Plan Comment DC Time >30 min.: No Total # of Minutes for Discharge Time: 30 minutes Discharge Summary/Plan Comment: The patient is a 76 year old female who is discharged to [facility] today. LAbs from today are noted and TSH is low, Levothyroxine is adjusted. Will order follow up lab work. at [facility]. Continue in PT/OT and current medications. Grace Rosario CNP - Patient Data Vitals - Most Recent: Last Vital Signs Temp 97.6 F 08/28/21 08:00 Pulse 0 L 08/28/21 08:14 Resp 20 08/28/21 08:00 BP 0/0 L 08/28/21 08:14 Pulse Ox 99 08/28/21 08:00 Weight - Most Recent: 235 lb 1.6 oz I&O - Last 24 hours: Intake & Output 08/27/21 08/28/21 08/28/21 22:59 06:59 14:59 Intake Total 120 300 240 Balance 120 300 240 Lab Results - Last 24 hrs: Laboratory Results - last 24 hr 08/28/21 08/28/21 Range/Units 07:37 08:38 Sodium 146 H (136-145) mmol/L Potassium 4.1 (3.5-5.1) mmol/L Chloride 107 (98-107) mmol/L Carbon Dioxide 31.3 (21.0-32.0) mmol/L Anion Gap 11.8 (7-15) meq/L BUN 31 H (7-18) mg/dL Creatinine 1.80 H (0.51-1.17) mg/dL Est Cr Clr Drug Dosing 20.23 mL/min Estimated GFR (MDRD) 27 mL/min Glucose 129 H (70-99) mg/dL POC Glucose 82 (70-99) mg/dL Calcium 8.5 (8.5-10.1) mg/dL Total Bilirubin 1.0 (0.2-1.0) mg/dL AST 12 L (15-37) U/L ALT 10 L (12-78) U/L Alkaline Phosphatase 83 (46-116) IU/L Total Protein 6.4 (6.4-8.2) g/dL Albumin 3.3 L (3.4-5.0) g/dL TSH, Ultra Sensitive 0.207 L (0.358-3.740) mIU/mL Med Orders - Current: Current Medications Acetaminophen (Acetaminophen 325 Mg Tab) 650 mg PO Q4H PRN PRN Reason: Pain Last Admin: 08/28/21 08:16 Dose: 650 mg Documented by: Albuterol/Ipratropium (Albuterol/Ipratropium 3.0-0.5 Mg/3 Ml Neb Soln) 3 ml INH QID PRN PRN Reason: sob Last Admin: 08/27/21 06:00 Dose: 3 ml Documented by: Amiodarone HCl (Amiodarone 200 Mg Tab) 200 mg PO DAILY [facility] Last Admin: 08/28/21 08:12 Dose: 200 mg Documented by: Artificial Tears (Polyvinyl Alcohol 1.4% Ophth Soln 15 Ml Bottle) 1 ml EYEBOTH TID PRN PRN Reason: Dry Eyes Artificial Tears (Polyvinyl Alcohol 1.4% Ophth Soln 15 Ml Bottle) 0 ml EYEBOTH BEDTIME [facility] Last Admin: 08/27/21 19:52 Dose: 1 drop Documented by: Atorvastatin Calcium (Atorvastatin 10 Mg Tab) 10 mg PO DAILY [facility] Last Admin: 08/28/21 08:13 Dose: 10 mg Documented by: Budesonide (Budesonide 0.5 Mg/2 Ml Neb Susp) 0.5 mg INH Q12HR [facility] Last Admin: 08/28/21 08:15 Dose: 0.5 mg Documented by: Diclofenac Sodium (Diclofenac Sodium 1% Gel 100 Gm Tube) 1 gm TOP BID PRN PRN Reason: Pain Last Admin: 08/25/21 09:01 Dose: 1 gram Documented by: Furosemide (Furosemide 40 Mg Tab) 40 mg PO DAILY [facility] Last Admin: 08/28/21 08:13 Dose: 40 mg Documented by: Gabapentin (Gabapentin 100 Mg Cap) 100 mg PO BID [facility] Last Admin: 08/28/21 08:15 Dose: 100 mg Documented by: Guaifenesin/Dextromethorphan (Guaifenesin/Dextromethorphan 100-10 Mg/5 Ml Soln 10 Ml Cup) 10 ml PO Q4H PRN PRN Reason: Cough Last Admin: 08/26/21 20:04 Dose: 10 ml Documented by: Levothyroxine Sodium (Levothyroxine 175 Mcg Tab) 175 mcg PO ACBREAKFAST [facility] Last Admin: 08/28/21 08:27 Dose: 175 mcg Documented by: Magnesium Oxide (Magnesium Oxide 400 Mg Tab) 400 mg PO BID [facility] Last Admin: 08/28/21 08:14 Dose: 400 mg Documented by: Methyl Salicylate (Menthol/Methyl Salicylate 85 Gm Tube) 1 gm TOP QID PRN PRN Reason: Pain (mild 1-3) Last Admin: 08/27/21 19:55 Dose: 1 applic Documented by: Metoprolol Tartrate (Metoprolol Tartrate 25 Mg Tab) 12.5 mg PO Q12HR [facility] Last Admin: 08/28/21 08:14 Dose: 12.5 mg Documented by: Nystatin (Nystatin Topical Powder 15 Gm Bottle) 0 gm TOP TID@0800,1400,2000 [facility] Last Admin: 08/28/21 08:15 Dose: 1 applic Documented by: Polysaccharide Iron Complex (Iron Polysaccharides Complex 150 Mg Cap) 150 mg PO DAILY [facility] Last Admin: 08/28/21 08:12 Dose: 150 mg Documented by: Potassium Chloride (Potassium Chloride 20 Meq Tab.Er) 40 meq PO DAILY [facility] Last Admin: 08/28/21 08:12 Dose: 40 meq Documented by: Discontinued Medications COVID-19 Vaccine mRNA LNP-S (MOD) (PF) (Covid-19 Vacc,Mrna(Moderna)/Pf 100 Mcg/0.5 Ml - 7.5 Ml Mdv) 50 mcg IM .ONCE ONE Stop: 08/25/21 10:27 Last Admin: 08/25/21 11:54 Dose: 50 mcg Documented by: Cephalexin (Cephalexin 250 Mg Cap) 500 mg PO TID@0800,1400,2000 [facility] Stop: 08/24/21 20:01 Last Admin: 08/24/21 20:17 Dose: 500 mg Documented by: Dextrose/Water (50% Dextrose In Water 50 Ml Syringe) 50 ml IVPUSH ASDIRECTED PRN PRN Reason: Hypoglycemia Enoxaparin Sodium (Enoxaparin 30 Mg/0.3 Ml Syringe) 30 mg SUBCUT Q24H [facility] Last Admin: 08/22/21 14:18 Dose: Not Given Documented by: Insulin Degludec [ Tresiba] 100 Unit/Ml Vial 20 unit SQ DAILY [facility] Last Admin: 08/15/21 11:09 Dose: Not Given Documented by: Ondansetron HCl (Ondansetron 4 Mg Tab.Dis) 4 mg PO Q6H PRN PRN Reason: Nausea/Vomiting Last Admin: 08/19/21 11:46 Dose: 4 mg Documented by: Potassium Chloride (Potassium Chloride 20 Meq Tab.Er) 40 meq PO DAILY [facility] Potassium Chloride (Potassium Chloride 20 Meq Tab.Er) 40 meq PO BID [facility] Last Admin: 08/25/21 09:04 Dose: 40 meq Documented by: Tramadol HCl (Tramadol 50 Mg Tab) 50 mg PO Q6H PRN PRN Reason: Pain Last Admin: 08/19/21 04:10 Dose: 50 mg Documented by:
== END 2021-08-28 14:43 | DRG 948 ==
LOC: LL.MS 16:45 → LL.SWG 08-16 10:22
PROVIDERS: ADMIT Nurse Practitioner Family; ATTEND Nurse Practitioner Family
DX: R53.81 Other malaise (principal); I48.20 Chronic atrial fibrillation, unspecified; E87.6 Hypokalemia; I50.9 Heart failure, unspecified; J42 Unspecified chronic bronchitis; N18.9 Chronic kidney disease, unspecified; Z20.822 Contact with and (suspected) exposure to COVID-19
CPT/HCPCS: 0064A; 36415; 71046; 80048; 80053; 82947; 84443; 91301; 94640; 97110-GO; 97161-GP; 97530-GO; 97530-GP; 97535-GO; A9270-GY; J1650; J7620-GY; U0002

== ENCOUNTER 2021-10-01 02:42 | Inpatient (IN) | payer MEDICARE, BC ==
[2021-10-01] MEDS ORDERED: Furosemide 40 MG/4 ML VIAL IVPUSH ONE ×2 (02:59→13:43)
[2021-10-01] MEDS ORDERED: methylPREDNISolone Sodium Succinate 125 MG/2 ML SDV IVPUSH ONE (02:59)
[2021-10-01] MEDS: Sodium Chloride 0.9% 10 ML Syringe FLUSH PRN ×3 (03:35→18:45)
--- NOTE | 2021-10-01 03:38 | EDM.PDOC ---
ED HPI GENERAL MEDICAL PROBLEM - General Chief Complaint: Respiratory Problem Stated Complaint: RESPIRATORY DISTRESS/LETHARGY Time Seen by Provider: 10/01/21 03:10 Source of Information: Reports: Patient, Other (halfway ) History Limitations: Reports: No Limitations - History of Present Illness INITIAL COMMENTS - FREE TEXT/NARRATIVE: Patient sent to ER for evaluation of respiratory distress. Noted to have complaint of sore throat today. Has had sore throat with previous COPD/CHF exacerbations. Staff noted cough along with increased SOB over several days. Patient can u sually transfer by herself. Today took 1-2 staff to help her transfer. More lethargic. Usually on 2L NC O2, they bumped it to 3L and patient's sats 80%. Decreased to 67% when using toilet. Pursed lip breathing. Given DuoNeb at 2200 and 0200. Mucinex at 2000. Recent Covid test negative. No fevers. No GI changes reported. Denies congestion/runny nose. No new pain/body aches/headache. No UTI complaints. No new neuro changes/focal weakness. Patient says she has gained "a lot" of fluid weight over the past month and peripheral edema worse. 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 - Related Data Allergies Allergy/AdvReac Type Severity Reaction Status Date / Time metformin Allergy Liver Verified 08/14/21 19:23 Problems Home Meds: Home Meds Albuterol/Ipratropium [DuoNeb 3.0-0.5 MG/3 ML] 1 inh INH Q6H PRN 05/15/21 [History] Amiodarone [Cordarone] 200 mg PO DAILY 05/15/21 [History] Budesonide [Pulmicort] 1 inh INH BID 05/15/21 [History] Carboxymethylcellulose Sodium [Artificial Tears] 1 drop EYEBOTH TID PRN 05/15/21 [History] Carboxymethylcellulose Sodium [Refresh Liquigel 1%] 1 drop EYEBOTH BEDTIME 05/15/21 [History] Furosemide [Lasix] 40 mg PO BID@0800,1200 05/15/21 [History] Gabapentin [Neurontin] 100 mg PO BID 05/15/21 [History] Iron Polysaccharide Complex [Iferex 150] 150 mg PO DAILY 05/15/21 [History] Metoprolol Tartrate 12.5 mg PO BID 05/15/21 [History] Nystatin 1 dose TOP BID PRN 05/15/21 [History] atorvaSTATin Calcium [Atorvastatin Calcium] 10 mg PO DAILY 05/15/21 [History] Albuterol Sulfate [Albuterol Sulfate HFA] 8.5 gm INH QID PRN 08/08/21 [History] B12/Levomefolate Calcium/B-6 [Foltx Tablet] 1 each PO DAILY 08/08/21 [History] Budesonide/Formoterol Fumarate [Symbicort 160-4.5 Mcg Inhaler] 2 inh INH BID 08/08/21 [History] Ferrous Sulfate 325 mg PO BID 08/08/21 [History] Fluticasone Furoate [Arnuity Ellipta] 2 sprays NASBOTH DAILY 08/08/21 [History] Insulin Degludec [Tresiba] 20 unit SQ DAILY 08/08/21 [History] Multivit with Calcium,Iron,Min [One Daily Women's] 1 each PO DAILY 08/08/21 [History] Omeprazole 40 mg PO DAILY 08/08/21 [History] Semaglutide [Ozempic] 0.5 mg SQ SA@0800 08/08/21 [History] Diclofenac Sodium [Voltaren 1% Gel] 1 gm TOP BID PRN #45 tube 08/28/21 [Rx] Levothyroxine Sodium [Levothyroxine] 150 mcg PO DAILY #90 capsule 08/28/21 [Rx] Magnesium Oxide 400 mg PO BID #180 tablet 08/28/21 [Rx] Potassium Chloride [Klor-Con M20] 40 meq PO DAILY #90 tab.er 08/28/21 [Rx] Past Medical History HEENT History: Reports: Hard of Hearing, Impaired Vision, Other (See Below) Other HEENT History: [place] on R Cardiovascular History: Reports: Afib, Heart Failure, High Cholesterol, Hypertension, PVD Respiratory History: Reports: COPD Gastrointestinal History: Reports: GERD, Other (See Below) Musculoskeletal History: Reports: Arthritis Neurological History: Reports: Other (See Below) Endocrine/Metabolic History: Reports: Diabetes, Type II, Hypothyroidism Hematologic History: Reports: Anemia - Infectious Disease History Infectious Disease History: Reports: Other (See Below) - Past Surgical History HEENT Surgical History: Reports: Cataract Surgery GI Surgical History: Reports: Appendectomy, Cholecystectomy, Hernia, Abdominal, Hernia Repair/Other Neurological Surgical History: Reports: Other (See Below) Social & Family History - Family History Cardiac: Reports: CAD, PA Respiratory: Reports: COPD Oncologic: Reports: Liver, Lung, Thyroid - Caffeine Use Caffeine Use: Reports: None ED ROS GENERAL - Review of Systems Review Of Systems: Comprehensive ROS is negative, except as noted in HPI. ED EXAM, GENERAL - Physical Exam Exam: See Below Exam Limited By: No Limitations General Appearance: Alert, Anxious, Moderate Distress, Obese Eye Exam: Bilateral Eye: EOMI, PERRL Ears: Hearing Grossly Normal Nose: No: Nasal Deformity, Nasal Swelling, Nasal Drainage Throat/Mouth: Normal Lips, Normal Voice, No Airway Compromise Head: Atraumatic, Normocephalic Neck: Supple, Non-Tender Respiratory/Chest: Respiratory Distress, Decreased Breath Sounds (through out/poor inspiration), Rales, Wheezing, Accessory Muscle Use. No: Stridor Cardiovascular: Regular Rate, Rhythm, No Murmur GI/Abdominal: Soft, Non-Tender, Other (obese) (Female) Exam: Deferred Rectal (Female) Exam: Deferred Back Exam: No: Muscle Spasm Extremities: Non-Tender, Normal Capillary Refill, Other (4+ edema lower legs). No: Lencho's Sign, Increased Warmth, Mottled, Pallor, Redness Neurological: Alert, Oriented, Other (equal tone bilaterally) Psychiatric: Anxious Skin Exam: Warm, Dry, Intact, Normal Color Course - Vital Signs Last Recorded V/S: Last Vital Signs Temp 36.8 C 10/01/21 02:43 Pulse 61 10/01/21 02:43 Resp 34 H 10/01/21 02:43 BP 125/58 L 10/01/21 02:43 Pulse Ox 74 L 10/01/21 02:43 - Orders/Labs/Meds Orders: Active Orders 24 hr Category Date Time Status Nurse Communication: Isolation [RC] ASDIRECTED Care 10/01/21 03:02 Active Chest 1V Frontal [CR] Stat Exams 10/01/21 02:55 Taken BLOOD GAS ARTERIAL,POC [POC] Stat Lab 10/01/21 04:03 Results COVID-19/FLU A+B/RSV [MOLEC] Stat Lab 10/01/21 03:11 Ordered Sodium Chloride 0.9% [Saline Flush] Med 10/01/21 03:01 Active 10 ml FLUSH ASDIRECTED PRN Isolation [COMM] Routine Oth 10/01/21 03:01 Active Saline Lock Insert [OM.PC] Routine Oth 10/01/21 03:01 Ordered Medication Orders Methylprednisolone Sodium Succinate (Methylprednisolone Sodium Succinate 125 Mg/2 Ml Sdv) 125 mg IVPUSH Q12H LISSY Morphine Sulfate (Morphine 2 Mg/Ml Syringe) 1 mg SUBCUT Q2H PRN PRN Reason: Shortness of Breath Ondansetron HCl (Ondansetron 4 Mg/2 Ml Sdv) 4 mg IVPUSH Q6H PRN PRN Reason: Nausea/Vomiting Sodium Chloride (Sodium Chloride 0.9% 10 Ml Syringe) 10 ml FLUSH ASDIRECTED PRN PRN Reason: Keep Vein Open Last Admin: 10/01/21 03:35 Dose: 10 ml Documented by: HAROLDO Labs: Laboratory Tests 10/01/21 10/01/21 10/01/21 Range/Units 03:10 03:10 03:10 WBC 6.6 (4.0-10.2) K/uL RBC 2.74 L (3.77-5.09) M/uL Hgb 8.5 L (11.7-15.5) g/dL Hct 28.2 L (34.0-46.0) % MCV 102.9 H (84.0-98.0) fL MCH 31.0 (28.2-33.3) pg MCHC 30.1 L (31.7-36.0) g/dL RDW 18.0 H (11.2-14.1) % Plt Count 180 (150-350) K/uL Neut % (Auto) 70.8 (45.0-80.0) % Lymph % (Auto) 19.9 (10.0-50.0) % [place] % (Auto) 8.6 (2.0-14.0) % Eos % (Auto) 0.2 (0.0-5.0) % Baso % (Auto) 0.5 (0.0-2.0) % Neut # (Auto) 4.69 (1.40-7.00) K/uL Lymph # (Auto) 1.32 (0.50-3.50) K/uL [place] # (Auto) 0.57 (0.00-1.00) K/uL Eos # (Auto) 0.01 (0.00-0.50) K/uL Baso # (Auto) 0.03 (0.00-0.20) K/uL D-Dimer, Quantitative (0-400) ng/mL Sodium 142 (136-145) mmol/L Potassium 5.6 H* (3.5-5.1) mmol/L Chloride 105 (98-107) mmol/L Carbon Dioxide 33.2 H (21.0-32.0) mmol/L Anion Gap 9.4 (7-15) meq/L BUN 49 H (7-18) mg/dL Creatinine 2.60 H (0.51-1.17) mg/dL Est Cr Clr Drug Dosing TNP Estimated GFR (MDRD) 18 mL/min Glucose 120 H (70-99) mg/dL Lactic Acid 0.9 (0.4-2.0) mmol/L Calcium 8.8 (8.5-10.1) mg/dL Total Bilirubin 1.0 (0.2-1.0) mg/dL AST 35 (15-37) U/L ALT 34 (12-78) U/L Alkaline Phosphatase 75 (46-116) IU/L Troponin I High Sens 146 H* (<=51) ng/L NT-Pro-B Natriuret Pep 34345 H (0-125) pg/mL Total Protein 6.8 (6.4-8.2) g/dL Albumin 2.7 L (3.4-5.0) g/dL 10/01/21 Range/Units 03:10 WBC (4.0-10.2) K/uL RBC (3.77-5.09) M/uL Hgb (11.7-15.5) g/dL Hct (34.0-46.0) % MCV (84.0-98.0) fL MCH (28.2-33.3) pg MCHC (31.7-36.0) g/dL RDW (11.2-14.1) % Plt Count (150-350) K/uL Neut % (Auto) (45.0-80.0) % Lymph % (Auto) (10.0-50.0) % [place] % (Auto) (2.0-14.0) % Eos % (Auto) (0.0-5.0) % Baso % (Auto) (0.0-2.0) % Neut # (Auto) (1.40-7.00) K/uL Lymph # (Auto) (0.50-3.50) K/uL [place] # (Auto) (0.00-1.00) K/uL Eos # (Auto) (0.00-0.50) K/uL Baso # (Auto) (0.00-0.20) K/uL D-Dimer, Quantitative 1160 H (0-400) ng/mL Sodium (136-145) mmol/L Potassium (3.5-5.1) mmol/L Chloride (98-107) mmol/L Carbon Dioxide (21.0-32.0) mmol/L Anion Gap (7-15) meq/L BUN (7-18) mg/dL Creatinine (0.51-1.17) mg/dL Est Cr Clr Drug Dosing Estimated GFR (MDRD) mL/min Glucose (70-99) mg/dL Lactic Acid (0.4-2.0) mmol/L Calcium (8.5-10.1) mg/dL Total Bilirubin (0.2-1.0) mg/dL AST (15-37) U/L ALT (12-78) U/L Alkaline Phosphatase (46-116) IU/L Troponin I High Sens (<=51) ng/L NT-Pro-B Natriuret Pep (0-125) pg/mL Total Protein (6.4-8.2) g/dL Albumin (3.4-5.0) g/dL Meds: Medications Generic Name Dose Route Start Last Admin Trade Name Freq PRN Reason Stop Dose Admin Methylprednisolone Sodium Succinate 125 mg 10/01/21 16:00 Methylprednisolone Sodium Succinate 125 Mg/2 Ml Sdv IVPUSH Q12H LISSY Morphine Sulfate 1 mg 10/01/21 04:22 Morphine 2 Mg/Ml Syringe SUBCUT Q2H PRN Shortness of Breath Ondansetron HCl 4 mg 10/01/21 04:14 Ondansetron 4 Mg/2 Ml Sdv IVPUSH Q6H PRN Nausea/Vomiting Sodium Chloride 10 ml 10/01/21 03:01 10/01/21 03:35 Sodium Chloride 0.9% 10 Ml Syringe FLUSH 10 ml ASDIRECTED PRN Administration Keep Vein Open Discontinued Medications Generic Name Dose Route Start Last Admin Trade Name Jose Luisq PRN Reason Stop Dose Admin Furosemide 80 mg 10/01/21 02:59 10/01/21 03:24 Furosemide 40 Mg/4 Ml Vial IVPUSH 10/01/21 03:00 80 mg NOW ONE Administration Lorazepam 1 mg 10/01/21 03:40 10/01/21 04:20 Lorazepam 2 Mg/Ml Sdv IVPUSH 10/01/21 03:41 1 mg ONETIME ONE Administration Methylprednisolone Sodium Succinate 125 mg 10/01/21 02:59 10/01/21 03:24 Methylprednisolone Sodium Succinate 125 Mg/2 Ml Sdv IVPUSH 10/01/21 03:00 125 mg ONETIME ONE Administration Sodium Polystyrene Sulfonate 15 gm 10/01/21 04:21 Sodium Polystyrene Sulfonate 15 Gm/60 Ml Susp 60 Ml Bot PO 10/01/21 04:22 ONETIME ONE - Re-Assessments/Exams Free Text/Narrative Re-Assessment/Exam: 10/01/21 03:48 Labs/chest xray obtained. Patient given lasix, solu-medrol. Ativan given for anxiety. Chest xray showed what appears to be cardiac enlargement/COPD/CHF and what appears to be left sided pleural effusion. WBC normal. Patient's Hgb 8.5 which is about where patient usually runs. Hx of chronic anemia felt to be secondary to chronic disease. K 5.6 Trop 146 ProBNP 34,470 DDimer 1160 Creatinine 2.6 RSV + pH 7.3 Bicarb 32 pCO2 66 O2 sats 85% pO2 57 Patient denies any chest pain/anginal complaints. She is DNR/DNI and is refusing transfer from this facility, saying she prefers to stay here and have us do what we can to help and keep her comfortable. Unable to scan for possible accompanying PE given elevated creatinine. Elevation in high sensitivity troponin could be secondary to patient's CHF. EKG does show flipped Ts in ventricular leads. However when compared to EKG from two months ago there is a similar appearance. Plan at this time is to admit for CHF/COPD exacerbation with acute respiratory distress Departure - Departure Time of Disposition: 04:25 Disposition: Admitted As Inpatient 65 Condition: Serious Clinical Impression: Acute respiratory failure with hypoxemia, RSV (respiratory syncytial virus infection) - Discharge Information *PRESCRIPTION DRUG MONITORING PROGRAM REVIEWED*: Not Applicable *COPY OF PRESCRIPTION DRUG MONITORING REPORT IN PATIENT IRENA: Not Applicable Sepsis Event Note (ED) - Evaluation Sepsis Screening Result: No Definite Risk - Focused Exam Vital Signs: Vital Signs Temp Pulse Resp BP Pulse Ox 10/01/21 02:43 36.8 C 61 34 H 125/58 L 74 L - Problem List & Annotations (1) Acute respiratory failure with hypoxemia SNOMED Code(s): 201719524 Code(s): J96.01 - ACUTE RESPIRATORY FAILURE WITH HYPOXIA Status: Acute Priority: High Current Visit: Yes Onset Date: ~09/29/21 Annotation/Comment:: O2 at 3L at this time. Patient's O2 sats high 80s/low 90s. Aiming to keep below 95% as patient CO2 retainer. Solumedrol/Lasix/Nebs. Anticipate worsening renal function secondary to higher lasix doses. (2) RSV (respiratory syncytial virus infection) SNOMED Code(s): 63330301 Code(s): B97.4 - RESPIRATORY SYNCYTIAL VIRUS CAUSING DISEASES CLASSD ELSWHR Status: Acute Priority: High Current Visit: Yes Annotation/Comment:: Acute RSV infection. Treat with SoluMedrol/nebs/supplemental O2 (3) COPD (chronic obstructive pulmonary disease) SNOMED Code(s): 23273825 Code(s): J44.9 - CHRONIC OBSTRUCTIVE PULMONARY DISEASE, UNSPECIFIED Status: Chronic Priority: High Current Visit: Yes Annotation/Comment:: Chronic supplemental O2. CO2 retainer. Acute exacerbation secondary to RSV. Supplemental O2, agressive neb treatments, SoluMedrol Qualifiers: COPD type: COPD with acute exacerbation Qualified Code(s): J44.1 - Chronic obstructive pulmonary disease with (acute) exacerbation (4) Hyperkalemia SNOMED Code(s): 36274059 Code(s): E87.5 - HYPERKALEMIA Status: Acute Priority: Medium Current Visit: Yes Annotation/Comment:: Suspect secondary to chronic renal disease. Hold supplmental potassium. Kayexalate ordered. Recheck level in 12 hours. (5) Comfort measures only status SNOMED Code(s): 34676506389724 Code(s): Z51.5 - ENCOUNTER FOR PALLIATIVE CARE Status: Acute Priority: High Current Visit: Yes Annotation/Comment:: Patient does not wish for transfer to higher level of care. Is supportive of current interventions. (6) CHF (congestive heart failure) SNOMED Code(s): 75048291 Code(s): I50.9 - HEART FAILURE, UNSPECIFIED Status: Chronic Priority: High Current Visit: Yes Annotation/Comment:: Echocardiogram performed April 2021. Increased fluid/weight gain over past month. Lasix 80mg given in ER. Continue IV lasix/monitor renal function. Qualifiers: Heart failure type: diastolic Heart failure chronicity: acute on chronic Qualified Code(s): I50.33 - Acute on chronic diastolic (congestive) heart failure (7) Anemia SNOMED Code(s): 312332774 Code(s): D64.9 - ANEMIA, UNSPECIFIED Status: Chronic Priority: Low Current Visit: No Annotation/Comment:: Chronically low. Suspect anemia of chronic disease. Heme negative stools during April hospitalization. Observe. Qualifiers: Anemia type: due to chronic kidney disease Chronic kidney disease stage: stage 4 (severe) Qualified Code(s): N18.4 - Chronic kidney disease, stage 4 (severe); D63.1 - Anemia in chronic kidney disease (8) Hypothyroid SNOMED Code(s): 67592840 Code(s): E03.9 - HYPOTHYROIDISM, UNSPECIFIED Status: Chronic Priority: Low Current Visit: Yes Annotation/Comment:: Continue home medication Qualifiers: Hypothyroidism type: acquired Qualified Code(s): E03.9 - Hypothyroidism, unspecified (9) Hyperlipidemia SNOMED Code(s): 60715469 Code(s): E78.5 - HYPERLIPIDEMIA, UNSPECIFIED Status: Chronic Priority: Low Current Visit: No Annotation/Comment:: continue home medication Qualifiers: Hyperlipidemia type: unspecified Qualified Code(s): E78.5 - Hyperlipidemia, unspecified (10) HTN (hypertension) SNOMED Code(s): 32975316 Code(s): I10 - ESSENTIAL (PRIMARY) HYPERTENSION Status: Chronic Priority: Low Current Visit: Yes Annotation/Comment:: Observe trends. Blood pressures stable. Continue home medications. Qualifiers: Hypertension type: primary hypertension Qualified Code(s): I10 - Essential (primary) hypertension (11) Obesity, morbid SNOMED Code(s): 082167172 Code(s): E66.01 - MORBID (SEVERE) OBESITY DUE TO EXCESS CALORIES Status: Chronic Priority: Medium Current Visit: Yes Annotation/Comment:: Diet/lifestyle modifications recommended during inpatient stay. Will refer patient to personal consultant as outpatient after discharge if patient willing to meet with them. (12) GERD (gastroesophageal reflux disease) SNOMED Code(s): 703597252 Code(s): K21.9 - GASTRO-ESOPHAGEAL REFLUX DISEASE WITHOUT ESOPHAGITIS Status: Chronic Priority: Low Current Visit: No Annotation/Comment:: continue home meds. Stable per history Qualifiers: Esophagitis presence: esophagitis presence not specified Qualified Code(s): K21.9 - Gastro-esophageal reflux disease without esophagitis (13) Diabetes SNOMED Code(s): 58348427 Code(s): E11.9 - TYPE 2 DIABETES MELLITUS WITHOUT COMPLICATIONS Status: Chronic Priority: Medium Current Visit: No Annotation/Comment:: Accuchecks ordered. Placed on sliding scale Qualifiers: Diabetes mellitus type: type 2 Diabetes mellitus half-way insulin use: with half-way use Diabetes mellitus complication status: with kidney complications Diabetes mellitus complication detail: with chronic kidney disease Chronic kidney disease stage: stage 4 (severe) Qualified Code(s): E11.22 - Type 2 diabetes mellitus with diabetic chronic kidney disease; N18.4 - Chronic kidney disease, stage 4 (severe); Z79.4 - skilled nursing (current) use of insulin (14) Chronic renal disease SNOMED Code(s): 339571306 Code(s): N18.9 - CHRONIC KIDNEY DISEASE, UNSPECIFIED Status: Chronic Priority: Medium Current Visit: Yes Annotation/Comment:: Observe closely Qualifiers: Chronic kidney disease stage: stage 4 (severe) (15) Sleep apnea SNOMED Code(s): 51162026 Code(s): G47.30 - SLEEP APNEA, UNSPECIFIED Status: Chronic Priority: Medium Current Visit: No Annotation/Comment:: Started on autopap/bipap by Houstonia during recent hospitalization. Pending formal sleep study per D/C marcus Mccullough. Qualifiers: Sleep apnea type: unspecified type Qualified Code(s): G47.30 - Sleep apnea, unspecified (16) Anxiety SNOMED Code(s): 53198544 Code(s): F41.9 - ANXIETY DISORDER, UNSPECIFIED Status: Chronic Priority: Medium Current Visit: Yes Annotation/Comment:: Received Ativan in ER. - Problem List Review Problem List Initiated/Reviewed/Updated: Yes - My Orders Last 24 Hours: My Active Orders 10/01/21 02:55 Chest 1V Frontal [CR] Stat 10/01/21 03:01 Sodium Chloride 0.9% [Saline Flush] 10 ml FLUSH ASDIRECTED PRN Isolation [COMM] Routine Saline Lock Insert [OM.PC] Routine 10/01/21 03:02 Nurse Communication: Isolation [RC] ASDIRECTED 10/01/21 03:11 COVID-19/FLU A+B/RSV [MOLEC] Stat 10/01/21 04:03 BLOOD GAS ARTERIAL,POC [POC] Stat - Assessment/Plan Admission H&P: Please use this note as an admission H&P Last 24 Hours: My Active Orders 10/01/21 02:55 Chest 1V Frontal [CR] Stat 10/01/21 03:01 Sodium Chloride 0.9% [Saline Flush] 10 ml FLUSH ASDIRECTED PRN Isolation [COMM] Routine Saline Lock Insert [OM.PC] Routine 10/01/21 03:02 Nurse Communication: Isolation [RC] ASDIRECTED 10/01/21 03:11 COVID-19/FLU A+B/RSV [MOLEC] Stat 10/01/21 04:03 BLOOD GAS ARTERIAL,POC [POC] Stat Assessment:: as above RSV infection with accompanying acute respiratory failure/hypoxemia, worsening fluid retention/CHF Plan: As above. Anticipate 4 day stay depending on response to above interventions.
[2021-10-01] MEDS ORDERED: LORazepam 2 MG/ML SDV IVPUSH ONE (03:40)
[2021-10-01 03:45] LABS: CHLORIDE,CL 105 mmol/L (98-107); SODIUM,NA 142 mmol/L (136-145)
[2021-10-01 03:50] LABS: ANION GAP 9.4 meq/L (7-15)
[2021-10-01] MEDS ORDERED: Ondansetron 4 MG/2 ML SDV IVPUSH PRN (04:14)
[2021-10-01 04:15] LABS: PCO2 ARTERIAL,POC 66 mmHg (35-48)
[2021-10-01] MEDS ORDERED: Sodium Polystyrene Sulfonate 15 GM/60 ML Susp 60 ML Bot PO ONE (04:21)
[2021-10-01] MEDS ORDERED: Morphine 2 MG/ML SYRINGE SUBCUT PRN (04:22)
[2021-10-01 04:23] LABS: CORONAVIRUS COVID-19 NAA NEGATIVE (NEGATIVE); RESPIRATORY SYNCYTIAL VIR NAA POSITIVE (NEGATIVE)
[2021-10-01] MEDS ORDERED: Enoxaparin 30 MG/0.3 ML Syringe SUBCUT SCH (05:00)
[2021-10-01] MEDS ORDERED: Promethazine 25 MG/ML SDV IM PRN (05:01)
[2021-10-01] MEDS ORDERED: Albuterol/Ipratropium 3.0-0.5 MG/3 ML Neb Soln NEB SCH (08:00)
[2021-10-01] MEDS ORDERED: Furosemide 40 MG/4 ML VIAL IVPUSH SCH (08:00)
[2021-10-01] MEDS ORDERED: Nitroglycerin 2% Oint 1 GM UD Packet TOP ONE (10:01)
[2021-10-01] MEDS: Albuterol 0.083% 2.5 MG/3 ML Neb Soln NEB PRN ×2 (10:29→20:56)
[2021-10-01] MEDS: Azithromycin 500 MG in Sodium Chloride 0.9% 250 ML IV SCH (10:30)
--- NOTE | 2021-10-01 11:37 | PCM.SN.2 ---
- Free Text/Narrative Note: Assumed care at change of shift at 9 am. Patient is in heart failure, renal failure, and has RSV. She does not want transfer, bipap, Ct scans, invasive measures like thoracentesis. She did not have any output from the 80 mg of lasix. Was given solu medrol in the ED. Family has been notified and they want comfort measures. REviewed labs, x-ray. Will give a dose of azithromycin 500 mg daily, she tolerated this well, nitro paste 0.5 gm placed on her chest with imrovement of her breathing ( wetness). O2 sats maintaining low 90s with 4 lpm by nc. Will give some slow IV fluids if continues to tolerate the fluid already given in hopes of helping the kidneys recover and help with diuresis. IV doses of ativan and morphine given. patient is a DNI/DNR. This note is an update of her admission only.
[2021-10-01] MEDS: Albuterol/Ipratropium 3.0-0.5 MG/3 ML Neb Soln NEB SCH ×3 (12:48→19:10)
[2021-10-01] MEDS: Morphine 2 MG/ML SYRINGE IVPUSH PRN ×3 (13:02→18:42)
[2021-10-01] MEDS ORDERED: Sodium Chloride 0.9% 1,000 ML IV SCH (13:45)
--- NOTE | 2021-10-01 13:49 | PCM.SN.2 ---
- Free Text/Narrative Note: Patient is breathing easier, less labored, did have some urine output ( in a pull up) tolerating the 500 of azithromycin she received. Will give dose of lasix 40 mg IVP, then slow IV fluids to help with her WILLIE. lovenox started to prevent DVT due to improvement in breathing status. elías is still agreeable to no transfer, no invasive ventilation, procedures or testing. will continue azithromycin, nebs, nitro paste, lasix and slow IV lfuids. Morphine and ativan for comfort, air hunger
[2021-10-01] MEDS: Enoxaparin 30 MG/0.3 ML Syringe SUBCUT SCH (15:10)
[2021-10-01] MEDS ORDERED: methylPREDNISolone Sodium Succinate 125 MG/2 ML SDV IVPUSH SCH (16:00)
[2021-10-01] MEDS: Budesonide 0.25 MG/2 ML Neb Susp NEB SCH (19:10)
[2021-10-01] MEDS: LORazepam 2 MG/ML SDV IVPUSH PRN (20:57)
[2021-10-02] MEDS: Albuterol/Ipratropium 3.0-0.5 MG/3 ML Neb Soln NEB SCH ×7 (01:08→23:08)
[2021-10-02] MEDS: Morphine 2 MG/ML SYRINGE IVPUSH PRN (01:19)
[2021-10-02] MEDS: Sodium Chloride 0.9% 10 ML Syringe FLUSH PRN ×3 (01:20→13:24)
[2021-10-02] MEDS: Budesonide 0.25 MG/2 ML Neb Susp NEB SCH ×2 (07:05→20:24)
[2021-10-02 08:23] LABS: ANION GAP 12.4 meq/L (7-15)
[2021-10-02] MEDS: Azithromycin 500 MG in Sodium Chloride 0.9% 250 ML IV SCH (10:43)
[2021-10-02] MEDS ORDERED: Benzonatate 100 MG Cap PO PRN (11:49)
[2021-10-02] MEDS ORDERED: Nitroglycerin 2% Oint 1 GM UD Packet TOP ONE (12:00)
--- NOTE | 2021-10-02 12:07 | PCM.PN ---
- General Info Date of Service: 10/02/21 Admission Dx/Problem (Free Text): Admission Diagnosis/Problem Admission Diagnosis/Problem Acute respiratory failure with hypoxemia RSV WILLIE Subjective Update: Patient presented to the hospital in acute respiratory failure with RSV. Patient has been ill for some time with CKD and CHF. AT admission she declined bipap, transfer, invasive measures and was placed on comfort cares. See signout note. Patient has improved remarkably over the last 24 hours. She has responded well to increased nebs, IV azithromyin, two doses of lasix and nitro paste. she is now sitting up in a chair, rested comfortably all night, doing her nebs and pivot transfer to the commode. She is taking in fluids and had many visitors. Afebrile and participating in her care Functional Status: Reports: Pain Controlled, Tolerating Diet, Incentive Spirometry, Other (able to help with transfers to day) - Review of Systems General: Reports: Weakness HEENT: Reports: No Symptoms. Denies: Headaches, Post Nasal Drip, Sinus Congestion, Sore Throat Pulmonary: Reports: Shortness of Breath, Cough, Wheezing Cardiovascular: Reports: Orthopnea (does not lay flat to sleep ever) Gastrointestinal: Reports: No Symptoms. Denies: Abdominal Pain, Diarrhea, Nausea, Vomiting Genitourinary: Reports: No Symptoms, Other (able to get up to commode and maintain continence at most times) Skin: Reports: No Symptoms Neurological: Reports: No Symptoms - Patient Data Vitals - Most Recent: Last Vital Signs Temp 36.4 C 10/02/21 07:00 Pulse 75 10/02/21 07:00 Resp 24 H 10/02/21 07:00 BP 136/60 10/02/21 07:00 Pulse Ox 92 L 10/02/21 07:00 Weight - Most Recent: 102.058 kg Lab Results Last 24 Hours: Laboratory Results - last 24 hr 10/01/21 10/02/21 10/02/21 Range/Units 21:11 07:35 07:35 WBC 11.6 H (4.0-10.2) K/uL RBC 2.72 L (3.77-5.09) M/uL Hgb 8.4 L (11.7-15.5) g/dL Hct 28.0 L (34.0-46.0) % MCV 102.9 H (84.0-98.0) fL MCH 30.9 (28.2-33.3) pg MCHC 30.0 L (31.7-36.0) g/dL RDW 17.6 H (11.2-14.1) % Plt Count 244 (150-350) K/uL Neut % (Auto) 86.7 H (45.0-80.0) % Lymph % (Auto) 8.2 L (10.0-50.0) % [place] % (Auto) 5.1 (2.0-14.0) % Eos % (Auto) 0.0 (0.0-5.0) % Baso % (Auto) 0.0 (0.0-2.0) % Neut # (Auto) 10.08 H (1.40-7.00) K/uL Lymph # (Auto) 0.95 (0.50-3.50) K/uL [place] # (Auto) 0.59 (0.00-1.00) K/uL Eos # (Auto) 0.00 (0.00-0.50) K/uL Baso # (Auto) 0.00 (0.00-0.20) K/uL Sodium 145 (136-145) mmol/L Potassium 4.5 (3.5-5.1) mmol/L Chloride 105 (98-107) mmol/L Carbon Dioxide 32.1 H (21.0-32.0) mmol/L Anion Gap 12.4 (7-15) meq/L BUN 64 H (7-18) mg/dL Creatinine 2.72 H (0.51-1.17) mg/dL Est Cr Clr Drug Dosing 12.44 mL/min Estimated GFR (MDRD) 17 mL/min Glucose 135 H (70-99) mg/dL POC Glucose 251 H (70-99) mg/dL Calcium 8.8 (8.5-10.1) mg/dL Magnesium 2.6 H (1.8-2.4) mg/dL 10/02/21 Range/Units 07:46 WBC (4.0-10.2) K/uL RBC (3.77-5.09) M/uL Hgb (11.7-15.5) g/dL Hct (34.0-46.0) % MCV (84.0-98.0) fL MCH (28.2-33.3) pg MCHC (31.7-36.0) g/dL RDW (11.2-14.1) % Plt Count (150-350) K/uL Neut % (Auto) (45.0-80.0) % Lymph % (Auto) (10.0-50.0) % [place] % (Auto) (2.0-14.0) % Eos % (Auto) (0.0-5.0) % Baso % (Auto) (0.0-2.0) % Neut # (Auto) (1.40-7.00) K/uL Lymph # (Auto) (0.50-3.50) K/uL [place] # (Auto) (0.00-1.00) K/uL Eos # (Auto) (0.00-0.50) K/uL Baso # (Auto) (0.00-0.20) K/uL Sodium (136-145) mmol/L Potassium (3.5-5.1) mmol/L Chloride (98-107) mmol/L Carbon Dioxide (21.0-32.0) mmol/L Anion Gap (7-15) meq/L BUN (7-18) mg/dL Creatinine (0.51-1.17) mg/dL Est Cr Clr Drug Dosing mL/min Estimated GFR (MDRD) mL/min Glucose (70-99) mg/dL POC Glucose 122 H (70-99) mg/dL Calcium (8.5-10.1) mg/dL Magnesium (1.8-2.4) mg/dL Med Orders - Current: Current Medications Albuterol (Albuterol 0.083% 2.5 Mg/3 Ml Neb Soln) 5 mg NEB Q4HRRT PRN PRN Reason: Dyspnea Last Admin: 10/01/21 20:56 Dose: 5 mg Documented by: Albuterol/Ipratropium (Albuterol/Ipratropium 3.0-0.5 Mg/3 Ml Neb Soln) 3 ml NEB Q4HR LISSY Last Admin: 10/02/21 07:04 Dose: 3 ml Documented by: Benzonatate (Benzonatate 100 Mg Cap) 100 mg PO Q8H PRN PRN Reason: Cough Budesonide (Budesonide 0.25 Mg/2 Ml Neb Susp) 0.25 mg NEB BIDRT [facility] Last Admin: 10/02/21 07:05 Dose: 0.25 mg Documented by: Enoxaparin Sodium (Enoxaparin 30 Mg/0.3 Ml Syringe) 30 mg SUBCUT Q24H [facility] Last Admin: 10/01/21 15:10 Dose: 30 mg Documented by: Furosemide (Furosemide 40 Mg Tab) 40 mg PO DAILY [facility] Guaifenesin/Codeine Phosphate (Codeine/Guaifenesin 10-100 Mg/5 Ml Syrup 5 Ml Cup) 5 ml PO Q6H PRN PRN Reason: Cough Azithromycin 500 mg/ Sodium (Chloride) 250 mls @ 250 mls/hr IV Q24H [facility] Last Admin: 10/02/21 10:43 Dose: 250 mls/hr Documented by: Lorazepam (Lorazepam 2 Mg/Ml Sdv) 0.5 mg IVPUSH Q1H PRN PRN Reason: Agitation Last Admin: 10/01/21 20:57 Dose: 0.5 mg Documented by: Morphine Sulfate (Morphine 2 Mg/Ml Syringe) 2 mg IVPUSH Q1H PRN PRN Reason: Dyspnea Last Admin: 10/02/21 01:19 Dose: 2 mg Documented by: Nitroglycerin (Nitroglycerin 2% Oint 1 Gm Ud Packet) 1 gm TOP ONETIME ONE Stop: 10/02/21 12:01 Promethazine HCl (Promethazine 25 Mg/Ml Sdv) 25 mg IM Q6H PRN PRN Reason: Nausea Sodium Chloride (Sodium Chloride 0.9% 10 Ml Syringe) 10 ml FLUSH ASDIRECTED PRN PRN Reason: Keep Vein Open Last Admin: 10/02/21 10:44 Dose: 10 ml Documented by: Discontinued Medications Albuterol/Ipratropium (Albuterol/Ipratropium 3.0-0.5 Mg/3 Ml Neb Soln) 3 ml NEB BIDRT [facility] Last Admin: 10/01/21 07:44 Dose: 3 ml Documented by: Enoxaparin Sodium (Enoxaparin 30 Mg/0.3 Ml Syringe) 30 mg SUBCUT Q24H [facility] Last Admin: 10/01/21 08:13 Dose: Not Given Documented by: Furosemide (Furosemide 40 Mg/4 Ml Vial) 80 mg IVPUSH NOW ONE Stop: 10/01/21 03:00 Last Admin: 10/01/21 03:24 Dose: 80 mg Documented by: Furosemide (Furosemide 40 Mg/4 Ml Vial) 40 mg IVPUSH BID [facility] Last Admin: 10/01/21 08:13 Dose: Not Given Documented by: Furosemide (Furosemide 40 Mg/4 Ml Vial) 40 mg IVPUSH NOW ONE Stop: 10/01/21 13:44 Last Admin: 10/01/21 14:50 Dose: 40 mg Documented by: Sodium Chloride (Normal Saline) 1,000 mls @ 100 mls/hr IV ASDIRECTED [facility] Last Admin: 10/01/21 14:51 Dose: 100 mls/hr Documented by: Lorazepam (Lorazepam 2 Mg/Ml Sdv) 1 mg IVPUSH ONETIME ONE Stop: 10/01/21 03:41 Last Admin: 10/01/21 04:20 Dose: 1 mg Documented by: Methylprednisolone Sodium Succinate (Methylprednisolone Sodium Succinate 125 Mg/2 Ml Sdv) 125 mg IVPUSH ONETIME ONE Stop: 10/01/21 03:00 Last Admin: 10/01/21 03:24 Dose: 125 mg Documented by: Methylprednisolone Sodium Succinate (Methylprednisolone Sodium Succinate 125 Mg/2 Ml Sdv) 125 mg IVPUSH Q12H [facility] Morphine Sulfate (Morphine 2 Mg/Ml Syringe) 1 mg SUBCUT Q2H PRN PRN Reason: Shortness of Breath Last Admin: 10/01/21 08:04 Dose: 1 mg Documented by: Nitroglycerin (Nitroglycerin 2% Oint 1 Gm Ud Packet) 0.5 gm TOP ONETIME ONE Stop: 10/01/21 10:02 Last Admin: 10/01/21 10:30 Dose: 0.5 gm Documented by: Ondansetron HCl (Ondansetron 4 Mg/2 Ml Sdv) 4 mg IVPUSH Q6H PRN PRN Reason: Nausea/Vomiting Sodium Polystyrene Sulfonate (Sodium Polystyrene Sulfonate 15 Gm/60 Ml Susp 60 Ml Bot) 15 gm PO ONETIME ONE Stop: 10/01/21 04:22 Last Admin: 10/01/21 07:51 Dose: Not Given Documented by: - Exam Quality Assessment: Supplemental Oxygen General: Alert, Cooperative, Mild Distress (still with increased respirations but better) HEENT: Pupils Equal, EOMI Lungs: Decreased Breath Sounds (bases but improving), Wheezing (but improved over yesterday), Other (increased respiratory effort) Cardiovascular: Regular Rate, Regular Rhythm GI/Abdominal Exam: Normal Bowel Sounds, Soft, Non-Tender - Patient Data Lab Results Last 24 hrs: Laboratory Results - last 24 hr 10/01/21 10/02/21 10/02/21 Range/Units 21:11 07:35 07:35 WBC 11.6 H (4.0-10.2) K/uL RBC 2.72 L (3.77-5.09) M/uL Hgb 8.4 L (11.7-15.5) g/dL Hct 28.0 L (34.0-46.0) % MCV 102.9 H (84.0-98.0) fL MCH 30.9 (28.2-33.3) pg MCHC 30.0 L (31.7-36.0) g/dL RDW 17.6 H (11.2-14.1) % Plt Count 244 (150-350) K/uL Neut % (Auto) 86.7 H (45.0-80.0) % Lymph % (Auto) 8.2 L (10.0-50.0) % [place] % (Auto) 5.1 (2.0-14.0) % Eos % (Auto) 0.0 (0.0-5.0) % Baso % (Auto) 0.0 (0.0-2.0) % Neut # (Auto) 10.08 H (1.40-7.00) K/uL Lymph # (Auto) 0.95 (0.50-3.50) K/uL [place] # (Auto) 0.59 (0.00-1.00) K/uL Eos # (Auto) 0.00 (0.00-0.50) K/uL Baso # (Auto) 0.00 (0.00-0.20) K/uL Sodium 145 (136-145) mmol/L Potassium 4.5 (3.5-5.1) mmol/L Chloride 105 (98-107) mmol/L Carbon Dioxide 32.1 H (21.0-32.0) mmol/L Anion Gap 12.4 (7-15) meq/L BUN 64 H (7-18) mg/dL Creatinine 2.72 H (0.51-1.17) mg/dL Est Cr Clr Drug Dosing 12.44 mL/min Estimated GFR (MDRD) 17 mL/min Glucose 135 H (70-99) mg/dL POC Glucose 251 H (70-99) mg/dL Calcium 8.8 (8.5-10.1) mg/dL Magnesium 2.6 H (1.8-2.4) mg/dL 10/02/21 Range/Units 07:46 WBC (4.0-10.2) K/uL RBC (3.77-5.09) M/uL Hgb (11.7-15.5) g/dL Hct (34.0-46.0) % MCV (84.0-98.0) fL MCH (28.2-33.3) pg MCHC (31.7-36.0) g/dL RDW (11.2-14.1) % Plt Count (150-350) K/uL Neut % (Auto) (45.0-80.0) % Lymph % (Auto) (10.0-50.0) % [place] % (Auto) (2.0-14.0) % Eos % (Auto) (0.0-5.0) % Baso % (Auto) (0.0-2.0) % Neut # (Auto) (1.40-7.00) K/uL Lymph # (Auto) (0.50-3.50) K/uL [place] # (Auto) (0.00-1.00) K/uL Eos # (Auto) (0.00-0.50) K/uL Baso # (Auto) (0.00-0.20) K/uL Sodium (136-145) mmol/L Potassium (3.5-5.1) mmol/L Chloride (98-107) mmol/L Carbon Dioxide (21.0-32.0) mmol/L Anion Gap (7-15) meq/L BUN (7-18) mg/dL Creatinine (0.51-1.17) mg/dL Est Cr Clr Drug Dosing mL/min Estimated GFR (MDRD) mL/min Glucose (70-99) mg/dL POC Glucose 122 H (70-99) mg/dL Calcium (8.5-10.1) mg/dL Magnesium (1.8-2.4) mg/dL Result Diagrams: 10/02/21 07:35 10/02/21 07:35 Sepsis Event Note - Evaluation Sepsis Screening Result: Possible Sepsis Risk - Focused Exam Vital Signs: Vital Signs Temp Pulse Resp BP Pulse Ox 10/02/21 07:00 36.4 C 75 24 H 136/60 92 L - Problem List & Annotations (1) Acute respiratory failure with hypoxemia SNOMED Code(s): 569840846 Code(s): J96.01 - ACUTE RESPIRATORY FAILURE WITH HYPOXIA Status: Acute Priority: High Current Visit: Yes Onset Date: ~09/29/21 Annotation/C omment:: more alert today, on 4 lpm n nasal canula, tolerating nebs and will start incentive spirometer. O2 at 3L at this time. Patient's O2 sats high 80s/low 90s. Aiming to keep below 95% as patient CO2 retainer. Solumedrol/Lasix/Nebs. Anticipate worsening renal function secondary to higher lasix doses. (2) Hyperkalemia SNOMED Code(s): 19587349 Code(s): E87.5 - HYPERKALEMIA Status: Acute Priority: Medium Current Visit: Yes Annotation/Comment:: continues to be slightly elevated, CKD, will attempt kayexalate today. refused yesterday Suspect secondary to chronic renal disease. Hold supplmental potassium. Kayexalate ordered. Recheck level in 12 hours. (3) RSV (respiratory syncytial virus infection) SNOMED Code(s): 79717390 Code(s): B97.4 - RESPIRATORY SYNCYTIAL VIRUS CAUSING DISEASES CLASSD ELSWHR Status: Acute Priority: High Current Visit: Yes Annotation/Comment:: will start Po steroids and continues pulmonary toliet Acute RSV infection. Treat with SoluMedrol/nebs/supplemental O2 (4) CHF (congestive heart failure) SNOMED Code(s): 42453670 Code(s): I50.9 - HEART FAILURE, UNSPECIFIED Status: Chronic Priority: High Current Visit: Yes Qualifiers: Heart failure type: diastolic Heart failure chronicity: acute on chronic Qualified Code(s): I50.33 - Acute on chronic diastolic (congestive) heart failure Annotation/Comment:: responded well to nitro paste, some diuresis from lasix, need to continue diuresis gently and watch kidney disease. added I & O, daily weights, po lasix, nitro paste again today Echocardiogram performed April 2021. Increased fluid/weight gain over past month. Lasix 80mg given in ER. Continue IV lasix/monitor renal function. (5) Chronic renal disease SNOMED Code(s): 499719903 Code(s): N18.9 - CHRONIC KIDNEY DISEASE, UNSPECIFIED Status: Chronic Priority: Medium Current Visit: Yes Qualifiers: Chronic kidney disease stage: stage 4 (severe) Annotation/Comment:: renal function was improved recently, stable but not improved. IV hydration difficult due to CHF. Will continue to monitor, encourage po fluids, and work on resolution of chf prior to any aggressive type of correction of the creatinine. taking in orals Observe closely - Problem List Review Problem List Initiated/Reviewed/Updated: Yes - My Orders Last 24 Hours: My Active Orders 10/01/21 16:00 Enoxaparin [Lovenox] 30 mg SUBCUT Q24H 10/01/21 Dinner ADA Diabetic [[place] [employer] Diet] [DIET] 10/01/21 20:00 Budesonide [Pulmicort] 0.25 mg NEB BIDRT 10/01/21 20:05 Blood Glucose Check, Bedside [RC] WITHMEALSANDBED 10/02/21 11:49 Benzonatate [Tessalon Perles] 100 mg PO Q8H PRN Codeine/guaiFENesin [Robitussin AC] 5 ml PO Q6H PRN 10/02/21 11:52 Intake and Output [RC] DAILY 10/02/21 11:53 Height and Weight [RC] DAILY Incentive Spirometry [RT Incentive Spirometry] [RC] Q1HWA 10/02/21 12:00 Nitroglycerin [Nitro-Bid 2%] 1 gm TOP ONETIME ONE 10/02/21 12:15 Furosemide [Lasix] 40 mg PO DAILY 10/03/21 05:11 BASIC METABOLIC PANEL,BMP [CHEM] AM CBC WITH AUTO DIFF [HEME] AM MAGNESIUM [CHEM] AM 10/04/21 05:11 BASIC METABOLIC PANEL,BMP [CHEM] AM CBC WITH AUTO DIFF [HEME] AM MAGNESIUM [CHEM] AM - Assessment Assessment:: RSV pneumonia with hypoxemia and respiratory failure, improved over yesterday CKD with hyperkalemia, now alert and taking po fluids and has had some urine output - Plan Plan:: Continue aggressive nebs Dose 1 destiny nitro paste to chest today' start oral lasix 40 mg daily encourage po fluids dose of Kayexalate daily and follow labs start incentive spirometry start oral steroids and continue IV azithromycin
[2021-10-02] MEDS: Furosemide 40 MG Tab PO SCH (12:52)
[2021-10-02] MEDS: Sertraline 25 MG Tab PO SCH (12:52)
[2021-10-02] MEDS: Codeine/guaiFENesin 10-100 MG/5 ML Syrup 5 ML Cup PO PRN (12:53)
[2021-10-02] MEDS: LORazepam 2 MG/ML SDV IVPUSH PRN (13:21)
[2021-10-02] MEDS: predniSONE 20 MG Tab PO SCH (13:30)
[2021-10-02] MEDS: Sodium Polystyrene Sulfonate 15 GM/60 ML Susp 60 ML Bot PO SCH ×2 (13:30→20:24)
[2021-10-02] MEDS: Enoxaparin 30 MG/0.3 ML Syringe SUBCUT SCH (16:23)
[2021-10-02] MEDS: Ferrous Sulfate 325 MG Tab PO SCH (17:26)
[2021-10-02] MEDS: Gabapentin 100 MG Cap PO SCH (17:26)
[2021-10-02] MEDS ORDERED: atorvaSTATin 10 MG Tab PO SCH (20:00)
[2021-10-03] MEDS: Albuterol/Ipratropium 3.0-0.5 MG/3 ML Neb Soln NEB SCH ×2 (04:19→07:30)
[2021-10-03] MEDS ORDERED: Omeprazole 20 MG Cap.CR PO SCH (08:00)
[2021-10-03] MEDS ORDERED: Iron Polysaccharides Complex 150 MG Cap PO SCH (08:00)
[2021-10-03] MEDS ORDERED: Amiodarone 200 MG Tab PO SCH (08:00)
[2021-10-03] MEDS ORDERED: Levothyroxine 150 MCG Tab PO SCH (08:00)
[2021-10-03 08:15] LABS: ANION GAP 10.5 meq/L (7-15)
[2021-10-03] MEDS: LORazepam 2 MG/ML SDV IVPUSH PRN (09:04)
[2021-10-03] MEDS: Sodium Chloride 0.9% 10 ML Syringe FLUSH PRN (09:06)
[2021-10-03] MEDS: Codeine/guaiFENesin 10-100 MG/5 ML Syrup 5 ML Cup PO PRN (09:07)
[2021-10-03] MEDS: Budesonide 0.25 MG/2 ML Neb Susp NEB SCH (09:07)
[2021-10-03] MEDS: Gabapentin 100 MG Cap PO SCH (09:08)
[2021-10-03] MEDS: predniSONE 20 MG Tab PO SCH (09:09)
[2021-10-03] MEDS: Sertraline 25 MG Tab PO SCH (09:09)
[2021-10-03] MEDS: Ferrous Sulfate 325 MG Tab PO SCH (09:09)
[2021-10-03] MEDS: Furosemide 40 MG Tab PO SCH (09:09)
[2021-10-03] MEDS: Azithromycin 500 MG in Sodium Chloride 0.9% 250 ML IV SCH (09:10)
--- NOTE | 2021-10-03 10:29 | PCM.DCSUM1 ---
Discharge Summary - Hospital Course Free Text/Narrative:: Patient was admitted in respiratory failure wit RSV and comfort care measures were started. medications and nebulizers did improve her status and she is able to return to the longterm. ATivan has greatly helped her anxiety and air hunger. On 4 lmp nc now, doing incentive spirometry and nebs on her own. HPI Initial Comments: rsv, respiratory failure, chf and blake. Came in with comfort care. has rebounded and doing well Brief History: Patient is improved, has chronic renal issues, copd, chf, chronic pain. RSV now, improved and returning to longterm that is skilled and offer her the same cares as our facility Diagnosis: Stroke: No Modified Justin Scale: Mod.Sev.Disability ;Unable to Walk/Attend Bodily Needs W/O Assistance Modified Yee Scale Score: 4 - Discharge Data Discharge Date: 10/03/21 Discharge Disposition: DC/Tfer to [facility] Condition: Fair - Referral to Home Health Primary Care Physician: Leilani Jimenez MD - Discharge Diagnosis/Problem(s) (1) Acute respiratory failure with hypoxemia SNOMED Code(s): 937413822 ICD Code: J96.01 - ACUTE RESPIRATORY FAILURE WITH HYPOXIA Status: Acute Priority: High Current Visit: Yes Onset Date: ~09/29/21 Problem Details: Patient is on 3-4 lpm, doing incen tive spirometry and albuterol nebs, pivot transfer. Improved [facility] respiratoyr status more alert today, on 4 lpm n nasal canula, tolerating nebs and will start incentive spirometer. O2 at 3L at this time. Patient's O2 sats high 80s/low 90s. Aiming to keep below 95% as patient CO2 retainer. Solumedrol/Lasix/Nebs. Anticipate worsening renal function secondary to higher lasix doses. (2) Hyperkalemia SNOMED Code(s): 60887084 ICD Code: E87.5 - HYPERKALEMIA Status: Acute Priority: Medium Current Visit: Yes Problem Details: Did receive two doses of kayexalate yesterday, potassium 4.0. resolved continues to be slightly elevated, CKD, will attempt kayexalate today. refused yesterday Suspect secondary to chronic renal disease. Hold supplmental potassium. Kayexalate ordered. Recheck level in 12 hours. (3) RSV (respiratory syncytial virus infection) SNOMED Code(s): 09045129 ICD Code: B97.4 - RESPIRATORY SYNCYTIAL VIRUS CAUSING DISEASES CLASSD ELSWHR Status: Acute Priority: High Current Visit: Yes Problem Details: Improved, doing nebs and incentive spirometry, will continue at longterm. Will give three more days azithromycin and oral steroids. continue oxygen. Current outbreak at her longterm facility will start Po steroids and continues pulmonary toliet Acute RSV infection. Treat with SoluMedrol/nebs/supplemental O2 (4) CHF (congestive heart failure) SNOMED Code(s): 72318016 ICD Code: I50.9 - HEART FAILURE, UNSPECIFIED Status: Chronic Priority: High Current Visit: Yes Problem Details: Patient did have good diuresis and improved lung sounds and oxygenation with IV lasix, nitro paste to chest. work of breathing improved. will continue on home meds responded well to nitro paste, some diuresis from lasix, need to continue diuresis gently and watch kidney disease. added I & O, daily weights, po lasix, nitro paste again today Echocardiogram performed April 2021. Increased fluid/weight gain over past month. Lasix 80mg given in ER. Continue IV lasix/monitor renal function. Qualifiers: Heart failure type: diastolic Heart failure chronicity: acute on chronic Qualified Code(s): I50.33 - Acute on chronic diastolic (congestive) heart failure (5) Chronic renal disease SNOMED Code(s): 727662526 ICD Code: N18.9 - CHRONIC KIDNEY DISEASE, UNSPECIFIED Status: Chronic Priority: Medium Current Visit: Yes Problem Details: STable, not worsening but not at baseline. will have to continue to monitor outpatient, did not aggressively hydrate due to chf and respiratory failure, making urine renal function was improved recently, stable but not improved. IV hydration difficult due to CHF. Will continue to monitor, encourage po fluids, and work on resolution of chf prior to any aggressive type of correction of the creatinine. taking in orals Observe closely Qualifiers: Chronic kidney disease stage: stage 4 (severe) Qualified Code(s): N18.4 - Chronic kidney disease, stage 4 (severe) - Patient Summary/Data Consults: Consultations 10/01/21 04:14 Consult to Case Management/Multi Craft Maintenance Technician [CONS] Routine - Patient Instructions Diet: Usual Diet as Tolerated Fluid Restriction: 1500 mL Showering/Bathing: May Shower - Discharge Plan *PRESCRIPTION DRUG MONITORING PROGRAM REVIEWED*: Not Applicable *COPY OF PRESCRIPTION DRUG MONITORING REPORT IN PATIENT IRENA: Not Applicable Prescriptions/Med Rec: LORazepam [Ativan] 1 mg PO Q6H PRN #20 tablet PRN Reason: Agitation Azithromycin 250 mg PO DAILY 3 Days #3 tablet Morphine [Morphine 20 MG/ML Oral Soln] 10 mg PO Q4H PRN #100 ml PRN Reason: Pain predniSONE 40 mg PO WITHBREAKFAST 3 Days #6 tablet Benzonatate [Tessalon Perles] 100 mg PO Q8H PRN #30 cap PRN Reason: Cough Home Medications: Home Meds Amiodarone [Cordarone] 200 mg PO DAILY 05/15/21 [History] Carboxymethylcellulose Sodium [Refresh Liquigel 1%] 1 drop EYEBOTH BEDTIME 05/15/21 [History] Furosemide [Lasix] 40 mg PO BID@0800,1200 05/15/21 [History] Gabapentin [Neurontin] 100 mg PO BID 05/15/21 [History] Iron Polysaccharide Complex [Iferex 150] 150 mg PO DAILY 05/15/21 [History] Metoprolol Tartrate 12.5 mg PO BID 05/15/21 [History] Albuterol Sulfate [Albuterol Sulfate HFA] 8.5 gm INH Q6HR PRN 08/08/21 [History] Ferrous Sulfate 325 mg PO BID 08/08/21 [History] Multivit with Calcium,Iron,Min [One Daily Women's] 1 each PO DAILY 08/08/21 [History] Diclofenac Sodium [Voltaren 1% Gel] 1 gm TOP BID PRN #45 tube 08/28/21 [Rx] Levothyroxine Sodium [Levothyroxine] 150 mcg PO DAILY #90 capsule 08/28/21 [Rx] Magnesium Oxide 400 mg PO BID #180 tablet 08/28/21 [Rx] Potassium Chloride [Klor-Con M20] 40 meq PO DAILY #90 tab.er 08/28/21 [Rx] Acetaminophen 650 mg PO Q6H PRN MDD 3000 10/01/21 [History] Albuterol/Ipratropium [DuoNeb 3.0-0.5 MG/3 ML] 3 ml INH BID 10/01/21 [History] Albuterol/Ipratropium [DuoNeb 3.0-0.5 MG/3 ML] 3 ml INH Q4HR PRN 10/01/21 [History] Budesonide [Pulmicort] 0.5 mg IH BID 10/01/21 [History] Calcium Carb, Citrate/Vit D3 [Calcium + D3 ER Tablet] 1 each PO DAILY 10/01/21 [History] Fluticasone Propionate [Flovent HFA] 1 puff INH BID PRN 10/01/21 [History] Insulin Degludec [Tresiba] 20 unit SQ DAILY 10/01/21 [History] Omeprazole 40 mg PO DAILY 10/01/21 [History] Sertraline [Zoloft] 25 mg PO DAILY 10/01/21 [History] atorvaSTATin [Lipitor] 10 mg PO BEDTIME 10/01/21 [History] guaiFENesin [Mucinex] 600 mg PO BID PRN 10/01/21 [History] Albuterol [Proventil Neb Soln] 5 mg NEB Q4HRRT PRN neb 10/03/21 [Rx] Albuterol/Ipratropium [DuoNeb 3.0-0.5 MG/3 ML] 3 ml NEB Q4HR neb 10/03/21 [Rx] Azithromycin 250 mg PO DAILY 3 Days #3 tablet 10/03/21 [Rx] Benzonatate [Tessalon Perles] 100 mg PO Q8H PRN #30 cap 10/03/21 [Rx] Budesonide [Pulmicort] 0.25 mg NEB BIDRT neb 10/03/21 [Rx] Furosemide [Lasix] 40 mg PO DAILY tablet 10/03/21 [Rx] LORazepam [Ativan] 1 mg PO Q6H PRN #20 tablet 10/03/21 [Rx] Morphine [Morphine 20 MG/ML Oral Soln] 10 mg PO Q4H PRN #100 ml 10/03/21 [Rx] predniSONE 40 mg PO WITHBREAKFAST 3 Days #6 tablet 10/03/21 [Rx] Oxygen Therapy Mode: Nasal Cannula Oxygen Flow Rate (L/min): 4 Patient Handouts: Acute Respiratory Failure, Adult, Respiratory Syncytial Virus Infection, Adult Forms: ED Department Discharge Referrals: Leilani Jimenez MD [Primary Care Provider] - - Discharge Summary/Plan Comment DC Time >30 min.: Yes Total # of Minutes for Discharge Time: 40 - Patient Data Vitals - Most Recent: Last Vital Signs Temp 36.1 C 10/03/21 08:28 Pulse 78 10/02/21 23:07 Resp 22 H 10/03/21 08:28 BP 131/68 10/03/21 08:28 Pulse Ox 94 L 10/03/21 08:28 Weight - Most Recent: 102.058 kg Lab Results - Last 24 hrs: Laboratory Results - last 24 hr 10/02/21 10/02/21 10/03/21 Range/Units 17:24 21:11 07:45 WBC 6.6 (4.0-10.2) K/uL RBC 2.77 L (3.77-5.09) M/uL Hgb 8.5 L (11.7-15.5) g/dL Hct 28.3 L (34.0-46.0) % MCV 102.2 H (84.0-98.0) fL MCH 30.7 (28.2-33.3) pg MCHC 30.0 L (31.7-36.0) g/dL RDW 17.6 H (11.2-14.1) % Plt Count 277 (150-350) K/uL Neut % (Auto) 84.3 H (45.0-80.0) % Lymph % (Auto) 10.7 (10.0-50.0) % [place] % (Auto) 4.8 (2.0-14.0) % Eos % (Auto) 0.0 (0.0-5.0) % Baso % (Auto) 0.2 (0.0-2.0) % Neut # (Auto) 5.59 (1.40-7.00) K/uL Lymph # (Auto) 0.71 (0.50-3.50) K/uL [place] # (Auto) 0.32 (0.00-1.00) K/uL Eos # (Auto) 0.00 (0.00-0.50) K/uL Baso # (Auto) 0.01 (0.00-0.20) K/uL Sodium (136-145) mmol/L Potassium (3.5-5.1) mmol/L Chloride (98-107) mmol/L Carbon Dioxide (21.0-32.0) mmol/L Anion Gap (7-15) meq/L BUN (7-18) mg/dL Creatinine (0.51-1.17) mg/dL Est Cr Clr Drug Dosing mL/min Estimated GFR (MDRD) mL/min Glucose (70-99) mg/dL POC Glucose 163 H 135 H (70-99) mg/dL Calcium (8.5-10.1) mg/dL Magnesium (1.8-2.4) mg/dL 10/03/21 Range/Units 07:45 WBC (4.0-10.2) K/uL RBC (3.77-5.09) M/uL Hgb (11.7-15.5) g/dL Hct (34.0-46.0) % MCV (84.0-98.0) fL MCH (28.2-33.3) pg MCHC (31.7-36.0) g/dL RDW (11.2-14.1) % Plt Count (150-350) K/uL Neut % (Auto) (45.0-80.0) % Lymph % (Auto) (10.0-50.0) % [place] % (Auto) (2.0-14.0) % Eos % (Auto) (0.0-5.0) % Baso % (Auto) (0.0-2.0) % Neut # (Auto) (1.40-7.00) K/uL Lymph # (Auto) (0.50-3.50) K/uL [place] # (Auto) (0.00-1.00) K/uL Eos # (Auto) (0.00-0.50) K/uL Baso # (Auto) (0.00-0.20) K/uL Sodium 145 (136-145) mmol/L Potassium 4.0 (3.5-5.1) mmol/L Chloride 104 (98-107) mmol/L Carbon Dioxide 34.5 H (21.0-32.0) mmol/L Anion Gap 10.5 (7-15) meq/L BUN 63 H (7-18) mg/dL Creatinine 2.55 H (0.51-1.17) mg/dL Est Cr Clr Drug Dosing 13.27 mL/min Estimated GFR (MDRD) 18 mL/min Glucose 146 H (70-99) mg/dL POC Glucose (70-99) mg/dL Calcium 8.9 (8.5-10.1) mg/dL Magnesium 2.3 (1.8-2.4) mg/dL Med Orders - Current: Current Medications Albuterol (Albuterol 0.083% 2.5 Mg/3 Ml Neb Soln) 5 mg NEB Q4HRRT PRN PRN Reason: Dyspnea Last Admin: 10/01/21 20:56 Dose: 5 mg Documented by: Albuterol/Ipratropium (Albuterol/Ipratropium 3.0-0.5 Mg/3 Ml Neb Soln) 3 ml NEB Q4HR [facility] Last Admin: 10/03/21 07:30 Dose: 3 ml Documented by: Amiodarone HCl (Amiodarone 200 Mg Tab) 200 mg PO DAILY [facility] Last Admin: 10/03/21 09:08 Dose: 200 mg Documented by: Atorvastatin Calcium (Atorvastatin 10 Mg Tab) 10 mg PO BEDTIME [facility] Last Admin: 10/02/21 20:24 Dose: 10 mg Documented by: Benzonatate (Benzonatate 100 Mg Cap) 100 mg PO Q8H PRN PRN Reason: Cough Last Admin: 10/02/21 13:30 Dose: 100 mg Documented by: Budesonide (Budesonide 0.25 Mg/2 Ml Neb Susp) 0.25 mg NEB BIDRT [facility] Last Admin: 10/03/21 09:07 Dose: 0.25 mg Documented by: Enoxaparin Sodium (Enoxaparin 30 Mg/0.3 Ml Syringe) 30 mg SUBCUT Q24H [facility] Last Admin: 10/02/21 16:23 Dose: 30 mg Documented by: Ferrous Sulfate (Ferrous Sulfate 325 Mg Tab) 325 mg PO BID [facility] Last Admin: 10/03/21 09:09 Dose: 325 mg Documented by: Furosemide (Furosemide 40 Mg Tab) 40 mg PO DAILY [facility] Last Admin: 10/03/21 09:09 Dose: 40 mg Documented by: Gabapentin (Gabapentin 100 Mg Cap) 100 mg PO BID [facility] Last Admin: 10/03/21 09:08 Dose: 100 mg Documented by: Guaifenesin/Codeine Phosphate (Codeine/Guaifenesin 10-100 Mg/5 Ml Syrup 5 Ml Cup) 5 ml PO Q6H PRN PRN Reason: Cough Last Admin: 10/03/21 09:07 Dose: 5 ml Documented by: Azithromycin 500 mg/ Sodium (Chloride) 250 mls @ 250 mls/hr IV Q24H [facility] Last Admin: 10/03/21 09:10 Dose: 250 mls/hr Documented by: Levothyroxine Sodium (Levothyroxine 150 Mcg Tab) 150 mcg PO DAILY [facility] Last Admin: 10/03/21 09:08 Dose: 150 mcg Documented by: Lorazepam (Lorazepam 2 Mg/Ml Sdv) 0.5 mg IVPUSH Q1H PRN PRN Reason: Agitation Last Admin: 10/03/21 09:04 Dose: 0.5 mg Documented by: Morphine Sulfate (Morphine 2 Mg/Ml Syringe) 2 mg IVPUSH Q1H PRN PRN Reason: Dyspnea Last Admin: 10/02/21 01:19 Dose: 2 mg Documented by: Omeprazole (Omeprazole 20 Mg Cap.Cr) 40 mg PO DAILY [facility] Last Admin: 10/03/21 09:08 Dose: 40 mg Documented by: Polysaccharide Iron Complex (Iron Polysaccharides Complex 150 Mg Cap) 150 mg PO DAILY [facility] Last Admin: 10/03/21 09:09 Dose: 150 mg Documented by: Prednisone (Prednisone 20 Mg Tab) 40 mg PO WITHBREAKFAST [facility] Stop: 10/06/21 08:01 Last Admin: 10/03/21 09:09 Dose: 40 mg Documented by: Promethazine HCl (Promethazine 25 Mg/Ml Sdv) 25 mg IM Q6H PRN PRN Reason: Nausea Sertraline HCl (Sertraline 25 Mg Tab) 25 mg PO DAILY [facility] Last Admin: 10/03/21 09:09 Dose: 25 mg Documented by: Sodium Chloride (Sodium Chloride 0.9% 10 Ml Syringe) 10 ml FLUSH ASDIRECTED PRN PRN Reason: Keep Vein Open Last Admin: 10/03/21 09:06 Dose: 10 ml Documented by: Discontinued Medications Albuterol/Ipratropium (Albuterol/Ipratropium 3.0-0.5 Mg/3 Ml Neb Soln) 3 ml NEB BIDRT [facility] Last Admin: 10/01/21 07:44 Dose: 3 ml Documented by: Enoxaparin Sodium (Enoxaparin 30 Mg/0.3 Ml Syringe) 30 mg SUBCUT Q24H [facility] Last Admin: 10/01/21 08:13 Dose: Not Given Documented by: Furosemide (Furosemide 40 Mg/4 Ml Vial) 80 mg IVPUSH NOW ONE Stop: 10/01/21 03:00 Last Admin: 10/01/21 03:24 Dose: 80 mg Documented by: Furosemide (Furosemide 40 Mg/4 Ml Vial) 40 mg IVPUSH BID [facility] Last Admin: 10/01/21 08:13 Dose: Not Given Documented by: Furosemide (Furosemide 40 Mg/4 Ml Vial) 40 mg IVPUSH NOW ONE Stop: 10/01/21 13:44 Last Admin: 10/01/21 14:50 Dose: 40 mg Documented by: Sodium Chloride (Normal Saline) 1,000 mls @ 100 mls/hr IV ASDIRECTED [facility] Last Admin: 10/01/21 14:51 Dose: 100 mls/hr Documented by: Lorazepam (Lorazepam 2 Mg/Ml Sdv) 1 mg IVPUSH ONETIME ONE Stop: 10/01/21 03:41 Last Admin: 10/01/21 04:20 Dose: 1 mg Documented by: Methylprednisolone Sodium Succinate (Methylprednisolone Sodium Succinate 125 Mg/2 Ml Sdv) 125 mg IVPUSH ONETIME ONE Stop: 10/01/21 03:00 Last Admin: 10/01/21 03:24 Dose: 125 mg Documented by: Methylprednisolone Sodium Succinate (Methylprednisolone Sodium Succinate 125 Mg/2 Ml Sdv) 125 mg IVPUSH Q12H [facility] Morphine Sulfate (Morphine 2 Mg/Ml Syringe) 1 mg SUBCUT Q2H PRN PRN Reason: Shortness of Breath Last Admin: 10/01/21 08:04 Dose: 1 mg Documented by: Nitroglycerin (Nitroglycerin 2% Oint 1 Gm Ud Packet) 0.5 gm TOP ONETIME ONE Stop: 10/01/21 10:02 Last Admin: 10/01/21 10:30 Dose: 0.5 gm Documented by: Nitroglycerin (Nitroglycerin 2% Oint 1 Gm Ud Packet) 1 gm TOP ONETIME ONE Stop: 10/02/21 12:01 Last Admin: 10/02/21 12:53 Dose: 1 gm Documented by: Ondansetron HCl (Ondansetron 4 Mg/2 Ml Sdv) 4 mg IVPUSH Q6H PRN PRN Reason: Nausea/Vomiting Sodium Polystyrene Sulfonate (Sodium Polystyrene Sulfonate 15 Gm/60 Ml Susp 60 Ml Bot) 15 gm PO ONETIME ONE Stop: 10/01/21 04:22 Last Admin: 10/01/21 07:51 Dose: Not Given Documented by: Sodium Polystyrene Sulfonate (Sodium Polystyrene Sulfonate 15 Gm/60 Ml Susp 60 Ml Bot) 30 gm PO Q8H LISSY Stop: 10/04/21 12:31 Last Admin: 10/02/21 20:24 Dose: 30 gm Documented by:
== END 2021-10-03 11:40 | DRG 291 ==
LOC: LL.ED 02:42 → LL.MS 03:38
PROVIDERS: ADMIT Emergency Medicine; ATTEND Emergency Medicine
DX: I13.0 Hypertensive heart and chronic kidney disease with heart failure and stage 1 through stage 4 chronic kidney disease, or unspecified chronic kidney disease (principal); J96.01 Acute respiratory failure with hypoxia; I50.33 Acute on chronic diastolic (congestive) heart failure; R94.31 Abnormal electrocardiogram [ECG] [EKG]; J44.1 Chronic obstructive pulmonary disease with (acute) exacerbation; N18.4 Chronic kidney disease, stage 4 (severe); N17.9 Acute kidney failure, unspecified; I50.9 Heart failure, unspecified; Z51.5 Encounter for palliative care; H54.7 Unspecified visual loss; I11.0 Hypertensive heart disease with heart failure; J44.0 Chronic obstructive pulmonary disease with (acute) lower respiratory infection; H91.91 Unspecified hearing loss, right ear; I48.91 Unspecified atrial fibrillation; E78.00 Pure hypercholesterolemia, unspecified; I73.9 Peripheral vascular disease, unspecified; J44.9 Chronic obstructive pulmonary disease, unspecified; Z88.8 Allergy status to other drugs, medicaments and biological substances; Z79.890 Hormone replacement therapy; K21.9 Gastro-esophageal reflux disease without esophagitis; Z79.899 Other long term (current) drug therapy; M19.90 Unspecified osteoarthritis, unspecified site; E11.9 Type 2 diabetes mellitus without complications; E03.9 Hypothyroidism, unspecified; D64.9 Anemia, unspecified; Z66 Do not resuscitate; B97.4 Respiratory syncytial virus as the cause of diseases classified elsewhere; E87.5 Hyperkalemia; D63.1 Anemia in chronic kidney disease; E78.5 Hyperlipidemia, unspecified; E66.01 Morbid (severe) obesity due to excess calories; F41.9 Anxiety disorder, unspecified; G47.30 Sleep apnea, unspecified; E11.22 Type 2 diabetes mellitus with diabetic chronic kidney disease; Z79.4 Long term (current) use of insulin; Z98.49 Cataract extraction status, unspecified eye; Z90.49 Acquired absence of other specified parts of digestive tract; Z98.890 Other specified postprocedural states; Z20.822 Contact with and (suspected) exposure to COVID-19
CPT/HCPCS: 0241U; 36415; 36600; 71045; 80048; 80053; 82803; 82947; 83605; 83735; 83880; 84484; 85025; 85379; 94640; 96374; 96375; 99285-25; A9270-GY; J0456; J1650; J1940; J2060; J2270; J2930; J7030; J7050; J7512; J7613-GY; J7620-GY

== ENCOUNTER 2021-12-01 03:47 | Inpatient (IN) | payer MEDICARE, BC ==
[2021-12-01] MEDS ORDERED: Doxycycline Monohydrate 100 MG Cap PO ONE (05:40)
[2021-12-01 05:41] LABS: CORONAVIRUS COVID-19 NAA NEGATIVE (NEGATIVE); RESPIRATORY SYNCYTIAL VIR NAA NEGATIVE (NEGATIVE)
[2021-12-01] MEDS: cefTRIAXone 2 GM Vial IVPUSH SCH (05:51)
[2021-12-01] MEDS: Sodium Chloride 0.9% 10 ML Syringe FLUSH PRN ×3 (05:54→20:22)
[2021-12-01 06:59] LABS: CHLORIDE,CL 98 mmol/L (98-107); SODIUM,NA 142 mmol/L (136-145)
[2021-12-01 07:02] LABS: ANION GAP 7.5 meq/L (7-15)
[2021-12-01 07:05] LABS: PTT,PARTIAL THROMBOPLSTIN TIME 20.5 SEC (23.6-29.8)
[2021-12-01] MEDS: Albuterol/Ipratropium 3.0-0.5 MG/3 ML Neb Soln NEB SCH ×4 (09:14→20:21)
[2021-12-01] MEDS: methylPREDNISolone Sodium Succinate 125 MG/2 ML SDV IVPUSH SCH ×2 (09:14→20:21)
[2021-12-01] MEDS ORDERED: Bisacodyl 5 MG Tab PO PRN (13:31)
[2021-12-01] MEDS ORDERED: Albuterol 0.083% 2.5 MG/3 ML Neb Soln NEB PRN (13:31)
[2021-12-01] MEDS ORDERED: Diclofenac Sodium 1% Gel 100 GM Tube TOP PRN (15:23)
[2021-12-01] MEDS ORDERED: Morphine Oral Concentrate 20 MG/ML 30 ML Bottle PO PRN (16:00)
[2021-12-01] MEDS: Benzonatate 100 MG Cap PO PRN (17:51)
[2021-12-01] MEDS: LORazepam 0.5 MG Tab PO SCH (17:52)
[2021-12-01] MEDS: Docusate Sodium 100 MG Cap PO SCH (17:52)
[2021-12-01] MEDS: Doxycycline Monohydrate 100 MG Cap PO SCH (17:53)
[2021-12-01] MEDS: Ferrous Sulfate 325 MG Tab PO SCH (17:53)
[2021-12-01] MEDS: Magnesium Oxide 400 MG Tab PO SCH (17:54)
[2021-12-01] MEDS: Metoprolol Tartrate 25 MG Tab PO SCH (17:54)
[2021-12-01] MEDS: Gabapentin 100 MG Cap PO SCH (17:55)
[2021-12-01] MEDS ORDERED: Polyvinyl Alcohol 1.4% Ophth Soln 15 ML Bottle EYEBOTH SCH (20:00)
[2021-12-01] MEDS ORDERED: atorvaSTATin 10 MG Tab PO SCH (20:00)
[2021-12-01] MEDS: Budesonide 0.25 MG/2 ML Neb Susp NEB SCH (20:21)
[2021-12-01] MEDS: guaiFENesin 600 MG Tab.ER PO SCH (20:31)
[2021-12-02] MEDS: cefTRIAXone 2 GM Vial IVPUSH SCH (06:00)
[2021-12-02] MEDS: Sodium Chloride 0.9% 10 ML Syringe FLUSH PRN (06:00)
[2021-12-02] MEDS ORDERED: Levothyroxine 150 MCG Tab PO SCH (08:00)
[2021-12-02] MEDS ORDERED: Multivitamin Tab PO SCH (08:00)
[2021-12-02] MEDS ORDERED: Amiodarone 200 MG Tab PO SCH (08:00)
[2021-12-02] MEDS ORDERED: Insulin Glarg,Human.Rec.Analog 100 Unit/ML SUBCUT SCH (08:00)
[2021-12-02] MEDS ORDERED: Ascorbic Acid 500 MG Tab PO SCH (08:00)
[2021-12-02] MEDS ORDERED: Omeprazole 20 MG Cap.CR PO SCH (08:00)
[2021-12-02] MEDS ORDERED: Sertraline 50 MG Tab PO SCH (08:00)
[2021-12-02] MEDS ORDERED: Potassium Chloride 20 MEQ Tab.ER PO SCH (08:00)
[2021-12-02] MEDS ORDERED: Calcium Carbonate/Vitamin D3 1500 MG-400 Units Tab PO SCH (08:00)
[2021-12-02] MEDS: Benzonatate 100 MG Cap PO PRN (08:27)
[2021-12-02] MEDS: Albuterol/Ipratropium 3.0-0.5 MG/3 ML Neb Soln NEB SCH ×2 (08:28→11:17)
[2021-12-02] MEDS: methylPREDNISolone Sodium Succinate 125 MG/2 ML SDV IVPUSH SCH (08:28)
[2021-12-02] MEDS: Magnesium Oxide 400 MG Tab PO SCH (08:28)
[2021-12-02] MEDS: Metoprolol Tartrate 25 MG Tab PO SCH (08:52)
[2021-12-02] MEDS: Furosemide 40 MG Tab PO SCH ×2 (08:52→11:17)
[2021-12-02] MEDS: Gabapentin 100 MG Cap PO SCH (08:52)
[2021-12-02] MEDS: Budesonide 0.25 MG/2 ML Neb Susp NEB SCH (08:52)
[2021-12-02] MEDS: guaiFENesin 600 MG Tab.ER PO SCH (08:52)
[2021-12-02] MEDS: Docusate Sodium 100 MG Cap PO SCH (08:52)
[2021-12-02] MEDS: Ferrous Sulfate 325 MG Tab PO SCH (08:52)
[2021-12-02] MEDS: LORazepam 0.5 MG Tab PO SCH ×2 (08:53→11:16)
[2021-12-02] MEDS: Doxycycline Monohydrate 100 MG Cap PO SCH (08:53)
== END 2021-12-02 11:45 | DRG 193 ==
LOC: LL.ED 03:47 → LL.MS 06:10
PROVIDERS: ADMIT Physician Assistant; ATTEND Physician Assistant
DX: J15.9 Unspecified bacterial pneumonia (principal); J96.21 Acute and chronic respiratory failure with hypoxia; Y95 Nosocomial condition; I13.0 Hypertensive heart and chronic kidney disease with heart failure and stage 1 through stage 4 chronic kidney disease, or unspecified chronic kidney disease; J98.11 Atelectasis; J96.22 Acute and chronic respiratory failure with hypercapnia; I50.9 Heart failure, unspecified; H91.91 Unspecified hearing loss, right ear; J44.9 Chronic obstructive pulmonary disease, unspecified; H54.7 Unspecified visual loss; H91.90 Unspecified hearing loss, unspecified ear; I48.91 Unspecified atrial fibrillation; E78.00 Pure hypercholesterolemia, unspecified; E11.51 Type 2 diabetes mellitus with diabetic peripheral angiopathy without gangrene; J44.1 Chronic obstructive pulmonary disease with (acute) exacerbation; K21.9 Gastro-esophageal reflux disease without esophagitis; M19.90 Unspecified osteoarthritis, unspecified site; E03.9 Hypothyroidism, unspecified; D64.9 Anemia, unspecified; Z90.49 Acquired absence of other specified parts of digestive tract; Z98.49 Cataract extraction status, unspecified eye; Z98.890 Other specified postprocedural states; Z88.8 Allergy status to other drugs, medicaments and biological substances; Z79.890 Hormone replacement therapy; Z79.4 Long term (current) use of insulin; Z79.51 Long term (current) use of inhaled steroids; Z79.52 Long term (current) use of systemic steroids; Z79.899 Other long term (current) drug therapy; Z66 Do not resuscitate; N18.9 Chronic kidney disease, unspecified; E11.22 Type 2 diabetes mellitus with diabetic chronic kidney disease; Z20.822 Contact with and (suspected) exposure to COVID-19
CPT/HCPCS: 0241U; 36415; 71045; 80053; 83605; 83735; 83880; 84100; 84484; 85025; 85610; 85730; 86140; 87040; 93005; 93010; 94640; 94761; 99223; 99239; 99285-25; A9270-GY; J0696; J1815-GY; J2930; J7613-GY; J7620-GY